=== PATIENT | male | born 1930 | race Caucasian/White ===

== ENCOUNTER → 2017-04-25 | Outpatient (CLI) | payer MEDICARE ==
[~2017-04-25] MED LIST: ATRV10T PO; DIGO125T91 PO; METF-380 PO; RMP5C PO; WARF7.5T49 PO
--- NOTE | 2017-04-25 16:46 | Diagnostic Imaging Report ---
PROCEDURE: CT cervical spine without contrast. TECHNIQUE: Multiple contiguous axial images were obtained through the cervical spine without the use of intravenous contrast. Sagittal and coronal reformations were then performed. INDICATION: Neck pain. COMPARISON: CT cervical spine without contrast 04/30/2016. FINDINGS: Minimal anterolisthesis of C3 on C4. Alignment is otherwise unremarkable. Vertebral body heights are maintained. No acute fractures. Biapical scarring. Moderate arterial calcifications including the carotid bifurcations. The visualized paravertebral soft tissues are otherwise unremarkable. C2-C3: No substantial spinal canal or right neural foraminal narrowing. Uncovertebral and facet arthropathy result in moderate left neural foraminal narrowing. C3-C4: Posterior disc osteophyte complex results in mild spinal canal narrowing. Uncovertebral and facet arthropathy result in moderate bilateral neural foraminal narrowing. C4-C5: Posterior disc osteophyte complex results in mild spinal canal and advanced right neural foraminal narrowing. There is moderate left neural foraminal narrowing. C5-C6: Posterior disc osteophyte complex results in at least moderate spinal canal narrowing on this noncontrast exam. There is advanced bilateral neural foraminal narrowing. C6-C7: No substantial spinal canal narrowing. Uncovertebral and facet arthropathy result in moderate bilateral neural foraminal narrowing. C7-T1: No substantial spinal canal or neural foraminal narrowing. IMPRESSION: 1. No acute CT findings in the cervical spine. 2. Spondylotic changes result in at least moderate spinal canal narrowing at C5-C6 on this noncontrast exam. Additional levels of at least mild spinal canal narrowing detailed above. This could be better evaluated with CT myelogram or MRI. 3. Diffuse moderate and advanced neural foraminal narrowing also detailed above. Dictated by: Dictated on workstation # [id number]
== END ==
LOC: RAD 14:42
PROVIDERS: ATTEND Specialist
DX: M48.02 Spinal stenosis, cervical region (principal); M47.812 Spondylosis without myelopathy or radiculopathy, cervical region
CPT/HCPCS: 72125

== ENCOUNTER 2018-09-12 08:49 | Observation (INO) | payer MEDICARE ==
[~2018-09-12] VITALS: Ht 177.8 cm; Wt 81.9 kg
[2018-09-12] MEDS ORDERED: NS IV 500 ML 500 ML IV ONE (09:03)
[2018-09-12 09:09] LABS: BASOPHILS % (AUTO) 0 % (0-10); EOSINOPHILS # (AUTO) 0.4 10^3/uL (0.0-0.3); EOSINOPHILS % (AUTO) 4 % (0-10); HEMATOCRIT 35 % (40-54); HEMOGLOBIN 11.5 G/DL (13.3-17.7); LYMPHOCYTES # (AUTO) 2.4 X 10^3 (1.0-4.0); LYMPHOCYTES % (AUTO) 26 % (12-44); MEAN CORPUSCULAR HEMOGLOBIN 28 PG (25-34); MEAN CORPUSCULAR HGB CONC 33 G/DL (32-36); MEAN CORPUSCULAR VOLUME 85 FL (80-99); MEAN PLATELET VOLUME 9.8 FL (7.4-10.4); MONOCYTES # (AUTO) 0.9 X 10^3 (0.0-1.0); MONOCYTES % (AUTO) 10 % (0-12); NEUTROPHILS # (AUTO) 5.5 X 10^3 (1.8-7.8); NEUTROPHILS % (AUTO) 60 % (42-75); PLATELET COUNT 320 10^3/uL (130-400); RED BLOOD COUNT 4.16 10^6/uL (4.35-5.85); RED CELL DISTRIBUTION WIDTH 16.6 % (10.0-14.5); WHITE BLOOD COUNT 9.2 10^3/uL (4.3-11.0)
[2018-09-12 09:14] VITALS: BP_SYST 120; BP_SYST 126; BP_SYST 83; BP_DIAS 51; BP_DIAS 67; BP_DIAS 72
[2018-09-12 09:23] LABS: ALANINE AMINOTRANSFERASE 20 U/L (0-55); ALKALINE PHOSPHATASE 44 U/L (40-136); BILIRUBIN,TOTAL 0.5 MG/DL (0.1-1.0); BUN/CREATININE RATIO 15; CALCIUM 9.3 MG/DL (8.5-10.1); CARBON DIOXIDE 23 MMOL/L (21-32); CHLORIDE 97 MMOL/L (98-107); CREATININE SERUM 0.92 MG/DL (0.60-1.30); GFR ESTIMATED > 60; GLUCOSE 152 MG/DL (70-105); POTASSIUM 4.4 MMOL/L (3.6-5.0); SODIUM 133 MMOL/L (135-145); TOTAL PROTEIN 7.1 GM/DL (6.4-8.2)
[2018-09-12 09:37] LABS: INR 2.3 (0.8-1.4); PROTHROMBIN TIME PATIENT 25.1 SEC (12.2-14.7)
--- NOTE | 2018-09-12 09:55 | ED General ---
General Chief Complaint: Dizziness/Syncope Stated Complaint: NECK PAIN,DIZZINESS Nursing Triage Note: ARRIVED VIA EMS FROM HOME ET PT STATES HE WOKE UP DIZZY. Nursing Sepsis Screen: No Definite Risk Source of Information: Patient Exam Limitations: No Limitations History of Present Illness Date Seen by Provider: Sep 12, 2018 Time Seen by Provider: 09:00 Initial Comments Here with report of feeling dizzy when he woke up for some mild headache and neck pain. Apparently fell but was assisted to the ground per EMS report. Patient is on warfarin. Initial vital signs in the field showed his blood pressure to be in the 50s systolic when he was lying down it was normal in the 110s to 120 systolic. Orthostatic vital sign shortly after arrival here show that he is positive orthostatically. Denies nausea or vomiting. Denies fever or chills. Denies chest pain or breathing problems. Was seen for a normal checkup with his primary care provider yesterday. Timing/Duration: 1-3 Hours Severity: Moderate Associated Systoms: No Chest Pain, No Cough, No Fever/Chills; Headaches; No Nausea/Vomiting, No Shortness of Air; Syncope (near syncope), Weakness Allergies and Home Medications Allergies Coded Allergies: Penicillins (Verified Allergy, Mild, hives, 11/26/11) Home Medications Warfarin Sodium 7.5 Mg Tablet, 7.5 MG PO DAILY, (Reported) at 1900 daily Patient Home Medication List Home Medication List Reviewed: Yes Review of Systems Review of Systems Constitutional: see HPI; No chills, No fever EENTM: no symptoms reported Respiratory: No cough, No short of breath Cardiovascular: No chest pain, No edema, No palpitations Gastrointestinal: No abdominal pain, No nausea, No vomiting Genitourinary: no symptoms reported Musculoskeletal: No back pain; neck pain Skin: no symptoms reported Psychiatric/Neurological: See HPI, Headache, Weakness Hematologic/Lymphatic: No Symptoms Reported All Other Systems Reviewed Negative Unless Noted: Yes Past Kfenpwm-Usqeip-Rdcstn Hx Past Med/Social Hx: Reviewed Nursing Past Med/Soc Hx Patient Social History Alcohol Use: Denies Use Recreational Drug Use: No Smoking Status: Former Smoker Recent Foreign Travel: No Contact w/Someone Who Travel: No Recent Infectious Disease Expo: No Immunizations Up To Date Date of Pneumonia Vaccine: Nov 22, 2010 Date of Influenza Vaccine: Sep 11, 2018 Past Medical History Surgeries: Yes Respiratory: No Cardiac: Yes (HEART STENTS) Neurological: No Kidney Stones Gastrointestinal: No Musculoskeletal: Yes Arthritis Endocrine: Yes Diabetes, 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 oz. 68.948423tm; BMI Method:Stated General Appearance: No Apparent Distress, WD/WN HEENT: PERRL/EOMI, Pharynx Normal Neck: Non Tender, Supple Respiratory: Lungs Clear, Normal Breath Sounds Cardiovascular: Regular Rate, Rhythm, No Murmur Gastrointestinal: Non Tender, Soft Back: Normal Inspection, No CVA Tenderness, No Vertebral Tenderness Extremity: Normal Range of Motion, Non Tender Neurologic/Psychiatric: Alert, Oriented x3 Skin: Normal Color, Warm/Dry Progress/Results/Core Measures Suspected Sepsis Recent Fever Within 48 Hours: No Infection Criteria Present: None New/Unexplained Altered Menta: No Sepsis Screen: No Definite Risk SIRS Temperature:96.9 Pulse: 91 Respiratory Rate: 16 Laboratory Tests 09/12/18 08:50: White Blood Count 9.2 Blood Pressure 83 /51 Mean: 62 Laboratory Tests 09/12/18 08:50: Creatinine 0.92, Platelet Count 320, Total Bilirubin 0.5 09/12/18 09:08: INR Comment 2.3H Results/Orders Lab Results Laboratory Tests Test 09/12/18 08:50 09/12/18 09:08 09/12/18 10:12 Range/Units White Blood Count 9.2 4.3-11.0 10^3/uL Red Blood Count 4.16 L 4.35-5.85 10^6/uL Hemoglobin 11.5 L 13.3-17.7 G/DL Hematocrit 35 L 40-54 % Mean Corpuscular Volume 85 80-99 FL Mean Corpuscular Hemoglobin 28 25-34 PG Mean Corpuscular Hemoglobin Concent 33 32-36 G/DL Red Cell Distribution Width 16.6 H 10.0-14.5 % Platelet Count 320 130-400 10^3/uL Mean Platelet Volume 9.8 7.4-10.4 FL Neutrophils (%) (Auto) 60 42-75 % Lymphocytes (%) (Auto) 26 12-44 % Monocytes (%) (Auto) 10 0-12 % Eosinophils (%) (Auto) 4 0-10 % Basophils (%) (Auto) 0 0-10 % Neutrophils # (Auto) 5.5 1.8-7.8 X 10^3 Lymphocytes # (Auto) 2.4 1.0-4.0 X 10^3 Monocytes # (Auto) 0.9 0.0-1.0 X 10^3 Eosinophils # (Auto) 0.4 H 0.0-0.3 10^3/uL Basophils # (Auto) 0.0 0.0-0.1 10^3/uL Sodium Level 133 L 135-145 MMOL/L Potassium Level 4.4 3.6-5.0 MMOL/L Chloride Level 97 L 98-107 MMOL/L Carbon Dioxide Level 23 21-32 MMOL/L Anion Gap 13 5-14 MMOL/L Blood Urea Nitrogen 14 7-18 MG/DL Creatinine 0.92 0.60-1.30 MG/DL Estimat Glomerular Filtration Rate > 60 BUN/Creatinine Ratio 15 Glucose Level 152 H 70-105 MG/DL Calcium Level 9.3 8.5-10.1 MG/DL Corrected Calcium 9.3 8.5-10.1 MG/DL Total Bilirubin 0.5 0.1-1.0 MG/DL Aspartate Amino Transf (AST/SGOT) 19 5-34 U/L Alanine Aminotransferase (ALT/SGPT) 20 0-55 U/L Alkaline Phosphatase 44 40-136 U/L Total Protein 7.1 6.4-8.2 GM/DL Albumin 4.0 3.2-4.5 GM/DL Prothrombin Time 25.1 H 12.2-14.7 SEC INR Comment 2.3 H 0.8-1.4 Activated Partial Thromboplast Time 26 24-35 SEC Urine Color YELLOW Urine Clarity CLEAR Urine pH 7 5-9 Urine Specific [place] 1.005 L 1.016-1.022 Urine Protein NEGATIVE NEGATIVE Urine Glucose (UA) NEGATIVE NEGATIVE Urine Ketones NEGATIVE NEGATIVE Urine Nitrite NEGATIVE NEGATIVE Urine Bilirubin NEGATIVE NEGATIVE Urine Urobilinogen NORMAL NORMAL MG/DL Urine Leukocyte Esterase NEGATIVE NEGATIVE Urine RBC (Auto) NEGATIVE NEGATIVE Urine RBC RARE /HPF Urine WBC RARE /HPF Urine Squamous Epithelial Cells RARE /HPF Urine Renal Epithelial Cells NONE /HPF Urine Crystals NONE /LPF Urine Bacteria NEGATIVE /HPF Urine Casts PRESENT /LPF Urine Hyaline Casts 2-5 H /LPF Urine Granular Casts RARE /LPF Urine Mucus NEGATIVE /LPF Urine Culture Indicated NO My Orders Orders - TRESA SAMPSON MD Ct Head/Cervical Spine Wo (09/12/18 09:03) Saline Lock/Iv-Start (09/12/18 09:03) Cbc With Automated Diff (09/12/18 09:03) Comprehensive Metabolic Panel (09/12/18 09:03) Protime With Inr (09/12/18:03) Partial Thromboplastin Time (09/12/18 09:03) Ua Culture If Indicated (09/12/18 09:03) Ns Iv 500 Ml (Sodium Chloride 0.9%) (09/12/18 09:03) Ekg Tracing (09/12/18 09:03) Monitor-Rhythm Ecg Trace Only (09/12/18 09:03) Medications Given in ED Current Medications Medications Dose Ordered Sig/Vielka Route Start Time Stop Time Status Last Admin Dose Admin Sodium Chloride 500 ml @ 0 mls/hr Q0M ONCE IV 09/12/18 09:03 09/12/18 09:05 DC 09/12/18 09:17 500 MLS/HR Vital Signs/I&O 09/12/18 09/12/18 09/12/18 08:49 09:14 10:45 Temp 96.9 Pulse 78 76 87 70 90 91 103 Resp 16 B/P (MAP) 117/70 (86) 126/72 (90) 120/67 (84) 125/70 (88) 83/51 (62) 97/56 (70) 76/55 (62) Pulse Ox 95 O2 Delivery Room Air Capillary Refill : Less Than 3 Seconds Blood Pressure Mean: 62 Progress Note : Progress Note Seen and evaluated. IV by EMS. Labs, EKG, CT head and neck and UA ordered. Monitor patient. 1150: Normal saline 500 mL bolus has been instilled. Recheck orthostatic vital signs and patient is still markedly positive with systolic blood pressure in the 70s when standing. No other significant or acute findings. I did discuss the case with Dr. Perez and she accepts patient for admission, observation status. We will continue IV fluids. Patient is on oral glycemia medicines as well as blood pressure medicines. We will hold that for now. The is going home to get his medication bottles to help with dosing. Patient has doctor in [place] that he wants to transfer to [place]. He is considering Dr. David Aguilera. Admit, observation status. Patient and family agree with plan. ECG Initial ECG Impression Date: Sep 12, 2018 Initial ECG Impression Time: 09:39 Initial ECG Rate: 74 Initial ECG Rhythm: Normal Sinus Comment Sinus rhythm with normal axis. No evidence of ST elevation [place]. Similar to previous of 04/30/16. Interpreted by me. Diagnostic Imaging Diagonstic Imaging: CT Plain Films/CT/US/NM/MRI: c-spine, head Comments VIA [facility], [facility]. [place], [place] NAME: AMANDA SOTELO [facility] REC#: [id number] PT STATUS: REG ER : 1930 PHYSICIAN: TRESA SAMPSON MD ADMIT DATE: 09/12/18/ER Draft Date of Exam:09/12/18 CT HEAD/CERVICAL SPINE WO PROCEDURE: CT head and CT cervical spine without contrast. TECHNIQUE: Multiple contiguous axial images were obtained through the brain and cervical spine without the use of intravenous contrast. Sagittal and coronal reformations through the cervical spine were then performed. INDICATION: Fall and neck pain. Comparison is made with prior CT from 04/30/2016. CT head: The ventricles and sulci are appropriate for the patient's age. Moderate periventricular hypodensity is noted consistent with senescent change. No sulcal effacement is seen. There is no midline shift. No acute intra-axial or extra-axial hemorrhage is detected. The cisterns are patent. The visualized paranasal sinuses are clear. IMPRESSION: Senescent changes. No acute intracranial process is detected. CT cervical spine: Correlation is made with CT cervical spine from 04/25/2017. Curvature of the cervical spine is normal. Minimal retrolisthesis C5 on C6 is seen. There is multilevel degenerative disc disease with disc space narrowing and marginal spurring, greatest at C4-5, C5-6 and C6-7 levels. No fractures are identified. The prevertebral tissues are within normal limits. The odontoid is intact. IMPRESSION: Cervical spondylosis. No acute bony abnormality is detected. Dictated on workstation # [id number] Dict: 09/12/1851 Trans: 09/12/1857 [facility], [facility]–1983 [id number] Interpreted by: RUTHIE SANDRA MD Electronically signed by: Departure Communication (Admissions) Time/Spoke to Admitting Phy: 10:53 Impression Primary Impression: Orthostatic hypotension Disposition: ADMITTED INPATIENT Condition: Stable Admissions Decision to Admit Reason: Admit from ER (General) Decision to Admit/Date: Sep 12, 2018 Time/Decision to Admit Time: 10:53 Departure-Patient Inst. Referrals: CHELSEA QUINTANILLA MD (PCP/Family) Primary Care Physician TRESA SAMPSON MD Sep 12, 2018 09:55
--- NOTE | 2018-09-12 09:58 | Diagnostic Imaging Report ---
PROCEDURE: CT head and CT cervical spine without contrast. TECHNIQUE: Multiple contiguous axial images were obtained through the brain and cervical spine without the use of intravenous contrast. Sagittal and coronal reformations through the cervical spine were then performed. INDICATION: Fall and neck pain. Comparison is made with prior CT from 04/30/2016. CT head: The ventricles and sulci are appropriate for the patient's age. Moderate periventricular hypodensity is noted consistent with senescent change. No sulcal effacement is seen. There is no midline shift. No acute intra-axial or extra-axial hemorrhage is detected. The cisterns are patent. The visualized paranasal sinuses are clear. IMPRESSION: Senescent changes. No acute intracranial process is detected. CT cervical spine: Correlation is made with CT cervical spine from 04/25/2017. Curvature of the cervical spine is normal. Minimal retrolisthesis C5 on C6 is seen. There is multilevel degenerative disc disease with disc space narrowing and marginal spurring, greatest at C4-5, C5-6 and C6-7 levels. No fractures are identified. The prevertebral tissues are within normal limits. The odontoid is intact. IMPRESSION: Cervical spondylosis. No acute bony abnormality is detected. Dictated by: Dictated on workstation # [id number]
[2018-09-12 10:22] LABS: BILIRUBIN,URINE NEGATIVE (NEGATIVE); CLARITY,URINE CLEAR; COLOR,URINE YELLOW; GLUCOSE, URINE (UA) NEGATIVE (NEGATIVE); KETONES,URINE NEGATIVE (NEGATIVE); LEUKOCYTE ESTERASE ,URINE NEGATIVE (NEGATIVE); NITRITE,URINE NEGATIVE (NEGATIVE); PH,URINE 7 (5-9); PROTEIN,URINE NEGATIVE (NEGATIVE); UROBILINOGEN,URINE NORMAL (NORMAL)
[2018-09-12 10:43] LABS: BACTERIA,URINE NEGATIVE /HPF; GRANULAR CASTS,URINE RARE /LPF; RBC,URINE RARE /HPF; SQUAMOUS EPITHELIAL CELL,UR RARE /HPF; WBC,URINE RARE /HPF
[2018-09-12 10:45] VITALS: BP_SYST 125; BP_SYST 76; BP_SYST 97; BP_DIAS 55; BP_DIAS 56; BP_DIAS 70
[2018-09-12 11:45] VITALS: BP 128/64
[2018-09-12] MEDS ORDERED: CATHETER FLUSH 10 ML SYR IV PRN (12:15)
[2018-09-12] MEDS: NS IV 1000 ML 1,000 ML IV SCH ×2 (12:17→21:09)
[2018-09-12] MEDS ORDERED: MAGN400T50 PO (13:16)
[2018-09-12] MEDS ORDERED: METF-399 PO (13:16)
[2018-09-12] MEDS ORDERED: WARF6TAB49 PO (13:16)
[2018-09-12] MEDS ORDERED: CARV3.122 PO (13:16)
[2018-09-12] MEDS ORDERED: FURO20TA4 PO (13:16)
[2018-09-12] MEDS ORDERED: POTA-51 PO (13:16)
[2018-09-12] MEDS ORDERED: GLIM1TAB PO (13:16)
[2018-09-12] MEDS ORDERED: ONDANSETRON 4 MG/2 ML (SDV) Z0FRAN IV PRN (14:00)
[2018-09-12] MEDS ORDERED: MILK OF MAGNESIA 400 MG/5 ML 30 ML UDC PO PRN (14:00)
[2018-09-12] MEDS ORDERED: ACETAMINOPHEN 500 MG TAB (TYLENOL) PO PRN (14:00)
[2018-09-12] MEDS ORDERED: ANTACID SUSP 30 ML UDC (MYLANTA) PO PRN (14:00)
[2018-09-12] MEDS ORDERED: MELATONIN 3 MG TABLET PO PRN (14:00)
[2018-09-12] MEDS ORDERED: ACETAMINOPHEN 325 MG TABLET PO PRN (14:30)
--- NOTE | 2018-09-12 15:22 | History & Physical-Hospitalist ---
History of Present Illness HPI/Chief Complaint Pt is an 88yoCM with a PMH of CAD, HTN, and NIDDMII who presented to the ER due to syncope. He states that he was sitting in a chair in his kitchen and was going to stand up to go to the bathroom and then woke up on the floor. His states that did not get up and just passed out from the chair. He was only out for a few seconds. EMS was called and on arrival found him to be very hypotensive ( SBP of 54) but when he was sat up his BP improved. He was brought to the ER and was still veryorthostatic and unable to stand without feeling light headed. He had taken his medications this morning (lasix and multiple antihypertensives). He has a history of syncope but has not had any issues since he was diagnosed with DM and started treatment. Source: patient Exam Limitations: no limitations Date Seen 09/12/18 Time Seen by a Provider: 14:56 Attending Physician Neftaly Perez MD PCP Hola Dunlap MD Referring Physician Date of Admission Sep 12, 2018 at 11:26 am Home Medications & Allergies Home Medications Reviewed patient Home Medication Reconciliation performed by pharmacy medication reconciliations quality assurance/r&d lab technician and/or nursing. Patients Allergies have been reviewed. Allergies Allergies Coded Allergies Penicillins (Verified Allergy, Mild, hives, 11/26/11) Past Busjsvc-Luwbru-Xwsibo Hx Past Med/Social Hx: Reviewed Nursing Past Med/Soc Hx Patient Social History Marrital Status: Employed/Student: retired Alcohol Use: Denies Use Recreational Drug Use: No Smoking Status: Former Smoker Physical Abuse Screen: No Sexual Abuse: No Recent Foreign Travel: No Contact w/other who traveled: No Recent Hopitalizations: No Recent Infectious Disease Expo: No Immunizations Up To Date Pediatric: Yes Date of Pneumonia Vaccine: Nov 22, 2010 Date of Influenza Vaccine: Sep 11, 2018 Past Medical History Cardiac: Coronary Artery Disease, Hypertension Genitourinary: Kidney Stones Musculoskeletal: Arthritis Endocrine: Diabetes, Non-Insulin dep HEENT: Cataract Hearing Impairment: Hard of Hearing What Type of Treatment Did You: Radiation History of Blood Disorders: No Family History Reviewed Nursing Family Hx No Pertinent Family Hx Review of Systems Constitutional: No chills, No fever EENTM: No blurred vision, No double vision, No nose congestion, No throat pain Respiratory: No cough, No dyspnea on exertion, No short of breath Cardiovascular: No chest pain, No palpitations; syncope Gastrointestinal: No abdominal pain, No constipation, No diarrhea, No nausea, No vomiting Genitourinary: No dysuria, No frequency Musculoskeletal: No joint pain, No muscle pain Skin: No lesions, No rash Psychiatric/Neurological: Denies Headache, Denies Numbness, Denies Tingling Physical Exam Physical Exam Vital Signs Vital Signs - First Documented 09/12/18 08:49 Temp 96.9 Pulse 78 Resp 16 B/P (MAP) 117/70 (86) Pulse Ox 95 O2 Delivery Room Air Capillary Refill : Less Than 3 Seconds Height, Weight, BMI Height: 5'10.00" Weight: 180lbs. 8.0oz. 81.033561wi; 21.6 BMI Method:Stated General Appearance: No Apparent Distress, WD/WN HEENT: PERRL/EOMI, Moist Mucous Membranes Neck: Non Tender, Supple Respiratory: Lungs Clear, No Respiratory Distress Cardiovascular: Regular Rate, Rhythm, No Murmur Gastrointestinal: Normal Bowel Sounds, Non Tender, Soft Extremity: Normal Capillary Refill, No Calf Tenderness Neurologic/Psychiatric: Alert, Oriented x3, Normal Mood/Affect Skin: Normal Color, Warm/Dry Results Results/Procedures Labs Laboratory Tests 09/12/18 08:50 Patient resulted labs reviewed. Imaging: Reviewed Imaging Report Assessment/Plan Admission Diagnosis Syncope Admission Status: Observation Diagnosis/Problems Diagnosis/Problems (1) Syncope Assessment & Plan: Likely due to orthostasis Will monitor on telemetry Echo ordered Qualifiers: Syncope type: unspecified Qualified Codes: R55 - Syncope and collapse (2) Orthostatic hypotension Status: Acute Assessment & Plan: Continue IVF Fall risk (3) CAD (coronary artery disease) Status: Chronic Assessment & Plan: history of stent placed at outside hospital Continue abx Qualifiers: Coronary Disease-Associated Artery/Lesion type: [place] artery [place] vs. transplanted heart: [place] heart Associated angina: without angina Qualified Codes: I25.10 - Atherosclerotic heart disease of [place] coronary artery without angina pectoris (4) HTN (hypertension) Assessment & Plan: Hold home antihypertensives Qualifiers: Hypertension type: essential hypertension Qualified Codes: I10 - Essential (primary) hypertension (5) Non-insulin dependent type 2 diabetes mellitus Assessment & Plan: Hold metformin Continue SSI Clinical Quality Measures DVT/VTE Risk/Contraindication: Risk Factor Score Per Nursin RFS Level Per Nursing on Admit: 2=Moderate NEFTALY PEREZ MD Sep 12, 2018 3:22 pm
[2018-09-12 16:12] VITALS: BP 129/70
[2018-09-12] MEDS: inSUlin ASPART (NovoLOG) 1 UNIT/0.01 ML (CHARGE PER UNIT) SC SCH ×2 (16:52→19:50)
[2018-09-12] MEDS ORDERED: warFARin 7.5 MG (COUMADIN) TAB PO SCH (18:00)
[2018-09-12 19:30] VITALS: BP 149/70
[2018-09-13] VITALS: BP 155/74
[2018-09-13 04:27] LABS: BASOPHILS # (AUTO) 0.1 10^3/uL (0.0-0.1); BASOPHILS % (AUTO) 1 % (0-10); EOSINOPHILS # (AUTO) 0.4 10^3/uL (0.0-0.3); EOSINOPHILS % (AUTO) 4 % (0-10); HEMATOCRIT 34 % (40-54); HEMOGLOBIN 11.1 G/DL (13.3-17.7); LYMPHOCYTES # (AUTO) 2.9 X 10^3 (1.0-4.0); LYMPHOCYTES % (AUTO) 35 % (12-44); MEAN CORPUSCULAR HEMOGLOBIN 27 PG (25-34); MEAN CORPUSCULAR HGB CONC 33 G/DL (32-36); MEAN CORPUSCULAR VOLUME 84 FL (80-99); MEAN PLATELET VOLUME 9.6 FL (7.4-10.4); MONOCYTES # (AUTO) 0.9 X 10^3 (0.0-1.0); MONOCYTES % (AUTO) 11 % (0-12); NEUTROPHILS # (AUTO) 4.1 X 10^3 (1.8-7.8); NEUTROPHILS % (AUTO) 49 % (42-75); PLATELET COUNT 268 10^3/uL (130-400); RED BLOOD COUNT 4.08 10^6/uL (4.35-5.85); RED CELL DISTRIBUTION WIDTH 16.3 % (10.0-14.5); WHITE BLOOD COUNT 8.3 10^3/uL (4.3-11.0)
[2018-09-13 04:54] LABS: ALANINE AMINOTRANSFERASE 18 U/L (0-55); ALBUMIN 3.8 GM/DL (3.2-4.5); ALKALINE PHOSPHATASE 46 U/L (40-136); BILIRUBIN,TOTAL 0.5 MG/DL (0.1-1.0); BUN/CREATININE RATIO 20; CALCIUM 8.7 MG/DL (8.5-10.1); CARBON DIOXIDE 23 MMOL/L (21-32); CHLORIDE 100 MMOL/L (98-107); GFR ESTIMATED > 60; GLUCOSE 134 MG/DL (70-105); POTASSIUM 3.7 MMOL/L (3.6-5.0); SODIUM 134 MMOL/L (135-145); TOTAL PROTEIN 6.7 GM/DL (6.4-8.2)
[2018-09-13 05:02] LABS: INR 2.7 (0.8-1.4); PROTHROMBIN TIME PATIENT 28.8 SEC (12.2-14.7)
[2018-09-13] MEDS: NS IV 1000 ML 1,000 ML IV SCH (05:31)
[2018-09-13] MEDS: inSUlin ASPART (NovoLOG) 1 UNIT/0.01 ML (CHARGE PER UNIT) SC SCH ×2 (05:49→10:04)
[2018-09-13 06:00] VITALS: BP 153/89
[2018-09-13 07:28] VITALS: BP 170/78
[2018-09-13 09:55] VITALS: BP_SYST 125; BP_SYST 132; BP_SYST 150; BP_DIAS 68; BP_DIAS 69; BP_DIAS 84
--- NOTE | 2018-09-13 10:27 | Physical Therapy Evaluation ---
PT Evaluation-General Medical Diagnosis Admission Date Sep 12, 2018 at 11:26 Medical Diagnosis: Orthostatic Hypotension Onset Date: Sep 12, 2018 Therapy Diagnosis Therapy Diagnosis: Debility / General Weakness Height/Weight Height (Feet): 5 Height (Inches): 10.00 Weight (Pounds): 180 Weight (Ounces): 8.0 Precautions Precautions/Isolations: Fall Prevention, Standard Precautions Weight Bear Status Right Lower Extremity: Right Weight Bearing/Tolerated Left Lower Extremity: Left Weight Bearing/Tolerated Referral Reason for Referral: Evaluation/Treatment Medical History Additional Medical History Orthostatic hypotension, Syncope, CAD, HTN, Type 2 DM Current History Patient admitted to hospital for orthostatic hypotension. Reviewed History: Yes Social History Home: Single Level Current Living Status: Spouse Entry Into Home: Stairs With Railing PT Steps Into Home: 4 PT Steps Inside Home: 0 Prior/Core FIM Prior Level of Function Functional [place] Measure 0=Not Assessed/NA 4=Minimal Assistance 1=Total Assistance 5=Supervision or Setup 2=Maximal Assistance 6=Modified [place] 3=Moderate Assistance 7=Complete IndependenceIRFPAI Quality Coding Scale 6 Independent with activity with or without an assistive device 5 Patient requires set up or clean up by helper. Patient completes activity by themselves 4 Supervision or touching assist (CGA). [place] provide cues , steadying assist 3 The helper provides less than half the effort to complete the activity 2 The helper provides more than half the effort to complete the activity 1 Dependent. The helper does all the effort to complete an activity 7 Patient refused to complete or attempt activity 9 The patient did not perform the activity before the current illness or injury 88 Not attempted due to Medical conditions or safety concerns Bed Mobility: 6 Transfers (B,C,W/C) (FIM): 6 Gait: 6 Stairs: 6 Prior Equipment Used: single point cane PT Evaluation-Current Subjective Pt awake in bed visiting with when PT arrived. Pt agreed to PT evaluation. Pain Numeric Pain Scale: 0-No Pain Location: No Pain Reported Objective Patient Orientation: Normal For Age Problem Solving: Fair Attachments: IV ROM/Strength ROM Upper Extremities WNL ROM Lower Extremities WNL Strength Upper Extremities WNL Strength Lower Extremities WNL Integumentary/Posture Bowel Incontinence: No Bladder Incontinence: No Neuromuscular (Tone, Coordination, Reflexes) NT Sensory Vision: Wears Glasses Hearing: Functional Sensation Right Upper Extremit: Intact Sensation Left Upper Extremity: Intact Sensation Right Lower Extremit: Intact Sensation Left Lower Extremity: Intact Transfers Functional [place] Measure 0=Not Assessed/NA 4=Minimal Assistance 1=Total Assistance 5=Supervision or Setup 2=Maximal Assistance 6=Modified [place] 3=Moderate Assistance 7=Complete [place] Transfers (B, C, W/C) (FIM): 7 Scootin Rollin Supine to/from Sit: 7 Sit to/from Stand: 7 Gait Mode of Locomotion: Walk Anticipated Mode of Locomotion: Walk Gait (FIM): 7 Distance (FIM): 3=150 ft Distance: 150' Gait Level of Assist: 7 Gait Persons Needed: 1 Gait Assistive Device: None Comments/Gait Description Patient ambulated with a flexed posture without any AD. Per patient report, he will utilize a cane at home. Balance Sitting Static: Normal Sitting Dynamic: Normal Standing Static: Good Standing Dynamic: Good Assessment/Needs Patient was MOD I in bed mobility and transfers. Pt was able to ambulate without AD and did not show any signs of fatigue or orthostatic hypotension. Patient is being DC today(09/13/18) Rehab Potential: Good PT Plan Problem List Problem List: Activity Tolerance, Functional Strength, Balance, Gait Treatment/Plan Treatment Plan: Discontinue PT Treatment Plan: Bed Mobility, Education, Functional Activity Giacomo, Functional Strength, Gait, Safety, Therapeutic Exercise, Transfers Treatment Duration: Sep 13, 2018 Frequency: 1 time per week Estimated Hrs Per Day: .25 hour per day Patient and/or Family Agrees t: Yes Time/GCodes Time In: 1009 Time Out: 1018 Total Billed Treatment Time: 9 Total Billed Treatment 1 Visit EVLowC - 9' G Codes Necessary: Yes PT/OT Therapy GCodes Therapy Functional Limitation: Physical Therapy Test(s)/Tool used to determine: Level of Assistance Scale Functional Limitation-Current Charge Code: MOBCUR Modifier: CH Functional Limitation-Goal Charge Code: MOBGOAL Modifier: CH Functional Limitation-D/C Charge Codes: MOBDC Modifier: CH JAZLYN KENNY PT Sep 13, 2018 10:27
[2018-09-13 12:20] VITALS: BP 125/68
[2018-09-13] MEDS ORDERED: warFARin 3 MG (COUMADIN) TAB PO SCH (18:00)
--- NOTE | 2018-09-17 15:29 | Physician Query-Final Dx ---
Final Diagnosis Give Final Diagnosis Please give Final Diagnosis ELVIRA HARPER Sep 17, 2018 15:29
== END 2018-09-13 10:56 | disposition home or self-care (01) ==
LOC: EDUNIT# 08:49 → ER 08:50 → 4TH 11:26 → UNDOADMOB 11:26 → 4TH 11:45 → UNDODISOB 09-13 12:00
PROVIDERS: ADMIT Family Medicine; ATTEND Family Medicine
DX: I95.1 Orthostatic hypotension (principal); I25.10 Atherosclerotic heart disease of native coronary artery without angina pectoris; I10 Essential (primary) hypertension; E11.9 Type 2 diabetes mellitus without complications; Z79.84 Long term (current) use of oral hypoglycemic drugs; Z95.5 Presence of coronary angioplasty implant and graft; Z79.01 Long term (current) use of anticoagulants
CPT/HCPCS: 36415; 70450; 72125; 80053; 81000; 82962; 85025; 85610; 85730; 93005; 93041; 93306

== ENCOUNTER 2018-10-12 08:43 | Emergency (ER) | payer MEDICARE ==
[~2018-10-12] VITALS: Ht 177.8 cm; Wt 68.0 kg
[~2018-10-12 08:43] MED LIST changes: +CARV3.122 PO; +FURO20TA4 PO; +GLIM1TAB PO; +MAGN400T50 PO; +METF-399 PO; +POTA-51 PO; +WARF6TAB49 PO
--- OUTSIDE RECORDS SUMMARY | 2018-10-12 08:48 | XMS REPORT | Continuity of Care Document ---
Author Author [facility] Organization [facility] Address Unknown Phone Unavailable Allergies Active Description Code Type Severity Reaction Onset Reported/Identified Relationship to Patient Clinical Status Yes Penicillins [id number] Drug Allergy Mild hives 11/26/2011 Medications There is no data. Problems Date Dx Coded Attending Type Code Diagnosis Diagnosed By 04/30/2016 CRISTAL DIAZ MD Ot I95.9 HYPOTENSION, UNSPECIFIED 04/30/2016 CRISTAL DIAZ MD Ot S40.021A CONTUSION OF RIGHT UPPER ARM, INITIAL EN 04/30/2016 CRISTAL DIAZ MD Ot S40.022A CONTUSION OF LEFT UPPER ARM, INITIAL ENC 04/30/2016 CRISTAL DIAZ MD Ot S50.311A ABRASION OF RIGHT ELBOW, INITIAL ENCOUNT 04/30/2016 CRISTAL DIAZ MD Ot S80.212A ABRASION, LEFT KNEE, INITIAL ENCOUNTER 04/30/2016 CRISTAL DIAZ MD Ot W01.0XXA FALL SAME LEV FROM SLIP/TRIP W/O STRIKE 04/30/2016 CRISTAL DIAZ MD Ot Y92.[address] [facility] (PRIVATE 04/30/2016 CRISTAL DIAZ MD Ot Y99.8 OTHER EXTERNAL CAUSE STATUS 05/02/2016 CRISTAL DIAZ MD Ot I95.9 HYPOTENSION, UNSPECIFIED 05/02/2016 CRISTAL DIAZ MD Ot S40.021A CONTUSION OF RIGHT UPPER ARM, INITIAL EN 05/02/2016 CRISTAL DIAZ MD Ot S40.022A CONTUSION OF LEFT UPPER ARM, INITIAL ENC 05/02/2016 CRISTAL DIAZ MD Ot S50.311A ABRASION OF RIGHT ELBOW, INITIAL ENCOUNT 05/02/2016 CRISTAL DIAZ MD Ot S80.212A ABRASION, LEFT KNEE, INITIAL ENCOUNTER 05/02/2016 CRISTAL DIAZ MD Ot W01.0XXA FALL SAME LEV FROM SLIP/TRIP W/O STRIKE 05/02/2016 JOE SUÁREZ, CRISTAL Marie Ot Y92.[address] [facility] (PRIVATE 05/02/2016 CRISTAL DIAZ MD Ot Y99.8 OTHER EXTERNAL CAUSE STATUS 05/05/2016 JOE SUÁREZ, CRISTAL Marie Ot I95.9 HYPOTENSION, UNSPECIFIED 05/05/2016 JOE SUÁREZ, CRISTAL Marie Ot S40.021A CONTUSION OF RIGHT UPPER ARM, INITIAL EN 05/05/2016 JOE SUÁREZ, CRISTAL Marie Ot S40.022A CONTUSION OF LEFT UPPER ARM, INITIAL ENC 05/05/2016 JOE SUÁREZ, CRISTAL Marie Ot S50.311A ABRASION OF RIGHT ELBOW, INITIAL ENCOUNT 05/05/2016 CRISTAL DIAZ MD Ot S80.212A ABRASION, LEFT KNEE, INITIAL ENCOUNTER 05/05/2016 JOE SUÁREZ, CRISTAL Marie Ot W01.0XXA FALL SAME LEV FROM SLIP/TRIP W/O STRIKE 05/05/2016 CRISTAL DIAZ MD Ot Y92.[address] IN [facility] NON-[facility] (PRIVATE 05/05/2016 JOE SUÁREZ, CRISTAL Marie Ot Y99.8 OTHER EXTERNAL CAUSE STATUS 05/16/2017 DWIGHT SUÁREZ, CHELSEA Marie Ot 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 W/O MYELOPATHY OR RADICULOPA 05/16/2017 DWIGHT SUÁREZ, CHELSEA S Ot M48.02 SPINAL STENOSIS, CERVICAL REGION 05/28/2017 DWIGHT SUÁREZ, CHELSEA Marie Ot 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 W/O MYELOPATHY OR RADICULOPA 05/28/2017 DWIGHT SUÁREZ, CHELSEA Marie Ot M48.02 SPINAL STENOSIS, CERVICAL REGION 09/13/2018 NEFTALY VILLALOBOS MD Ot E11.9 TYPE 2 DIABETES MELLITUS WITHOUT COMPLIC 09/13/2018 NEFTALY VILLALOBOS MD Ot I10 ESSENTIAL (PRIMARY) HYPERTENSION 09/13/2018 NEFTALY VILLALOBOS MD Ot I25.10 ATHSCL HEART DISEASE OF [place] CORONARY 09/13/2018 NEFTALY VILLALOBOS MD Ot I95.1 ORTHOSTATIC HYPOTENSION 09/13/2018 NEFTALY VILLALOBOS MD Ot 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 Results Test Result Range Complete blood count (CBC) with automated white blood cell (WBC) differential - 09/12/18 08:50 Blood leukocytes automated count (number/volume) 9.2 10*3/uL 4.3-11.0 Blood erythrocytes automated count (number/volume) 4.16 10*6/uL 4.35-5.85 Venous blood hemoglobin measurement (mass/volume) 11.5 g/dL 13.3-17.7 Blood hematocrit (volume fraction) 35 % 40-54 Automated erythrocyte mean corpuscular volume 85 [foz_us] 80-99 Automated erythrocyte mean corpuscular hemoglobin (mass per erythrocyte) 28 pg 25-34 Automated erythrocyte mean corpuscular hemoglobin concentration measurement ( mass/volume) 33 g/dL 32-36 Automated erythrocyte distribution width ratio 16.6 % 10.0-14.5 Automated blood platelet count (count/volume) 320 10*3/uL 130-400 Automated blood platelet mean volume measurement 9.8 [foz_us] 7.4-10.4 Automated blood neutrophils/100 leukocytes 60 % 42-75 Automated blood lymphocytes/100 leukocytes 26 % 12-44 Blood monocytes/100 leukocytes 10 % 0-12 Automated blood eosinophils/100 leukocytes 4 % 0-10 Automated blood basophils/100 leukocytes 0 % 0-10 Blood neutrophils automated count (number/volume) 5.5 10*3 1.8-7.8 Blood lymphocytes automated count (number/volume) 2.4 10*3 1.0-4.0 Blood monocytes automated count (number/volume) 0.9 10*3 0.0-1.0 Automated eosinophil count 0.4 10*3/uL 0.0-0.3 Automated blood basophil count (count/volume) 0.0 10*3/uL 0.0-0.1 Comprehensive metabolic panel - 09/12/18 08:50 Serum or plasma sodium measurement (moles/volume) 133 mmol/L 135-145 Serum or plasma potassium measurement (moles/volume) 4.4 mmol/L 3.6-5.0 Serum or plasma chloride measurement (moles/volume) 97 mmol/L 98-107 Carbon dioxide 23 mmol/L 21-32 Serum or plasma anion gap determination (moles/volume) 13 mmol/L 5-14 Serum or plasma urea nitrogen measurement (mass/volume) 14 mg/dL 7-18 Serum or plasma creatinine measurement (mass/volume) 0.92 mg/dL 0.60-1.30 Serum or plasma urea nitrogen/creatinine mass ratio 15 NRG Serum or plasma creatinine measurement with calculation of estimated glomerular filtration rate > NRG Serum or plasma glucose measurement (mass/volume) 152 mg/dL 70-105 Serum or plasma calcium measurement (mass/volume) 9.3 mg/dL 8.5-10.1 Serum or plasma total bilirubin measurement (mass/volume) 0.5 mg/dL 0.1-1.0 Serum or plasma alkaline phosphatase measurement (enzymatic activity/volume) 44 U/L 40-136 Serum or plasma aspartate aminotransferase measurement (enzymatic activity/ volume) 19 U/L 5-34 Serum or plasma alanine aminotransferase measurement (enzymatic activity/volume ) 20 U/L 0-55 Serum or plasma protein measurement (mass/volume) 7.1 g/dL 6.4-8.2 Serum or plasma albumin measurement (mass/volume) 4.0 g/dL 3.2-4.5 CALCIUM CORRECTED 9.3 mg/dL 8.5-10.1 PT panel in platelet poor plasma by coagulation assay - 09/12/18 09:08 Prothrombin time (PT) in platelet poor plasma by coagulation assay 25.1 s 12.2-14.7 INR in platelet poor plasma or blood by coagulation assay 2.3 0.8-1.4 Activated partial thromboplastin time (aPTT) in platelet poor plasma bycoagulation assay - 09/12/18 09:08 Activated partial thromboplastin time (aPTT) in platelet poor plasma bycoagulation assay 26 s 24-35 Capillary blood glucose measurement by glucometer (mass/volume) - 09/12/18 16: 09 Capillary blood glucose measurement by glucometer (mass/volume) 238 mg/dL 70-110 Capillary blood glucose measurement by glucometer (mass/volume) - 09/12/18 19: 40 Capillary blood glucose measurement by glucometer (mass/volume) 214 mg/dL 70-110 Complete blood count (CBC) with automated white blood cell (WBC) differential - 09/13/18 04:20 Blood leukocytes automated count (number/volume) 8.3 10*3/uL 4.3-11.0 Blood erythrocytes automated count (number/volume) 4.08 10*6/uL 4.35-5.85 Venous blood hemoglobin measurement (mass/volume) 11.1 g/dL 13.3-17.7 Blood hematocrit (volume fraction) 34 % 40-54 Automated erythrocyte mean corpuscular volume 84 [foz_us] 80-99 Automated erythrocyte mean corpuscular hemoglobin (mass per erythrocyte) 27 pg 25-34 Automated erythrocyte mean corpuscular hemoglobin concentration measurement ( mass/volume) 33 g/dL 32-36 Automated erythrocyte distribution width ratio 16.3 % 10.0-14.5 Automated blood platelet count (count/volume) 268 10*3/uL 130-400 Automated blood platelet mean volume measurement 9.6 [foz_us] 7.4-10.4 Automated blood neutrophils/100 leukocytes 49 % 42-75 Automated blood lymphocytes/100 leukocytes 35 % 12-44 Blood monocytes/100 leukocytes 11 % 0-12 Automated blood eosinophils/100 leukocytes 4 % 0-10 Automated blood basophils/100 leukocytes 1 % 0-10 Blood neutrophils automated count (number/volume) 4.1 10*3 1.8-7.8 Blood lymphocytes automated count (number/volume) 2.9 10*3 1.0-4.0 Blood monocytes automated count (number/volume) 0.9 10*3 0.0-1.0 Automated eosinophil count 0.4 10*3/uL 0.0-0.3 Automated blood basophil count (count/volume) 0.1 10*3/uL 0.0-0.1 Comprehensive metabolic panel - 09/13/18 04:20 Serum or plasma sodium measurement (moles/volume) 134 mmol/L 135-145 Serum or plasma potassium measurement (moles/volume) 3.7 mmol/L 3.6-5.0 Serum or plasma chloride measurement (moles/volume) 100 mmol/L 98-107 Carbon dioxide 23 mmol/L 21-32 Serum or plasma anion gap determination (moles/volume) 11 mmol/L 5-14 Serum or plasma urea nitrogen measurement (mass/volume) 14 mg/dL 7-18 Serum or plasma creatinine measurement (mass/volume) 0.70 mg/dL 0.60-1.30 Serum or plasma urea nitrogen/creatinine mass ratio 20 NRG Serum or plasma creatinine measurement with calculation of estimated glomerular filtration rate > NRG Serum or plasma glucose measurement (mass/volume) 134 mg/dL 70-105 Serum or plasma calcium measurement (mass/volume) 8.7 mg/dL 8.5-10.1 Serum or plasma total bilirubin measurement (mass/volume) 0.5 mg/dL 0.1-1.0 Serum or plasma alkaline phosphatase measurement (enzymatic activity/volume) 46 U/L 40-136 Serum or plasma aspartate aminotransferase measurement (enzymatic activity/ volume) 17 U/L 5-34 Serum or plasma alanine aminotransferase measurement (enzymatic activity/volume ) 18 U/L 0-55 Serum or plasma protein measurement (mass/volume) 6.7 g/dL 6.4-8.2 Serum or plasma albumin measurement (mass/volume) 3.8 g/dL 3.2-4.5 CALCIUM CORRECTED 8.9 mg/dL 8.5-10.1 PT panel in platelet poor plasma by coagulation assay - 09/13/18 04:20 Prothrombin time (PT) in platelet poor plasma by coagulation assay 28.8 s 12.2-14.7 INR in platelet poor plasma or blood by coagulation assay 2.7 0.8-1.4 Capillary blood glucose measurement by glucometer (mass/volume) - 09/13/18 09: 39 Capillary blood glucose measurement by glucometer (mass/volume) 203 mg/dL 70-110 Encounters ACCT No. Visit Date/Time Discharge Status Pt. Type Provider Facility Loc./Unit Complaint [id number] 09/12/2018 11:26:00 09/13/2018 12:00:00 DIS Outpatient GRISELDA SUÁREZ, NEFTALY Andersen [facility] 4TH ORTHOSTATIC HYPOTENSION [id number] 04/25/2017 14:42:00 04/25/2017 23:59:59 CLS Outpatient CHELSEA QUINTANILLA MD [facility] RAD CERVICAL STENOSIS M48.02 [id number] 04/30/2016 07:59:00 04/30/2016 10:55:00 DIS Emergency CRISTAL DIAZ MD [facility] ER [id number] 07/13/2013 10:49:00 07/13/2013 13:52:00 DIS Emergency
--- NOTE | 2018-10-12 09:13 | ED General ---
General Chief Complaint: Chest Wall/Rib Pain Stated Complaint: FALL, R BACK PAIN Nursing Triage Note: pt fell yesterday at home. Pt complains of rib pain (rt side/rt lower back pain). Pt stated that he did not hit his head and hit rib on floor. Pt complains of pain when breathing. Nursing Sepsis Screen: No Definite Risk Source of Information: Patient Exam Limitations: No Limitations History of Present Illness Date Seen by Provider: Oct 12, 2018 Time Seen by Provider: 09:09 Initial Comments The patient is an 88-year-old white male previously known to me. 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 He fell and has had increasing right-sided chest pain since that time. His states that she believed he fell over a table. He was not knocked out and reports there was no blow to the head. He takes warfarin and a baby aspirin. He reports that last night in bed was difficult. He was unable to lie on his right side because of the pain. He is not particularly short of breath. Timing/Duration: 1-2 Days Associated Systoms: Denies Symptoms, Chest Pain Allergies and Home Medications Allergies Coded Allergies: Penicillins (Verified Allergy, Mild, hives, 10/12/18) Home Medications Carvedilol 3.125 Mg Tablet, 3.125 MG PO BID, (Reported) Magnesium Oxide 400 Mg Tablet, 400 MG PO 1500, (Reported) Metformin HCl 1,000 Mg Tablet, 1,000 MG PO BID, (Reported) Warfarin Sodium 7.5 Mg Tablet, 7.5 MG PO SuTuThSa, (Reported) Warfarin Sodium 6 Mg Tablet, 6 MG PO MoWeFr, (Reported) Patient Home Medication List Home Medication List Reviewed: Yes Review of Systems Review of Systems Constitutional: see HPI EENTM: no symptoms reported Respiratory: see HPI Cardiovascular: palpitations Gastrointestinal: no symptoms reported Musculoskeletal: no symptoms reported Psychiatric/Neurological: No Symptoms Reported Hematologic/Lymphatic: No Symptoms Reported Immunological/Allergic: no symptoms reported Past Ktgytqp-Wkkewz-Uplwqv Hx Patient Social History Alcohol Use: Denies Use Recreational Drug Use: No Smoking Status: Never a Smoker Recent Foreign Travel: No Contact w/Someone Who Travel: No Recent Infectious Disease Expo: No Recent Hopitalizations: No Physical Abuse: No Sexual Abuse: No Mistreated: No Fear: No Immunizations Up To Date Tetanus Booster (TDap): Unknown PED Vaccines UTD: Yes Date of Pneumonia Vaccine: Nov 22, 2010 Date of Influenza Vaccine: Sep 11, 2018 Past Medical History Surgeries: Yes Appendectomy Respiratory: No Cardiac: Yes (HEART STENTS) Coronary Artery Disease, Hypertension Neurological: No Genitourinary: Yes Kidney Stones Gastrointestinal: No Musculoskeletal: Yes Arthritis Endocrine: Yes Diabetes, Non-Insulin dep Cataract Hearing Impairment: Hard of Hearing 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 8.0oz. 68.806060st; 21.6 BMI Method:Stated General Appearance: Mild Distress Eyes: Bilateral Eye Normal Inspection HEENT: Normal ENT Inspection Neck: Normal Inspection Respiratory: Other (some splinting to deep respiration) Cardiovascular: Irregularly Irregular Back: Normal Inspection, No CVA Tenderness Extremity: Normal Capillary Refill, Normal Inspection, Normal Range of Motion, Non Tender, No Calf Tenderness, No Pedal Edema Neurologic/Psychiatric: Alert, Oriented x3, No Motor/Sensory Deficits, Normal Mood/Affect Skin: Normal Color, Warm/Dry Lymphatic: No Adenopathy Progress/Results/Core Measures Suspected Sepsis Recent Fever Within 48 Hours: No Infection Criteria Present: None New/Unexplained Altered Menta: No Sepsis Screen: No Definite Risk SIRS Temperature:97.3 Pulse: 80 Respiratory Rate: 26 Laboratory Tests 10/12/18 09:39: White Blood Count 7.6 Blood Pressure 144 /80 Mean: 101 Laboratory Tests 10/12/18 09:39: Creatinine 0.82, Platelet Count 279, Total Bilirubin 0.6 Results/Orders Lab Results Laboratory Tests Test 10/12/18 09:39 Range/Units White Blood Count 7.6 4.3-11.0 10^3/uL Red Blood Count 4.11 L 4.35-5.85 10^6/uL Hemoglobin 11.4 L 13.3-17.7 G/DL Hematocrit 35 L 40-54 % Mean Corpuscular Volume 84 80-99 FL Mean Corpuscular Hemoglobin 28 25-34 PG Mean Corpuscular Hemoglobin Concent 33 32-36 G/DL Red Cell Distribution Width 16.8 H 10.0-14.5 % Platelet Count 279 130-400 10^3/uL Mean Platelet Volume 9.5 7.4-10.4 FL Neutrophils (%) (Auto) 56 42-75 % Lymphocytes (%) (Auto) 28 12-44 % Monocytes (%) (Auto) 11 0-12 % Eosinophils (%) (Auto) 5 0-10 % Basophils (%) (Auto) 0 0-10 % Neutrophils # (Auto) 4.3 1.8-7.8 X 10^3 Lymphocytes # (Auto) 2.1 1.0-4.0 X 10^3 Monocytes # (Auto) 0.9 0.0-1.0 X 10^3 Eosinophils # (Auto) 0.3 0.0-0.3 10^3/uL Basophils # (Auto) 0.0 0.0-0.1 10^3/uL Sodium Level 133 L 135-145 MMOL/L Potassium Level 4.3 3.6-5.0 MMOL/L Chloride Level 98 98-107 MMOL/L Carbon Dioxide Level 24 21-32 MMOL/L Anion Gap 11 5-14 MMOL/L Blood Urea Nitrogen 14 7-18 MG/DL Creatinine 0.82 0.60-1.30 MG/DL Estimat Glomerular Filtration Rate > 60 BUN/Creatinine Ratio 17 Glucose Level 150 H 70-105 MG/DL Calcium Level 9.4 8.5-10.1 MG/DL Corrected Calcium 9.2 8.5-10.1 MG/DL Total Bilirubin 0.6 0.1-1.0 MG/DL Aspartate Amino Transf (AST/SGOT) 17 5-34 U/L Alanine Aminotransferase (ALT/SGPT) 16 0-55 U/L Alkaline Phosphatase 52 40-136 U/L Total Protein 7.4 6.4-8.2 GM/DL Albumin 4.3 3.2-4.5 GM/DL My Orders Orders - MARY LOU CALERO MD Ct Chest Wo (10/12/18 09:16) Cbc With Automated Diff (10/12/18 09:16) Comprehensive Metabolic Panel (10/12/18 09:16) Vital Signs/I&O 10/12/18 08:51 Temp 97.3 Pulse 80 Resp 26 B/P (MAP) 144/80 (101) Pulse Ox 94 O2 Delivery Room Air Capillary Refill : Less Than 3 Seconds Blood Pressure Mean: 101 Departure Communication (Admissions) CT scan showed nondisplaced fractures of the ninth and 10th ribs posteriorly on the right. This is precisely the area in which he is most tender. There is no evidence of ecchymosis at this point Impression Primary Impression: fracture right ninth and 10th ribs Disposition: HOME, SELF-CARE Condition: Stable/Unchanged Departure-Patient Inst. Decision time for Depature: 10:20 Referrals: CHELSEA QUINTANILLA MD (PCP/Family) Primary Care Physician Patient Instructions: Rib Fracture (DC) Add. Discharge Instructions: All discharge instructions reviewed with patient and/or family. Voiced understanding. Expect this to take several weeks for knitting of the rib fractures. You may use heat in the area if this improved your comfort. Tylenol or ibuprofen may be used for pain relief. MARY LOU CALERO MD Oct 12, 2018 09:13
[2018-10-12 09:50] LABS: BASOPHILS % (AUTO) 0 % (0-10); EOSINOPHILS # (AUTO) 0.3 10^3/uL (0.0-0.3); EOSINOPHILS % (AUTO) 5 % (0-10); HEMATOCRIT 35 % (40-54); HEMOGLOBIN 11.4 G/DL (13.3-17.7); LYMPHOCYTES # (AUTO) 2.1 X 10^3 (1.0-4.0); LYMPHOCYTES % (AUTO) 28 % (12-44); MEAN CORPUSCULAR HEMOGLOBIN 28 PG (25-34); MEAN CORPUSCULAR HGB CONC 33 G/DL (32-36); MEAN CORPUSCULAR VOLUME 84 FL (80-99); MEAN PLATELET VOLUME 9.5 FL (7.4-10.4); MONOCYTES # (AUTO) 0.9 X 10^3 (0.0-1.0); MONOCYTES % (AUTO) 11 % (0-12); NEUTROPHILS # (AUTO) 4.3 X 10^3 (1.8-7.8); NEUTROPHILS % (AUTO) 56 % (42-75); PLATELET COUNT 279 10^3/uL (130-400); RED BLOOD COUNT 4.11 10^6/uL (4.35-5.85); RED CELL DISTRIBUTION WIDTH 16.8 % (10.0-14.5); WHITE BLOOD COUNT 7.6 10^3/uL (4.3-11.0)
--- NOTE | 2018-10-12 09:57 | Diagnostic Imaging Report ---
PROCEDURE: CT chest without contrast. TECHNIQUE: Multiple contiguous axial images were obtained through the chest without the use of intravenous contrast. INDICATION: Fall yesterday, pain with breathing and right posterior lower rib pain. COMPARISON: Chest x-ray from 04/30/2016. FINDINGS: The heart is normal in size. There is no pericardial effusion. There is coronary and aortic atherosclerosis. The mediastinal lymph nodes do not appear enlarged by CT size criteria. There is no axillary lymphadenopathy. There is dependent atelectasis, particularly in the right lung. Mild emphysematous changes are seen in the lungs. There is right greater than left apical scarring. There are left hilar calcified lymph nodes. No masses are seen. There is a calcified granuloma in the left lower lobe. There is no pleural effusion or pneumothorax. No central endobronchial lesions are seen. There are mildly displaced fractures of the right 9th and 10th ribs. These are posterior and lateral in location. The entirety of the lower ribs is not excluded. Imaged portions of the upper abdomen demonstrate no acute abnormality. There is a 2 cm left renal cyst. IMPRESSION: 1. Mildly displaced fractures of the posterolateral right 9th and 10th ribs. 2. No pneumothorax or pleural effusion seen. 3. Apical predominant mild emphysematous changes. Dictated by: Dictated on workstation # [id number]
[2018-10-12 10:09] LABS: ALANINE AMINOTRANSFERASE 16 U/L (0-55); ALBUMIN 4.3 GM/DL (3.2-4.5); ALKALINE PHOSPHATASE 52 U/L (40-136); BILIRUBIN,TOTAL 0.6 MG/DL (0.1-1.0); BUN/CREATININE RATIO 17; CALCIUM 9.4 MG/DL (8.5-10.1); CARBON DIOXIDE 24 MMOL/L (21-32); CHLORIDE 98 MMOL/L (98-107); CREATININE SERUM 0.82 MG/DL (0.60-1.30); GFR ESTIMATED > 60; GLUCOSE 150 MG/DL (70-105); POTASSIUM 4.3 MMOL/L (3.6-5.0); SODIUM 133 MMOL/L (135-145); TOTAL PROTEIN 7.4 GM/DL (6.4-8.2)
[2018-10-12 10:37] VITALS: BP 144/80
[2018-10-17] MEDS ORDERED: ACET325T49 PO (08:18)
== END 2018-10-12 10:37 | disposition home or self-care (01) ==
LOC: ER 08:43 → EDUNIT# 08:43 → ER 08:44
DX: S22.41XA Multiple fractures of ribs, right side, initial encounter for closed fracture (principal); I25.10 Atherosclerotic heart disease of native coronary artery without angina pectoris; I10 Essential (primary) hypertension; E11.9 Type 2 diabetes mellitus without complications; Z85.21 Personal history of malignant neoplasm of larynx; Z92.21 Personal history of antineoplastic chemotherapy; Z87.442 Personal history of urinary calculi; Z95.5 Presence of coronary angioplasty implant and graft; Z88.0 Allergy status to penicillin; Z79.84 Long term (current) use of oral hypoglycemic drugs; Z79.01 Long term (current) use of anticoagulants; Z79.82 Long term (current) use of aspirin; Z90.49 Acquired absence of other specified parts of digestive tract; W01.190A Fall on same level from slipping, tripping and stumbling with subsequent striking against furniture, initial encounter; Y92.009 Unspecified place in unspecified non-institutional (private) residence as the place of occurrence of the external cause
CPT/HCPCS: 36415; 71250; 80053; 85025; 99283

== ENCOUNTER 2018-10-14 07:56 | Inpatient (IN) | payer MEDICARE ==
[~2018-10-14] VITALS: Ht 177.8 cm; Wt 70.3 kg
--- OUTSIDE RECORDS SUMMARY | 2018-10-14 08:00 | XMS REPORT | Continuity of Care Document ---
Author Author [facility] Organization [facility] Address Unknown Phone Unavailable Allergies Active Description Code Type Severity Reaction Onset Reported/Identified Relationship to Patient Clinical Status Yes Penicillins [id number] Drug Allergy Mild hives 11/26/2011 Medications There [...] DIAZ MD Ot Y92.[address] [facility]IVATE 04/30/2016 CRISTAL DIAZ MD Ot [...] CRISTAL Marie Ot Y92.[address] IN [facility] (PRIVATE 05/02/2016 CRISTAL DIAZ MD Ot Y99.8 OTHER EXTERNAL CAUSE STATUS 05/05/2016 JOE SUÁREZ, CRISTAL Marie Ot I95.9 HYPOTENSION, UNSPECIFIED 05/05/2016 JOE SUÁREZ, CRISTAL Marie Ot S40.021A CONTUSION OF RIGHT UPPER ARM, INITIAL EN 05/05/2016 JOE SUÁREZ, CRISTAL Marie Ot S40.022A CONTUSION OF LEFT UPPER ARM, INITIAL ENC 05/05/2016 JOE SUÁREZ, CRISTAL Marie Ot S50.311A ABRASION OF RIGHT ELBOW, INITIAL ENCOUNT 05/05/2016 CRISTAL DIZA MD Ot S80.212A ABRASION, LEFT KNEE, INITIAL ENCOUNTER 05/05/2016 JOE SUÁREZ, CRISTAL Marie Ot W01.0XXA FALL SAME LEV FROM SLIP/TRIP W/O STRIKE 05/05/2016 CRISTAL DIAZ MD Ot Y92.[address] IN [facility] NON-INSTITUT (PRIVATE 05/05/2016 JOE SUÁREZ, CRISTAL Marie [...] MD Ot I25.10 ATHSCL HEART DISEASE OF [place] CORONARY 09/13/2018 NFETALY VILLALOBOS MD Ot I95.1 ORTHOSTATIC HYPOTENSION 09/13/2018 NEFTALY VILLALOBOS MD Ot Z79.01 [employer] (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 ANTICOAGULANT 09/13/2018 NEFTALY VILLALOBOS MD, Ot Z79.84 ASSISTED (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 ORAL HYPOGLYC 09/13/2018 NEFTALY [...] measurement by glucometer (mass/volume) 203 mg/dL 70-110 Complete blood count (CBC) with automated white blood cell (WBC) differential - 10/12/18 09:39 Blood leukocytes automated count (number/volume) 7.6 10*3/uL 4.3-11.0 Blood erythrocytes automated count (number/volume) 4.11 10*6/uL 4.35-5.85 Venous blood hemoglobin measurement (mass/volume) 11.4 g/dL 13.3-17.7 Blood hematocrit (volume fraction) 35 % 40-54 Automated erythrocyte mean corpuscular volume 84 [foz_us] 80-99 Automated erythrocyte mean corpuscular hemoglobin (mass per erythrocyte) 28 pg 25-34 Automated erythrocyte mean corpuscular hemoglobin concentration measurement ( mass/volume) 33 g/dL 32-36 Automated erythrocyte distribution width ratio 16.8 % 10.0-14.5 Automated blood platelet count (count/volume) 279 10*3/uL 130-400 Automated blood platelet mean volume measurement 9.5 [foz_us] 7.4-10.4 Automated blood neutrophils/100 leukocytes 56 % 42-75 Automated blood lymphocytes/100 leukocytes 28 % 12-44 Blood monocytes/100 leukocytes 11 % 0-12 Automated blood eosinophils/100 leukocytes 5 % 0-10 Automated blood basophils/100 leukocytes 0 % 0-10 Blood neutrophils automated count (number/volume) 4.3 10*3 1.8-7.8 Blood lymphocytes automated count (number/volume) 2.1 10*3 1.0-4.0 Blood monocytes automated count (number/volume) 0.9 10*3 0.0-1.0 Automated eosinophil count 0.3 10*3/uL 0.0-0.3 Automated blood basophil count (count/volume) 0.0 10*3/uL 0.0-0.1 Comprehensive metabolic panel - 10/12/18 09:39 Serum or plasma sodium measurement (moles/volume) 133 mmol/L 135-145 Serum or plasma potassium measurement (moles/volume) 4.3 mmol/L 3.6-5.0 Serum or plasma chloride measurement (moles/volume) 98 mmol/L 98-107 Carbon dioxide 24 mmol/L 21-32 Serum or plasma anion gap determination (moles/volume) 11 mmol/L 5-14 Serum or plasma urea nitrogen measurement (mass/volume) 14 mg/dL 7-18 Serum or plasma creatinine measurement (mass/volume) 0.82 mg/dL 0.60-1.30 Serum or plasma urea nitrogen/creatinine mass ratio 17 NRG Serum or plasma creatinine measurement with calculation of estimated glomerular filtration rate > NRG Serum or plasma glucose measurement (mass/volume) 150 mg/dL 70-105 Serum or plasma calcium measurement (mass/volume) 9.4 mg/dL 8.5-10.1 Serum or plasma total bilirubin measurement (mass/volume) 0.6 mg/dL 0.1-1.0 Serum or plasma alkaline phosphatase measurement (enzymatic activity/volume) 52 U/L 40-136 Serum or plasma aspartate aminotransferase measurement (enzymatic activity/ volume) 17 U/L 5-34 Serum or plasma alanine aminotransferase measurement (enzymatic activity/volume ) 16 U/L 0-55 Serum or plasma protein measurement (mass/volume) 7.4 g/dL 6.4-8.2 Serum or plasma albumin measurement (mass/volume) 4.3 g/dL 3.2-4.5 CALCIUM CORRECTED 9.2 mg/dL 8.5-10.1 Encounters ACCT No. Visit Date/Time Discharge Status Pt. Type Provider Facility Loc./Unit Complaint [id number] 09/12/2018 11:26:00 09/13/2018 12:00:00 DIS Outpatient GRISELDA SUÁREZ, NEFTALY Andersen [facility] 4TH ORTHOSTATIC HYPOTENSION [id number] 04/25/2017 14:42:00 04/25/2017 23:59:59 CLS Outpatient DWIGHT SUÁREZ, CHELSEA Marie [facility] RAD CERVICAL STENOSIS M48.02 [id number] 04/30/2016 07:59:00 04/30/2016 10:55:00 DIS Emergency JOE SUÁREZ, CRISTAL Marie [facility] ER [id number] 07/13/2013 10:49:00 07/13/2013 13:52:00 DIS Emergency [id number] 10/12/2018 09:51:00 Document Registration
--- NOTE | 2018-10-14 09:08 | Diagnostic Imaging Report ---
CLINICAL INDICATION: Patient with complaints of right sided rib pain. Patient was diagnosed with two fractured ribs after fall a few days ago in the emergency room. Patient has been unable to stand due to the pain. EXAMINATION: Chest x-ray PA and lateral views. COMPARISONS: Chest x-ray dated 04/30/2016. CT scan of the chest without contrast dated 10/12/2018. FINDINGS: Lungs/pleura: There is mild left lung base atelectasis. Otherwise, lungs are clear. There is stable bilateral apical pleural-parenchymal thickening/scarring. There is no pneumothorax. There is no pleural effusion. Mediastinum: Unremarkable. Pulmonary vasculature: Unremarkable. Heart: Unremarkable. Bones/extrathoracic soft tissue: The known fractures involving the posterior lateral aspect of the right 9th and 10th ribs are not well visualized on this exam and better seen on the comparison CT scan. IMPRESSION: 1: There is development of mild left lung base atelectasis. There is no pneumothorax and the remainder of the lungs are clear. 2: The known right 9th and 10th rib fractures are not well visualized on this exam and better seen on the comparison CT scan. Dictated by: Dictated on workstation # [id number]
[2018-10-14 10:41] LABS: BASOPHILS % (AUTO) 0 % (0-10); EOSINOPHILS % (AUTO) 0 % (0-10); HEMATOCRIT 35 % (40-54); HEMOGLOBIN 11.6 G/DL (13.3-17.7); LYMPHOCYTES # (AUTO) 2.4 X 10^3 (1.0-4.0); LYMPHOCYTES % (AUTO) 24 % (12-44); MEAN CORPUSCULAR HEMOGLOBIN 28 PG (25-34); MEAN CORPUSCULAR HGB CONC 34 G/DL (32-36); MEAN CORPUSCULAR VOLUME 83 FL (80-99); MEAN PLATELET VOLUME 9.1 FL (7.4-10.4); MONOCYTES # (AUTO) 1.4 X 10^3 (0.0-1.0); MONOCYTES % (AUTO) 14 % (0-12); NEUTROPHILS # (AUTO) 6.3 X 10^3 (1.8-7.8); NEUTROPHILS % (AUTO) 62 % (42-75); PLATELET COUNT 268 10^3/uL (130-400); RED BLOOD COUNT 4.16 10^6/uL (4.35-5.85); RED CELL DISTRIBUTION WIDTH 16.5 % (10.0-14.5); WHITE BLOOD COUNT 10.2 10^3/uL (4.3-11.0)
[2018-10-14 10:53] LABS: INR 3.5 (0.8-1.4); PROTHROMBIN TIME PATIENT 35.1 SEC (12.2-14.7)
[2018-10-14 10:57] LABS: BILIRUBIN,URINE NEGATIVE (NEGATIVE); CLARITY,URINE CLEAR; COLOR,URINE YELLOW; GLUCOSE, URINE (UA) NEGATIVE (NEGATIVE); KETONES,URINE NEGATIVE (NEGATIVE); LEUKOCYTE ESTERASE ,URINE NEGATIVE (NEGATIVE); NITRITE,URINE NEGATIVE (NEGATIVE); PH,URINE 6 (5-9); PROTEIN,URINE 1+ (NEGATIVE); UROBILINOGEN,URINE NORMAL (NORMAL)
[2018-10-14 11:00] LABS: ALANINE AMINOTRANSFERASE 15 U/L (0-55); ALBUMIN 4.1 GM/DL (3.2-4.5); ALKALINE PHOSPHATASE 51 U/L (40-136); BILIRUBIN,TOTAL 1.2 MG/DL (0.1-1.0); BUN/CREATININE RATIO 20; CALCIUM 9.3 MG/DL (8.5-10.1); CARBON DIOXIDE 27 MMOL/L (21-32); CHLORIDE 92 MMOL/L (98-107); CREATININE SERUM 0.81 MG/DL (0.60-1.30); GFR ESTIMATED > 60; GLUCOSE 180 MG/DL (70-105); MAGNESIUM 1.4 MG/DL (1.8-2.4); POTASSIUM 4.1 MMOL/L (3.6-5.0); SODIUM 130 MMOL/L (135-145); TOTAL PROTEIN 7.2 GM/DL (6.4-8.2)
[2018-10-14 11:10] LABS: BACTERIA,URINE NEGATIVE /HPF
--- NOTE | 2018-10-14 11:27 | Diagnostic Imaging Report ---
INDICATION: Left knee pain. TECHNIQUE: AP, oblique, and lateral views of the left knee were obtained. 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 There is chondrocalcinosis. There is no acute fracture. There are vascular calcifications noted. IMPRESSION: Prominent degenerative changes of the left knee with chondrocalcinosis. No acute fracture or acute bony abnormality. Underlying vascular calcifications. Dictated by: Dictated on workstation # [id number]
--- NOTE | 2018-10-14 11:30 | Diagnostic Imaging Report ---
INDICATION: Fall with pelvic pain. TECHNIQUE: An AP pelvis and AP and oblique views of both hips were obtained. FINDINGS: No fracture or acute bony abnormality is seen. There is moderate degenerative change of both hips with joint space narrowing and osteophyte formation. There are vascular calcifications noted. IMPRESSION: Moderate degenerative changes of both hips. No fracture or acute bony abnormality. Dictated by: Dictated on workstation # [id number]
--- NOTE | 2018-10-14 13:29 | Diagnostic Imaging Report ---
PROCEDURE: CT head and CT cervical spine without contrast. TECHNIQUE: Multiple contiguous axial images were obtained through the brain and cervical spine without the use of intravenous contrast. Sagittal and coronal reformations through the cervical spine were then performed. INDICATION: History of recent fall including rib fractures a few days ago. CORRELATION STUDY: 09/12/2018. FINDINGS: CT HEAD: Generalized atrophic changes are again demonstrated with prominence of the ventricles and sulci. There are again seen scattered areas of decreased attenuation which are nonspecific and favor likely changes of small vessel ischemic disease. Definitive evidence for edema is not suggested. No midline shift or mass effect. No intracranial hemorrhage. There is the presence of mild intracranial vascular calcification. No hyperdense MCA sign. CT CERVICAL SPINE: There is slight straightening of the normal cervical lordosis. The alignment appears to be overall relatively anatomic. The vertebral body heights appear maintained and unchanged. There is rather pronounced multilevel cervical spondylosis. Rather significant disc space narrowing along with endplate spurring and osteophyte formation is present. This does result in osseous encroachment on the foramina and spinal canal at multiple levels, essentially all levels of the cervical spine. Asymmetric areas of hypertrophic facet arthropathy are noted. The posterior elements demonstrate normal alignment. The odontoid is intact. Prominent pannus and degenerative changes surrounding the odontoid are noted with slight narrowing at the cervicocranial junction. There is the presence of mild calcification at the carotid bifurcation. The lung apices appear unremarkable. IMPRESSION: CT HEAD: 1. Negative for acute traumatic intracranial abnormality. 2. Generalized atrophic changes with likely changes of small vessel ischemic disease. CT CERVICAL SPINE: 1. Negative for acute fracture or traumatic subluxation. 2. Rather pronounced multilevel cervical spondylosis. Dictated by: Dictated on workstation # [id number]
--- NOTE | 2018-10-14 13:40 | ED General ---
General Chief Complaint: Chest Wall/Rib Pain Stated Complaint: RIB PAIN Nursing Triage Note: pt brought in by ems with complaint of right sided rib pain. pt states he was seen in er a few days ago and diagnosed with two fractured ribs after a fall. states he has been unable to stand due to the pain. states he was not sent home with any pain medicine or told what to take for pain. Nursing Sepsis Screen: No Definite Risk Source of Information: Patient, Family, Old Records Exam Limitations: No Limitations History of Present Illness Date Seen by Provider: Oct 14, 2018 Time Seen by Provider: 08:20 Initial Comments This 88-year-old gentleman is brought to the emergency room via EMS with complaints of chest pain secondary to rib fractures from a fall a couple of days ago. He was seen in this ER October 12 after he struck his right chest on a table corner when he fell. He denies any head injury. Additionally patient describes progressive weakness with progressive difficulty walking. Patient was also heard to have an irregular heartbeat on exam. Patient is anticoagulated on warfarin. Patient states his difficulty walking and is because of those pain with ambulation due to the rib fractures and generalized weakness of the legs. Allergies and Home Medications Allergies Coded Allergies: Penicillins (Verified Allergy, Mild, hives, 10/12/18) Home Medications Carvedilol 3.125 Mg Tablet, 3.125 MG PO BID, (Reported) Magnesium Oxide 400 Mg Tablet, 400 MG PO 1500, (Reported) Metformin HCl 1,000 Mg Tablet, 1,000 MG PO BID, (Reported) Warfarin Sodium 7.5 Mg Tablet, 7.5 MG PO SuTuThSa, (Reported) Warfarin Sodium 6 Mg Tablet, 6 MG PO MoWeFr, (Reported) Patient Home Medication List Home Medication List Reviewed: Yes Review of Systems Review of Systems Constitutional: see HPI EENTM: no symptoms reported Respiratory: see HPI Cardiovascular: no symptoms reported Gastrointestinal: no symptoms reported Genitourinary: no symptoms reported Musculoskeletal: see HPI Skin: no symptoms reported Psychiatric/Neurological: See HPI Hematologic/Lymphatic: No Symptoms Reported Immunological/Allergic: no symptoms reported Past Ehoqzyu-Xcoexv-Taaden Hx Past Med/Social Hx: Reviewed and Corrections made Patient Social History Alcohol Use: Denies Use Recreational Drug Use: No Smoking Status: Former Smoker Recent Foreign Travel: No Contact w/Someone Who Travel: No Recent Infectious Disease Expo: No Recent Hopitalizations: No Immunizations Up To Date Tetanus Booster (TDap): Unknown PED Vaccines UTD: Yes Date of Pneumonia Vaccine: Nov 22, 2010 Date of Influenza Vaccine: Sep 11, 2018 Past Medical History Surgeries: Yes Appendectomy, Coronary Stent Respiratory: No Cardiac: Yes (HEART STENTS) Coronary Artery Disease, Hypertension Neurological: No Genitourinary: Yes Kidney Stones Gastrointestinal: No Musculoskeletal: Yes Arthritis Endocrine: Yes Diabetes, Non-Insulin dep Cataract Hearing Impairment: Hard of Hearing 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 8.0oz. 70.228743si; 21.6 BMI Method:Stated General Appearance: No Apparent Distress, WD/WN HEENT: PERRL/EOMI, Normal ENT Inspection, Pharynx Normal Neck: Normal Inspection, Non Tender Respiratory: Lungs Clear, Normal Breath Sounds, No Accessory Muscle Use, No Respiratory Distress Cardiovascular: No Edema, No Murmur, Irregularly Irregular Gastrointestinal: Normal Bowel Sounds, Non Tender, Soft Extremity: Normal Inspection, No Pedal Edema, Other (Tenderness to palpation over the left hip) Neurologic/Psychiatric: Alert, Oriented x3, Normal Mood/Affect, marketing services vice president II-XII Norm as Tested, Other (Patient is alert but cognition seems dulled. He has generalized weakness but moves all extremities equally) Skin: Normal Color, Warm/Dry Progress/Results/Core Measures Suspected Sepsis Recent Fever Within 48 Hours: No Infection Criteria Present: None New/Unexplained Altered Menta: No Sepsis Screen: No Definite Risk SIRS Temperature:98.0 Pulse: 82 Respiratory Rate: 20 Laboratory Tests 10/14/18 10:33: White Blood Count 10.2 Blood Pressure 148 /81 Mean: 103 Laboratory Tests 10/14/18 10:33: Creatinine 0.81, INR Comment 3.5H, Platelet Count 268, Total Bilirubin 1.2H Results/Orders Lab Results Laboratory Tests Test 10/14/18 10:25 10/14/18 10:33 Range/Units Urine Color YELLOW Urine Clarity CLEAR Urine pH 6 5-9 Urine Specific [place] 1.015 L 1.016-1.022 Urine Protein 1+ H NEGATIVE Urine Glucose (UA) NEGATIVE NEGATIVE Urine Ketones NEGATIVE NEGATIVE Urine Nitrite NEGATIVE NEGATIVE Urine Bilirubin NEGATIVE NEGATIVE Urine Urobilinogen NORMAL NORMAL MG/DL Urine Leukocyte Esterase NEGATIVE NEGATIVE Urine RBC (Auto) 1+ H NEGATIVE Urine RBC 2-5 H /HPF Urine WBC NONE /HPF Urine Squamous Epithelial Cells NONE /HPF Urine Crystals NONE /LPF Urine Bacteria NEGATIVE /HPF Urine Casts NONE /LPF Urine Mucus NEGATIVE /LPF Urine Culture Indicated NO White Blood Count 10.2 4.3-11.0 10^3/uL Red Blood Count 4.16 L 4.35-5.85 10^6/uL Hemoglobin 11.6 L 13.3-17.7 G/DL Hematocrit 35 L 40-54 % Mean Corpuscular Volume 83 80-99 FL Mean Corpuscular Hemoglobin 28 25-34 PG Mean Corpuscular Hemoglobin Concent 34 32-36 G/DL Red Cell Distribution Width 16.5 H 10.0-14.5 % Platelet Count 268 130-400 10^3/uL Mean Platelet Volume 9.1 7.4-10.4 FL Neutrophils (%) (Auto) 62 42-75 % Lymphocytes (%) (Auto) 24 12-44 % Monocytes (%) (Auto) 14 H 0-12 % Eosinophils (%) (Auto) 0 0-10 % Basophils (%) (Auto) 0 0-10 % Neutrophils # (Auto) 6.3 1.8-7.8 X 10^3 Lymphocytes # (Auto) 2.4 1.0-4.0 X 10^3 Monocytes # (Auto) 1.4 H 0.0-1.0 X 10^3 Eosinophils # (Auto) 0.0 0.0-0.3 10^3/uL Basophils # (Auto) 0.0 0.0-0.1 10^3/uL Prothrombin Time 35.1 H 12.2-14.7 SEC INR Comment 3.5 H 0.8-1.4 Activated Partial Thromboplast Time 50 H 24-35 SEC Sodium Level 130 L 135-145 MMOL/L Potassium Level 4.1 3.6-5.0 MMOL/L Chloride Level 92 L 98-107 MMOL/L Carbon Dioxide Level 27 21-32 MMOL/L Anion Gap 11 5-14 MMOL/L Blood Urea Nitrogen 16 7-18 MG/DL Creatinine 0.81 0.60-1.30 MG/DL Estimat Glomerular Filtration Rate > 60 BUN/Creatinine Ratio 20 Glucose Level 180 H 70-105 MG/DL Calcium Level 9.3 8.5-10.1 MG/DL Corrected Calcium 9.2 8.5-10.1 MG/DL Magnesium Level 1.4 L 1.8-2.4 MG/DL Total Bilirubin 1.2 H 0.1-1.0 MG/DL Aspartate Amino Transf (AST/SGOT) 14 5-34 U/L Alanine Aminotransferase (ALT/SGPT) 15 0-55 U/L Alkaline Phosphatase 51 40-136 U/L Troponin I < 0.30 <0.30 NG/ML Total Protein 7.2 6.4-8.2 GM/DL Albumin 4.1 3.2-4.5 GM/DL My Orders Orders - ROBERT ROSEN MD Chest Pa/Lat (2 View) (10/14/18 08:20) Cbc With Automated Diff (10/14/18 10:29) Comprehensive Metabolic Panel (10/14/18 10:29) Magnesium (10/14/18 10:29) Protime With Inr (10/14/18 10:29) Partial Thromboplastin Time (10/14/18 10:29) Troponin I (10/14/18 10:29) Ua Culture If Indicated (10/14/18 10:29) Saline Lock/Iv-Start (10/14/18 10:29) Ekg Tracing (10/14/18 10:29) Monitor-Rhythm Ecg Trace Only (10/14/18 10:29) Knee, Left, 3 Views (10/14/18 10:29) Pelvis/Michael Hips 5> Views (10/14/18 10:29) Ct Head/Cervical Spine Wo (10/14/18 11:37) Vital Signs/I&O 10/14/18 10/14/18 10/14/18 10/14/18 07:57 15:20 16:00 16:30 Temp 98.0 98.0 Pulse 82 88 81 Resp 20 20 16 B/P (MAP) 148/81 (103) 123/84 (97) 156/84 (108) Pulse Ox 97 97 97 O2 Delivery Room Air Room Air Room Air Room Air Capillary Refill : Less Than 3 Seconds Blood Pressure Mean: 103 Progress Note : Progress Note Workup was pursued because of patient's multiple complaints and multiple falls recently. He was found to have some electrolyte abnormalities. He was also found to have an elevated INR. Because of the supratherapeutic INR and recent fall, CT of his head was also felt appropriate as he complained of weakness in the legs. No acute findings were found on CT scan. I discussed admission versus dismissal to home with patient and his . I had some significant concerns about his safety at home. They agreed. Case was discussed with Dr. Flores who agreed with admission. Dr. 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 X-rays revealed no additional injuries. 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 Diagnostic Imaging Diagonstic Imaging: CT Plain Films/CT/US/NM/MRI: c-spine, head Comments CT head and C-spine viewed by me and report reviewed. See report below: NAME: AMANDA SOTELO MED REC#: [id number] PT STATUS: REG ER : 1930 PHYSICIAN: ROBERT ROSEN MD ADMIT DATE: 10/14/18/ER Draft Date of Exam:10/14/18 CT HEAD/CERVICAL SPINE WO PROCEDURE: CT head and CT cervical spine without contrast. TECHNIQUE: Multiple contiguous axial images were obtained through the brain and cervical spine without the use of intravenous contrast. Sagittal and coronal reformations through the cervical spine were then performed. INDICATION: History of recent fall including rib fractures a few days ago. CORRELATION STUDY: 09/12/2018. FINDINGS: CT HEAD: Generalized atrophic changes are again demonstrated with prominence of the ventricles and sulci. There are again seen scattered areas of decreased attenuation which are nonspecific and favor likely changes of small vessel ischemic disease. Definitive evidence for edema is not suggested. No midline shift or mass effect. No intracranial hemorrhage. There is the presence of mild intracranial vascular calcification. No hyperdense MCA sign. CT CERVICAL SPINE: There is slight straightening of the normal cervical lordosis. The alignment appears to be overall relatively anatomic. The vertebral body heights appear maintained and unchanged. There is rather pronounced multilevel cervical spondylosis. Rather significant disc space narrowing along with endplate spurring and osteophyte formation is present. This does result in osseous encroachment on the foramina and spinal canal at multiple levels, essentially all levels of the cervical spine. Asymmetric areas of hypertrophic facet arthropathy are noted. The posterior elements demonstrate normal alignment. The odontoid is intact. Prominent pannus and degenerative changes surrounding the odontoid are noted with slight narrowing at the cervicocranial junction. There is the presence of mild calcification at the carotid bifurcation. The lung apices appear unremarkable. IMPRESSION: CT HEAD: 1. Negative for acute traumatic intracranial abnormality. 2. Generalized atrophic changes with likely changes of small vessel ischemic disease. CT CERVICAL SPINE: 1. Negative for acute fracture or traumatic subluxation. 2. Rather pronounced multilevel cervical spondylosis. Dictated on workstation # [id number] Dict: 10/14/18 1317 Trans: 10/14/18 1329 [id number] Interpreted by: AMERICO METCALF DO Diagonstic Imaging: Xray Plain Films/CT/US/NM/MRI: knee Comments Left knee x-ray viewed by me and report reviewed. See report below: NAME: AMANDA SOTELO MED REC#: [id number] PT STATUS: REG ER : 1930 PHYSICIAN: ROBERT ROSEN MD ADMIT DATE: 10/14/18/ER Signed Date of Exam: 10/14/18 KNEE, LEFT, 3 VIEWS INDICATION: Left knee pain. TECHNIQUE: AP, oblique, and lateral views of the left knee were obtained. 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 There is chondrocalcinosis. There is no acute fracture. There are vascular calcifications noted. IMPRESSION: Prominent degenerative changes of the left knee with chondrocalcinosis. No acute fracture or acute bony abnormality. Underlying vascular calcifications. Dictated by: Dictated on workstation # [id number] Dict: 10/14/18 1119 Trans: 10/14/18 1233 Interpreted by: DAVION CALI MD Electronically signed by: DAVION CALI MD 10/14/18 1233 Diagonstic Imaging: Xray Plain Films/CT/US/NM/MRI: chest Comments Chest x-ray viewed by me and report reviewed. See report below: NAME: AMANDA SOTELO [facility] REC#: [id number] PT STATUS: ADM IN : 1930 PHYSICIAN: ROBERT ROSEN MD ADMIT DATE: 10/14/18 Signed Date of Exam: 10/14/18 CHEST PA/LAT (2 VIEW) CLINICAL INDICATION: Patient with complaints of right sided rib pain. Patient was diagnosed with two fractured ribs after fall a few days ago in the emergency room. Patient has been unable to stand due to the pain. EXAMINATION: Chest x-ray PA and lateral views. COMPARISONS: Chest x-ray dated 04/30/2016. CT scan of the chest without contrast dated 10/12/2018. FINDINGS: Lungs/pleura: There is mild left lung base atelectasis. Otherwise, lungs are clear. There is stable bilateral apical pleural-parenchymal thickening/scarring. There is no pneumothorax. There is no pleural effusion. Mediastinum: Unremarkable. Pulmonary vasculature: Unremarkable. Heart: Unremarkable. Bones/extrathoracic soft tissue: The known fractures involving the posterior lateral aspect of the right 9th and 10th ribs are not well visualized on this exam and better seen on the comparison CT scan. IMPRESSION: 1: There is development of mild left lung base atelectasis. There is no pneumothorax and the remainder of the lungs are clear. 2: The known right 9th and 10th rib fractures are not well visualized on this exam and better seen on the comparison CT scan. Dictated by: Dictated on workstation # [id number] Dict: 10/14/18 0858 Trans: 10/14/181720 Interpreted by: ELLA BAIN MD Electronically signed by: ELLA BAIN MD 10/14/18 172 Diagonstic Imaging: Xray Plain Films/CT/US/NM/MRI: pelvis, hip Comments X-ray of the pelvis and hips viewed by me and report reviewed. See report below : NAME: AMANDA SOTELO [facility] REC#: [id number] PT STATUS: REG ER : 1930 PHYSICIAN: ROBERT ROSEN MD ADMIT DATE: 10/14/18/ER Signed Date of Exam: 10/14/18 PELVIS/MICHAEL HIPS 5> VIEWS INDICATION: Fall with pelvic pain. TECHNIQUE: An AP pelvis and AP and oblique views of both hips were obtained. FINDINGS: No fracture or acute bony abnormality is seen. There is moderate degenerative change of both hips with joint space narrowing and osteophyte formation. There are vascular calcifications noted. IMPRESSION: Moderate degenerative changes of both hips. No fracture or acute bony abnormality. Dictated by: Dictated on workstation # [id number] Dict: 10/14/18 1126 Trans: 10/14/18 1233 Interpreted by: DAVION CALI MD Electronically signed by: DAVION CALI MD 10/14/18 1233 Departure Communication (Admissions) Time/Spoke to Admitting Phy: 14:19 Dr. David Flores Time/Spoke to Consulting Phy: 14:15 Dr. Stinson Impression Primary Impression: Hyponatremia Additional Impressions: Hypomagnesemia Wandering pacemaker Generalized weakness Supratherapeutic INR Rib fractures Qualified Codes: S22.41XD - Multiple fractures of ribs, right side, subsequent encounter for fracture with routine healing Disposition: ADMITTED INPATIENT Condition: Stable Admissions Decision to Admit Reason: Admit from ER (General) Decision to Admit/Date: Oct 14, 2018 Time/Decision to Admit Time: 14:10 Departure-Patient Inst. Referrals: DAVID FLORES MD (PCP/Family) Primary Care Physician ROBERT ROSEN MD Oct 14, 2018 13:39
--- OUTSIDE RECORDS SUMMARY | 2018-10-14 15:05 | XMS REPORT | Continuity of Care Document ---
Author Author [facility] Organization [facility] Address Unknown Phone Unavailable Allergies Active Description Code Type Severity Reaction Onset Reported/Identified Relationship to Patient Clinical Status Yes Penicillins [id number] Drug Allergy Mild hives 11/26/2011 Medications There [...] DIAZ MD Ot Y92.[address] [facility] 04/30/2016 CRISTAL DIAZ [...] CRISTAL Marie Ot Y92.[address] IN [facility] (PRIVATE 05/02/2016 CRISTAL DIAZ MD Ot [...] MD Ot I25.10 ATHSCL HEART DISEASE OF [place] CORONARY 09/13/2018 NEFTALY VILLALOBOS MD Ot I95.1 ORTHOSTATIC HYPOTENSION 09/13/2018 NEFTALY VILLALOBOS MD Ot Z79.01 FIRST AID TRAINER (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 ANTICOAGULANT 09/13/2018 NEFTALY VILLALOBOS MD, Ot Z79.84 FIRST AID TRAINER (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 ORAL HYPOGLYC 09/13/2018 NEFTALY [...] g/dL 3.2-4.5 CALCIUM CORRECTED 9.2 mg/dL 8.5-10.1 Complete urinalysis with reflex to culture - 10/14/18 10:25 Urine color determination YELLOW NRG Urine clarity determination CLEAR NRG Urine pH measurement by test strip 6 5-9 Specific gravity of urine by test strip 1.015 1.016- 1.022 Urine protein assay by test strip, semi-quantitative 1+ NEGATIVE Urine glucose detection by automated test strip NEGATIVE NEGATIVE Erythrocytes detection in urine sediment by light microscopy 1+ NEGATIVE Urine ketones detection by automated test strip NEGATIVE NEGATIVE Urine nitrite detection by test strip NEGATIVE NEGATIVE Urine total bilirubin detection by test strip NEGATIVE NEGATIVE Urine urobilinogen measurement by automated test strip (mass/volume) NORMAL NORMAL Urine leukocyte esterase detection by dipstick NEGATIVE NEGATIVE Automated urine sediment erythrocyte count by microscopy (number/high power field) [HPF] NRG Automated urine sediment leukocyte count by microscopy (number/high power field ) NONE NRG Bacteria detection in urine sediment by light microscopy NEGATIVE NRG Squamous epithelial cells detection in urine sediment by light microscopy NONE NRG Crystals detection in urine sediment by light microscopy NONE NRG Casts detection in urine sediment by light microscopy NONE NRG Mucus detection in urine sediment by light microscopy NEGATIVE NRG Complete urinalysis with reflex to culture NO NRG Comprehensive metabolic panel - 10/14/18 10:33 Serum or plasma sodium measurement (moles/volume) 130 mmol/L 135-145 Serum or plasma potassium measurement (moles/volume) 4.1 mmol/L 3.6-5.0 Serum or plasma chloride measurement (moles/volume) 92 mmol/L 98-107 Carbon dioxide 27 mmol/L 21-32 Serum or plasma anion gap determination (moles/volume) 11 mmol/L 5-14 Serum or plasma urea nitrogen measurement (mass/volume) 16 mg/dL 7-18 Serum or plasma creatinine measurement (mass/volume) 0.81 mg/dL 0.60-1.30 Serum or plasma urea nitrogen/creatinine mass ratio 20 NRG Serum or plasma creatinine measurement with calculation of estimated glomerular filtration rate > NRG Serum or plasma glucose measurement (mass/volume) 180 mg/dL 70-105 Serum or plasma calcium measurement (mass/volume) 9.3 mg/dL 8.5-10.1 Serum or plasma total bilirubin measurement (mass/volume) 1.2 mg/dL 0.1-1.0 Serum or plasma alkaline phosphatase measurement (enzymatic activity/volume) 51 U/L 40-136 Serum or plasma aspartate aminotransferase measurement (enzymatic activity/ volume) 14 U/L 5-34 Serum or plasma alanine aminotransferase measurement (enzymatic activity/volume ) 15 U/L 0-55 Serum or plasma protein measurement (mass/volume) 7.2 g/dL 6.4-8.2 Serum or plasma albumin measurement (mass/volume) 4.1 g/dL 3.2-4.5 CALCIUM CORRECTED 9.2 mg/dL 8.5-10.1 Magnesium - 10/14/18 10:33 Magnesium 1.4 mg/dL 1.8-2.4 Serum or plasma troponin i.cardiac measurement (mass/volume) - 10/14/18 10:33 Serum or plasma troponin i.cardiac measurement (mass/volume) < ng/ mL <0.30 Encounters ACCT No. Visit Date/Time Discharge Status Pt. Type Provider Facility Loc./Unit Complaint [id number] 09/12/2018 11:26:00 09/13/2018 12:00:00 DIS Outpatient GRISELDA SUÁREZ, NEFTALY Andersen [facility] 4TH ORTHOSTATIC HYPOTENSION [id number] 04/25/2017 14:42:00 04/25/2017 23:59:59 CLS Outpatient CHELSEA QUINTANILLA MD [facility] RAD CERVICAL STENOSIS M48.02 [id number] 04/30/2016 07:59:00 04/30/2016 10:55:00 DIS Emergency CRISTAL DIAZ MD [facility] ER [id number] 07/13/2013 10:49:00 07/13/2013 13:52:00 DIS Emergency [id number] 10/14/2018 11:10:00 Document Registration [id number] 10/12/2018 09:51:00 Document Registration
[2018-10-14 16:00] VITALS: BP 156/84
--- NOTE | 2018-10-14 16:28 | Consultation-Cardiology ---
HPI-Cardiology Cardiology Consultation: Date of Consultation 10/14/18 Time Seen by a Provider: 15:45 Date of Admission 10-14-18 Attending Physician David Aguilera MD Admitting Physician David Aguilera MD Consulting Physician Orlando Stinson MD HPI: Chief Complaint: PAF Sinus node dysfunction Mr. Antonio is an 88 year old male who resides at home with his spouse. His primary optical fabricator is Dr. Luevano at [facility]. He has been admitted to [facility] from the ED d/t gen weakness and right rib/arm pain following fall at home on 10-12-18. His spouse states he had gotten up during the night of the 10-12-18 to use the bathroom she states she believed he passed out; he states he lost his footing. Nevertheless he fell and suffered right rib fractures. He was evaluated in the ED and discharged home. He reports the discomfort was becoming progressively worse and he came in to the ED. The discomfort is right lateral, rib area. He denies any CP, palpitations, dyspnea, n/v/d, fever or chills. 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 Review of Systems-Cardiology Review of Systems Constitutional: No chills, No fever; malaise Eyes: No vision change Ears/Nose/Throat: No epistaxis, No recent hearing loss, No ulcerations Respiratory: As described under HPI Gastrointestinal: No constipation, No diarrhea, No nausea, No vomiting Genitourinary: No dysuria, No hematuria; incontinence Musculoskeletal: As describe under HPI Skin: No rash, No ulcerations Psychiatric/Neurological: weakness, syncope (h/o); No seizure Hematologic: No bleeding abnormalities ZVF-Yyamat-Zjcxhs Hx Patient Social History Alcohol Use: Denies Use Recreational Drug Use: No Smoking Status: Former Smoker Recent Foreign Travel: No Recent Infectious Disease Expo: No Hospitalization with Isolation: Denies Immunizations Up To Date Tetanus Booster (TDap): Unknown Date of Pneumonia Vaccine: Nov 22, 2010 Date of Influenza Vaccine: Sep 11, 2018 Past Medical History PMH As described under Assessment. Allergies and Home Medications Allergies Coded Allergies: Penicillins (Verified Allergy, Mild, hives, 10/12/18) Home Medications Carvedilol 3.125 Mg Tablet, 3.125 MG PO BID, (Reported) Magnesium Oxide 400 Mg Tablet, 400 MG PO 1500, (Reported) Metformin HCl 1,000 Mg Tablet, 1,000 MG PO BID, (Reported) Warfarin Sodium 7.5 Mg Tablet, 7.5 MG PO SuTuThSa, (Reported) Warfarin Sodium 6 Mg Tablet, 6 MG PO MoWeFr, (Reported) Patient Home Medication List Home Medication List Reviewed: Yes Physical Exam-Cardiology Physical Exam Vital Signs/I&O 10/14/18 10/14/18 10/15/18 10/15/18 20:00 20:00 00:17 01:00 Temp 97.3 98.0 Pulse 97 97 95 Resp 18 18 B/P (MAP) 143/66 (91) 156/77 (103) Pulse Ox 97 96 O2 Delivery Room Air Room Air Room Air 10/15/18 04:23 Temp 97.6 Pulse 89 Resp 18 B/P (MAP) 149/74 (99) Pulse Ox 97 O2 Delivery Room Air 10/15/18 00:00 Intake Total 670 ml Output Total 275 ml Balance 395 ml Capillary Refill : Less Than 3 Seconds Constitutional: AAO x 3, other (frail) HEENT: hard of hearing, oral hygience is good Neck: No carotid bruit; carotid pulses are 2 + bilaterally Respiratory: No accessory muscle use, No respiratory distress; chest expansion is symmetric, chest is bilaterally symmetric, lungs clear to auscultation, other (diminished RLL with poor inspiratory effort) Cardiovascular: irregularly irregular; No JVD; S1 and S2, systolic murmur Gastrointestinal: No tender; soft, audible bowel sounds, other (thin) Rectal: deferred Extremities: no lower extremity edema bilateral Neurologic/Psychiatric: grossly intact Skin: No rash, No ulcerations Data Review Labs Laboratory Tests 10/14/18 10:25: Urine Color YELLOW, Urine Clarity CLEAR, Urine pH 6, Urine Specific [place] 1.015L, Urine Protein 1+H, Urine Glucose (UA) NEGATIVE, Urine Ketones NEGATIVE, Urine Nitrite NEGATIVE, Urine Bilirubin NEGATIVE, Urine Urobilinogen NORMAL, Urine Leukocyte Esterase NEGATIVE, Urine RBC (Auto) 1+H, Urine RBC 2-5H, Urine WBC NONE, Urine Squamous Epithelial Cells NONE, Urine Crystals NONE, Urine Bacteria NEGATIVE, Urine Casts NONE, Urine Mucus NEGATIVE, Urine Culture Indicated NO 10/14/18 10:33: White Blood Count 10.2, Red Blood Count 4.16L, Hemoglobin 11.6L, Hematocrit 35L , Mean Corpuscular Volume 83, Mean Corpuscular Hemoglobin 28, Mean Corpuscular Hemoglobin Concent 34, Red Cell Distribution Width 16.5H, Platelet Count 268, Mean Platelet Volume 9.1, Neutrophils (%) (Auto) 62, Lymphocytes (%) (Auto) 24, Monocytes (%) (Auto) 14H, Eosinophils (%) (Auto) 0, Basophils (%) (Auto) 0, Neutrophils # (Auto) 6.3, Lymphocytes # (Auto) 2.4, Monocytes # (Auto) 1.4H, Eosinophils # (Auto) 0.0, Basophils # (Auto) 0.0, Prothrombin Time 35.1H, INR Comment 3.5H, Activated Partial Thromboplast Time 50H, Sodium Level 130L, Potassium Level 4.1, Chloride Level 92L, Carbon Dioxide Level 27, Anion Gap 11, Blood Urea Nitrogen 16, Creatinine 0.81, Estimat Glomerular Filtration Rate > 60 , BUN/Creatinine Ratio 20, Glucose Level 180H, Calcium Level 9.3, Corrected Calcium 9.2, Magnesium Level 1.4L, Total Bilirubin 1.2H, Aspartate Amino Transf (AST/SGOT) 14, Alanine Aminotransferase (ALT/SGPT) 15, Alkaline Phosphatase 51, Troponin I < 0.30, Total Protein 7.2, Albumin 4.1 10/15/18 05:40: White Blood Count 10.5, Red Blood Count 4.00L, Hemoglobin 11.1L, Hematocrit 33L , Mean Corpuscular Volume 83, Mean Corpuscular Hemoglobin 28, Mean Corpuscular Hemoglobin Concent 33, Red Cell Distribution Width 16.2H, Platelet Count 252, Mean Platelet Volume 9.8, Neutrophils (%) (Auto) 73, Lymphocytes (%) (Auto) 13, Monocytes (%) (Auto) 14H, Eosinophils (%) (Auto) 0, Basophils (%) (Auto) 0, Neutrophils # (Auto) 7.7, Lymphocytes # (Auto) 1.4, Monocytes # (Auto) 1.4H, Eosinophils # (Auto) 0.0, Basophils # (Auto) 0.0, Prothrombin Time 41.1H, INR Comment 4.2H, Sodium Level 128L, Potassium Level 4.0, Chloride Level 95L, Carbon Dioxide Level 22, Anion Gap 11, Blood Urea Nitrogen 13, Creatinine 0.71, Estimat Glomerular Filtration Rate > 60, BUN/Creatinine Ratio 18, Glucose Level 204H, Calcium Level 8.9, Magnesium Level 1.5L, Thyroid Stimulating Hormone (TSH ) 1.68 Radiology NAME: AMANDA ANTONIO [facility] REC#: [id number] PT STATUS: REG ER : 1930 PHYSICIAN: ROBERT ROSEN MD ADMIT DATE: 10/14/18/ER Draft Date of Exam:10/14/18 CHEST PA/LAT (2 VIEW) CLINICAL INDICATION: Patient with complaints of right sided rib pain. Patient was diagnosed with two fractured ribs after fall a few days ago in the emergency room. Patient has been unable to stand due to the pain. EXAMINATION: Chest x-ray PA and lateral views. COMPARISONS: Chest x-ray dated 04/30/2016. CT scan of the chest without contrast dated 10/12/2018. FINDINGS: Lungs/pleura: There is mild left lung base atelectasis. Otherwise, lungs are clear. There is stable bilateral apical pleural-parenchymal thickening/scarring. There is no pneumothorax. There is no pleural effusion. Mediastinum: Unremarkable. Pulmonary vasculature: Unremarkable. Heart: Unremarkable. Bones/extrathoracic soft tissue: The known fractures involving the posterior lateral aspect of the right 9th and 10th ribs are not well visualized on this exam and better seen on the comparison CT scan. IMPRESSION: 1: There is development of mild left lung base atelectasis. There is no pneumothorax and the remainder of the lungs are clear. 2: The known right 9th and 10th rib fractures are not well visualized on this exam and better seen on the comparison CT scan. Dictated on workstation # [id number] Dict: 10/14/18 0858 Trans: 10/14/18 0908 [facility] [id number] Interpreted by: ELLA BAIN MD Electronically signed by: ECG Impression ECG Comment Sinus node dysfunction A/P-Cardiology Assessment/Admission Diagnosis H/O PAF Warfarin for stroke prophylaxis - supra therapeutic INR H/O coronary stent in the past by Dr. Luevano - details unknown H/O orthostatic hypotension H/O syncopal episode on 09-12-18 - determined to be d/t postural hypotension H/O recent fall at home on 12-8-18 resulting in right rib fx H/O laryngeal cancer for which he received radiation/chemo tx GERD Echocardiogram of 09-12-[address] Kaufman showed - concentric LVH; grade 2 diastolic dysfunction; RA and LA dilated; Mild MR; Mild AoV stenosis; Mod TR; PASP 55-60 mmHg Electrolyte abnormalities Elevated Bili level of undetermined etiology Discussion and Recomendations We will request records from his primary optical fabricator Dr. Luevano at [facility] in [place], [place] H/O PAF - continue warfarin to keep INR therapeutic - currently supra therapeutic - hold warfarin Continue current medication regimen Tele Monitor lab Replace electrolytes Advise PT Further recs will be based on his hospital course We would like to thank medical services for this consults DANIA NUNEZ Oct 14, 2018 16:28
[2018-10-14] MEDS ORDERED: CATHETER FLUSH 10 ML SYR IV PRN (16:30)
[2018-10-14] MEDS: MAGNESIUM 1 GM/D5W 100 ML IVPB IV SCH ×2 (16:54→17:55)
[2018-10-14] MEDS: NS W/KCL 20 MEQ/L 1,000 ML IV SCH (16:55)
[2018-10-14 20:00] VITALS: BP 143/66
--- NOTE | 2018-10-14 20:39 | History & Physical ---
History of Present Illness History of Present Illness Reason for visit/HPI 8-year-old male admitted for worsening weakness and decreased full rate. Patient reports he is just clumsy but does note a little bit of weakness; generalized and not involving one limb over the other. He was last hospitalized in early September for what was determined to be orthostatic hypotension. Of note patient is on warfarin for atrial fibrillation. Has INR was 3.5. No signs of bleeding at this time. Mental status is at baseline. No known or suspected seizures. Patient did have a serious fall on 10/12/18 in which he sustained right side rib fractures. He returned to ER as the pain in his ribs has continued. Of note patient's sodium is low at 130 as well as magnesium was low. Review of his labs over the last month his Na has trended down. Cardiology was consulted for further evaluation and recommendations. Date of Admission Oct 14, 2018 at 14:38 Date Seen by a Provider: Oct 14, 2018 Time Seen by a Provider: 20:05 I consulted on this patient on 10/14/18 20:34 Attending Physician David Flores MD Admitting Physician David Flores MD Consult Cardiology Allergies and Home Medications Allergies Coded Allergies: Penicillins (Verified Allergy, Mild, hives, 10/12/18) Home Medications Atorvastatin Calcium 10 Mg Tablet, 10 MG PO HS, (Reported) Carvedilol 3.125 Mg Tablet, 3.125 MG PO BID, (Reported) Magnesium Oxide 400 Mg Tablet, 400 MG PO 1500, (Reported) Metformin HCl 1,000 Mg Tablet, 1,000 MG PO BID, (Reported) Warfarin Sodium 7.5 Mg Tablet, 7.5 MG PO SuTuThSa, (Reported) Warfarin Sodium 6 Mg Tablet, 6 MG PO MoWeFr, (Reported) Patient Home Medication List Home Medication List Reviewed: Yes Past Kszgttz-Ffbfbr-Muaits Hx Patient Social History Alcohol Use: Denies Use Recreational Drug Use: No Smoking Status: Former Smoker Physical Abuse Screen: No Sexual Abuse: No Recent Foreign Travel: No Contact w/other who traveled: No Recent Hopitalizations: No Recent Infectious Disease Expo: No Immunizations Up To Date Tetanus Booster (TDap): Unknown Pediatric: Yes Date of Pneumonia Vaccine: Nov 22, 2010 Date of Influenza Vaccine: Sep 11, 2018 Surgeries Yes Appendectomy, Coronary Stent Respiratory No Cardiovascular Yes (HEART STENTS) Coronary Artery Disease, Hypertension Neurological No Genitourinary Yes Kidney Stones Gastrointestinal No Musculoskeletal Yes Arthritis Endocrine History of Endocrine Disorders: Yes Endocrine Disorders: Diabetes, Non-Insulin dep HEENT HEENT Disorders: Cataract Hearing Impairment: Hard of Hearing Cancer Yes (LARYNX W/RADIATION YR AGO) Did You Recieve Any Treatments: Yes Type of Treatment: Radiation Psychosocial History of Psychiatric Problem: No Integumentary History of Skin or Integumenta: No Blood Transfusions History of Blood Disorders: No Family Medical History Significant Family History: No Pertinent Family Hx Review of Systems Review of Systems General: No Chills, No Night Sweats HEENT: No Head Aches, No Visual Changes Pulmonary: No Dyspnea, No Cough Cardiovascular: Chest Pain (right side ribs) Gastrointestinal: No: Nausea, Vomiting, Abdominal Pain Genitourinary: No Dysuria Musculoskeletal: No: neck pain, shoulder pain Neurological: Weakness; No: Confusion Physical Exam Vital Signs Vital Signs - First Documented 10/14/18 07:57 Temp 98.0 Pulse 82 Resp 20 B/P (MAP) 148/81 (103) Pulse Ox 97 O2 Delivery Room Air Capillary Refill : Less Than 3 Seconds Height, Weight, BMI Height: 5'10.00" Weight: 155lbs. 0.0oz. 70.478619ih; 22.2 BMI Method:Stated General Appearance: WD/WN, Mild Distress HEENT: PERRL/EOMI Neck: Full Range of Motion, Non Tender, Supple Respiratory: Chest Non Tender, Lungs Clear, Normal Breath Sounds, No Accessory Muscle Use, No Respiratory Distress Cardiovascular: Irregularly Irregular Gastrointestinal: Non Tender, Soft Rectal: Deferred Back: Normal Inspection, No CVA Tenderness Neurologic/Psychiatric: Alert, Oriented x3, Normal Mood/Affect Skin: Normal Color, Warm/Dry Assessment/Plan Assessment/Plan Admission Dx weakness hyponatremia hypomagnesemia supratherapeutic INR Admission Status: Inpatient Order (span 2 midnights) Reason for Inpatient Admission: Patient has had increasing frequency in his falls and with the noted electrolyte abnormalities along with his weakness and supratherapeutic INR it was deemed necessary to intervene with admission and work on improving his weakness, monitor for any signs of bleeding, mental status changes and correct his electrolyte derangement. Assessment and Plan 88 yo M R53.1 weakness E87.1 hyponatremia- NS- recheck in AM E83.42 hypomagnesemia- replacing IV, rechecking R79.1 Supratherapeutic INR- rechecking INR in AM, holding warfarin I95.1 orthostatic hypotension- standing precautions I25.10 Chronic diastolic heart failure- continue current regimen S22.41XD- Rib fractures- continue taking deep breaths, pain control. Dispo: admitted for above reason- goal to improve his electrolyte derangements , improve his weakness and gait to prevent falls. DVT ppx- on warfarin, monitor INR. Problems: (1) Generalized weakness (2) Rib fractures Qualifiers: Qualified Codes: S22.41XD - Multiple fractures of ribs, right side, subsequent encounter for fracture with routine healing (3) Supratherapeutic INR (4) Hypomagnesemia (5) Hyponatremia (6) HTN (hypertension) (7) Non-insulin dependent type 2 diabetes mellitus Assessment & Plan: holding metformin SSI Clinical Quality Measures DVT/VTE Risk/Contraindication: Risk Factor Score Per Nursin RFS Level Per Nursing on Admit: 2=Moderate DAVID FLORES MD Oct 14, 2018 20:39
--- NOTE | 2018-10-14 20:49 | Consultation-Cardiology ---
HPI-Cardiology Cardiology Consultation: Date of Consultation 10/14/18 Time Seen by a Provider: 20:40 Date of Admission Attending Physician David Aguilera MD Admitting Physician David Aguilera MD Consulting Physician CHEMO PIMENTEL MD, MA, FACP, FACC, FSCAI, CCDS HPI: Chief Complaint: Reason for consultation: Sinus node dysfunction Mr. Antonio is an 88 year old male who resides at home with his spouse. His primary form coverer is Dr. Luevano at [facility]. He has been admitted to [facility] from the ED d/t gen weakness and right rib/arm pain following fall at home on 10-12-18. His spouse states he had gotten up during the night of the 10-12-18 to use the bathroom she states she believed he passed out; he states he lost his footing. Nevertheless he fell and suffered right rib fractures. He was evaluated in the ED and discharged home. He reports the discomfort was becoming progressively worse and he came in to the ED. The discomfort is right lateral, rib area. He denies any CP, palpitations, dyspnea, n/v/d, fever or chills. 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 Review of Systems-Cardiology Review of Systems Constitutional: No chills, No fever; malaise Eyes: No vision change Ears/Nose/Throat: No epistaxis, No recent hearing loss, No ulcerations Respiratory: As described under HPI Gastrointestinal: No constipation, No diarrhea, No nausea, No vomiting Genitourinary: No dysuria, No hematuria; incontinence Musculoskeletal: As describe under HPI Skin: No rash, No ulcerations Psychiatric/Neurological: weakness, syncope (h/o); No seizure Hematologic: No bleeding abnormalities ZBQ-Ligypa-Tyhgxh Hx Patient Social History Alcohol Use: Denies Use Recreational Drug Use: No Smoking Status: Former Smoker Recent Foreign Travel: No Recent Infectious Disease Expo: No Hospitalization with Isolation: Denies Physical Abuse Screen: No Sexual Abuse: No Immunizations Up To Date Tetanus Booster (TDap): Unknown Date of Pneumonia Vaccine: Nov 22, 2010 Date of Influenza Vaccine: Sep 11, 2018 Past Medical History PMH As described under Assessment. Family Medical History Family Medical History: Does not report fam h/o early CAD or SCD Allergies and Home Medications Allergies Coded Allergies: Penicillins (Verified Allergy, Mild, hives, 10/12/18) Home Medications Carvedilol 3.125 Mg Tablet, 3.125 MG PO BID, (Reported) Magnesium Oxide 400 Mg Tablet, 400 MG PO 1500, (Reported) Metformin HCl 1,000 Mg Tablet, 1,000 MG PO BID, (Reported) Warfarin Sodium 7.5 Mg Tablet, 7.5 MG PO SuTuThSa, (Reported) Warfarin Sodium 6 Mg Tablet, 6 MG PO MoWeFr, (Reported) Patient Home Medication List Home Medication List Reviewed: Yes Physical Exam-Cardiology Physical Exam Vital Signs/I&O 10/14/18 10/14/18 10/14/18 10/14/18 15:20 16:00 16:30 20:00 Temp 98.0 97.3 Pulse 88 81 97 Resp 20 16 18 B/P (MAP) 123/84 (97) 156/84 (108) 143/66 (91) Pulse Ox 97 97 97 O2 Delivery Room Air Room Air Room Air Room Air Capillary Refill : Less Than 3 Seconds Constitutional: AAO x 3, other (frail) HEENT: hard of hearing, oral hygience is good Neck: No carotid bruit; carotid pulses are 2 + bilaterally Respiratory: No accessory muscle use, No respiratory distress; chest expansion is symmetric, chest is bilaterally symmetric, lungs clear to auscultation, other (diminished RLL with poor inspiratory effort) Cardiovascular: irregularly irregular; No JVD; S1 and S2, systolic murmur Gastrointestinal: No tender; soft, audible bowel sounds, other (thin) Rectal: deferred Extremities: no lower extremity edema bilateral Neurologic/Psychiatric: grossly intact Skin: No rash, No ulcerations Data Review Labs Laboratory Tests 10/14/18 10:25: Urine Color YELLOW, Urine Clarity CLEAR, Urine pH 6, Urine Specific [place] 1.015L, Urine Protein 1+H, Urine Glucose (UA) NEGATIVE, Urine Ketones NEGATIVE, Urine Nitrite NEGATIVE, Urine Bilirubin NEGATIVE, Urine Urobilinogen NORMAL, Urine Leukocyte Esterase NEGATIVE, Urine RBC (Auto) 1+H, Urine RBC 2-5H, Urine WBC NONE, Urine Squamous Epithelial Cells NONE, Urine Crystals NONE, Urine Bacteria NEGATIVE, Urine Casts NONE, Urine Mucus NEGATIVE, Urine Culture Indicated NO 10/14/18 10:33: White Blood Count 10.2, Red Blood Count 4.16L, Hemoglobin 11.6L, Hematocrit 35L , Mean Corpuscular Volume 83, Mean Corpuscular Hemoglobin 28, Mean Corpuscular Hemoglobin Concent 34, Red Cell Distribution Width 16.5H, Platelet Count 268, Mean Platelet Volume 9.1, Neutrophils (%) (Auto) 62, Lymphocytes (%) (Auto) 24, Monocytes (%) (Auto) 14H, Eosinophils (%) (Auto) 0, Basophils (%) (Auto) 0, Neutrophils # (Auto) 6.3, Lymphocytes # (Auto) 2.4, Monocytes # (Auto) 1.4H, Eosinophils # (Auto) 0.0, Basophils # (Auto) 0.0, Prothrombin Time 35.1H, INR Comment 3.5H, Activated Partial Thromboplast Time 50H, Sodium Level 130L, Potassium Level 4.1, Chloride Level 92L, Carbon Dioxide Level 27, Anion Gap 11, Blood Urea Nitrogen 16, Creatinine 0.81, Estimat Glomerular Filtration Rate > 60 , BUN/Creatinine Ratio 20, Glucose Level 180H, Calcium Level 9.3, Corrected Calcium 9.2, Magnesium Level 1.4L, Total Bilirubin 1.2H, Aspartate Amino Transf (AST/SGOT) 14, Alanine Aminotransferase (ALT/SGPT) 15, Alkaline Phosphatase 51, Troponin I < 0.30, Total Protein 7.2, Albumin 4.1 A/P-Cardiology Assessment/Admission Diagnosis H/O PAF Warfarin for stroke prophylaxis - supra therapeutic INR H/O coronary stent in the past by Dr. Luevano - details unknown H/O orthostatic hypotension H/O syncopal episode on 09-12-18 - determined to be d/t postural hypotension H/O recent fall at home on 10-12-18 resulting in right rib fx H/O laryngeal cancer for which he received radiation/chemo tx GERD Echocardiogram of 09-12-[address] Kaufman showed - concentric LVH; grade 2 diastolic dysfunction; RA and LA dilated; Mild MR; Mild AoV stenosis; Mod TR; PASP 55-60 mmHg Electrolyte abnormalities Elevated Bili level of undetermined etiology Discussion and Recomendations We will request records from his primary form coverer Dr. Luevano at [facility] in [place], [place] H/O PAF - continue warfarin to keep INR therapeutic - currently supra therapeutic - hold warfarin Continue current medication regimen Tele Monitor lab Replace electrolytes Advise PT Further recs will be based on his hospital course We would like to thank medical services for this consults Clinical Quality Measures DVT/VTE Risk/Contraindication: Risk Factor Score Per Nursin RFS Level Per Nursing on Admit: 2=Moderate CHEMO PIMENTEL MD FACP FAC CCDS Oct 14, 2018 20:49
[2018-10-15] VITALS (7 sets, daily range): BP systolic 136–157; BP diastolic 67–80
[2018-10-15] MEDS: NS W/KCL 20 MEQ/L 1,000 ML IV SCH (04:57)
[2018-10-15 06:14] LABS: BASOPHILS % (AUTO) 0 % (0-10); EOSINOPHILS % (AUTO) 0 % (0-10); HEMATOCRIT 33 % (40-54); HEMOGLOBIN 11.1 G/DL (13.3-17.7); LYMPHOCYTES # (AUTO) 1.4 X 10^3 (1.0-4.0); LYMPHOCYTES % (AUTO) 13 % (12-44); MEAN CORPUSCULAR HEMOGLOBIN 28 PG (25-34); MEAN CORPUSCULAR HGB CONC 33 G/DL (32-36); MEAN CORPUSCULAR VOLUME 83 FL (80-99); MEAN PLATELET VOLUME 9.8 FL (7.4-10.4); MONOCYTES # (AUTO) 1.4 X 10^3 (0.0-1.0); MONOCYTES % (AUTO) 14 % (0-12); NEUTROPHILS # (AUTO) 7.7 X 10^3 (1.8-7.8); NEUTROPHILS % (AUTO) 73 % (42-75); PLATELET COUNT 252 10^3/uL (130-400); RED CELL DISTRIBUTION WIDTH 16.2 % (10.0-14.5); WHITE BLOOD COUNT 10.5 10^3/uL (4.3-11.0)
[2018-10-15 06:22] LABS: INR 4.2 (0.8-1.4); PROTHROMBIN TIME PATIENT 41.1 SEC (12.2-14.7)
[2018-10-15 06:32] LABS: BUN/CREATININE RATIO 18; CALCIUM 8.9 MG/DL (8.5-10.1); CARBON DIOXIDE 22 MMOL/L (21-32); CHLORIDE 95 MMOL/L (98-107); CREATININE SERUM 0.71 MG/DL (0.60-1.30); GFR ESTIMATED > 60; GLUCOSE 204 MG/DL (70-105); MAGNESIUM 1.5 MG/DL (1.8-2.4); SODIUM 128 MMOL/L (135-145)
--- NOTE | 2018-10-15 08:20 | Progress Note (SOAP) ---
Subjective Subjective Date Seen by Provider: Oct 15, 2018 Time Seen by Provider: 08:23 present this AM. Shane reports he is doing alright. He denies any new issues. Wants to home when he is ready. Willing to try and participate with PT. Sodium down to 128 this AM from 130- Magnesium is also still low at 1.5. The magnesium is in D5 so this is not helping patient's sodium level and his blood sugar is up as well. Will need to do hypertonic 3% saline. INR also increased at 4.2- Patient's labs are worse than at admission- decision to admit and work up further was the correct decision. Review of Systems General: No Chills, No Night Sweats HEENT: No Head Aches, No Visual Changes Pulmonary: No Dyspnea, No Cough Cardiovascular: Chest Pain (right side ribs) Gastrointestinal: No: Nausea, Vomiting, Abdominal Pain Genitourinary: No Dysuria Musculoskeletal: No: neck pain, shoulder pain Neurological: Weakness; No: Confusion Objective Exam Vital Signs Vital Signs - First Documented 10/14/18 07:57 Temp 98.0 Pulse 82 Resp 20 B/P (MAP) 148/81 (103) Pulse Ox 97 O2 Delivery Room Air Capillary Refill : Less Than 3 SecondsLess Than 3 Seconds General Appearance: WD/WN, Mild Distress HEENT: PERRL/EOMI Neck: Full Range of Motion, Non Tender, Supple Respiratory: Chest Non Tender, Lungs Clear, Normal Breath Sounds, No Accessory Muscle Use, No Respiratory Distress Cardiovascular: Irregularly Irregular Gastrointestinal: Non Tender, Soft Rectal: Deferred Back: Normal Inspection, No CVA Tenderness Extremity: Normal Inspection, No Pedal Edema, Other (Tenderness to palpation over the left hip) Neurologic/Psychiatric: Alert, Oriented x3, Normal Mood/Affect Skin: Normal Color, Warm/Dry Results Lab Laboratory Tests 10/14/18 10:25: Urine Color YELLOW, Urine Clarity CLEAR, Urine pH 6, Urine Specific [place] 1.015L, Urine Protein 1+H, Urine Glucose (UA) NEGATIVE, Urine Ketones NEGATIVE, Urine Nitrite NEGATIVE, Urine Bilirubin NEGATIVE, Urine Urobilinogen NORMAL, Urine Leukocyte Esterase NEGATIVE, Urine RBC (Auto) 1+H, Urine RBC 2-5H, Urine WBC NONE, Urine Squamous Epithelial Cells NONE, Urine Crystals NONE, Urine Bacteria NEGATIVE, Urine Casts NONE, Urine Mucus NEGATIVE, Urine Culture Indicated NO 10/14/18 10:33: White Blood Count 10.2, Red Blood Count 4.16L, Hemoglobin 11.6L, Hematocrit 35L , Mean Corpuscular Volume 83, Mean Corpuscular Hemoglobin 28, Mean Corpuscular Hemoglobin Concent 34, Red Cell Distribution Width 16.5H, Platelet Count 268, Mean Platelet Volume 9.1, Neutrophils (%) (Auto) 62, Lymphocytes (%) (Auto) 24, Monocytes (%) (Auto) 14H, Eosinophils (%) (Auto) 0, Basophils (%) (Auto) 0, Neutrophils # (Auto) 6.3, Lymphocytes # (Auto) 2.4, Monocytes # (Auto) 1.4H, Eosinophils # (Auto) 0.0, Basophils # (Auto) 0.0, Prothrombin Time 35.1H, INR Comment 3.5H, Activated Partial Thromboplast Time 50H, Sodium Level 130L, Potassium Level 4.1, Chloride Level 92L, Carbon Dioxide Level 27, Anion Gap 11, Blood Urea Nitrogen 16, Creatinine 0.81, Estimat Glomerular Filtration Rate > 60 , BUN/Creatinine Ratio 20, Glucose Level 180H, Calcium Level 9.3, Corrected Calcium 9.2, Magnesium Level 1.4L, Total Bilirubin 1.2H, Aspartate Amino Transf (AST/SGOT) 14, Alanine Aminotransferase (ALT/SGPT) 15, Alkaline Phosphatase 51, Troponin I < 0.30, Total Protein 7.2, Albumin 4.1 10/15/18 05:40: White Blood Count 10.5, Red Blood Count 4.00L, Hemoglobin 11.1L, Hematocrit 33L , Mean Corpuscular Volume 83, Mean Corpuscular Hemoglobin 28, Mean Corpuscular Hemoglobin Concent 33, Red Cell Distribution Width 16.2H, Platelet Count 252, Mean Platelet Volume 9.8, Neutrophils (%) (Auto) 73, Lymphocytes (%) (Auto) 13, Monocytes (%) (Auto) 14H, Eosinophils (%) (Auto) 0, Basophils (%) (Auto) 0, Neutrophils # (Auto) 7.7, Lymphocytes # (Auto) 1.4, Monocytes # (Auto) 1.4H, Eosinophils # (Auto) 0.0, Basophils # (Auto) 0.0, Prothrombin Time 41.1H, INR Comment 4.2H, Sodium Level 128L, Potassium Level 4.0, Chloride Level 95L, Carbon Dioxide Level 22, Anion Gap 11, Blood Urea Nitrogen 13, Creatinine 0.71, Estimat Glomerular Filtration Rate > 60, BUN/Creatinine Ratio 18, Glucose Level 204H, Calcium Level 8.9, Magnesium Level 1.5L, Thyroid Stimulating Hormone (TSH ) 1.68 Assessment/Plan Assessment/Plan Admission Dx weakness hyponatremia hypomagnesemia supratherapeutic INR Assessment and Plan 88 yo M R53.1 weakness- PT eval for strength and gait training. replacing electrolytes E87.1 hyponatremia- stopping NS- worsened by D5 in magnesium- E83.42 hypomagnesemia- replacing IV, rechecking R79.1 Supratherapeutic INR- rechecking INR in AM, holding warfarin I95.1 orthostatic hypotension- standing precautions I25.10 Chronic diastolic heart failure- continue current regimen S22.41XD- Rib fractures- continue taking deep breaths, pain control. Dispo: admitted for above reason- goal to improve his electrolyte derangements , improve his weakness and gait to prevent falls. 10/15/18 IV and PO magnesium today- 3% saline IV 30cc/hr rechecking at 1800hr. DVT ppx- on warfarin, monitor INR. Problems: (1) Generalized weakness (2) Rib fractures Qualifiers: Qualified Codes: S22.41XD - Multiple fractures of ribs, right side, subsequent encounter for fracture with routine healing (3) Supratherapeutic INR (4) Hypomagnesemia (5) Hyponatremia (6) HTN (hypertension) (7) Non-insulin dependent type 2 diabetes mellitus Assessment & Plan: holding metformin SSI Admission Dx weakness hyponatremia hypomagnesemia supratherapeutic INR Clinical Quality Measures Admission Status Admission Dx weakness hyponatremia hypomagnesemia supratherapeutic INR DVT/VTE Risk/Contraindication: Risk Factor Score Per Nursin RFS Level Per Nursing on Admit: 2=Moderate GHISLAINE FLORES MD Oct 15, 2018 08:20
[2018-10-15] MEDS ORDERED: ATOR10TA66 PO (08:28)
--- NOTE | 2018-10-15 10:20 | Progress Note-Cardiology ---
Cardiology SOAP Progress Note Subjective: More alert today. Denies any c/o CP, palpitations or dyspnea. Reports right rib pain better today. Objective: I&O/Vital Signs 10/15/18 10/15/18 10/15/18 10/15/18 04:23 07:00 08:00 08:00 Temp 97.6 98.2 Pulse 89 103 102 Resp 18 16 B/P (MAP) 149/74 (99) 148/74 (98) Pulse Ox 97 97 O2 Delivery Room Air Room Air Room Air 10/15/18 00:00 Intake Total 670 ml Output Total 275 ml Balance 395 ml Weight (Pounds): 155 Weight (Ounces): 0.0 Weight (Calculated Kilograms): 70.273364 Constitutional: AAO x 3, other (frail) Respiratory: No accessory muscle use, No respiratory distress; chest expansion is symmetric, chest is bilaterally symmetric, lungs clear to auscultation, other (diminished RLL with poor inspiratory effort) Cardiovascular: irregularly irregular; No JVD; S1 and S2, systolic murmur Gastrointestional: No tender; soft, audible bowel sounds, other (thin) Extremities: no lower extremity edema bilateral Neurologic/Psychiatric: grossly intact Skin: No rash, No ulcerations Results/Procedures: Labs Laboratory Tests 10/15/18 05:40: White Blood Count 10.5, Red Blood Count 4.00L, Hemoglobin 11.1L, Hematocrit 33L , Mean Corpuscular Volume 83, Mean Corpuscular Hemoglobin 28, Mean Corpuscular Hemoglobin Concent 33, Red Cell Distribution Width 16.2H, Platelet Count 252, Mean Platelet Volume 9.8, Neutrophils (%) (Auto) 73, Lymphocytes (%) (Auto) 13, Monocytes (%) (Auto) 14H, Eosinophils (%) (Auto) 0, Basophils (%) (Auto) 0, Neutrophils # (Auto) 7.7, Lymphocytes # (Auto) 1.4, Monocytes # (Auto) 1.4H, Eosinophils # (Auto) 0.0, Basophils # (Auto) 0.0, Prothrombin Time 41.1H, INR Comment 4.2H, Sodium Level 128L, Potassium Level 4.0, Chloride Level 95L, Carbon Dioxide Level 22, Anion Gap 11, Blood Urea Nitrogen 13, Creatinine 0.71, Estimat Glomerular Filtration Rate > 60, BUN/Creatinine Ratio 18, Glucose Level 204H, Calcium Level 8.9, Magnesium Level 1.5L, Thyroid Stimulating Hormone (TSH ) 1.68 10/15/18 11:02: Glucometer 293H Procedures NAME: MICHEL MILLARD [facility] REC#: [id number] PT STATUS: ADM IN : 04/28/1957 PHYSICIAN: BERNARD TONG DO ADMIT DATE: 10/09/18 Draft Date of Exam:10/15/18 CHEST 1 VIEW, AP/PA ONLY INDICATION: Pneumonia, heart failure, respiratory failure. TECHNIQUE: Single view chest 3:11 AM. CORRELATION STUDY: 10/14/2018 FINDINGS: Right IJ central line stable. Cardiac enlargement unchanged. Vasculature appears stable. Continued infiltrates with effusion at the right lung base. Left lung stable. IMPRESSION: 1. Continued combination of effusion along with consolidation at the right lung base. Dictated on workstation # [id number] Dict: 10/15/18 0709 Trans: 10/15/18 0847 [id number] Interpreted by: AMERICO METCALF DO Electronically signed by: A/P: Assessment: Sinus node dysfunction and h/o PAF Warfarin for stroke prophylaxis - supra therapeutic INR Hyponatremia, etiology undetermined: Dr Ele Aguilera managing H/O coronary stent in the past by Dr. Luevano - details unknown H/O orthostatic hypotension for which he reports he had undergone w/u and this is being followed by Dr. 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 Luevano at [facility] in [place], [place] H/O PAF - continue warfarin to keep INR therapeutic - currently supra therapeutic - hold warfarin Continue current medication regimen Continue tele Monitor lab closely Replace electrolytes Hyponatremia - receiving 3% NS per medical services Advise PT Physician Assessment Physician Assessment Feels a little stronger today Denies cp or palp or syncope or shortness of breath Lungs: good bilat air entry, diminished at the bases Cor: irreg Ext: no c/c/e A&R * As documented in our note above that I updated (italics) * Hold warfarin until INR therapeutic * I spoke with him and answered CV-related questions DANIA NUNEZ TIMBER MANAGEMENT ASSISTANT Oct 15, 2018 10:20 CHEMO [facility]IMENTEL [facility] Oct 15, 2018 13:10
[2018-10-15] MEDS: SODIUM CHLORIDE 3% 500 ML IV SCH (10:47)
[2018-10-15] MEDS: MAGNESIUM 1 GM/100 ML IVPB 100 ML IV SCH (10:48)
[2018-10-15] MEDS: MAGNESIUM OXIDE (MAG-OX)400 MG TAB PO SCH ×2 (10:49→18:11)
--- NOTE | 2018-10-15 11:24 | Physical Therapy Evaluation ---
PT Evaluation-General Medical Diagnosis Admission Date Oct 14, 2018 at 14:38 Medical Diagnosis: hyponatremia Onset Date: Oct 12, 2018 Therapy Diagnosis Therapy Diagnosis: generalized weakness/debility Height/Weight Height (Feet): 5 Height (Inches): 10.00 Weight (Pounds): 155 Weight (Ounces): 0.0 Precautions Precautions/Isolations: Fall Prevention, Standard Precautions, Pressure Ulcer Weight Bear Status Right Lower Extremity: Right Weight Bearing/Tolerated Left Lower Extremity: Left Weight Bearing/Tolerated Referral Physician: Willy Reason for Referral: Evaluation/Treatment Medical History Pertinent Medical History: CAD, DM, HTN Current History Fall 10/12/18/EMS 10/14/18 secondary to uncontrolled right rib pain Reviewed History: Yes Social History Home: Single Level Current Living Status: Spouse Entry Into Home: Stairs With Railing PT Steps Into Home: 2 Prior/Core FIM Prior Level of Function Therapy Code Descriptions/Definitions Functional [place] Measure: 0=Not Assessed/NA 4=Minimal Assistance 1=Total Assistance 5=Supervision or Setup 2=Maximal Assistance 6=Modified [place] 3=Moderate Assistance 7=Complete [place] Therapy Quality Codes: 6 Independent with activity with or without an assistive device 5 Patient requires set up or clean up by helper. Patient completes activity by themselves 4 Supervision or touching assist (CGA). [place] provide cues , steadying assist 3 The helper provides less than half the effort to complete the activity 2 The helper provides more than half the effort to complete the activity 1 Dependent. The helper does all the effort to complete an activity 7 Patient refused to complete or attempt activity 9 The patient did not perform the activity before the current illness or injury 88 Not attempted due to Medical conditions or safety concerns Functional Abilities and Goals: Independent: Patient completed the activities by him/herself, with or without an assistive device, with no assistance from a helper. Needed Some Help: Patient needed partial assistance from another person to complete activities. Dependent: A helper completed the activities for the patient. Unknown: Not Applicable: Bed Mobility: 6 Transfers (B,C,W/C) (FIM): 6 Gait: 6 Indoor Mobility (Ambulation): Independent Stairs: Independent Prior Devices Use: Walker Prior Device Use: FWW PT Evaluation-Current Subjective Patient agrees to PT. Pain Numeric Pain Scale: 5-Moderate Pain Location: Right Location Body Site: Side Pain Description: Acute, Sharp Comment: with meds issued Objective Patient Orientation: Confused Problem Solving: Poor Attachments: IV ROM/Strength ROM Lower Extremities bilateral LE WFL Strength Lower Extremities 3-/5 grossly bilaterally Integumentary/Posture Integumentary refer to nursing notes Bladder Incontinence: Yes Posture trunk flexed posture Neuromuscular (Tone, Coordination, Reflexes) diminished coordination Sensory Vision: Functional Hearing: Impaired Sensation Right Lower Extremit: Impaired Sensation Left Lower Extremity: Impaired Transfers Therapy Code Descriptions/Definitions Functional [place] Measure: 0=Not Assessed/NA 4=Minimal Assistance 1=Total Assistance 5=Supervision or Setup 2=Maximal Assistance 6=Modified [place] 3=Moderate Assistance 7=Complete [place] Transfers (B, C, W/C) (FIM): 2 Scootin Rollin Supine to/from Sit: 2 Sit to/from Stand: 2 Gait Mode of Locomotion: Walk Anticipated Mode of Locomotion: Walk Gait (FIM): 1 Distance (FIM): 1=up to 49 ft Distance: 5' Gait Level of Assist: 2 Gait Persons Needed: 1 Comments/Gait Description Patient unable to utilize FWW due to weakness and confusion. Balance Sitting Static: Normal Sitting Dynamic: Normal Standing Static: Poor Standing Dynamic: Poor Assessment/Needs 88 y.o. male, will benefit from skilled PT to address functional strength and mobility to improve current LOF. Patient is currently confused and demonstrates weakness bilateral LE and is unaware of safety concerns. Patient is up in recliner with needs met. 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 PT Retirement Goals Time Frame: Oct 26, 2018 Transfers (B,C,W/C) (FIM): 6 Gait (FIM): 6 Gait distance (FIM): 3=150 ft Distance: 150' Gait Level of Assist: 6 Gait Assistive Device: FWW PT Plan Problem List Problem List: Activity Tolerance, Functional Strength, Safety, Balance, Gait, Transfer, Bed Mobility Treatment/Plan Treatment Plan: Continue Plan of Care Treatment Plan: Bed Mobility, Education, Functional Activity Giacomo, Functional Strength, Gait, Safety, Therapeutic Exercise, Transfers Treatment Duration: Oct 26, 2018 Frequency: 6 times per week Estimated Hrs Per Day: .25 hour per day Patient and/or Family Agrees t: Yes Time/GCodes Time In: 1010 Time Out: 1030 Total Billed Treatment Time: 20 Total Billed Treatment 1 visit EVModC 20 min G Codes Necessary: No JAZLYN KENNY PT Oct 15, 2018 11:24
[2018-10-15] MEDS: inSUlin ASPART (NovoLOG) 1 UNIT/0.01 ML (CHARGE PER UNIT) SC SCH ×3 (11:58→20:44)
[2018-10-15 20:20] LABS: BUN/CREATININE RATIO 23; CALCIUM 8.7 MG/DL (8.5-10.1); CARBON DIOXIDE 21 MMOL/L (21-32); CHLORIDE 98 MMOL/L (98-107); CREATININE SERUM 0.77 MG/DL (0.60-1.30); GFR ESTIMATED > 60; GLUCOSE 248 MG/DL (70-105); POTASSIUM 4.1 MMOL/L (3.6-5.0); SODIUM 128 MMOL/L (135-145)
[2018-10-15] MEDS: ATORVASTATIN 10 MG (LIPITOR) TABLET PO SCH (20:44)
[2018-10-16] MEDS: HYDROcodone/APAP 5 MG/325 MG (LORTAB) TAB PO PRN ×3 (00:26→21:44)
[2018-10-16] MEDS: SODIUM CHLORIDE 3% 500 ML IV SCH ×2 (02:17→17:23)
[2018-10-16 04:19] VITALS: BP 142/91
[2018-10-16 05:14] LABS: INR 2.6 (0.8-1.4); PROTHROMBIN TIME PATIENT 27.9 SEC (12.2-14.7)
[2018-10-16 05:22] LABS: BUN/CREATININE RATIO 26; CALCIUM 8.5 MG/DL (8.5-10.1); CARBON DIOXIDE 20 MMOL/L (21-32); CHLORIDE 101 MMOL/L (98-107); CREATININE SERUM 0.66 MG/DL (0.60-1.30); GFR ESTIMATED > 60; GLUCOSE 151 MG/DL (70-105); MAGNESIUM 1.7 MG/DL (1.8-2.4); SODIUM 131 MMOL/L (135-145)
[2018-10-16] MEDS: inSUlin ASPART (NovoLOG) 1 UNIT/0.01 ML (CHARGE PER UNIT) SC SCH ×4 (05:31→21:44)
[2018-10-16 08:00] VITALS: BP 146/74
[2018-10-16] MEDS: MAGNESIUM OXIDE (MAG-OX)400 MG TAB PO SCH ×2 (08:00→17:19)
[2018-10-16] MEDS: MAGNESIUM 1 GM/100 ML IVPB 100 ML IV SCH (09:51)
--- NOTE | 2018-10-16 11:07 | Physical Therapy Daily Note ---
PT Daily Note-Current Subjective present and states she is concerned that her will be discharged today and they cant manage at home. Pt. very resistant to moving about. States he is so fearful of the pain in his ribs on right. Pt. declined attempts at moving several times initially then with encouragement from his and this MEDICAL LAB SPECIALIST he did slowly get up to EOB sitting but c/o dizziness and some vision issues at 1st. This cleared and pt. got up in recliner at bedside Pain Numeric Pain Scale: 7 Location: Right Location Body Site: Chest (ribs) Pain Description: Sharp Mental Status Patient Orientation: Normal For Age Attachments: IV Transfers Therapy Code Descriptions/Definitions Functional [place] Measure: 0=Not Assessed/NA 4=Minimal Assistance 1=Total Assistance 5=Supervision or Setup 2=Maximal Assistance 6=Modified [place] 3=Moderate Assistance 7=Complete [place] Therapy Quality Codes: 6 Independent with activity with or without an assistive device 5 Patient requires set up or clean up by helper. Patient completes activity by themselves 4 Supervision or touching assist (CGA). [place] provide cues , steadying assist 3 The helper provides less than half the effort to complete the activity 2 The helper provides more than half the effort to complete the activity 1 Dependent. The helper does all the effort to complete an activity 7 Patient refused to complete or attempt activity 9 The patient did not perform the activity before the current illness or injury 88 Not attempted due to Medical conditions or safety concerns Transfers (B, C, W/C) (FIM): 2 Scootin Rollin Supine to/from Sit: 2 Sit to/from Stand: 4 (bed level raised) Bed to/from Chair: 4 (very slow moving ) Weight Bearing Right Lower Extremity: Right Weight Bearing/Tolerated Left Lower Extremity: Left Weight Bearing/Tolerated Gait Training Gait Assistive Device: FWW difficulty weighty shifting to take steps to chair Exercises Seated Therapy Exercises: Ankle pumps, Long arc quads, Hip abd/add Seated Reps: 8 Assessment Current Status: Fair Progress pain limits movement, Pt.might be good ARU candidate, was indep prior to this admit. very concerned that she may not be able to handle him PT Fpc Goals Forensic Dna Analyst Goals PT Fpc Goals Time Frame: Oct 26, 2018 Transfers (B,C,W/C) (FIM): 6 Gait (FIM): 6 Gait distance (FIM): 3=150 ft Distance: 150' Gait Level of Assist: 6 Gait Assistive Device: FWW PT Plan Treatment/Plan Treatment Plan: Continue Plan of Care Treatment Plan: Bed Mobility, Education, Functional Activity Giacomo, Functional Strength, Gait, Safety, Therapeutic Exercise, Transfers Treatment Duration: Oct 26, 2018 Frequency: 6 times per week Estimated Hrs Per Day: .25 hour per day Patient and/or Family Agrees t: Yes Safety Risks/Education Patient Education: Transfer Techniques, Correct Positioning, Disease Process, Safety Issues Teaching Recipient: Patient, Family Teaching Methods: Demonstration, Discussion Response to Teaching: Verbalize Understanding, Return Demonstration, Reinforcement Needed Time/GCodes Time In: 1015 Time Out: 1050 Total Billed Treatment Time: 35 Total Billed Treatment 1,FA35m G Codes Necessary: EHLIO Galindo MEDICAL LAB SPECIALIST Oct 16, 2018 11:07
[2018-10-16 12:00] VITALS: BP 140/72
--- NOTE | 2018-10-16 12:48 | Progress Note (SOAP) ---
Subjective Subjective Date Seen by Provider: Oct 16, 2018 Time Seen by Provider: 12:43 Shane reports doing a little better. Sitting up in the chair eating lunch. No overnight events. agrees with him going to a SNU. Labs are improving. Review of Systems General: No Chills, No Night Sweats HEENT: No Head Aches, No Visual Changes Pulmonary: No Dyspnea, No Cough Cardiovascular: Chest Pain (right side ribs) Gastrointestinal: No: Nausea, Vomiting, Abdominal Pain Genitourinary: No Dysuria Musculoskeletal: No: neck pain, shoulder pain Neurological: Weakness; No: Confusion Objective Exam Vital Signs Vital Signs Date Time Temp Pulse Resp B/P (MAP) Pulse Ox O2 Delivery O2 Flow Rate FiO2 10/16/18 08:00 98.5 94 16 146/74 (98) 94 Room Air 10/16/18 07:00 88 10/16/18 04:19 97.4 81 16 142/91 (108) 94 Room Air 10/16/18 01:00 100 10/15/18 23:43 98.8 102 16 157/72 (100) 94 Room Air 10/15/18 20:32 100.4 90 14 143/67 (92) 94 Room Air 10/15/18 20:00 Room Air 10/15/18 19:00 93 10/15/18 17:10 99.5 10/15/18 16:31 108 16 155/80 (105) 97 Room Air 10/15/18 13:00 100 I & O 10/16/18 07:00 Intake Total 2010 ml Output Total 825 ml Balance 1185 ml General Appearance: No Apparent Distress, WD/WN HEENT: PERRL/EOMI Neck: Full Range of Motion, Non Tender, Supple Respiratory: Chest Non Tender, Lungs Clear, Normal Breath Sounds, No Accessory Muscle Use, No Respiratory Distress Cardiovascular: Other (irregular.) Gastrointestinal: Non Tender, Soft Rectal: Deferred Back: Normal Inspection, No CVA Tenderness Extremity: Normal Inspection, No Pedal Edema, Other (Tenderness to palpation over the left hip) Neurologic/Psychiatric: Alert, Oriented x3, Normal Mood/Affect Skin: Normal Color, Warm/Dry Results Lab Laboratory Tests 10/15/18 18:17: Glucometer 343H 10/15/18 20:00: Sodium Level 128L, Potassium Level 4.1, Chloride Level 98, Carbon Dioxide Level 21, Anion Gap 9, Blood Urea Nitrogen 18, Creatinine 0.77, Estimat Glomerular Filtration Rate > 60, BUN/Creatinine Ratio 23, Glucose Level 248H, Calcium Level 8.7 10/15/18 20:31: Glucometer 208H 10/16/18 04:20: Sodium Level 131L, Potassium Level 4.0, Chloride Level 101, Carbon Dioxide Level 20L, Anion Gap 10, Blood Urea Nitrogen 17, Creatinine 0.66, Estimat Glomerular Filtration Rate > 60, BUN/Creatinine Ratio 26, Glucose Level 151H, Calcium Level 8.5, Prothrombin Time 27.9H, INR Comment 2.6H, Magnesium Level 1.7L 10/16/18 05:18: Glucometer 179H 10/16/18 11:10: Glucometer 336H Assessment/Plan Assessment/Plan Admission Dx weakness hyponatremia hypomagnesemia supratherapeutic INR Assessment and Plan 88 yo M R53.1 weakness- PT eval for strength and gait training. replacing electrolytes E87.1 hyponatremia- replacing with 3% saline E83.42 hypomagnesemia- replacing IV, rechecking R79.1 Supratherapeutic INR- rechecking INR in AM, restart warfarin I95.1 orthostatic hypotension- standing precautions I25.10 Chronic diastolic heart failure- continue current regimen S22.41XD- Rib fractures- continue taking deep breaths, pain control. Dispo: admitted for above reasons- goal to improve his electrolyte derangements, improve his weakness and gait to prevent falls. 10/16/18- will recheck his Na at 1600 and again in AM - lytes are improving- expect them to be near normal in AM and discharge to SNU at [facility] or another facility. His mentation/dementia is going to be the limiting factor in his return home. Will see how he does with SNU may transition to penitentiary care/ assisted living. DVT ppx- on warfarin, monitor INR. Problems: (1) Generalized weakness (2) Rib fractures Qualifiers: Qualified Codes: S22.41XD - Multiple fractures of ribs, right side, subsequent encounter for fracture with routine healing (3) Supratherapeutic INR (4) Hypomagnesemia (5) Hyponatremia (6) HTN (hypertension) (7) Non-insulin dependent type 2 diabetes mellitus Assessment & Plan: holding metformin SSI Admission Dx weakness hyponatremia hypomagnesemia supratherapeutic INR Clinical Quality Measures Admission Status Admission Dx weakness hyponatremia hypomagnesemia supratherapeutic INR DVT/VTE Risk/Contraindication: Risk Factor Score Per Nursin RFS Level Per Nursing on Admit: 2=Moderate GHISLAINE FLORES MD Oct 16, 2018 12:48
[2018-10-16] MEDS ORDERED: NON-FORMULARY MEDICATION 1 EA EA (Warfarin Sodium 6 MG) PO SCH (13:00)
--- NOTE | 2018-10-16 13:36 | Progress Note-Cardiology ---
Cardiology SOAP Progress Note Subjective: Persists with gen malaise No cp or palp or hetal syncope Objective: I&O/Vital Signs 10/16/18 10/16/18 10/16/18 04:19 07:00 08:00 Temp 97.4 98.5 Pulse 81 88 94 Resp 16 16 B/P (MAP) 142/91 (108) 146/74 (98) Pulse Ox 94 94 O2 Delivery Room Air Room Air 10/16/18 00:00 Intake Total 1310 ml Output Total 675 ml Balance 635 ml Weight (Pounds): 155 Weight (Ounces): 0.0 Weight (Calculated Kilograms): 70.060445 Constitutional: AAO x 3, other (frail) Respiratory: No accessory muscle use, No respiratory distress; chest expansion is symmetric, chest is bilaterally symmetric, lungs clear to auscultation, other (diminished RLL with poor inspiratory effort) Cardiovascular: irregularly irregular; No JVD; S1 and S2, systolic murmur Gastrointestional: No tender; soft, audible bowel sounds, other (thin) Extremities: no lower extremity edema bilateral Neurologic/Psychiatric: grossly intact Skin: No rash, No ulcerations Results/Procedures: Labs Laboratory Tests 10/15/18 18:17: Glucometer 343H 10/15/18 20:00: Sodium Level 128L, Potassium Level 4.1, Chloride Level 98, Carbon Dioxide Level 21, Anion Gap 9, Blood Urea Nitrogen 18, Creatinine 0.77, Estimat Glomerular Filtration Rate > 60, BUN/Creatinine Ratio 23, Glucose Level 248H, Calcium Level 8.7 10/15/18 20:31: Glucometer 208H 10/16/18 04:20: Sodium Level 131L, Potassium Level 4.0, Chloride Level 101, Carbon Dioxide Level 20L, Anion Gap 10, Blood Urea Nitrogen 17, Creatinine 0.66, Estimat Glomerular Filtration Rate > 60, BUN/Creatinine Ratio 26, Glucose Level 151H, Calcium Level 8.5, Prothrombin Time 27.9H, INR Comment 2.6H, Magnesium Level 1.7L 10/16/18 05:18: Glucometer 179H 10/16/18 11:10: Glucometer 336H Laboratory Tests 10/15/18 05:40 10/15/18 20:00 10/16/18 04:20 A/P: Assessment: Sinus node dysfunction and h/o PAF Warfarin for stroke prophylaxis - INR had bee supra therapeutic; in therapeutic range on 10/16/18 Hyponatremia, etiology undetermined: Dr Ele Aguilera managing H/O coronary stent in the past by Dr. Luevano - details unknown H/O orthostatic hypotension for which he reports he had undergone w/u and this is being followed by Dr. 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 Kaufman showed - concentric LVH; grade 2 diastolic dysfunction; RA and LA dilated; Mild MR; Mild AoV stenosis; Mod TR; PASP 55-60 mmHg Elevated Bili level of undetermined etiology Plan: INR therapeutic today. Resume warfarin in a lower dose Continue to monitor labs Med Svce managing hyponatremia I spoke with his and answered CV-related questions CHEMO PIMENTEL MD FACP FAC CCDS Oct 16, 2018 13:36
[2018-10-16 16:43] LABS: BUN/CREATININE RATIO 26; CALCIUM 8.6 MG/DL (8.5-10.1); CARBON DIOXIDE 24 MMOL/L (21-32); CHLORIDE 100 MMOL/L (98-107); CREATININE SERUM 0.73 MG/DL (0.60-1.30); GFR ESTIMATED > 60; GLUCOSE 222 MG/DL (70-105); POTASSIUM 4.3 MMOL/L (3.6-5.0); SODIUM 131 MMOL/L (135-145)
[2018-10-16 17:00] VITALS: BP 124/75
[2018-10-16] MEDS ORDERED: warFARin 5 MG (COUMADIN) TAB PO SCH (18:00)
[2018-10-16] MEDS ORDERED: warFARin 3 MG (COUMADIN) TAB PO SCH (18:00)
[2018-10-16 20:00] VITALS: BP 162/72
[2018-10-16] MEDS: ATORVASTATIN 10 MG (LIPITOR) TABLET PO SCH (21:43)
[2018-10-17] VITALS: BP 149/84
[2018-10-17 04:00] VITALS: BP 137/80
[2018-10-17 05:03] LABS: INR 2.2 (0.8-1.4); PROTHROMBIN TIME PATIENT 24.8 SEC (12.2-14.7)
[2018-10-17 05:14] LABS: BUN/CREATININE RATIO 27; CALCIUM 9.2 MG/DL (8.5-10.1); CARBON DIOXIDE 20 MMOL/L (21-32); CHLORIDE 100 MMOL/L (98-107); CREATININE SERUM 0.74 MG/DL (0.60-1.30); GFR ESTIMATED > 60; GLUCOSE 152 MG/DL (70-105); SODIUM 132 MMOL/L (135-145)
--- NOTE | 2018-10-17 08:15 | Discharge Inst-Skilled Nursing ---
Discharge Inst-Skilled NF Patient Instructions Patient Problems: physical debility dementia broken ribs (right side) diabetes hyponatremia hypomagnesemia Patient Instructions: participate with PT/OT/SP Consult/Follow Up/Orders Follow Up Appt.: follow up in 1 week at [facility] follow up in 1-[address] Stinson Skilled NF Admit to: [facility] [place] [facility] ([facility]) I certify that SNF services are required to be given on an inpatient basis because of the above named patient's need for assisted care on a continuing basis for the conditions(s) for which he/she was receiving inpatient hospital services prior to his/her transfer to the SNF. [facility] Facility Order: Nursing Services, Manager User Interface-Evaluate & Treat, Physical Therapy-Evaluate & Treat, Speech Language-Evaluate & Treat Discharge Diet: Regular Diet Daily Activity as Tolerated: Yes New & Resume Previous Orders New & Resume Previous Orders Admit to [facility] for SNF participate with PT/OT/ST recheck PT/INR 10/19/18, then check PT/INR weekly thereafter BMP to be drawn 10/19/18 David Flores Oct 17, 2018 08:09 DAVID FLORES MD Oct 17, 2018 08:14
[2018-10-17] MEDS ORDERED: ACET325T49 PO (08:18)
[2018-10-17] MEDS: MAGNESIUM OXIDE (MAG-OX)400 MG TAB PO SCH (08:19)
[2018-10-17] MEDS: inSUlin ASPART (NovoLOG) 1 UNIT/0.01 ML (CHARGE PER UNIT) SC SCH (08:19)
--- NOTE | 2018-10-17 08:19 | Discharge Summary ---
Diagnosis/Chief Complaint Date of Admission Oct 14, 2018 at 14:38 Date of Discharge Reason Hospital Visit 88-year-old male admitted for worsening weakness and increased fall rate. Patient reports he is just clumsy but does note a little bit of weakness; generalized and not involving one limb over the other. He was last hospitalized in early September for what was determined to be orthostatic hypotension. Of note patient is on warfarin for atrial fibrillation. Has INR was 3.5. No signs of bleeding at this time. Mental status is at baseline. No known or suspected seizures. Patient did have a serious fall on 10/12/18 in which he sustained right side rib fractures. He returned to ER as the pain in his ribs has continued. Of note patient's sodium is low at 130 as well as magnesium was low. Review of his labs over the last month his Na has trended down. Cardiology was consulted for further evaluation and recommendations. Discharge Summary Hospital Course Labs Laboratory Tests 10/14/18 10:25: Urine Specific Sperry 1.015L, Urine Protein 1+H, Urine RBC (Auto) 1+H, Urine RBC 2-5H 10/14/18 10:33: Red Blood Count 4.16L, Hemoglobin 11.6L, Hematocrit 35L, Red Cell Distribution Width 16.5H, Monocytes (%) (Auto) 14H, Monocytes # (Auto) 1.4H, Prothrombin Time 35.1H, INR Comment 3.5H, Activated Partial Thromboplast Time 50H, Sodium Level 130L, Chloride Level 92L, Glucose Level 180H, Magnesium Level 1.4L, Total Bilirubin 1.2H 10/15/18 05:40: Red Blood Count 4.00L, Hemoglobin 11.1L, Hematocrit 33L, Red Cell Distribution Width 16.2H, Monocytes (%) (Auto) 14H, Monocytes # (Auto) 1.4H, Prothrombin Time 41.1H, INR Comment 4.2H, Sodium Level 128L, Chloride Level 95L, Glucose Level 204H, Magnesium Level 1.5L 10/15/18 11:02: Glucometer 293H 10/15/18 18:17: Glucometer 343H 10/15/18 20:00: Sodium Level 128L, Glucose Level 248H 10/15/18 20:31: Glucometer 208H 10/16/18 04:20: Sodium Level 131L, Glucose Level 151H, Prothrombin Time 27.9H, INR Comment 2.6H , Carbon Dioxide Level 20L, Magnesium Level 1.7L 10/16/18 05:18: Glucometer 179H 10/16/18 11:10: Glucometer 336H 10/16/18 16:10: Sodium Level 131L, Blood Urea Nitrogen 19H, Glucose Level 222H 10/16/18 16:33: Glucometer 237H 10/16/18 21:17: Glucometer 188H 10/17/18 04:37: Prothrombin Time 24.8H, INR Comment 2.2H, Sodium Level 132L, Carbon Dioxide Level 20L, Blood Urea Nitrogen 20H, Glucose Level 152H 10/17/18 06:36: Glucometer 191H Procedures None. Discharge Physical Examination Allergies: Coded Allergies: Penicillins (Verified Allergy, Mild, hives, 10/12/18) Vitals & I&Os Vital Signs Date Time Temp Pulse Resp B/P (MAP) Pulse Ox O2 Delivery O2 Flow Rate FiO2 10/17/18 04:00 97.0 98 16 137/80 (99) 97 Room Air Discharge Home Medications Reviewed and agree with Discharge Medication list on patient's Discharge Instruction sheet Instructions to Patient/Family Please see electronic discharge instructions given to patient. Clinical Quality Measures DVT/VTE Risk/Contraindication: Risk Factor Score Per Nursin RFS Level Per Nursing on Admit: 2=Moderate GHISLAINE FLORES MD Oct 17, 2018 08:19
[2018-10-17 08:43] VITALS: BP 147/93
[2018-10-17 11:00] VITALS: BP 147/93
[2018-10-17] MEDS ORDERED: warFARin 7.5 MG (COUMADIN) TAB PO SCH (18:00)
== END 2018-10-17 11:00 | DRG 641 ==
LOC: EDUNIT# 07:56 → ER 07:57 → 4TH 14:38 → UNDODISIN 10-15 13:45
PROVIDERS: ADMIT Family Medicine; ATTEND Family Medicine
DX: E87.1 Hypo-osmolality and hyponatremia (principal); E83.42 Hypomagnesemia; R53.1 Weakness; R79.1 Abnormal coagulation profile; S22.41XD Multiple fractures of ribs, right side, subsequent encounter for fracture with routine healing; I11.0 Hypertensive heart disease with heart failure; I50.32 Chronic diastolic (congestive) heart failure; R17 Unspecified jaundice; I95.1 Orthostatic hypotension; I25.10 Atherosclerotic heart disease of native coronary artery without angina pectoris; E11.9 Type 2 diabetes mellitus without complications; I49.8 Other specified cardiac arrhythmias; I48.0 Paroxysmal atrial fibrillation; K21.9 Gastro-esophageal reflux disease without esophagitis; I08.3 Combined rheumatic disorders of mitral, aortic and tricuspid valves; M19.91 Primary osteoarthritis, unspecified site; W01.190D Fall on same level from slipping, tripping and stumbling with subsequent striking against furniture, subsequent encounter; Z95.5 Presence of coronary angioplasty implant and graft; Z87.891 Personal history of nicotine dependence; Z79.01 Long term (current) use of anticoagulants; Z85.21 Personal history of malignant neoplasm of larynx; Z92.3 Personal history of irradiation; Z79.84 Long term (current) use of oral hypoglycemic drugs
CPT/HCPCS: 36415; 70450; 71046; 72125; 73523; 73562; 80048; 80053; 81000; 82962; 83036; 83735; 84443; 84484; 85025; 85610; 85730; 93005; 93041

== ENCOUNTER 2019-03-24 10:40 | Observation (INO) | payer MEDICARE ==
[2019-03-24] VITALS (8 sets, daily range): BP systolic 130–156; BP diastolic 70–96
[~2019-03-24] VITALS: Ht 177.8 cm; Wt 70.6 kg
[~2019-03-24 10:40] MED LIST changes: +ACET325T49 PO; +ATOR10TA66 PO
--- NOTE | 2019-03-24 10:53 | ED General ---
General Source of Information: EMS Exam Limitations: No Limitations History of Present Illness Date Seen by Provider: March 24, 2019 Time Seen by Provider: 10:49 Initial Comments To ER per EMS from [place] with reports of a nearly syncopal event. EMS reports that upon arrival they noted him to be leaning forward, agonal breathing and with a low pulse estimated to be in the 40s. Blood sugar was checked and found to be in the 200 range. He was attached to manager monitoring and initial EKG showed a rate of about 60. He is a very poor historian and due to some confusion cannot contribute to history of present illness other than answering "yeah" or "I don't know". arrives and states that she was checking out of [place], he was sitting on the bench waiting for her and had been fine up until this point, at about 10:30 he suddenly leaned to the side in a crowd of people surrounding him. Timing/Duration: 1-2 Days Severity: Moderate Allergies and Home Medications Allergies Coded Allergies: Penicillins (Verified Allergy, Mild, hives, 10/12/18) Home Medications Acetaminophen 325 Mg Tablet, 325 MG PO Q8H PRN for PAIN-MILD TO MODERATE Prescribed by: GHISLAINE FLORES on 10/17/18 0818 Atorvastatin Calcium 10 Mg Tablet, 10 MG PO HS, (Reported) Carvedilol 3.125 Mg Tablet, 3.125 MG PO BID, (Reported) Metformin HCl 1,000 Mg Tablet, 1,000 MG PO BID, (Reported) Patient Home Medication List Home Medication List Reviewed: Yes Review of Systems Review of Systems Constitutional: see HPI, other (difficult to obtain due to his confusion) Cardiovascular: syncope (near syncope) Past Konixcf-Rjfwyk-Dsxlft Hx Patient Social History Recent Hopitalizations: No Immunizations Up To Date Tetanus Booster (TDap): Unknown PED Vaccines UTD: Yes Date of Pneumonia Vaccine: Nov 22, 2010 Date of Influenza Vaccine: Sep 11, 2018 Past Medical History Surgeries: Yes Appendectomy, Coronary Stent Respiratory: No Cardiac: Yes (HEART STENTS) Coronary Artery Disease, Hypertension Neurological: No Genitourinary: Yes Kidney Stones Gastrointestinal: No Musculoskeletal: Yes Arthritis Endocrine: Yes Diabetes, Non-Insulin dep Cataract Hearing Impairment: Hard of Hearing 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 0.0oz. 70.961184sf; 22.2 BMI Method:Stated General Appearance: No Apparent Distress, WD/WN Eyes: Bilateral Eye Normal Inspection, Bilateral Eye PERRL, Bilateral Eye EOMI HEENT: PERRL/EOMI, Normal ENT Inspection Neck: Full Range of Motion, Normal Inspection Respiratory: Lungs Clear, Normal Breath Sounds, No Accessory Muscle Use, No Respiratory Distress Cardiovascular: Regular Rate, Rhythm, Normal Peripheral Pulses, Other (EKG is sinus rhythm at 60 with no ectopy and no ST segment changes. Normal intervals.) Gastrointestinal: Normal Bowel Sounds, Non Tender, Soft Extremity: Normal Capillary Refill, Normal Inspection Neurologic/Psychiatric: Alert, Oriented x3, Other (states he doesn't know where he is at, the month or the year.) Skin: Normal Color, Warm/Dry Comments His speech is clear but he has some trouble identifying objects and makes nonsensical words when asked what these objects are. Focused Exam Lactate Level 03/24/19 10:52: Lactic Acid Level 4.07*H Lactic Acid Level Laboratory Tests Test 03/24/19 10:52 Lactic Acid Level 4.07 MMOL/L (0.50-2.00) *H Progress/Results/Core Measures Suspected Sepsis SIRS Temperature: Pulse: Respiratory Rate: Laboratory Tests 03/24/19 10:45: White Blood Count 8.5 Blood Pressure / Mean: 03/24/19 10:52: Lactic Acid Level 4.07*H Laboratory Tests 03/24/19 10:45: Creatinine 1.03, INR Comment 1.2, Platelet Count 304, Total Bilirubin 0.6 Results/Orders Lab Results Laboratory Tests Test 03/24/19 10:45 03/24/19 10:52 03/24/19 10:59 Range/Units White Blood Count 8.5 4.3-11.0 10^3/uL Red Blood Count 3.84 L 4.35-5.85 10^6/uL Hemoglobin 10.5 L 13.3-17.7 G/DL Hematocrit 33 L 40-54 % Mean Corpuscular Volume 85 80-99 FL Mean Corpuscular Hemoglobin 27 25-34 PG Mean Corpuscular Hemoglobin Concent 32 32-36 G/DL Red Cell Distribution Width 15.0 H 10.0-14.5 % Platelet Count 304 130-400 10^3/uL Mean Platelet Volume 9.2 7.4-10.4 FL Neutrophils (%) (Auto) 54 42-75 % Lymphocytes (%) (Auto) 33 12-44 % Monocytes (%) (Auto) 9 0-12 % Eosinophils (%) (Auto) 4 0-10 % Basophils (%) (Auto) 1 0-10 % Neutrophils # (Auto) 4.6 1.8-7.8 X 10^3 Lymphocytes # (Auto) 2.8 1.0-4.0 X 10^3 Monocytes # (Auto) 0.8 0.0-1.0 X 10^3 Eosinophils # (Auto) 0.3 0.0-0.3 10^3/uL Basophils # (Auto) 0.1 0.0-0.1 10^3/uL Prothrombin Time 15.6 H 12.2-14.7 SEC INR Comment 1.2 0.8-1.4 Activated Partial Thromboplast Time 28 24-35 SEC Sodium Level 132 L 135-145 MMOL/L Potassium Level 4.6 3.6-5.0 MMOL/L Chloride Level 99 98-107 MMOL/L Carbon Dioxide Level 19 L 21-32 MMOL/L Anion Gap 14 5-14 MMOL/L Blood Urea Nitrogen 16 7-18 MG/DL Creatinine 1.03 0.60-1.30 MG/DL Estimat Glomerular Filtration Rate > 60 BUN/Creatinine Ratio 16 Glucose Level 181 H 70-105 MG/DL Calcium Level 8.9 8.5-10.1 MG/DL Corrected Calcium 8.9 8.5-10.1 MG/DL Magnesium Level 1.8 1.8-2.4 MG/DL Total Bilirubin 0.6 0.1-1.0 MG/DL Aspartate Amino Transf (AST/SGOT) 13 5-34 U/L Alanine Aminotransferase (ALT/SGPT) 13 0-55 U/L Alkaline Phosphatase 41 40-136 U/L Myoglobin 88.8 10.0-92.0 NG/ML Troponin I < 0.028 <0.028 NG/ML B-Type Natriuretic Peptide 122.4 H <100.0 PG/ML Total Protein 6.8 6.4-8.2 GM/DL Albumin 4.0 3.2-4.5 GM/DL Lipase 22 8-78 U/L Lactic Acid Level 4.07 *H 0.50-2.00 MMOL/L Urine Color YELLOW Urine Clarity CLEAR Urine pH 8 5-9 Urine Specific Valentine 1.010 L 1.016-1.022 Urine Protein NEGATIVE NEGATIVE Urine Glucose (UA) NEGATIVE NEGATIVE Urine Ketones NEGATIVE NEGATIVE Urine Nitrite NEGATIVE NEGATIVE Urine Bilirubin NEGATIVE NEGATIVE Urine Urobilinogen NORMAL NORMAL MG/DL Urine Leukocyte Esterase NEGATIVE NEGATIVE Urine RBC (Auto) 1+ H NEGATIVE Urine RBC NONE /HPF Urine WBC NONE /HPF Urine Squamous Epithelial Cells NONE /HPF Urine Crystals NONE /LPF Urine Bacteria NEGATIVE /HPF Urine Casts NONE /LPF Urine Mucus NEGATIVE /LPF Urine Culture Indicated NO My Orders Orders - SUDHIR MINOR APRN Cbc With Automated Diff (03/24/19 10:47) Magnesium (03/24/19 10:47) Chest 1 View, Ap/Pa Only (03/24/19 10:47) Cardiac Profile 1 (03/24/19 10:47) Comprehensive Metabolic Panel (03/24/19 10:47) Myoglobin Serum (03/24/19 10:47) Protime With Inr (03/24/19 10:47) Partial Thromboplastin Time (03/24/19 10:47) O2 (03/24/19 10:47) Monitor-Rhythm Ecg Trace Only (03/24/19 10:47) Lipid Panel (03/25/19 06:00) Ed Iv/Invasive Line Start (03/24/19 10:47) Lipase (03/24/19 10:47) BNP (03/24/19 10:47) Aspirin Chewable Tablet (Baby Aspirin Ch (03/24/19 11:00) Ua Culture If Indicated (03/24/19 10:48) Blood Culture (03/24/19 10:48) Lactic Acid Analyzer (03/24/19 10:48) Ct Head Wo (03/24/19 10:55) Ct Angio Head/Neck (03/24/19 11:35) Iohexol Injection (Omnipaque 350 Mg/Ml 1 (03/24/19 11:45) Received Contrast (Hold Metformin- Contr (03/24/19 11:45) Ns (Ivpb) (Sodium Chloride 0.9%) (03/24/19 11:45) Pérez Cath (03/24/19 11:46) Medications Given in ED Current Medications Medications Dose Ordered Sig/Vielka Route Start Time Stop Time Status Last Admin Dose Admin Aspirin 324 mg ONCE ONCE PO 03/24/19 11:00 03/24/19 11:01 DC 03/24/19 11:08 324 MG Vital Signs/I&O 03/24/19 10:43 Temp 95.6 Pulse 78 Resp 16 B/P (MAP) 118/61 (80) Pulse Ox 96 Capillary Refill : Diagnostic Imaging Diagonstic Imaging: CT Comments NAME: DEEPAK,AMANDA L MED REC#: [id number] PT STATUS: REG ER : 1930 PHYSICIAN: SUDHIR MINOR APRN ADMIT DATE: 03/24/19/ER Draft Date of Exam:03/24/19 CT HEAD WO PROCEDURE: CT head without contrast. TECHNIQUE: Multiple contiguous axial images were obtained through the brain without the use of intravenous contrast. Auto Exposure Controls were utilized during the CT exam to meet ALARA standards for radiation dose reduction. INDICATION: Dizziness. COMPARISON: Head CT from 10/14/2018. FINDINGS: The ventricles and sulci are prominent, consistent with the patient's age. Moderate periventricular hypodensity is noted, consistent with senescent change. No sulcal effacement or midline shift is seen. No acute intra-axial or extra-axial hemorrhage is detected. The cisterns are patent. The visualized paranasal sinuses are clear. IMPRESSION: Senescent changes. No acute intracranial process is detected. Dictated on workstation # [id number] Dict: 03/24/19 1131 Trans: 03/24/19 1137 [id number] Interpreted by: RUTHIE SANDRA MD Electronically signed by: NAME: DEEPAKAMANDA MCDONALD MED REC#: [id number] PT STATUS: REG ER : 1930 PHYSICIAN: SUDHIR MINOR APRN ADMIT DATE: 03/24/19/ER Draft Date of Exam:03/24/19 CT ANGIO HEAD/NECK PROCEDURE: CT angiography of the head and CT angiography of the neck with and without contrast. TECHNIQUE: Contiguous noncontrast images were obtained from the skull base through the vertex. After intravenous contrast administration, helical CT angiography of the neck was performed. Source data was reformatted into multiple MIP projections. Delayed post contrast acquisition was also obtained. Auto Exposure Controls were utilized during the CT exam to meet ALARA standards for radiation dose reduction. INDICATION: Syncope. FINDINGS: There is a three-vessel branching pattern to the aortic arch. There is some calcified plaque in both common carotid arteries. Calcified plaque at the carotid bifurcations is also noted bilaterally. Significant calcified plaque in the carotid siphons is seen bilaterally. Intracranially the middle cerebral arteries are well opacified. No filling defect or thromboembolism is seen. Bilateral anterior cerebral arteries are patent. Posterior cerebral arteries are widely patent. The basilar is unremarkable. Right vertebral artery is very small distally. 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 The distal right vertebral artery demonstrates trickle of flow which could be from retrograde contrast. IMPRESSION: 1. CT angiogram of the head and neck shows no evidence of thromboembolism within the anterior, middle or posterior cerebral arteries. There is some generalized carotid plaque present. No definite aneurysm or intracranial stenosis is seen. 2. 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 There is a tiny amount of flow in the distal right vertebral artery. Left vertebral artery, basilar and posterior cerebrals are widely patent. Dictated on workstation # [id number] Dict: 03/24/19 1233 Trans: 03/24/19 1243 [facility] [id number] Interpreted by: RUTHIE SANDRA MD Electronically signed by: Departure Communication (Admissions) Time/Spoke to Admitting Phy: 13:[address] Flores, we will admit, observation, scheduled for MRI. 1054- states that while at [facility] he was acting normal and then suddenly bent forward. She states that he would typically know where he is at, the month and the day as well as the year, he doesn't know any of those things currently. 1300-I spoke with Dr. Bee, stroke neurologist at the [facility]. She does not recommend any endovascular intervention, does not recommend TPA since he is on Eliquis. If he is not already on a baby aspirin she would add that. He recommends that he can stay here for further workup of stroke including MRI. Impression Primary Impression: Confusion Additional Impression: TIA vs stroke Disposition: ADMITTED INPATIENT Condition: Stable Admissions Decision to Admit Reason: Admit from ER (General) Decision to Admit/Date: March 24, 2019 Time/Decision to Admit Time: 12:59 Departure-Patient Inst. Referrals: GHISLAINE FLORES MD (PCP/Family) Primary Care Physician NIH Stroke Scale NIH Stroke Scale NIH : Select: Initial Level of Consciousness: 0=Alert Level of Consciousness-Questio: 2=Answer neither question LOC Commands: 1=Performs one task Gaze: 0=Normal Visual Espinosa: 0=No visual loss Facial Movement (Facial Paresi: 0=Normal symmetrical mnt Motor Function-Arms Right: 0=No drift Motor Function-Arms Left: 0=No drift Motor Function-Legs Right: 0=No drift Motor Function-Legs Left: 0=No drift Limb Ataxia: 0=Absent Sensory: 0=Normal:no loss Best Language: 1=Mild to moderat aphasia Dysarthria: 0=Normal Extinction & Inattention: 0=No abnormality NIH Stroke Scale Score: 4 SUDHIR MINOR APRN March 24, 2019 10:53
[2019-03-24] MEDS ORDERED: ASPIRIN 81 MG CHEW (CHILDREN'S ASA) PO ONE (11:00)
[2019-03-24 11:02] LABS: BASOPHILS # (AUTO) 0.1 10^3/uL (0.0-0.1); BASOPHILS % (AUTO) 1 % (0-10); EOSINOPHILS # (AUTO) 0.3 10^3/uL (0.0-0.3); EOSINOPHILS % (AUTO) 4 % (0-10); HEMATOCRIT 33 % (40-54); HEMOGLOBIN 10.5 G/DL (13.3-17.7); LYMPHOCYTES # (AUTO) 2.8 X 10^3 (1.0-4.0); LYMPHOCYTES % (AUTO) 33 % (12-44); MEAN CORPUSCULAR HEMOGLOBIN 27 PG (25-34); MEAN CORPUSCULAR HGB CONC 32 G/DL (32-36); MEAN CORPUSCULAR VOLUME 85 FL (80-99); MEAN PLATELET VOLUME 9.2 FL (7.4-10.4); MONOCYTES # (AUTO) 0.8 X 10^3 (0.0-1.0); MONOCYTES % (AUTO) 9 % (0-12); NEUTROPHILS # (AUTO) 4.6 X 10^3 (1.8-7.8); NEUTROPHILS % (AUTO) 54 % (42-75); PLATELET COUNT 304 10^3/uL (130-400); WHITE BLOOD COUNT 8.5 10^3/uL (4.3-11.0)
[2019-03-24 11:15] LABS: BILIRUBIN,URINE NEGATIVE (NEGATIVE); CLARITY,URINE CLEAR; COLOR,URINE YELLOW; GLUCOSE, URINE (UA) NEGATIVE (NEGATIVE); KETONES,URINE NEGATIVE (NEGATIVE); LEUKOCYTE ESTERASE ,URINE NEGATIVE (NEGATIVE); NITRITE,URINE NEGATIVE (NEGATIVE); PH,URINE 8 (5-9); PROTEIN,URINE NEGATIVE (NEGATIVE); UROBILINOGEN,URINE NORMAL (NORMAL)
[2019-03-24 11:15] LABS: ALANINE AMINOTRANSFERASE 13 U/L (0-55); ALKALINE PHOSPHATASE 41 U/L (40-136); BILIRUBIN,TOTAL 0.6 MG/DL (0.1-1.0); BUN/CREATININE RATIO 16; CALCIUM 8.9 MG/DL (8.5-10.1); CARBON DIOXIDE 19 MMOL/L (21-32); CHLORIDE 99 MMOL/L (98-107); CREATININE SERUM 1.03 MG/DL (0.60-1.30); GFR ESTIMATED > 60; GLUCOSE 181 MG/DL (70-105); INR 1.2 (0.8-1.4); LIPASE 22 U/L (8-78); MAGNESIUM 1.8 MG/DL (1.8-2.4); POTASSIUM 4.6 MMOL/L (3.6-5.0); PROTHROMBIN TIME PATIENT 15.6 SEC (12.2-14.7); SODIUM 132 MMOL/L (135-145); TOTAL PROTEIN 6.8 GM/DL (6.4-8.2)
[2019-03-24 11:30] LABS: BACTERIA,URINE NEGATIVE /HPF
--- NOTE | 2019-03-24 11:37 | Diagnostic Imaging Report ---
PROCEDURE: CT head without contrast. TECHNIQUE: Multiple contiguous axial images were obtained through the brain without the use of intravenous contrast. Auto Exposure Controls were utilized during the CT exam to meet ALARA standards for radiation dose reduction. INDICATION: Dizziness. COMPARISON: Head CT from 10/14/2018. FINDINGS: The ventricles and sulci are prominent, consistent with the patient's age. Moderate periventricular hypodensity is noted, consistent with senescent change. No sulcal effacement or midline shift is seen. No acute intra-axial or extra-axial hemorrhage is detected. The cisterns are patent. The visualized paranasal sinuses are clear. IMPRESSION: Senescent changes. No acute intracranial process is detected. Dictated by: Dictated on workstation # [id number]
--- NOTE | 2019-03-24 11:42 | Diagnostic Imaging Report ---
INDICATION: Dizziness, syncope. TECHNIQUE: A single view chest was performed at 11:15 AM. CORRELATION STUDY: 10/14/2018. FINDINGS: Overlying monitor leads and a defibrillator pad are present obscuring detail. The heart size is borderline enlarged. The vasculature is overall stable. There is a prominent appearance about the central pulmonary arteries which can be reflective of underlying pulmonary arterial hypertension. Slight asymmetrically elevated left diaphragm. The lung dominguez appear relatively clear. Mild biapical pleural thickening appears stable. IMPRESSION: Generally stable chest demonstrating no acute abnormality. Slight left lung volume loss at the base. Dictated by: Dictated on workstation # [id number]
[2019-03-24] MEDS ORDERED: IOHEXOL 350 MG/ML 100 ML (OMNIPAQUE 350) VIAL IV ONE (11:45)
[2019-03-24] MEDS ORDERED: NS 250 ML (IVPB) BAG IV ONE (11:45)
[2019-03-24] MEDS ORDERED: HOLD METFORMIN - RECEIVED CONTRAST 20 ML VIAL IV SCH (11:45)
--- OUTSIDE RECORDS SUMMARY | 2019-03-24 12:29 | XMS REPORT | Continuity of Care Document ---
Author Organization Unknown Address Unknown Allergies Active Description Code Type Severity Reaction Onset Reported/Identified Relationship to Patient Clinical Status Yes Penicillins [id number] Drug Allergy Mild hives 10/12/2018 Medications There is no data. Problems Date [...] Ot Y92.[address] IN [facility] NON-[facility] (PRIVATE 04/30/2016 CRISTAL DIAZ MD Ot [...] CRISTAL Marie Ot Y92.[address] IN [facility] NON[facility] (PRIVATE 05/02/2016 JOE SUÁREZ, CRISTAL Marie Ot Y99.8 OTHER EXTERNAL CAUSE STATUS 05/05/2016 [...] SAME LEV FROM SLIP/TRIP W/O STRIKE 05/05/2016 JOE SUÁREZ, CRISTAL Marie Ot Y92.[address] IN [facility] NON[facility] (PRIVATE 05/05/2016 JOE SUÁREZ, CRISTAL Marie Ot Y99.8 OTHER EXTERNAL CAUSE STATUS 05/16/2017 DWIGHT SUÁREZ, CHELSEA Marie Ot 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 W/O MYELOPATHY OR RADICULOPA 05/16/2017 DWIGHT SUÁREZ, CHELSEA Marie Ot M48.02 SPINAL STENOSIS, CERVICAL REGION 05/28/2017 DWIGHT SUÁREZ, CHELSEA Marie Ot 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 W/O MYELOPATHY OR RADICULOPA 05/28/2017 DWIGHT SUÁREZ, CHELSEA Marie Ot M48.02 SPINAL STENOSIS, CERVICAL REGION 09/13/2018 NEFTALY VILLALOBOS MD Ot E11.9 TYPE 2 DIABETES MELLITUS WITHOUT COMPLIC 09/13/2018 NEFTALY VILLALOBOS MD Ot I10 ESSENTIAL (PRIMARY) HYPERTENSION 09/13/2018 NEFTALY VILLALOBOS MD Ot I25.10 ATHSCL HEART DISEASE OF [place] CORONARY 09/13/2018 NEFTALY VILLALOBOS MD Ot I95.1 ORTHOSTATIC HYPOTENSION 09/13/2018 NEFTALY VILLALOBOS MD Ot Z79.01 CUSTODIAL (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 ANTICOAGULANT 09/13/2018 NEFTALY VILLALOBOS MD, Ot Z79.84 CUSTODIAL (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 ORAL HYPOGLYC 09/13/2018 NEFTALY VILLALOBOS MD Ot Z95.5 PRESENCE OF CORONARY ANGIOPLASTY IMPLANT 10/12/2018 MARY LOU CALERO MD, Ot E11.9 TYPE 2 DIABETES MELLITUS WITHOUT COMPLIC 10/12/2018 MARY LOU CALERO MD, Ot I10 ESSENTIAL (PRIMARY) HYPERTENSION 10/12/2018 MARY LOU CALERO MD, Ot I25.10 ATHSCL HEART DISEASE OF [place] CORONARY 10/12/2018 MARY LOU CALERO MD Ot R07.81 PLEURODYNIA 10/12/2018 MARY LOU CALERO MD, Ot S22.41XA MULTIPLE FRACTURES OF RIBS, RIGHT SIDE, 10/12/2018 MARY LOU CALERO MD, Ot W01.190A FALL SAME LEV FROM SLIP/TRIP W STRIKE AG 10/12/2018 MARY LOU CALERO MD, Ot Y92.[address] [facility] [address] NON-[facility] (PRIVATE 10/12/2018 MARY LOU CALERO MD, Ot Z79.01 CUSTODIAL (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 ANTICOAGULANT 10/12/2018 MARY LOU CALERO MD, Ot Z79.82 CUSTODIAL (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 ASPIRIN 10/12/2018 MARY LOU CALERO MD, Ot Z79.84 FURNITURE CRATER (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 ORAL HYPOGLYC 10/12/2018 MARY LOU CALERO MD, Ot Z85.21 PERSONAL HISTORY OF MALIGNANT NEOPLASM O 10/12/2018 MARY LOU CALERO MD, Ot Z87.442 PERSONAL HISTORY OF URINARY CALCULI 10/12/2018 MARY LOU CALERO MD, Ot Z88.0 ALLERGY STATUS TO PENICILLIN 10/12/2018 MARY LOU CALERO MD, Ot Z90.49 ACQUIRED ABSENCE OF OTHER SPECIFIED PART 10/12/2018 MARY LOU CALERO MD, Ot Z92.21 PERSONAL HISTORY OF ANTINEOPLASTIC CHEMO 10/12/2018 MARY LOU CALERO MD, Ot Z95.5 PRESENCE OF CORONARY ANGIOPLASTY IMPLANT 10/15/2018 GHISLAINE FLORES MD, Ot E11.9 TYPE 2 DIABETES MELLITUS WITHOUT COMPLIC 10/15/2018 GHISLAINE FLORES MD Ot E83.42 HYPOMAGNESEMIA 10/15/2018 GHISLAINE FLORES MD Ot E87.1 HYPO-OSMOLALITY AND HYPONATREMIA 10/15/2018 GHISLAINE FLORES MD Ot I08.3 COMB 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MITRAL, AORTIC 10/15/2018 GHISLAINE FLROES MD, Ot I11.0 HYPERTENSIVE HEART DISEASE WITH HEART FA 10/15/2018 GHISLAINE FLORES MD, Ot I25.10 ATHSCL HEART DISEASE OF [place] CORONARY 10/15/2018 GHISLAINE FLORES MD, Ot I48.0 PAROXYSMAL ATRIAL FIBRILLATION 10/15/2018 GHISLAINE FLORES MD, Ot I49.8 OTHER SPECIFIED CARDIAC ARRHYTHMIAS 10/15/2018 GHISLAINE FLORES MD, Ot I50.32 CHRONIC DIASTOLIC (CONGESTIVE) HEART CHAI 10/15/2018 GHISLAINE FLORES MD, Ot I95.1 ORTHOSTATIC HYPOTENSION 10/15/2018 GHISLAINE FLORES MD, Ot K21.9 GASTRO-ESOPHAGEAL REFLUX DISEASE WITHOUT 10/15/2018 GHISLAINE FLORES MD, Ot M19.91 PRIMARY OSTEOARTHRITIS, UNSPECIFIED SITE 10/15/2018 GHISLAINE FLORES MD, Ot R17 UNSPECIFIED JAUNDICE 10/15/2018 GHISLAINE FLORES MD, Ot R53.1 WEAKNESS 10/15/2018 GHISLAINE FLORES MD, Ot R79.1 ABNORMAL COAGULATION PROFILE 10/15/2018 GHISLAINE FLORES MD, Ot S22.41XD MULTIPLE FX OF RIBS, RIGHT SIDE, SUBS FO 10/15/2018 GHISLAINE FLORES MD, Ot W01.190D FALL SAME LEV FROM SLIP/TRIP W STRIKE AG 10/15/2018 GHISLAINE FLORES MD, Ot Z79.01 CUSTODIAL (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 ANTICOAGULANT 10/15/2018 GHISLAINE FLORES MD, Ot Z79.84 CUSTODIAL (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 ORAL HYPOGLYC 10/15/2018 GHISLAINE FLORES MD, Ot Z85.21 PERSONAL HISTORY OF MALIGNANT NEOPLASM O 10/15/2018 GHISLAINE FLORES MD, Ot Z87.891 PERSONAL HISTORY OF NICOTINE DEPENDENCE 10/15/2018 GHISLAINE FLORES MD, Ot Z92.3 PERSONAL HISTORY OF IRRADIATION 10/15/2018 GHISLAINE FLORES MD, Ot Z95.5 PRESENCE OF CORONARY ANGIOPLASTY IMPLANT 10/16/2018 MARY LOU CALERO MD Ot E11.9 TYPE 2 DIABETES MELLITUS WITHOUT COMPLIC 10/16/2018 MARY LOU CALERO MD Ot I10 ESSENTIAL (PRIMARY) HYPERTENSION 10/16/2018 MARY LOU CALERO MD Ot I25.10 ATHSCL HEART DISEASE OF [place] CORONARY 10/16/2018 MARY LOU CALERO MD Ot R07.81 PLEURODYNIA 10/16/2018 MARY LOU CALERO MD Ot S22.41XA MULTIPLE FRACTURES OF RIBS, RIGHT SIDE, 10/16/2018 MARY LOU CALERO MD Ot W01.190A FALL SAME LEV FROM SLIP/TRIP W STRIKE AG 10/16/2018 MARY LOU CALERO MD Ot Y92.[address] [facility] [address] IN [facility] NON[facility] (PRIVATE 10/16/2018 MARY LOU CALERO MD, Ot Z79.01 FURNITURE CRATER (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 ANTICOAGULANT 10/16/2018 MARY LOU CALERO MD, Ot Z79.82 FURNITURE CRATER (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 ASPIRIN 10/16/2018 MARY LOU CALERO MD, Ot Z79.84 FURNITURE CRATER (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 ORAL HYPOGLYC 10/16/2018 MARY LOU CALERO MD, Ot Z85.21 PERSONAL HISTORY OF MALIGNANT NEOPLASM O 10/16/2018 MARY LOU CALERO MD, Ot Z87.442 PERSONAL HISTORY OF URINARY CALCULI 10/16/2018 MARY LOU CALERO MD, Ot Z88.0 ALLERGY STATUS TO PENICILLIN 10/16/2018 MARY LOU CALERO MD, Ot Z90.49 ACQUIRED ABSENCE OF OTHER SPECIFIED PART 10/16/2018 MARY LOU CALERO MD, Ot Z92.21 PERSONAL HISTORY OF ANTINEOPLASTIC CHEMO 10/16/2018 MARY LOU CALERO MD Ot Z95.5 PRESENCE OF CORONARY ANGIOPLASTY IMPLANT 10/17/2018 GHISLAINE FLORES MD Ot E11.9 TYPE 2 DIABETES MELLITUS WITHOUT COMPLIC 10/17/2018 GHISLAINE FLORES MD, Ot E83.42 HYPOMAGNESEMIA 10/17/2018 GHISLAINE FLORES MD, Ot E87.1 HYPO-OSMOLALITY AND HYPONATREMIA 10/17/2018 GHISLAINE FLORES MD, Ot I08.3 COMB 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[place], AORTIC 10/17/2018 GHISLAINE FLORES MD, Ot I11.0 HYPERTENSIVE HEART DISEASE WITH HEART FA 10/17/2018 GHISLAINE FLORES MD, Ot I25.10 ATHSCL HEART DISEASE OF [place] CORONARY 10/17/2018 GHISLAINE FLORES MD, Ot I48.0 PAROXYSMAL ATRIAL FIBRILLATION 10/17/2018 GHISLAINE FLORES MD, Ot I49.8 OTHER SPECIFIED CARDIAC ARRHYTHMIAS 10/17/2018 GHISLAINE FLORES MD, Ot I50.32 CHRONIC DIASTOLIC (CONGESTIVE) HEART CHAI 10/17/2018 GHISLAINE FLORES MD, Ot I95.1 ORTHOSTATIC HYPOTENSION 10/17/2018 GHISLAINE FLORES MD, Ot K21.9 GASTRO-ESOPHAGEAL REFLUX DISEASE WITHOUT 10/17/2018 GHISLAINE FLORES MD, Ot M19.91 PRIMARY OSTEOARTHRITIS, UNSPECIFIED SITE 10/17/2018 GHISLAINE FLORES MD, Ot R17 UNSPECIFIED JAUNDICE 10/17/2018 GHISLAINE FLORES MD, Ot R53.1 WEAKNESS 10/17/2018 GHISLAINE FLORES MD, Ot R79.1 ABNORMAL COAGULATION PROFILE 10/17/2018 GHISLAINE FLORES MD, Ot S22.41XD MULTIPLE FX OF RIBS, RIGHT SIDE, SUBS FO 10/17/2018 GHISLAINE FLORES MD, Ot W01.190D FALL SAME LEV FROM SLIP/TRIP W STRIKE AG 10/17/2018 GHISLAINE FLORES MD, Ot Z79.01 FURNITURE CRATER (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 ANTICOAGULANT 10/17/2018 GHISLAINE FLORES MD, Ot Z79.84 FURNITURE CRATER (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 ORAL HYPOGLYC 10/17/2018 GHISLAINE FLORES MD, Ot Z85.21 PERSONAL HISTORY OF MALIGNANT NEOPLASM O 10/17/2018 GHISLAINE FLORES MD, Ot Z87.891 PERSONAL HISTORY OF NICOTINE DEPENDENCE 10/17/2018 GHISLAINE FLORES MD, Ot Z92.3 PERSONAL HISTORY OF IRRADIATION 10/17/2018 GHISLAINE FLORES MD, Ot Z95.5 PRESENCE OF CORONARY ANGIOPLASTY IMPLANT 10/17/2018 GHISLAINE FLORES MD, Ot E11.9 TYPE 2 DIABETES MELLITUS WITHOUT COMPLIC 10/17/2018 GHISLAINE FLORES MD, Ot E83.42 HYPOMAGNESEMIA 10/17/2018 GHISLAINE FLORES MD, Ot E87.1 HYPO-OSMOLALITY AND HYPONATREMIA 10/17/2018 GHISLAINE FLORES MD, Ot I08.3 COMB 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[place], AORTIC 10/17/2018 GHISLAINE FLORES MD, Ot I11.0 HYPERTENSIVE HEART DISEASE WITH HEART FA 10/17/2018 GHISLAINE FLORES MD, Ot I25.10 ATHSCL HEART DISEASE OF [place] CORONARY 10/17/2018 GHISLAINE FLORES MD, Ot I48.0 PAROXYSMAL ATRIAL FIBRILLATION 10/17/2018 GHISLAINE FLORES MD, Ot I49.8 OTHER SPECIFIED CARDIAC ARRHYTHMIAS 10/17/2018 GHISLAINE LFORES MD, Ot I50.32 CHRONIC DIASTOLIC (CONGESTIVE) HEART CHAI 10/17/2018 GHISLAINE FLORES MD, Ot I95.1 ORTHOSTATIC HYPOTENSION 10/17/2018 GHISLAINE FLORES MD, Ot K21.9 GASTRO-ESOPHAGEAL REFLUX DISEASE WITHOUT 10/17/2018 GHISLAINE FLORES MD, Ot M19.91 PRIMARY OSTEOARTHRITIS, UNSPECIFIED SITE 10/17/2018 GHISLAINE FLORES MD, Ot R17 UNSPECIFIED JAUNDICE 10/17/2018 GHISLAINE FLORES MD, Ot R53.1 WEAKNESS 10/17/2018 GHISLAINE FLORES MD, Ot R79.1 ABNORMAL COAGULATION PROFILE 10/17/2018 GHISLAINE FLORES MD, Ot S22.41XD MULTIPLE FX OF RIBS, RIGHT SIDE, SUBS FO 10/17/2018 GHISLAINE FLORES MD, Ot W01.190D FALL SAME LEV FROM SLIP/TRIP W STRIKE AG 10/17/2018 GHISLAINE FLORES MD, Ot Z79.01 CUSTODIAL (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 ANTICOAGULANT 10/17/2018 GHISLAINE FLORES MD, Ot Z79.84 CUSTODIAL (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 ORAL HYPOGLYC 10/17/2018 GHISLAINE FLORES MD, Ot Z85.21 PERSONAL HISTORY OF MALIGNANT NEOPLASM O 10/17/2018 GHISLAINE FLORES MD, Ot Z87.891 PERSONAL HISTORY OF NICOTINE DEPENDENCE 10/17/2018 GHISLAINE FLORES MD, Ot Z92.3 PERSONAL HISTORY OF IRRADIATION 10/17/2018 GHISLAINE FLORES MD, Ot Z95.5 PRESENCE OF CORONARY ANGIOPLASTY IMPLANT 12/09/2018 DANIA NUNEZ Ot I48.0 PAROXYSMAL ATRIAL FIBRILLATION 12/09/2018 DANIA NUNEZ Ot I48.0 PAROXYSMAL ATRIAL FIBRILLATION Procedures There is no data. Results Test [...] Automated erythrocyte mean corpuscular hemoglobin concentration measurement (mass/volume) 33 g/dL 32-36 Automated erythrocyte distribution width ratio 16.6 % 10.0- 14.5 Automated blood platelet count (count/volume) 320 10*3/uL [...] Blood monocytes automated count (number/volume) 0.9 10*3 0.0- 1.0 Automated eosinophil count 0.4 10*3/uL 0.0-0.3 Automated [...] Serum or plasma aspartate aminotransferase measurement (enzymatic activity/volume) 19 U/L 5-34 Serum or plasma alanine aminotransferase measurement (enzymatic activity/volume) 20 U/L 0-55 Serum or plasma protein [...] glucose measurement by glucometer (mass/volume) - 09/12/18 16:09 Capillary blood glucose measurement by glucometer (mass/volume) 238 mg/dL 70-110 Capillary blood glucose measurement by glucometer (mass/volume) - 09/12/18 19:40 Capillary blood glucose measurement by glucometer (mass/volume) [...] Automated erythrocyte mean corpuscular hemoglobin concentration measurement (mass/volume) 33 g/dL 32-36 Automated erythrocyte distribution width ratio 16.3 % 10.0- 14.5 Automated blood platelet count (count/volume) 268 10*3/uL [...] Blood monocytes automated count (number/volume) 0.9 10*3 0.0- 1.0 Automated eosinophil count 0.4 10*3/uL 0.0-0.3 Automated [...] Serum or plasma aspartate aminotransferase measurement (enzymatic activity/volume) 17 U/L 5-34 Serum or plasma alanine aminotransferase measurement (enzymatic activity/volume) 18 U/L 0-55 Serum or plasma protein [...] glucose measurement by glucometer (mass/volume) - 09/13/18 09:39 Capillary blood glucose measurement by glucometer (mass/volume) [...] Automated erythrocyte mean corpuscular hemoglobin concentration measurement (mass/volume) 33 g/dL 32-36 Automated erythrocyte distribution width ratio 16.8 % 10.0- 14.5 Automated blood platelet count (count/volume) 279 10*3/uL [...] Blood monocytes automated count (number/volume) 0.9 10*3 0.0- 1.0 Automated eosinophil count 0.3 10*3/uL 0.0-0.3 Automated [...] Serum or plasma aspartate aminotransferase measurement (enzymatic activity/volume) 17 U/L 5-34 Serum or plasma alanine aminotransferase measurement (enzymatic activity/volume) 16 U/L 0-55 Serum or plasma protein measurement (mass/volume) 7.4 g/dL 6.4-8.2 Serum or plasma albumin measurement (mass/volume) 4.3 g/dL 3.2-4.5 CALCIUM CORRECTED 9.2 mg/dL 8.5-10.1 Complete urinalysis with reflex to culture - 10/14/18 10:25 Urine color determination YELLOW NRG Urine clarity determination CLEAR NRG Urine pH measurement by test strip 6 5-9 Specific gravity of urine by test strip 1.015 1.016-1.022 Urine protein assay by test strip, semi-quantitative [...] sediment leukocyte count by microscopy (number/high power field) NONE NRG Bacteria detection in urine sediment [...] Serum or plasma aspartate aminotransferase measurement (enzymatic activity/volume) 14 U/L 5-34 Serum or plasma alanine aminotransferase measurement (enzymatic activity/volume) 15 U/L 0-55 Serum or plasma protein measurement (mass/volume) 7.2 g/dL 6.4-8.2 Serum or plasma albumin measurement (mass/volume) 4.1 g/dL 3.2-4.5 CALCIUM CORRECTED 9.2 mg/dL 8.5-10.1 Magnesium - 10/14/18 10:33 Magnesium 1.4 mg/dL 1.8-2.4 Serum or plasma troponin i.cardiac measurement (mass/volume) - 10/14/18 10:33 Serum or plasma troponin i.cardiac measurement (mass/volume) < ng/mL <0.30 Complete blood count (CBC) with automated white blood cell (WBC) differential - 10/15/18 05:40 Blood leukocytes automated count (number/volume) 10.5 10*3/uL 4.3-11.0 Blood erythrocytes automated count (number/volume) 4.00 10*6/uL 4.35-5.85 Venous blood hemoglobin measurement (mass/volume) 11.1 g/dL 13.3-17.7 Blood hematocrit (volume fraction) 33 % 40-54 Automated erythrocyte mean corpuscular volume 83 [foz_us] 80-99 Automated erythrocyte mean corpuscular hemoglobin (mass per erythrocyte) 28 pg 25-34 Automated erythrocyte mean corpuscular hemoglobin concentration measurement (mass/volume) 33 g/dL 32-36 Automated erythrocyte distribution width ratio 16.2 % 10.0- 14.5 Automated blood platelet count (count/volume) 252 10*3/uL 130-400 Automated blood platelet mean volume measurement 9.8 [foz_us] 7.4-10.4 Automated blood neutrophils/100 leukocytes 73 % 42-75 Automated blood lymphocytes/100 leukocytes 13 % 12-44 Blood monocytes/100 leukocytes 14 % 0-12 Automated blood eosinophils/100 leukocytes 0 % 0-10 Automated blood basophils/100 leukocytes 0 % 0-10 Blood neutrophils automated count (number/volume) 7.7 10*3 1.8-7.8 Blood lymphocytes automated count (number/volume) 1.4 10*3 1.0-4.0 Blood monocytes automated count (number/volume) 1.4 10*3 0.0- 1.0 Automated eosinophil count 0.0 10*3/uL 0.0-0.3 Automated blood basophil count (count/volume) 0.0 10*3/uL 0.0-0.1 PT panel in platelet poor plasma by coagulation assay - 10/15/18 05:40 Prothrombin time (PT) in platelet poor plasma by coagulation assay 41.1 s 12.2-14.7 INR in platelet poor plasma or blood by coagulation assay 4.2 0.8-1.4 Whole blood basic metabolic panel - 10/15/18 05:40 Serum or plasma sodium measurement (moles/volume) 128 mmol/L 135-145 Serum or plasma potassium measurement (moles/volume) 4.0 mmol/L 3.6-5.0 Serum or plasma chloride measurement (moles/volume) 95 mmol/L 98-107 Carbon dioxide 22 mmol/L 21-32 Serum or plasma anion gap determination (moles/volume) 11 mmol/L 5-14 Serum or plasma urea nitrogen measurement (mass/volume) 13 mg/dL 7-18 Serum or plasma creatinine measurement (mass/volume) 0.71 mg/dL 0.60-1.30 Serum or plasma urea nitrogen/creatinine mass ratio 18 NRG Serum or plasma creatinine measurement with calculation of estimated glomerular filtration rate > NRG Serum or plasma glucose measurement (mass/volume) 204 mg/dL 70-105 Serum or plasma calcium measurement (mass/volume) 8.9 mg/dL 8.5-10.1 Magnesium - 10/15/18 05:40 Magnesium 1.5 mg/dL 1.8-2.4 THYROID STIMULATING HORMONE - 10/15/18 05:40 THYROID STIMULATING HORMONE 1.68 u[iU]/mL 0.35-4.94 Capillary blood glucose measurement by glucometer (mass/volume) - 10/15/18 11:02 Capillary blood glucose measurement by glucometer (mass/volume) 293 mg/dL 70-110 Capillary blood glucose measurement by glucometer (mass/volume) - 10/15/18 18:17 Capillary blood glucose measurement by glucometer (mass/volume) 343 mg/dL 70-110 Whole blood basic metabolic panel - 10/15/18 20:00 Serum or plasma sodium measurement (moles/volume) 128 mmol/L 135-145 Serum or plasma potassium measurement (moles/volume) 4.1 mmol/L 3.6-5.0 Serum or plasma chloride measurement (moles/volume) 98 mmol/L 98-107 Carbon dioxide 21 mmol/L 21-32 Serum or plasma anion gap determination (moles/volume) 9 mmol/L 5-14 Serum or plasma urea nitrogen measurement (mass/volume) 18 mg/dL 7-18 Serum or plasma creatinine measurement (mass/volume) 0.77 mg/dL 0.60-1.30 Serum or plasma urea nitrogen/creatinine mass ratio 23 NRG Serum or plasma creatinine measurement with calculation of estimated glomerular filtration rate > NRG Serum or plasma glucose measurement (mass/volume) 248 mg/dL 70-105 Serum or plasma calcium measurement (mass/volume) 8.7 mg/dL 8.5-10.1 Capillary blood glucose measurement by glucometer (mass/volume) - 10/15/18 20:31 Capillary blood glucose measurement by glucometer (mass/volume) 208 mg/dL 70-110 PT panel in platelet poor plasma by coagulation assay - 10/16/18 04:20 Prothrombin time (PT) in platelet poor plasma by coagulation assay 27.9 s 12.2-14.7 INR in platelet poor plasma or blood by coagulation assay 2.6 0.8-1.4 Whole blood basic metabolic panel - 10/16/18 04:20 Serum or plasma sodium measurement (moles/volume) 131 mmol/L 135-145 Serum or plasma potassium measurement (moles/volume) 4.0 mmol/L 3.6-5.0 Serum or plasma chloride measurement (moles/volume) 101 mmol/L 98-107 Carbon dioxide 20 mmol/L 21-32 Serum or plasma anion gap determination (moles/volume) 10 mmol/L 5-14 Serum or plasma urea nitrogen measurement (mass/volume) 17 mg/dL 7-18 Serum or plasma creatinine measurement (mass/volume) 0.66 mg/dL 0.60-1.30 Serum or plasma urea nitrogen/creatinine mass ratio 26 NRG Serum or plasma creatinine measurement with calculation of estimated glomerular filtration rate > NRG Serum or plasma glucose measurement (mass/volume) 151 mg/dL 70-105 Serum or plasma calcium measurement (mass/volume) 8.5 mg/dL 8.5-10.1 Magnesium - 10/16/18 04:20 Magnesium 1.7 mg/dL 1.8-2.4 Capillary blood glucose measurement by glucometer (mass/volume) - 10/16/18 05:18 Capillary blood glucose measurement by glucometer (mass/volume) 179 mg/dL 70-110 Capillary blood glucose measurement by glucometer (mass/volume) - 10/16/18 11:10 Capillary blood glucose measurement by glucometer (mass/volume) 336 mg/dL 70-110 Whole blood basic metabolic panel - 10/16/18 16:10 Serum or plasma sodium measurement (moles/volume) 131 mmol/L 135-145 Serum or plasma potassium measurement (moles/volume) 4.3 mmol/L 3.6-5.0 Serum or plasma chloride measurement (moles/volume) 100 mmol/L 98-107 Carbon dioxide 24 mmol/L -32 Serum or plasma anion gap determination (moles/volume) 7 mmol/L 5-14 Serum or plasma urea nitrogen measurement (mass/volume) 19 mg/dL 7-18 Serum or plasma creatinine measurement (mass/volume) 0.73 mg/dL 0.60-1.30 Serum or plasma urea nitrogen/creatinine mass ratio 26 NRG Serum or plasma creatinine measurement with calculation of estimated glomerular filtration rate > NRG Serum or plasma glucose measurement (mass/volume) 222 mg/dL 70-105 Serum or plasma calcium measurement (mass/volume) 8.6 mg/dL 8.5-10.1 Capillary blood glucose measurement by glucometer (mass/volume) - 10/16/18 16:33 Capillary blood glucose measurement by glucometer (mass/volume) 237 mg/dL 70-110 Capillary blood glucose measurement by glucometer (mass/volume) - 10/16/18 21:17 Capillary blood glucose measurement by glucometer (mass/volume) 188 mg/dL 70-110 PT panel in platelet poor plasma by coagulation assay - 10/17/18 04:37 Prothrombin time (PT) in platelet poor plasma by coagulation assay 24.8 s 12.2-14.7 INR in platelet poor plasma or blood by coagulation assay 2.2 0.8-1.4 Whole blood basic metabolic panel - 10/17/18 04:37 Serum or plasma sodium measurement (moles/volume) 132 mmol/L 135-145 Serum or plasma potassium measurement (moles/volume) 4.0 mmol/L 3.6-5.0 Serum or plasma chloride measurement (moles/volume) 100 mmol/L 98-107 Carbon dioxide 20 mmol/L 32 Serum or plasma anion gap determination (moles/volume) 12 mmol/L 5-14 Serum or plasma urea nitrogen measurement (mass/volume) 20 mg/dL 7-18 Serum or plasma creatinine measurement (mass/volume) 0.74 mg/dL 0.60-1.30 Serum or plasma urea nitrogen/creatinine mass ratio 27 NRG Serum or plasma creatinine measurement with calculation of estimated glomerular filtration rate > NRG Serum or plasma glucose measurement (mass/volume) 152 mg/dL 70-105 Serum or plasma calcium measurement (mass/volume) 9.2 mg/dL 8.5-10.1 Magnesium - 10/17/18 04:37 Magnesium 2.0 mg/dL 1.8-2.4 Hemoglobin A1c - 10/17/18 04:37 Blood hemoglobin A1C measurement (mass/volume) 6.9 % 4.0-5.6 MEAN BLOOD GLUCOSE 151 % <=126 Capillary blood glucose measurement by glucometer (mass/volume) - 10/17/18 06:36 Capillary blood glucose measurement by glucometer (mass/volume) 191 mg/dL 70-110 Encounters ACCT No. Visit Date/Time Discharge Status Pt. Type Provider Facility Loc./Unit Complaint [id number] 12/04/2018 12:05:00 12/04/2018 23:59:59 CLS Preadmit DANIA NUNEZ [facility] RAD CAD, PAF, SYNCOPE, CHRONIC ANTICOAGULATION [id number] 11/15/2018 08:00:00 11/15/2018 23:59:59 CLS Preadmit LOREN SUÁREZ FACC, CHEMO FACP CCDS [facility] CARD CAD,PAF,WARFARIN INDUCED COAGULOPATHY [id number] 10/14/2018 14:38:00 10/17/2018 11:00:00 DIS Inpatient SANDRA SUÁREZ, GHISLAINE Marlow [facility] 4TH HYPONATREMIA HYPOMAGNESEMIA WEAKNESS [id number] 10/12/2018 08:44:00 10/12/2018 10:37:00 DIS Emergency MARY LOU CALERO MD [facility] ER FALL, R BACK PAIN [id number] 09/12/2018 11:26:00 09/13/2018 12:00:00 DIS Inpatient GRISELDA SUÁREZ, NEFTALY Andersen [facility] 4TH ORTHOSTATIC HYPOTENSION [id number] 04/25/2017 14:42:00 04/25/2017 23:59:59 CLS Outpatient DWIGHT SUÁREZ, CHELSEA Marie [facility] RAD CERVICAL STENOSIS M48.02 [id number] 04/30/2016 07:59:00 04/30/2016 10:55:00 DIS Emergency JOE SUÁREZ, CRISTAL Marie [facility] ER [id number] 07/13/2013 10:49:00 07/13/2013 13:52:00 DIS Emergency
--- NOTE | 2019-03-24 12:43 | Diagnostic Imaging Report ---
PROCEDURE: CT angiography of the head and CT angiography of the neck with and without contrast. TECHNIQUE: Contiguous noncontrast images were obtained from the skull base through the vertex. After intravenous contrast administration, helical CT angiography of the neck was performed. Source data was reformatted into multiple MIP projections. Delayed post contrast acquisition was also obtained. Auto Exposure Controls were utilized during the CT exam to meet ALARA standards for radiation dose reduction. INDICATION: Syncope. FINDINGS: There is a three-vessel branching pattern to the aortic arch. There is some calcified plaque in both common carotid arteries. Calcified plaque at the carotid bifurcations is also noted bilaterally. Significant calcified plaque in the carotid siphons is seen bilaterally. Intracranially the middle cerebral arteries are well opacified. No filling defect or thromboembolism is seen. Bilateral anterior cerebral arteries are patent. Posterior cerebral arteries are widely patent. The basilar is unremarkable. Right vertebral artery is very small distally. 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 The distal right vertebral artery demonstrates trickle of flow which could be from retrograde contrast. IMPRESSION: 1. CT angiogram of the head and neck shows no evidence of thromboembolism within the anterior, middle or posterior cerebral arteries. There is some generalized carotid plaque present. No definite aneurysm or intracranial stenosis is seen. 2. 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 There is a tiny amount of flow in the distal right vertebral artery. Left vertebral artery, basilar and posterior cerebrals are widely patent. Dictated by: Dictated on workstation # [id number]
--- OUTSIDE RECORDS SUMMARY | 2019-03-24 13:40 | XMS REPORT | Continuity of Care Document ---
Author Organization Unknown Address Unknown Allergies Active Description Code Type Severity Reaction Onset Reported/Identified Relationship to Patient Clinical Status Yes Penicillins [id number] Drug Allergy Mild hives 10/12/2018 Medications There [...] MD Ot I25.10 ATHSCL HEART DISEASE OF [place] CORONARY 09/13/2018 NEFTALY VILLALOBOS MD Ot I95.1 ORTHOSTATIC HYPOTENSION 09/13/2018 NEFTALY VILLALOBOS MD Ot Z79.01 SKILLED NURSING (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 ANTICOAGULANT 09/13/2018 NEFTALY VILLALOBOS MD, Ot Z79.84 SKILLED NURSING (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 ORAL HYPOGLYC 09/13/2018 NEFTALY VILLALOBOS MD Ot Z95.5 PRESENCE OF CORONARY ANGIOPLASTY IMPLANT 10/12/2018 MARY LOU CALERO MD, Ot E11.9 TYPE 2 DIABETES MELLITUS WITHOUT COMPLIC 10/12/2018 MARY LOU CALERO MD, Ot I10 ESSENTIAL (PRIMARY) HYPERTENSION 10/12/2018 MARY LOU CALERO MD, Ot I25.10 ATHSCL HEART DISEASE OF [place] CORONARY 10/12/2018 MARY LOU CALERO MD Ot R07.81 PLEURODYNIA 10/12/2018 MARY LOU CALERO MD, Ot S22.41XA MULTIPLE FRACTURES OF RIBS, RIGHT SIDE, 10/12/2018 MARY LOU CALERO MD, Ot W01.190A FALL SAME LEV FROM SLIP/TRIP W STRIKE AG 10/12/2018 MARY L[facility] CALERO [facility], [facility] Y92.[address] [facility] NON-INSTITUT (PRIVATE 10/12/2018 MARY LOU CALERO MD, Ot Z79.01 SKILLED NURSING (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 ANTICOAGULANT 10/12/2018 MARY LOU CALERO MD, Ot Z79.82 SKILLED NURSING (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 ASPIRIN 10/12/2018 MARY LOU CALERO MD, Ot Z79.84 [place] [place] OFFICIAL (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 ORAL HYPOGLYC 10/12/2018 MARY [...] 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[place], AORTIC 10/15/2018 GHISLAINE FLORES MD, Ot I11.0 HYPERTENSIVE HEART DISEASE WITH HEART FA 10/15/2018 GHISLAINE FLORES MD, Ot I25.10 ATHSCL HEART DISEASE OF [place] CORONARY 10/15/2018 GHISLAINE FLORES MD, Ot I48.0 [...] AG 10/15/2018 GHISLAINE FLORES MD, Ot Z79.01 SKILLED NURSING (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 ANTICOAGULANT 10/15/2018 GHISLAINE FLORES MD, Ot Z79.84 SKILLED NURSING (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 ORAL HYPOGLYC 10/15/2018 GHISLAINE [...] MD Ot I25.10 ATHSCL HEART DISEASE OF [place] CORONARY 10/16/2018 MARY LOU CALERO MD Ot R07.81 PLEURODYNIA 10/16/2018 MARY LOU CALERO MD Ot S22.41XA MULTIPLE FRACTURES OF RIBS, RIGHT SIDE, 10/16/2018 MARY LOU CALERO MD Ot W01.190A FALL SAME LEV FROM SLIP/TRIP W STRIKE AG 10/16/2018 MARY LOU CALERO MD Ot Y92.[address] [facility] [address] IN [facility] NON-INSTITUT (PRIVATE 10/16/2018 MARY LOU CALERO MD, Ot Z79.01 [place] [place] OFFICIAL (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 ANTICOAGULANT 10/16/2018 MARY LOU CALERO MD, Ot Z79.82 [employer] OFFICIAL (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 ASPIRIN 10/16/2018 MARY LOU CALERO MD, Ot Z79.84 [employer] [place] OFFICIAL (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 ORAL HYPOGLYC 10/16/2018 MARY [...] MD, Ot I25.10 ATHSCL HEART DISEASE OF [place] CORONARY 10/17/2018 GHISLAINE FLORES MD, Ot I48.0 [...] AG 10/17/2018 GHISLAINE FLORES MD, Ot Z79.01 [employer] [place] OFFICIAL (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 ANTICOAGULANT 10/17/2018 GHISLAINE FLORES MD, Ot Z79.84 [employer] OFFICIAL (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 ORAL HYPOGLYC 10/17/2018 GHISLAINE [...] MD, Ot I25.10 ATHSCL HEART DISEASE OF [place] CORONARY 10/17/2018 GHISLAINE FLORES MD, Ot I48.0 PAROXYSMAL ATRIAL FIBRILLATION 10/17/2018 GHISLAINE FLORES MD, Ot I49.8 OTHER SPECIFIED CARDIAC ARRHYTHMIAS 10/17/2018 GHISLANIE FLORES MD, Ot I50.32 CHRONIC DIASTOLIC (CONGESTIVE) [...] AG 10/17/2018 GHISLAINE FLORES MD, Ot Z79.01 SKILLED NURSING (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 ANTICOAGULANT 10/17/2018 GHISLAINE FLORES MD, Ot Z79.84 SKILLED NURSING (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 ORAL HYPOGLYC 10/17/2018 GHISLAINE [...] Status Pt. Type Provider Facility Loc./Unit Complaint [id number] 12/04/2018 12:05:00 12/04/2018 23:59:59 CLS Preadmit DANIA NUNEZ [facility] RAD CAD, PAF, SYNCOPE, CHRONIC ANTICOAGULATION [id number] 11/15/2018 08:00:00 11/15/2018 23:59:59 CLS Preadmit LOREN SUÁREZ FACC, CHEMO MARRP CCDS [facility] CARD CAD,PAF,WARFARIN INDUCED COAGULOPATHY [id number] 10/14/2018 14:38:00 10/17/2018 11:00:00 DIS Inpatient SANDRA SUÁREZ, GHISLAINE Marlow [facility] 4TH HYPONATREMIA HYPOMAGNESEMIA WEAKNESS [id number] 10/12/2018 08:44:00 10/12/2018 10:37:00 DIS Emergency MARY LOU CALERO MD [facility] ER FALL, R BACK PAIN [id number] 09/12/2018 11:26:00 09/13/2018 12:00:00 DIS Inpatient GRISELDA SUÁREZ, NEFTALY Andersen [facility] 4TH ORTHOSTATIC HYPOTENSION [id number] 04/25/2017 14:42:00 04/25/2017 23:59:59 CLS Outpatient CHELSEA QUINTANILLA MD [facility] RAD CERVICAL STENOSIS M48.02 [id number] 04/30/2016 07:59:00 04/30/2016 10:55:00 DIS Emergency CRISTAL DIAZ MD [facility] ER [id number] 07/13/2013 10:49:00 07/13/2013 13:52:00 DIS Emergency [id number] 03/24/2019 10:41:00 ACT Emergency SUDHIR MINOR APRN [facility] ER
[2019-03-24] MEDS ORDERED: CATHETER FLUSH 10 ML SYR IV PRN (14:30)
[2019-03-24] MEDS ORDERED: APIX2.5T PO (14:46)
--- NOTE | 2019-03-24 14:51 | NUR ---
WENT OVER THE EXT MED HX WITH THE PATIENTS , SHE WAS VERIFYING HOW HE TAKES THEM BUT WHEN WE GOT TO THE LIPITOR SHE STATES HE IS STILL TAKING IT. I EXPLAINED IT HAD NOT BEEN FILLED SINCE OCTOBER FOR A 30 DAY SUPPLY, AT THAT TIME SHE SAID SHE COULD NOT VERIFY HIS LIST WITH ME UNTIL SHE WENT HOME TO GET HIS PILL BOTTLES, SHE IS TOO STRESSED TO THINK CLEARLY. I WILL PASS INFO ON TO NURSE TO DOUBLE CHECK BOTTLES WHEN SHE BRINGS THEM IN LATER TONIGHT.
[2019-03-24] MEDS: LACTATED RINGERS 1,000 ML IV SCH ×2 (15:35→23:07)
--- NOTE | 2019-03-24 15:48 | Consultation-Cardiology ---
HPI-Cardiology Cardiology Consultation: Date of Consultation 03/24/19 Time Seen by a Provider: 15:40 Date of Admission 03-24-19 Attending Physician Guicho Gutierrez DO Admitting Physician Guicho Gutierrez DO Consulting Physician Orlando Stinson MD HPI: Chief Complaint: Syncope Mr. Antonio is an 88 year old male admitted to ICU 2 from the ED. His spouse is at the bedside. He reports they were at [employer] when he became dizzy and then passed out. Spouse reports she was checking out. He was sitting on the bench at [employer] when he slumped over. He denies being out for any length of time. He denies any c/o CP, palpitations or dyspnea. He denies any n/v/d. He denies any fever or chills. His spouse reports he has episodes of dizziness at home, which have decreased in frequency. His spouse reports when he has them she will help him to lie down and they usually resolve after a few minutes. He denies any LE swelling. He denies any dysuria. He states he has been compliant with Eliquis. Review of Systems-Cardiology Review of Systems Constitutional: No chills, No fever, No malaise Eyes: No vision change Ears/Nose/Throat: No epistaxis, No recent hearing loss Respiratory: As described under HPI Cardiovascular: As described under HPI Gastrointestinal: No constipation, No diarrhea, No nausea, No vomiting Genitourinary: No dysuria, No hematuria Musculoskeletal: no symptoms reported Skin: No rash, No ulcerations Psychiatric/Neurological: syncope; No seizure, No focal weakness Hematologic: No bleeding abnormalities OLQ-Ifdxpo-Vmfqtt Hx Patient Social History Alcohol Use: Denies Use Recreational Drug Use: No Smoking Status: Former Smoker Type Used: Cigarettes 2nd Hand Smoke Exposure: Yes Recent Foreign Travel: No Recent Infectious Disease Expo: No Hospitalization with Isolation: Denies Immunizations Up To Date Tetanus Booster (TDap): Unknown Date of Pneumonia Vaccine: Nov 22, 2010 Date of Influenza Vaccine: Sep 11, 2018 Past Medical History PMH As described under Assessment. Family Medical History Family Medical History: Does not report fam h/o early CAD or SCD Allergies and Home Medications Allergies Coded Allergies: Penicillins (Verified Allergy, Mild, hives, 10/12/18) Home Medications Apixaban 2.5 Mg Tablet, 2.5 MG PO BID, (Reported) Atorvastatin Calcium 10 Mg Tablet, 10 MG PO HS, (Reported) LAST FILLED #30 11-02-18 Carvedilol 3.125 Mg Tablet, 3.125 MG PO BID, (Reported) Metformin HCl 1,000 Mg Tablet, 1,000 MG PO BID, (Reported) Patient Home Medication List Home Medication List Reviewed: Yes Physical Exam-Cardiology Physical Exam Vital Signs/I&O 03/24/19 03/25/19 03/25/19 03/25/19 21:00 00:00 00:00 01:00 Temp 97.4 Pulse 71 Resp 18 B/P (MAP) 152/76 (101) O2 Delivery Room Air Room Air Room Air 03/25/19 03/25/19 03/25/19 03/25/19 01:00 04:00 04:00 07:00 Temp 98.2 Pulse 63 84 O2 Delivery Room Air 03/25/19 08:00 O2 Delivery Room Air 03/25/19 00:00 Intake Total 50 ml Output Total 2450 ml Balance -2400 ml Capillary Refill : Less Than 3 Seconds Constitutional: AAO x 3, well-developed, well-nourished HEENT: PERRL, hearing is well preserved, oral hygience is good; No ulceration Neck: No carotid bruit; carotid pulses are 2 + bilaterally Respiratory: No accessory muscle use, No respiratory distress; chest expansion is symmetric, chest is bilaterally symmetric, lungs clear to auscultation Cardiovascular: regular rate-rhythm; No JVD; S1 and S2, systolic murmur Gastrointestinal: No tender; soft, round, audible bowel sounds Rectal: deferred Extremities: no lower extremity edema bilateral Neurologic/Psychiatric: grossly intact, power is 5/5 both on sides Skin: No rash, No ulcerations Data Review Labs Laboratory Tests 03/24/19 10:45: White Blood Count 8.5, Red Blood Count 3.84L, Hemoglobin 10.5L, Hematocrit 33L, Mean Corpuscular Volume 85, Mean Corpuscular Hemoglobin 27, Mean Corpuscular Hemoglobin Concent 32, Red Cell Distribution Width 15.0H, Platelet Count 304, Mean Platelet Volume 9.2, Neutrophils (%) (Auto) 54, Lymphocytes (%) (Auto) 33, Monocytes (%) (Auto) 9, Eosinophils (%) (Auto) 4, Basophils (%) (Auto) 1, Neutrophils # (Auto) 4.6, Lymphocytes # (Auto) 2.8, Monocytes # (Auto) 0.8, Eosinophils # (Auto) 0.3, Basophils # (Auto) 0.1, Prothrombin Time 15.6H, INR Comment 1.2, Activated Partial Thromboplast Time 28, Sodium Level 132L, Potassium Level 4.6, Chloride Level 99, Carbon Dioxide Level 19L, Anion Gap 14, Blood Urea Nitrogen 16, Creatinine 1.03, Estimat Glomerular Filtration Rate > 60, BUN/Creatinine Ratio 16, Glucose Level 181H, Calcium Level 8.9, Corrected Calcium 8.9, Magnesium Level 1.8, Total Bilirubin 0.6, Aspartate Amino Transf (AST/SGOT) 13, Alanine Aminotransferase (ALT/SGPT) 13, Alkaline Phosphatase 41, Myoglobin 88.8, Troponin I < 0.028, B-Type Natriuretic Peptide 122.4H, Total Protein 6.8, Albumin 4.0, Lipase 22 03/24/19 10:52: Lactic Acid Level 4.07*H 03/24/19 10:59: Urine Color YELLOW, Urine Clarity CLEAR, Urine pH 8, Urine Specific [place] 1.010L, Urine Protein NEGATIVE, Urine Glucose (UA) NEGATIVE, Urine Ketones NEGATIVE, Urine Nitrite NEGATIVE, Urine Bilirubin NEGATIVE, Urine Urobilinogen NORMAL, Urine Leukocyte Esterase NEGATIVE, Urine RBC (Auto) 1+H, Urine RBC NONE, Urine WBC NONE, Urine Squamous Epithelial Cells NONE, Urine Crystals NONE, Urine Bacteria NEGATIVE, Urine Casts NONE, Urine Mucus NEGATIVE, Urine Culture Indicated NO 03/24/19 14:05: Lactic Acid Level 2.14*H 03/24/19 15:58: Glucometer 199H 03/24/19 20:40: Glucometer 215H 03/25/19 03:00: White Blood Count 10.2, Red Blood Count 3.98L, Hemoglobin 10.9L, Hematocrit 33L, Mean Corpuscular Volume 82, Mean Corpuscular Hemoglobin 27, Mean Corpuscular Hemoglobin Concent 33, Red Cell Distribution Width 15.3H, Platelet Count 283, Mean Platelet Volume 9.5, Neutrophils (%) (Auto) 60, Lymphocytes (%) (Auto) 26, Monocytes (%) (Auto) 11, Eosinophils (%) (Auto) 3, Basophils (%) (Auto) 0, Neutrophils # (Auto) 6.1, Lymphocytes # (Auto) 2.7, Monocytes # (Auto) 1.1H, Eosinophils # (Auto) 0.4H, Basophils # (Auto) 0.0, Sodium Level 136, Potassium Level 3.8, Chloride Level 101, Carbon Dioxide Level 22, Anion Gap 13, Blood Urea Nitrogen 11, Creatinine 0.71, Estimat Glomerular Filtration Rate > 60, BUN/Creatinine Ratio 15, Glucose Level 95, Calcium Level 9.1, Triglycerides Level 55, Cholesterol Level 108, LDL Cholesterol Direct 67, VLDL Cholesterol 11, HDL Cholesterol 32L Radiology NAME: AMANDA ANTONIO [facility] REC#: [id number] PT STATUS: REG ER : 1930 PHYSICIAN: SUDHIR MINOR APRN ADMIT DATE: 03/24/19/ER Draft Date of Exam:03/24/19 CT ANGIO HEAD/NECK PROCEDURE: CT angiography of the head and CT angiography of the neck with and without contrast. TECHNIQUE: Contiguous noncontrast images were obtained from the skull base through the vertex. After intravenous contrast administration, helical CT angiography of the neck was performed. Source data was reformatted into multiple MIP projections. Delayed post contrast acquisition was also obtained. Auto Exposure Controls were utilized during the CT exam to meet ALARA standards for radiation dose reduction. INDICATION: Syncope. FINDINGS: There is a three-vessel branching pattern to the aortic arch. There is some calcified plaque in both common carotid arteries. Calcified plaque at the carotid bifurcations is also noted bilaterally. Significant calcified plaque in the carotid siphons is seen bilaterally. Intracranially the middle cerebral arteries are well opacified. No filling defect or thromboembolism is seen. Bilateral anterior cerebral arteries are patent. Posterior cerebral arteries are widely patent. The basilar is unremarkable. Right vertebral artery is very small distally. 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 The distal right vertebral artery demonstrates trickle of flow which could be from retrograde contrast. IMPRESSION: 1. CT angiogram of the head and neck shows no evidence of thromboembolism within the anterior, middle or posterior cerebral arteries. There is some generalized carotid plaque present. No definite aneurysm or intracranial stenosis is seen. 2. 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 There is a tiny amount of flow in the distal right vertebral artery. Left vertebral artery, basilar and posterior cerebrals are widely patent. Dictated on workstation # [id number] Dict: 03/24/19 1233 Trans: 03/24/19 1243 LORI [id number] Interpreted by: RUTHIE SANDRA MD Electronically signed by: NAME: AMANDA ANTONIO [facility] REC#: [id number] PT STATUS: REG ER : 1930 PHYSICIAN: SUDHIR MINOR SECURITY GUARD ADMIT DATE: 03/24/19/ER Draft Date of Exam:03/24/19 CT HEAD WO PROCEDURE: CT head without contrast. TECHNIQUE: Multiple contiguous axial images were obtained through the brain without the use of intravenous contrast. Auto Exposure Controls were utilized during the CT exam to meet ALARA standards for radiation dose reduction. INDICATION: Dizziness. COMPARISON: Head CT from 10/14/2018. FINDINGS: The ventricles and sulci are prominent, consistent with the patient's age. Moderate periventricular hypodensity is noted, consistent with senescent change. No sulcal effacement or midline shift is seen. No acute intra-axial or extra-axial hemorrhage is detected. The cisterns are patent. The visualized paranasal sinuses are clear. IMPRESSION: Senescent changes. No acute intracranial process is detected. Dictated on workstation # [id number] Dict: 03/24/19 1131 Trans: 03/24/19 1137 [id number] Interpreted by: RUTHIE SANDRA MD Electronically signed by: ECG Impression ECG Initial ECG Rhythm: Normal Sinus A/P-Cardiology Assessment/Admission Diagnosis Syncopal episode of undetermined etiology Sinus node dysfunction and h/o PAF MPI of June [address] Luevano showed no evidence of ischemia - has refused further coronary work up in the past Mild bilat carotid arterial dz per u/s of Nov 2018 H/O coronary stent placed on 01-01-[address] Mantilla at [facility] - location of stent unknown H/O orthostatic hypotension for which he reports he had undergone w/u in the past H/O syncopal episode on 09-12-18 - determined to be d/t postural hypotension H/O fall at home on 10-12-18 resulting in right rib fx H/O laryngeal cancer for which he received radiation/chemo tx GERD Echocardiogram of 09-12-[address] Kaufman showed - concentric LVH; grade 2 diastolic dysfunction; RA and LA dilated; Mild MR; Mild AoV stenosis; Mod TR; PASP 55-60 mmHg Chronic leg swelling, likely related to venous insuff Discussion and Recomendations Syncopal episode of undetermined etiology H/O sinus node dysfunction with PAF Advise continuation of OAC with Eliquis for stroke prophylaxis if OK with Dr. Gutierrez Monitor on tele Orthostatic v/s Monitor lab Further recs will be based on hospital course We would like to thank medical services for this consult Clinical Quality Measures DVT/VTE Risk/Contraindication: Risk Factor Score Per Nursin RFS Level Per Nursing on Admit: 2=Moderate DANIA NUNEZ March 24, 2019 15:48
[2019-03-24] MEDS: inSUlin ASPART (NovoLOG) 1 UNIT/0.01 ML (CHARGE PER UNIT) SC SCH ×2 (17:39→21:20)
--- NOTE | 2019-03-24 19:15 | Consultation-Cardiology ---
HPI-Cardiology Cardiology Consultation: Date of Consultation 03/24/19 Time Seen by a Provider: 18:40 Date of Admission Attending Physician Guicho Gutierrez DO Admitting Physician Guicho Gutierrez DO Consulting Physician CHEMO PIMENTEL MD, MA, FACP, FACC, FSCAI, CCDS HPI: Chief Complaint: CC: Syncope HPI Mr. Antonio is an 88 year old male admitted to ICU 2 from the ED. His spouse is at the bedside. He reports they were at [place] when he became dizzy and then passed out. Spouse reports she was checking out. He was sitting on the bench at [place] when he slumped over. He denies being out for any length of time. He denies any c/o CP, palpitations or dyspnea. He denies any n/v/d. He denies any fever or chills. His spouse reports he has episodes of dizziness at home, which have decreased in frequency. His spouse reports when he has them she will help him to lie down and they usually resolve after a few minutes. He denies any LE swelling. He denies any dysuria. He states he has been compliant with Eliquis. Review of Systems-Cardiology Review of Systems Constitutional: No chills, No fever, No malaise Eyes: No vision change Ears/Nose/Throat: No epistaxis, No recent hearing loss Respiratory: As described under HPI Cardiovascular: As described under HPI Gastrointestinal: No constipation, No diarrhea, No nausea, No vomiting Genitourinary: No dysuria, No hematuria Musculoskeletal: no symptoms reported Skin: No rash, No ulcerations Psychiatric/Neurological: syncope; No seizure, No focal weakness Hematologic: No bleeding abnormalities RME-Yjyaxn-Ooouyq Hx Patient Social History Alcohol Use: Denies Use Recreational Drug Use: No Smoking Status: Former Smoker Type Used: Cigarettes 2nd Hand Smoke Exposure: Yes Recent Foreign Travel: No Recent Infectious Disease Expo: No Hospitalization with Isolation: Denies Immunizations Up To Date Tetanus Booster (TDap): Unknown Date of Pneumonia Vaccine: Nov 22, 2010 Date of Influenza Vaccine: Sep 11, 2018 Past Medical History PMH As described under Assessment. Family Medical History Family Medical History: Does not report fam h/o early CAD or SCD Allergies and Home Medications Allergies Coded Allergies: Penicillins (Verified Allergy, Mild, hives, 10/12/18) Home Medications Apixaban 2.5 Mg Tablet, 2.5 MG PO BID, (Reported) Atorvastatin Calcium 10 Mg Tablet, 10 MG PO HS, (Reported) LAST FILLED #30 11-02-18 Carvedilol 3.125 Mg Tablet, 3.125 MG PO BID, (Reported) Metformin HCl 1,000 Mg Tablet, 1,000 MG PO BID, (Reported) Patient Home Medication List Home Medication List Reviewed: Yes Physical Exam-Cardiology Physical Exam Vital Signs/I&O 03/24/19 03/24/19 03/24/19 03/24/19 10:43 14:25 14:30 14:45 Temp 95.6 98.0 Pulse 78 67 63 61 Resp 16 15 28 11 B/P (MAP) 118/61 (80) 124/77 (93) 141/76 (97) 142/73 (96) Pulse Ox 96 97 100 97 O2 Delivery Room Air Room Air 03/24/19 03/24/19 03/24/19 03/24/19 15:00 15:15 15:27 15:30 Pulse 73 61 77 Resp 21 24 32 B/P (MAP) 154/96 (115) 151/72 (98) 130/74 (92) Pulse Ox 93 94 97 O2 Delivery Room Air Room Air Room Air Room Air 03/24/19 03/24/19 03/24/19 15:45 16:00 16:00 Pulse 71 62 Resp 26 51 B/P (MAP) 138/71 (93) 156/87 (110) Pulse Ox 100 100 O2 Delivery Room Air Room Air Room Air Capillary Refill : Less Than 3 Seconds Constitutional: AAO x 3, well-developed, well-nourished HEENT: PERRL, hearing is well preserved, oral hygience is good; No ulceration Neck: No carotid bruit; carotid pulses are 2 + bilaterally Respiratory: No accessory muscle use, No respiratory distress; chest expansion is symmetric, chest is bilaterally symmetric, lungs clear to auscultation Cardiovascular: regular rate-rhythm; No JVD; S1 and S2, systolic murmur Gastrointestinal: No tender; soft, round, audible bowel sounds Rectal: deferred Extremities: no lower extremity edema bilateral Neurologic/Psychiatric: grossly intact, power is 5/5 both on sides Skin: No rash, No ulcerations Data Review Labs Laboratory Tests 03/24/19 10:45: White Blood Count 8.5, Red Blood Count 3.84L, Hemoglobin 10.5L, Hematocrit 33L, Mean Corpuscular Volume 85, Mean Corpuscular Hemoglobin 27, Mean Corpuscular Hemoglobin Concent 32, Red Cell Distribution Width 15.0H, Platelet Count 304, Mean Platelet Volume 9.2, Neutrophils (%) (Auto) 54, Lymphocytes (%) (Auto) 33, Monocytes (%) (Auto) 9, Eosinophils (%) (Auto) 4, Basophils (%) (Auto) 1, Neutrophils # (Auto) 4.6, Lymphocytes # (Auto) 2.8, Monocytes # (Auto) 0.8, Eosinophils # (Auto) 0.3, Basophils # (Auto) 0.1, Prothrombin Time 15.6H, INR Comment 1.2, Activated Partial Thromboplast Time 28, Sodium Level 132L, Potassium Level 4.6, Chloride Level 99, Carbon Dioxide Level 19L, Anion Gap 14, Blood Urea Nitrogen 16, Creatinine 1.03, Estimat Glomerular Filtration Rate > 60, BUN/Creatinine Ratio 16, Glucose Level 181H, Calcium Level 8.9, Corrected Calcium 8.9, Magnesium Level 1.8, Total Bilirubin 0.6, Aspartate Amino Transf (AST/SGOT) 13, Alanine Aminotransferase (ALT/SGPT) 13, Alkaline Phosphatase 41, Myoglobin 88.8, Troponin I < 0.028, B-Type Natriuretic Peptide 122.4H, Total Protein 6.8, Albumin 4.0, Lipase 22 03/24/19 10:52: Lactic Acid Level 4.07*H 03/24/19 10:59: Urine Color YELLOW, Urine Clarity CLEAR, Urine pH 8, Urine Specific [place] 1.010L, Urine Protein NEGATIVE, Urine Glucose (UA) NEGATIVE, Urine Ketones NEG ATIVE, Urine Nitrite NEGATIVE, Urine Bilirubin NEGATIVE, Urine Urobilinogen NORMAL, Urine Leukocyte Esterase NEGATIVE, Urine RBC (Auto) 1+H, Urine RBC NONE, Urine WBC NONE, Urine Squamous Epithelial Cells NONE, Urine Crystals NONE, Urine Bacteria NEGATIVE, Urine Casts NONE, Urine Mucus NEGATIVE, Urine Culture Indicated NO 03/24/19 14:05: Lactic Acid Level 2.14*H 03/24/19 15:58: Glucometer 199H A/P-Cardiology Assessment/Admission Diagnosis Syncopal episode of undetermined etiology Sinus node dysfunction and h/o PAF MPI of June [address] Luevano showed no evidence of ischemia - has refused further coronary work up in the past Mild bilat carotid arterial dz per u/s of Nov 2018 H/O coronary stent placed on 01-01-[address] Mantilla at [facility] - location of st ent unknown H/O orthostatic hypotension for which he reports he had undergone w/u in the past H/O syncopal episode on 09-12-18 - determined to be d/t postural hypotension H/O fall at home on 10-12-18 resulting in right rib fx H/O laryngeal cancer for which he received radiation/chemo tx GERD Echocardiogram of 09-12-[address] Kaufman showed - concentric LVH; grade 2 diastolic dysfunction; RA and LA dilated; Mild MR; Mild AoV stenosis; Mod TR; PASP 55-60 mmHg Chronic leg swelling, likely related to venous insuff Discussion and Recomendations Advise continuation of OAC with Eliquis for stroke prophylaxis if OK with Dr. Gutierrez Monitor on tele Orthostatic v/s If no cause for syncope found, then consider ILR Monitor lab Further recs will be based on hospital course I discussed above issues with him and his and answered questions We would like to thank medical services for this consult Clinical Quality Measures DVT/VTE Risk/Contraindication: Risk Factor Score Per Nursin RFS Level Per Nursing on Admit: 2=Moderate CHEMO PIMENTEL MD FACP FACC CCDS March 24, 2019 19:15
[2019-03-24] MEDS ORDERED: NON-FORMULARY MEDICATION 1 EA EA (Carvedilol 3.125 MG) PO SCH (21:00)
[2019-03-24] MEDS: ATORVASTATIN 10 MG (LIPITOR) TABLET PO SCH (21:17)
[2019-03-24] MEDS: APIXABAN 2.5 MG (ELIQUIS) TABLET PO SCH (21:17)
[2019-03-24] MEDS: CARVEDILOL 3.125 MG (COREG) TABLET PO SCH (21:17)
[2019-03-25 01:00] VITALS: BP 152/76
[2019-03-25 03:33] LABS: BASOPHILS % (AUTO) 0 % (0-10); EOSINOPHILS # (AUTO) 0.4 10^3/uL (0.0-0.3); EOSINOPHILS % (AUTO) 3 % (0-10); HEMATOCRIT 33 % (40-54); HEMOGLOBIN 10.9 G/DL (13.3-17.7); LYMPHOCYTES # (AUTO) 2.7 X 10^3 (1.0-4.0); LYMPHOCYTES % (AUTO) 26 % (12-44); MEAN CORPUSCULAR HEMOGLOBIN 27 PG (25-34); MEAN CORPUSCULAR HGB CONC 33 G/DL (32-36); MEAN CORPUSCULAR VOLUME 82 FL (80-99); MEAN PLATELET VOLUME 9.5 FL (7.4-10.4); MONOCYTES # (AUTO) 1.1 X 10^3 (0.0-1.0); MONOCYTES % (AUTO) 11 % (0-12); NEUTROPHILS # (AUTO) 6.1 X 10^3 (1.8-7.8); NEUTROPHILS % (AUTO) 60 % (42-75); PLATELET COUNT 283 10^3/uL (130-400); RED CELL DISTRIBUTION WIDTH 15.3 % (10.0-14.5); WHITE BLOOD COUNT 10.2 10^3/uL (4.3-11.0)
[2019-03-25 03:53] LABS: BUN/CREATININE RATIO 15; CALCIUM 9.1 MG/DL (8.5-10.1); CARBON DIOXIDE 22 MMOL/L (21-32); CHLORIDE 101 MMOL/L (98-107); CHOLESTEROL 108 MG/DL (< 200); CREATININE SERUM 0.71 MG/DL (0.60-1.30); GFR ESTIMATED > 60; GLUCOSE 95 MG/DL (70-105); HDL CHOLESTEROL 32 MG/DL (40-60); POTASSIUM 3.8 MMOL/L (3.6-5.0); SODIUM 136 MMOL/L (135-145); TRIGLYCERIDES 55 MG/DL (<150); VLDL CHOLESTEROL 11 MG/DL (5-40)
[2019-03-25] MEDS: inSUlin ASPART (NovoLOG) 1 UNIT/0.01 ML (CHARGE PER UNIT) SC SCH ×4 (06:48→20:53)
[2019-03-25] MEDS: LACTATED RINGERS 1,000 ML IV SCH ×3 (06:49→22:36)
--- NOTE | 2019-03-25 07:46 | History & Physicial ---
History of Present Illness History of Present Illness Reason for visit/HPI Patient at [facility] with . was checking out. Patient sitting on bench and had a syncope episode. Ration spoke straight at that time in the 40s. EMS call and patient sent to the emergency room. CT and she'll of head shows right vertebral artery occluded. Patient confused. Patient admitted to ICU. Patient has a history of A. fib and coronary artery disease. Patient diabetic. Patient allergic to penicillin.. Previous surgery appendectomy and left knee. Family history brother diabetic denies asthma TB heart disease lung disease cancer in the family. Patient admitted to ICU area Patient this morning not confused and carries on a conversation and has a sense of human Date of Admission March 24, 2019 at 13:36 Time Seen by a Provider: 07:41 I consulted on this patient on 03/25/19 07:41 Attending Physician Guicho Anne DO Admitting Physician Guicho Anne DO Consult Allergies and Home Medications Allergies Coded Allergies: Penicillins (Verified Allergy, Mild, hives, 10/12/18) Home Medications Apixaban 2.5 Mg Tablet, 2.5 MG PO BID, (Reported) Atorvastatin Calcium 10 Mg Tablet, 10 MG PO HS, (Reported) LAST FILLED #30 11-02-18 Carvedilol 3.125 Mg Tablet, 3.125 MG PO BID, (Reported) Metformin HCl 1,000 Mg Tablet, 1,000 MG PO BID, (Reported) Patient Home Medication List Home Medication List Reviewed: Yes Past Qpldbqw-Npagsn-Vvdbxp Hx Patient Social History Marrital Status: Employed/Student: retired Alcohol Use: Denies Use Recreational Drug Use: No Smoking Status: Former Smoker Type Used: Cigarettes 2nd Hand Smoke Exposure: Yes Recent Foreign Travel: No Contact w/other who traveled: No Recent Hopitalizations: No Recent Infectious Disease Expo: No Immunizations Up To Date Tetanus Booster (TDap): Unknown Pediatric: Yes Date of Pneumonia Vaccine: Nov 22, 2010 Date of Influenza Vaccine: Sep 11, 2018 Seasonal Allergies Seasonal Allergies: No Surgeries Yes Appendectomy, Coronary Stent Respiratory No Cardiovascular Yes (HEART STENTS) Coronary Artery Disease, Hypertension Neurological No Genitourinary No Kidney Stones Gastrointestinal No Musculoskeletal Yes Arthritis Endocrine History of Endocrine Disorders: Yes Endocrine Disorders: Diabetes, Non-Insulin dep HEENT HEENT Disorders: Cataract Hearing Impairment: Hard of Hearing Cancer Yes (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 fib) Gastrointestinal: no symptoms reported Genitourinary: no symptoms reported Physical Exam Vital Signs Vital Signs - First Documented 03/24/19 03/24/19 10:43 14:30 Temp 95.6 Pulse 78 Resp 16 B/P (MAP) 118/61 (80) Pulse Ox 96 O2 Delivery Room Air Capillary Refill : Less Than 3 Seconds Height, Weight, BMI Height: 5'10.00" Weight: 165lbs. 2.0oz. 74.060908zr; 22.2 BMI Method:Stated General Appearance: No Apparent Distress, Thin Eyes: Bilateral Eye Normal Inspection HEENT: Normal ENT Inspection Neck: Normal Inspection Respiratory: No Accessory Muscle Use, No Respiratory Distress, Decreased Breath Sounds Cardiovascular: Regular Rate, Rhythm, No Murmur Gastrointestinal: Non Tender, Soft Assessment/Plan Assessment and Plan Syncope. Sinusitis normal dysfunction. Right vertebral artery occluded. Coronary artery disease. A. fib. Confusion Admission Diagnosis Admission Status: Inpatient Order (span 2 midnights) Reason for Inpatient Admission: Syncope. A. fib history. Confusion. Right vertebral artery occluded Clinical Quality Measures DVT/VTE Risk/Contraindication: Risk Factor Score Per Nursin RFS Level Per Nursing on Admit: 2=Moderate GUICHO ANNE DO March 25, 2019 07:46
[2019-03-25 08:00] VITALS: BP 141/68
[2019-03-25] MEDS: ASPIRIN 81 MG CHEW (CHILDREN'S ASA) PO SCH (08:29)
[2019-03-25] MEDS: APIXABAN 2.5 MG (ELIQUIS) TABLET PO SCH ×2 (08:29→20:03)
[2019-03-25] MEDS: CARVEDILOL 3.125 MG (COREG) TABLET PO SCH ×2 (08:29→20:03)
--- NOTE | 2019-03-25 08:59 | Progress Note-Cardiology ---
Cardiology SOAP Progress Note Subjective: In bed. States he has a "happy heart" this morning. No c/o dizziness, CP, dyspnea, syncope or near syncope. Objective: I&O/Vital Signs 03/25/19 03/25/19 03/25/19 03/25/19 04:00 04:00 07:00 08:00 Temp 98.2 Pulse 84 O2 Delivery Room Air Room Air 03/25/19 03/25/19 03/25/19 08:00 09:00 11:31 Temp 97.6 97.6 Pulse 61 58 Resp 16 18 B/P (MAP) 141/68 (92) 152/70 (97) Pulse Ox 96 96 O2 Delivery Room Air Room Air Room Air 03/25/19 00:00 Intake Total 50 ml Output Total 2450 ml Balance -2400 ml Weight (Pounds): 165 Weight (Ounces): 2.0 Weight (Calculated Kilograms): 74.153861 Constitutional: AAO x 3, well-developed, well-nourished Respiratory: No accessory muscle use, No respiratory distress; chest expansion is symmetric, chest is bilaterally symmetric, lungs clear to auscultation Cardiovascular: regular rate-rhythm; No JVD; S1 and S2, systolic murmur Gastrointestional: No tender; soft, round, audible bowel sounds Genital/Rectal: other (urinary catheter in to DD; clear, yellow urine) Extremities: no lower extremity edema bilateral Neurologic/Psychiatric: grossly intact, power is 5/5 both on sides Skin: No rash, No ulcerations Results/Procedures: Labs Laboratory Tests 03/24/19 14:05: Lactic Acid Level 2.14*H 03/24/19 15:58: Glucometer 199H 03/24/19 20:40: Glucometer 215H 03/25/19 03:00: White Blood Count 10.2, Red Blood Count 3.98L, Hemoglobin 10.9L, Hematocrit 33L, Mean Corpuscular Volume 82, Mean Corpuscular Hemoglobin 27, Mean Corpuscular Hemoglobin Concent 33, Red Cell Distribution Width 15.3H, Platelet Count 283, Mean Platelet Volume 9.5, Neutrophils (%) (Auto) 60, Lymphocytes (%) (Auto) 26, Monocytes (%) (Auto) 11, Eosinophils (%) (Auto) 3, Basophils (%) (Auto) 0, Neutrophils # (Auto) 6.1, Lymphocytes # (Auto) 2.7, Monocytes # (Auto) 1.1H, Eosinophils # (Auto) 0.4H, Basophils # (Auto) 0.0, Sodium Level 136, Potassium Level 3.8, Chloride Level 101, Carbon Dioxide Level 22, Anion Gap 13, Blood Urea Nitrogen 11, Creatinine 0.71, Estimat Glomerular Filtration Rate > 60, BUN/Creatinine Ratio 15, Glucose Level 95, Calcium Level 9.1, Triglycerides Level 55, Cholesterol Level 108, LDL Cholesterol Direct 67, VLDL Cholesterol 11, HDL Cholesterol 32L 03/25/19 11:29: Glucometer 191H A/P: Assessment: Syncopal episode of undetermined etiology S/p ILR ([employer] Reveal LINQ) implantation on 03/25/19 Sinus node dysfunction and h/o PAF MPI of June [address] Luevano showed no evidence of ischemia - has refused further coronary work up in the past Mild bilat carotid arterial dz per u/s of Nov 2018 H/O coronary stent placed on 01-01-[address] 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 Kaufman showed - concentric LVH; grade 2 diastolic dysfunction; RA and LA dilated; Mild MR; Mild AoV stenosis; Mod TR; PASP 55-60 mmHg Chronic leg swelling, likely related to venous insuff Plan: Advise continuation of OAC with Eliquis for stroke prophylaxis if OK with Dr. Gutierrez Monitor on tele Orthostatic v/s If no cause for syncope found, then consider ILR - no arrhythmia seen thus far Monitor lab Physician Assessment Physician Assessment No cp or palp or shortness of breath or recurrence of syncope Lungs: clear Cor: reg Ext: no c/c/e A&R * As documented in our note above that I updated (italics) and as noted below * We proceeded with ILR implantation after obtaining an informed consent * Outpt f/u is advised * We have advised avoidance of driving, operating machinery, climbing ladders, etc until further recs DANIA NUNEZ RAISIN WASHER March 25, 2019 08:59 CHEMO PIMENTEL MD FACP FACC CCDS March 25, 2019 13:04
--- NOTE | 2019-03-25 09:13 | ST Dysphagia Evaluation ---
Speech Evaluation-General Medical Diagnosis Syncope Onset Date: March 24, 2019 Therapy Diagnosis Therapy Diagnosis: Oropharyngeal Precautions Precautions: Aspiration Precautions/Isolations: Fall Prevention, Standard Precautions Medical History Pertinent Medical History: CAD, DM, HTN Reviewed History: Yes Social History Current Living Status: Spouse Speech PLF/Current-Dysphagia Prior Level of Function Patient lives at home with his . He was independent for his daily needs prior to this episode. Subjective The patient was alert and cooperative with the Bedside Dysphagia Evaluation. Cognitive Status The patient was oriented to all concepts at the time of evaluation. Oral Motor Skills Denture Type: Full- Upper & Lower Patient was NPO pending the Bedside Dysphagia Evaluation. Oral Expression Ability: No Impairment Voice Voice Phonatory-Based Quality: Normal Voice Pitch: Normal Voice Loudness: Normal Face Facial Symmetry: Symmetrical Oral-Facial Assessment Oral-Facial Dentition: Normal Labial Seal Description: Normal Smile: Normal Puff Cheeks: Normal Lingual Protrusion: Normal Lingual ROM: Normal Lingual Strength: Normal Pharynx Velopharyngeal Move.: Normal Volitional Dry Swallow: Yes Voluntary Cough: Yes Dysphagia Evaluation Consistencies Presented: Regular, Thin Liquid, Mechanical Soft, Pureed Oral phase within normal functional limits. Pharyngeal phase within normal functional limits. Funct. Velo/Pharyngeal Symptom: Clears Throat Dietary Recommendations: Regular Liquid Recommendations: Thin Swallowing Precautions: Alternate Liquids/Solids, Decreased Bolus 1/2 Tsp, Liquids from Cup, Small Bites and Sips, Sitting Upright 90 Degrees, Sitting 90 Degrees 30 Post Intake Dysphagia Evaluation Summary The patient was admitted to the ICU following a syncope episode at [facility]. The patient was referred for a swallow evaluation to insure patient was on the least restrictive diet level and to assess the swallow function. The Bedside Dysphagia Evaluation was completed with thin, puree, mechanical soft and regular consistencies presented. The patient demonstrated normal function at the oral and pharyngeal phases with all consistencies presented. He was placed on a regular diet consistency with thin liquids. This information was given to his nurse. Barriers to Learning Patient has multiple diagnosis. Speech-Plan Patient/Family Goals Patient/Family Goals: The patient plans on returning home with his upon hospital discharge. Treatment Plan Speech Therapy Treatment Plan: Discontinue ST The patient will be on a regular consistency diet level with thin liquids. Treatment Duration: March 24, 2019 Frequency: 1 time per week Estimated Hrs Per Day: .25 hour per day Rehab Potential: Good Barriers to Learning: The patient has multiple diagnosis. Pt/Family Agrees to Plan: Yes Safety Risks/Education Teaching Recipient: Patient, Significant Other Teaching Methods: Discussion Response to Teaching: Verbalize Understanding Education Topics Provided: Safety of oral intake. Time Speech Therapy Time In: 14:45 Speech Therapy Time Out: 15:00 Total Billed Time: 15 Billed Treatment Time 1[address] ST March 25, 2019 09:13
[2019-03-25 11:31] VITALS: BP 152/70
[2019-03-25] MEDS ORDERED: LIDOCAINE 1% INJ 20 ML 20 ML VIAL ONE (12:22)
--- NOTE | 2019-03-25 12:46 | Cardiac Procedure Note-CS/ASA ---
Pre-Procedure Note Pre-Op Procedure Note H&P Reviewed The H&P was reviewed, patient examined and no changes noted. Date H&P Reviewed: March 25, 2019 Time H&P Reviewed: 12:46 Conscious Sedation Pre-Proced Time 12:46 ASA Score 3 For ASA 3 and 4: Consider anesthesia and medical clearance. Also, for patients with a history of failed moderate sedation consider anesthesia. Airway Lungs Heart ASA score ASA 1: a normal healthy patient ASA 2: a patient with a mild systemic disease (mid diabetes, controlled hypertension, obesity ASA 3: a patient with a severe systemic disease that limits activity (angina, COPD, prior Myocardial infarction) ASA 4: a patient with an incapacitating disease that is a constant threat to life (CHF, renal failure) ASA 5: a moribund patient not expected to survive 24 hrs. (ruptured aneurysm) ASA 6: a declared brain- patient whose organs are being harvested. For emergent operations, add the letter E after the classification Mallampati Classification Grade 2 Sedation Plan Analgesia, Amnesia, Plan communicated to team members, Discussed options with patient/fam, Discussed risks with patient/fam The patient is an appropriate candidate to undergo the planned procedure, sedation, and anesthesia. The patient immediately re-assessed prior to indication. CHEMO PIMENTEL MD FACP FAC CCDS March 25, 2019 12:46
[2019-03-25] MEDS ORDERED: LIDOCAINE 1% INJ 20 ML 20 ML VIAL INJ ONE (13:30)
--- NOTE | 2019-03-25 15:11 | OPERATIVE REPORT ---
DATE OF SERVICE: PREOPERATIVE DIAGNOSIS: Syncope. POSTOPERATIVE DIAGNOSIS: Syncope. PROCEDURE PERFORMED: Implantable loop recorder implantation. PROCEDURE IN DETAIL: The patient is an 88-year-old gentleman who has had syncope for which, no reason has been found. Implantable loop recorder implantation was carried out to evaluate for any arrhythmia leading to syncope. Informed consent was obtained. The left prepectoral area was prepared and draped in the usual sterile fashion. Lidocaine 1% was used for local anesthesia. The tools provided with the implantable loop recorder were used to make a subcutaneous pocket just anterior to left fourth intercostal space into which, the device was placed and the edges closed with Dermabond and Steri-Strips. The device is [employer] Reveal LINQ serial #[id number]. He tolerated the procedure well. Job ID: [id number] DocumentID: [id number] Dictated Date: 03/25/2019 12:58:45 Wet Process Operator Date: 03/25/2019 15:11:44 Dictated By: CHEMO PIMENTEL MD, MA, FACP, FACC,
[2019-03-25 15:57] VITALS: BP 162/86
[2019-03-25 19:32] VITALS: BP 166/78
[2019-03-25] MEDS: ATORVASTATIN 10 MG (LIPITOR) TABLET PO SCH (20:03)
[2019-03-26] VITALS: BP 105/63
[2019-03-26 03:30] VITALS: BP 159/83
[2019-03-26 03:32] LABS: BASOPHILS % (AUTO) 0 % (0-10); EOSINOPHILS # (AUTO) 0.4 10^3/uL (0.0-0.3); EOSINOPHILS % (AUTO) 3 % (0-10); HEMATOCRIT 35 % (40-54); HEMOGLOBIN 11.8 G/DL (13.3-17.7); LYMPHOCYTES # (AUTO) 2.1 X 10^3 (1.0-4.0); LYMPHOCYTES % (AUTO) 18 % (12-44); MEAN CORPUSCULAR HEMOGLOBIN 28 PG (25-34); MEAN CORPUSCULAR HGB CONC 34 G/DL (32-36); MEAN CORPUSCULAR VOLUME 82 FL (80-99); MEAN PLATELET VOLUME 9.7 FL (7.4-10.4); MONOCYTES # (AUTO) 1.1 X 10^3 (0.0-1.0); MONOCYTES % (AUTO) 10 % (0-12); NEUTROPHILS % (AUTO) 69 % (42-75); PLATELET COUNT 270 10^3/uL (130-400); RED CELL DISTRIBUTION WIDTH 15.5 % (10.0-14.5); WHITE BLOOD COUNT 11.6 10^3/uL (4.3-11.0)
[2019-03-26 03:53] LABS: ALANINE AMINOTRANSFERASE 13 U/L (0-55); ALBUMIN 4.1 GM/DL (3.2-4.5); ALKALINE PHOSPHATASE 48 U/L (40-136); BILIRUBIN,TOTAL 0.6 MG/DL (0.1-1.0); BUN/CREATININE RATIO 11; CALCIUM 9.4 MG/DL (8.5-10.1); CARBON DIOXIDE 23 MMOL/L (21-32); CHLORIDE 99 MMOL/L (98-107); CREATININE SERUM 0.72 MG/DL (0.60-1.30); GFR ESTIMATED > 60; GLUCOSE 103 MG/DL (70-105); POTASSIUM 3.9 MMOL/L (3.6-5.0); SODIUM 136 MMOL/L (135-145); TOTAL PROTEIN 7.4 GM/DL (6.4-8.2)
[2019-03-26 04:22] LABS: MAGNESIUM 1.4 MG/DL (1.8-2.4); PHOSPHORUS 3.6 MG/DL (2.3-4.7)
[2019-03-26] MEDS: inSUlin ASPART (NovoLOG) 1 UNIT/0.01 ML (CHARGE PER UNIT) SC SCH ×2 (04:33→11:47)
[2019-03-26] MEDS: MAGNESIUM 1 GM/100 ML IVPB 100 ML IV SCH ×5 (05:47→12:06)
[2019-03-26] MEDS ORDERED: KCL 20 MEQ TAB (K-DUR) PO SCH (06:00)
[2019-03-26] MEDS ORDERED: MAGNESIUM 1 GM/100 ML IVPB 100 ML IV SCH (06:00)
[2019-03-26] MEDS ORDERED: POTASSIUM CL 10MEQ/50ML IVPB 50 ML IV SCH (06:00)
[2019-03-26] MEDS: LACTATED RINGERS 1,000 ML IV SCH (06:33)
--- NOTE | 2019-03-26 07:32 | Progress Note (SOAP) ---
Subjective Time Seen by a Provider: 07:29 Subjective/Events-last exam Patient feeling good this morning. Magnesium 1.4 and being replaced. Patient had an implantable loop recorder put in yesterday for. Patient voices no complaints. Patient in sinus rhythm now Focused Exam Lactate Level 03/24/19 10:52: Lactic Acid Level 4.07*H 03/24/19 14:05: Lactic Acid Level 2.14*H Objective Exam Vital Signs Date Time Temp Pulse Resp B/P (MAP) Pulse Ox O2 Delivery O2 Flow Rate FiO2 03/26/19 03:30 97.8 61 10 159/83 (108) 97 Room Air 03/26/19 03:20 97 Room Air 03/26/19 01:00 66 03/26/19 00:00 97.6 61 16 105/63 (77) 95 Room Air 03/25/19 23:20 98 Room Air 03/25/19 20:05 93 Room Air 03/25/19 19:32 97.8 75 16 166/78 (107) 93 Room Air 03/25/19 19:20 97 Room Air 03/25/19 19:00 80 03/25/19 16:00 Room Air 03/25/19 15:57 98.2 65 18 162/86 (111) 97 Room Air 03/25/19 13:00 75 03/25/19 12:00 Room Air 03/25/19 11:31 97.6 58 18 152/70 (97) 96 Room Air 03/25/19 09:00 Room Air 03/25/19 08:00 97.6 61 16 141/68 (92) 96 Room Air 03/25/19 08:00 Room Air I & O 03/26/19 07:00 Intake Total 2910 ml Output Total 4350 ml Balance -1440 ml Capillary Refill : Less Than 3 Seconds General Appearance: No Apparent Distress, Thin HEENT: Normal ENT Inspection Neck: Full Range of Motion, Normal Inspection Respiratory: Lungs Clear, No Accessory Muscle Use, No Respiratory Distress Cardiovascular: Regular Rate, Rhythm, No Murmur Gastrointestinal: non tender, soft Extremity: Other (Can move all extremities) Neurologic/Psychiatric: Alert Results Lab Laboratory Tests 03/26/19 03:00 Laboratory Tests 03/25/19 11:29: Glucometer 191H 03/25/19 15:54: Glucometer 238H 03/25/19 20:47: Glucometer 315H 03/26/19 03:00: White Blood Count 11.6H, Red Blood Count 4.27L, Hemoglobin 11.8L, Hematocrit 35L , Mean Corpuscular Volume 82, Mean Corpuscular Hemoglobin 28, Mean Corpuscular Hemoglobin Concent 34, Red Cell Distribution Width 15.5H, Platelet Count 270, M jodie Platelet Volume 9.7, Neutrophils (%) (Auto) 69, Lymphocytes (%) (Auto) 18, Monocytes (%) (Auto) 10, Eosinophils (%) (Auto) 3, Basophils (%) (Auto) 0, Neutrophils # (Auto) 8.0H, Lymphocytes # (Auto) 2.1, Monocytes # (Auto) 1.1H, Eosinophils # (Auto) 0.4H, Basophils # (Auto) 0.0, Sodium Level 136, Potassium Level 3.9, Chloride Level 99, Carbon Dioxide Level 23, Anion Gap 14, Blood Urea Nitrogen 8, Creatinine 0.72, Estimat Glomerular Filtration Rate > 60, BUN/Creatinine Ratio 11, Glucose Level 103, Calcium Level 9.4, Corrected Calcium 9.3, Phosphorus Level 3.6, Magnesium Level 1.4L, Total Bilirubin 0.6, Aspartate Amino Transf (AST/SGOT) 15, Alanine Aminotransferase (ALT/SGPT) 13, Alkaline Phosphatase 48, Total Protein 7.4, Albumin 4.1 Microbiology 03/24/19 Blood Culture - Preliminary, Resulted No growth Assessment/Plan Assessment/Plan Assess & Plan/Chief Complaint Syncope. CAD. Diabetes. Loop recorder implantable put in yesterday. Hypomagnesemia. History of atrial fibrillation. Patient feeling good and doing good Clinical Quality Measures Admission Status Admission Dx Syncope. Sinusitis normal dysfunction. Right vertebral artery occluded. Coronary artery disease. A. fib. Confusion DVT/VTE Risk/Contraindication: Risk Factor Score Per Nursin RFS Level Per Nursing on Admit: 2=Moderate JOSSE ANNE DO March 26, 2019 07:32
[2019-03-26] MEDS: ASPIRIN 81 MG CHEW (CHILDREN'S ASA) PO SCH (08:40)
[2019-03-26] MEDS: CARVEDILOL 3.125 MG (COREG) TABLET PO SCH (08:40)
[2019-03-26] MEDS: APIXABAN 2.5 MG (ELIQUIS) TABLET PO SCH (08:40)
--- NOTE | 2019-03-26 09:48 | Progress Note-Cardiology ---
Cardiology SOAP Progress Note Subjective: No cp or palp or shortness of breath at rest or discomfort at site of ILR implantation No syncope since admission Chronic, gen weakness Objective: I&O/Vital Signs 03/25/19 03/26/19 03/26/19 03/26/19 23:20 00:00 01:00 03:20 Temp 97.6 Pulse 61 66 Resp 16 B/P (MAP) 105/63 (77) Pulse Ox 98 95 97 O2 Delivery Room Air Room Air Room Air 03/26/19 03/26/19 03/26/19 03:30 07:00 08:00 Temp 97.8 Pulse 61 75 Resp 10 B/P (MAP) 159/83 (108) Pulse Ox 97 97 O2 Delivery Room Air Room Air 03/26/19 00:00 Intake Total 1660 ml Output Total 2200 ml Balance -540 ml Weight (Pounds): 155 Weight (Ounces): 9.0 Weight (Calculated Kilograms): 70.941969 Constitutional: AAO x 3, well-developed, well-nourished Respiratory: No accessory muscle use, No respiratory distress; chest expansion is symmetric, chest is bilaterally symmetric, lungs clear to auscultation Cardiovascular: regular rate-rhythm; No JVD; S1 and S2, systolic murmur Gastrointestional: No tender; soft, round, audible bowel sounds Genital/Rectal: other (urinary catheter in to DD; clear, yellow urine) Extremities: no lower extremity edema bilateral Neurologic/Psychiatric: grossly intact, power is 5/5 both on sides Skin: No rash, No ulcerations Results/Procedures: Labs Laboratory Tests 03/25/19 11:29: Glucometer 191H 03/25/19 15:54: Glucometer 238H 03/25/19 20:47: Glucometer 315H 03/26/19 03:00: White Blood Count 11.6H, Red Blood Count 4.27L, Hemoglobin 11.8L, Hematocrit 35L , Mean Corpuscular Volume 82, Mean Corpuscular Hemoglobin 28, Mean Corpuscular Hemoglobin Concent 34, Red Cell Distribution Width 15.5H, Platelet Count 270, Mean Platelet Volume 9.7, Neutrophils (%) (Auto) 69, Lymphocytes (%) (Auto) 18, Monocytes (%) (Auto) 10, Eosinophils (%) (Auto) 3, Basophils (%) (Auto) 0, Neutrophils # (Auto) 8.0H, Lymphocytes # (Auto) 2.1, Monocytes # (Auto) 1.1H, Eosinophils # (Auto) 0.4H, Basophils # (Auto) 0.0, Sodium Level 136, Potassium Level 3.9, Chloride Level 99, Carbon Dioxide Level 23, Anion Gap 14, Blood Urea Nitrogen 8, Creatinine 0.72, Estimat Glomerular Filtration Rate > 60, BUN/Creatinine Ratio 11, Glucose Level 103, Calcium Level 9.4, Corrected Calcium 9.3, Phosphorus Level 3.6, Magnesium Level 1.4L, Total Bilirubin 0.6, Aspartate Amino Transf (AST/SGOT) 15, Alanine Aminotransferase (ALT/SGPT) 13, Alkaline Phosphatase 48, Total Protein 7.4, Albumin 4.1 Microbiology 03/24/19 Blood Culture - Preliminary, Resulted Probable Coag Negative Staph Laboratory Tests 03/24/19 10:45 03/25/19 03:00 03/26/19 03:00 A/P: Assessment: Syncopal episode of undetermined etiology on 03/24/19 S/p ILR ([employer] Reveal LINQ) implantation on 03/25/19 Sinus node dysfunction and h/o PAF MPI of June [address] Luevano showed no evidence of ischemia - has refused further coronary work up in the past Mild bilat carotid arterial dz per u/s of Nov 2018 H/O coronary stent placed on 01-01-[address] 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 Kaufman showed - concentric LVH; grade 2 diastolic dysfunction; RA and LA dilated; Mild MR; Mild AoV stenosis; Mod TR; PASP 55-60 mmHg Chronic leg swelling, likely related to venous insuff Plan: * Correct hypomagnesemia * Outpt f/u * Medical Svce following on lactic acidosis at presentation CHEMO PIMENTEL MD FACP [facility] CCDS March 26, 2019 09:48
[2019-03-26] MEDS ORDERED: CLINDAMYCIN 150 MG (CLEOCIN) CAP PO SCH (13:00)
[2019-03-26] MEDS ORDERED: ASPI-999 PO (13:25)
[2019-03-26] MEDS ORDERED: CLIN300C11 PO (13:25)
--- NOTE | 2019-03-26 13:28 | Discharge Inst-Simple/Standard ---
Discharge Inst-Standard Discharge Medications New, Converted or Re-Newed RX: Call to Patients Pharmacy Patient Instructions/Follow Up Plan of Care/Instructions/FU: to office in 1 week make appointment with people manager Activity as Tolerated: Yes Discharge Diet: Regular Diet JOSSE ANNE DO March 26, 2019 13:27
--- NOTE | 2019-03-27 08:13 | Clinic Account Progress/Dx ---
Clinic Account Progress/Dx DIAGNOSIS: Time Seen by Provider: 08:12 Syncope. Anemia. Coagulase negative staph. Occluded right vertebral artery. Dizziness. Sinus node dysfunction. Orthostatic hypotension history. A. fib history Confusion JOSSE ANNE DO March 27, 2019 08:13
== END 2019-03-26 13:55 | disposition home or self-care (01) ==
LOC: EDUNIT# 10:40 → ER 10:41 → ICU 13:36
PROVIDERS: ADMIT Family Medicine; ATTEND Family Medicine
DX: I49.5 Sick sinus syndrome (principal); I65.01 Occlusion and stenosis of right vertebral artery; R41.0 Disorientation, unspecified; E83.42 Hypomagnesemia; D64.9 Anemia, unspecified; M79.89 Other specified soft tissue disorders; I25.10 Atherosclerotic heart disease of native coronary artery without angina pectoris; I10 Essential (primary) hypertension; I08.3 Combined rheumatic disorders of mitral, aortic and tricuspid valves; E11.9 Type 2 diabetes mellitus without complications; K21.9 Gastro-esophageal reflux disease without esophagitis; R29.704 NIHSS score 4; B95.8 Unspecified staphylococcus as the cause of diseases classified elsewhere; Z85.21 Personal history of malignant neoplasm of larynx; Z87.891 Personal history of nicotine dependence; Z79.01 Long term (current) use of anticoagulants; Z79.84 Long term (current) use of oral hypoglycemic drugs; Z79.899 Other long term (current) drug therapy; Z92.3 Personal history of irradiation; Z95.5 Presence of coronary angioplasty implant and graft; Z95.818 Presence of other cardiac implants and grafts
CPT/HCPCS: 33285; 36415; 51702; 70450; 70496; 70498; 71045; 80048; 80053; 80061; 81000; 82962; 83036; 83605; 83690; 83735; 83874; 83880; 84100; 84484; 85025; 85610; 85730; 87040; 87077; 87186; 93005; 93041

== ENCOUNTER 2019-04-19 09:35 | Observation (INO) | payer MEDICARE ==
[~2019-04-19] VITALS: Ht 177.8 cm; Wt 67.4 kg
[~2019-04-19 09:35] MED LIST changes: +APIX2.5T PO; +ASPI-999 PO; +CLIN300C11 PO
--- OUTSIDE RECORDS SUMMARY | 2019-04-19 09:40 | XMS REPORT | Continuity of Care Document ---
Author Organization Unknown Address Unknown Allergies Active Description Code Type Severity Reaction Onset Reported/Identified Relationship to Patient Clinical Status Yes Penicillins [id number] Drug Allergy Mild hives 10/12/2018 Medications There [...] DIAZ MD Ot Y92.[address] IN [facility] NON-INSTITUT (PRIVATE 04/30/2016 CRISTAL DIAZ MD Ot [...] CRISTAL Marie Ot Y92.[address] IN [facility] NON-INSTITUT (PRIVATE 05/02/2016 JOE SUÁREZ, CRISTAL Marie [...] CRISTAL Marie Ot Y92.[address] IN [facility] NON-INSTITUT (PRIVATE 05/05/2016 JOE SUÁREZ, CRISTAL Marie [...] MD Ot I25.10 ATHSCL HEART DISEASE OF [place] CORONARY 09/13/2018 NEFTALY VILLALOBOS MD Ot I95.1 ORTHOSTATIC HYPOTENSION 09/13/2018 NEFTALY VILLALOBOS MD Ot Z79.01 SENIOR LIVING (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 ANTICOAGULANT 09/13/2018 NEFTALY VILLALOBOS MD, Ot Z79.84 [facility]EN[facility]IVING (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 ORAL HYPOGLYC 09/13/2018 NEFTALY VILLALOBOS MD Ot Z95.5 PRESENCE OF CORONARY ANGIOPLASTY IMPLANT 10/12/2018 MARY LOU CALERO MD, Ot E11.9 TYPE 2 DIABETES MELLITUS WITHOUT COMPLIC 10/12/2018 MARY LOU CALERO MD, Ot I10 ESSENTIAL (PRIMARY) HYPERTENSION 10/12/2018 MARY LOU CALERO MD, Ot I25.10 ATHSCL HEART DISEASE OF [place] CORONARY 10/12/2018 MARY LOU CALERO MD Ot R07.81 PLEURODYNIA 10/12/2018 MARY LOU CALERO MD, Ot S22.41XA MULTIPLE FRACTURES OF RIBS, RIGHT SIDE, 10/12/2018 MARY LOU CAELRO MD, Ot W01.190A FALL SAME LEV FROM SLIP/TRIP W STRIKE AG 10/12/2018 MARY LOU CALERO MD, Ot [facility]92.[address] [facility] (PRIVATE 10/12/2018 MARY LOU CALERO MD, Ot Z79.01 [facility]ENIOR [facility]IVING (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 ANTICOAGULANT 10/12/2018 MARY LOU CALERO MD, Ot 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 10/12/2018 MARY LOU CALERO MD, Ot Z79.84 SENIOR LIVING (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 ORAL HYPOGLYC 10/12/2018 MARY [...] MD, Ot I25.10 ATHSCL HEART DISEASE OF [place] CORONARY 10/15/2018 GHISLAINE FLORES MD, Ot I48.0 [...] AG 10/15/2018 GHISLAINE FLORES MD, Ot Z79.01 [facility]EN[facility] LIVING (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 ANTICOAGULANT 10/15/2018 GHISLAINE FLORES MD, Ot Z79.84 SENIOR LIVING (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 ORAL HYPOGLYC 10/15/2018 GHISLAINE [...] MD Ot I25.10 ATHSCL HEART DISEASE OF [place] CORONARY 10/16/2018 MARY LOU CALERO MD Ot R07.81 PLEURODYNIA 10/16/2018 MARY LOU CALERO MD Ot S22.41XA MULTIPLE FRACTURES OF RIBS, RIGHT SIDE, 10/16/2018 MARY LOU CALERO MD Ot W01.190A FALL SAME LEV FROM SLIP/TRIP W STRIKE AG 10/16/2018 MARY LOU CALERO MD Ot Y92.[address] [facility] PL[facility] IN [facility] NON-INSTIT[facility] (PRIVATE 10/16/2018 MARY LOU CALERO MD, Ot 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 10/16/2018 MARY LOU CALERO MD, Ot Z79.82 SENIOR LIVING (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 ASPIRIN 10/16/2018 MARY LOU CALERO MD, Ot 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 10/16/2018 MARY [...] MD, Ot I25.10 ATHSCL HEART DISEASE OF [place] CORONARY 10/17/2018 GHISLAINE FLORES MD, Ot I48.0 [...] AG 10/17/2018 GHISLAINE FLORES MD, Ot 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 10/17/2018 GHISLAINE FLORES MD, Ot 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5 PRESENCE OF CORONARY ANGIOPLASTY IMPLANT 12/09/2018 DANIA NUNEZ TRUCK WASHER Ot I48.0 PAROXYSMAL ATRIAL FIBRILLATION 12/09/2018 DANIA NUNEZ Ot I48.0 PAROXYSMAL ATRIAL FIBRILLATION 03/24/2019 DWIGHT SUÁREZ, CHELSEA Marie Ot 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 W/O MYELOPATHY OR RADICULOPA 03/24/2019 CHELSEA QUINTANILLA MD Ot M48.02 SPINAL STENOSIS, CERVICAL REGION 03/26/2019 JOSSE ANNE DO Ot B95.8 UNSP STAPHYLOCOCCUS THE CAUSE OF DISE 03/26/2019 JOSSE ANNE DO Ot D64.9 ANEMIA, UNSPECIFIED 03/26/2019 JOSSE ANNE DO Ot E11.9 TYPE 2 DIABETES MELLITUS WITHOUT COMPLIC 03/26/2019 JOSSE ANNE DO Ot E83.42 HYPOMAGNESEMIA 03/26/2019 [facility] DO, JOSSE Patino Ot I08.3 COMB 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MITRAL, AORTIC 03/26/2019 [facility], JOSSE Patino Ot I10 ESSENTIAL (PRIMARY) HYPERTENSION 03/26/2019 [facility], JOSSE Patino Ot I25.10 ATHSCL HEART DISEASE OF [place] CORONARY 03/26/2019 [facility], JOSSE Patino Ot I49.5 SICK SINUS SYNDROME 03/26/2019 [facility], JOSSE Patino Ot 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 03/26/2019 [facility] Patino Ot K21.9 GASTRO-ESOPHAGEAL REFLUX DISEASE WITHOUT 03/26/2019 [facility] DO, JOSSE Patino Ot M79.89 OTHER SPECIFIED SOFT TISSUE DISORDERS 03/26/2019 [facility], JOSSE Patino Ot R29.704 NIHSS SCORE 4 03/26/2019 [facility], JOSSE Patino Ot R41.0 DISORIENTATION, UNSPECIFIED 03/26/2019 [facility], JOSSE Patino Ot 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 03/26/2019 [facility], JOSSE Patino Ot 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 03/26/2019 [facility], JOSSE Patino Ot Z79.899 OTHER SENIOR LIVING (CURRENT) DRUG THERAPY 03/26/2019 [facility], JOSSE Patino Ot Z85.21 PERSONAL HISTORY OF MALIGNANT NEOPLASM O 03/26/2019 [facility], JOSSE Patino Ot Z87.891 PERSONAL HISTORY OF NICOTINE DEPENDENCE 03/26/2019 [facility], JOSSE Patino Ot Z92.3 PERSONAL HISTORY OF IRRADIATION 03/26/2019 [facility], JOSSE Patino Ot Z95.5 PRESENCE OF CORONARY ANGIOPLASTY IMPLANT 03/26/2019 [facility], JOSSE Patino Ot Z95.818 PRESENCE OF OTHER CARDIAC IMPLANTS AND G 04/09/2019 [facility] JOSSE Patino Ot B95.8 UNSP STAPHYLOCOCCUS THE CAUSE OF DISE 04/09/2019 [facility] JOSSE Patino Ot D64.9 ANEMIA, UNSPECIFIED 04/09/2019 [facility] JOSSE Patino Ot E11.9 TYPE 2 DIABETES MELLITUS WITHOUT COMPLIC 04/09/2019 [facility] JOSSE Patino Ot E83.42 HYPOMAGNESEMIA 04/09/2019 [facility], JOSSE Patino Ot I08.3 COMB 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MITRAL, AORTIC 04/09/2019 [facility], JOSSE Patino Ot I10 ESSENTIAL (PRIMARY) HYPERTENSION 04/09/2019 [facility], JOSSE Patino Ot I25.10 ATHSCL HEART DISEASE OF [place] CORONARY 04/09/2019 [facility], JOSSE Patino Ot I49.5 SICK SINUS SYNDROME 04/09/2019 [facility], JOSSE Patino Ot 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 04/09/2019 [facility], JOSSE Patino Ot K21.9 GASTRO-ESOPHAGEAL REFLUX DISEASE WITHOUT 04/09/2019 [facility] DO, JOSSE Patino Ot M79.89 OTHER SPECIFIED SOFT TISSUE DISORDERS 04/09/2019 [facility], JOSSE Patino Ot R29.704 NIHSS SCORE 4 04/09/2019 [facility], JOSSE Patino Ot R41.0 DISORIENTATION, UNSPECIFIED 04/09/2019 [facility], JOSSE Patino Ot 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 04/09/2019 [facility], JOSSE Patino Ot 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 04/09/2019 [facility], JOSSE Patino Ot Z79.899 OTHER ELECTRIC GOLF CART REPAIRER (CURRENT) DRUG THERAPY 04/09/2019 [facility], JOSSE Patino Ot Z85.21 PERSONAL HISTORY OF MALIGNANT NEOPLASM O 04/09/2019 [facility], JOSSE Patino Ot Z87.891 PERSONAL HISTORY OF NICOTINE DEPENDENCE 04/09/2019 [facility], JOSSE Patino Ot Z92.3 PERSONAL HISTORY OF IRRADIATION 04/09/2019 [facility], JOSSE Patino Ot Z95.5 PRESENCE OF CORONARY ANGIOPLASTY IMPLANT 04/09/2019 [facility], JOSSE Patino Ot Z95.818 PRESENCE OF OTHER CARDIAC IMPLANTS AND G 04/10/2019 [facility] JOSSE Patino Ot B95.8 UNSP STAPHYLOCOCCUS THE CAUSE OF DISE 04/10/2019 [facility], JOSSE Patino Ot D64.9 ANEMIA, UNSPECIFIED 04/10/2019 [facility] JOSSE Patino Ot E11.9 TYPE 2 DIABETES MELLITUS WITHOUT COMPLIC 04/10/2019 [facility], JOSSE Patino Ot E83.42 HYPOMAGNESEMIA 04/10/2019 [facility], JOSSE Patino Ot I08.3 COMB 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MITRAL, AORTIC 04/10/2019 [facility] JOS[facility] Patino Ot I10 ESSENTIAL (PRIMARY) HYPERTENSION 04/10/2019 [facility], JOSSE Patino Ot I25.10 ATHSCL HEART DISEASE OF [place] CORONARY 04/10/2019 [facility], JOSSE Patino Ot I49.5 SICK SINUS SYNDROME 04/10/2019 [facility] JOSSE Patino Ot 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 04/10/2019 [facility] DO, JOSSE Patino Ot K21.9 GASTRO-ESOPHAGEAL REFLUX DISEASE WITHOUT 04/10/2019 GE[facility]END[facility] DO, JOSSE Patino Ot M79.89 OTHER SPECIFIED SOFT TISSUE DISORDERS 04/10/2019 [facility], JOSSE Patino Ot R29.704 NIHSS SCORE 4 04/10/2019 [facility], JOSSE Patino Ot R41.0 DISORIENTATION, UNSPECIFIED 04/10/2019 [facility], JOSSE Patino Ot 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 04/10/2019 [facility], JOSSE Patino Ot Z79.84 SENIOR LIVING (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 ORAL HYPOGLYC 04/10/2019 [facility] JOSSE Patino Ot Z79.899 OTHER SENIOR LIVING (CURRENT) DRUG THERAPY 04/10/2019 [facility], JOSSE Patino Ot Z85.21 PERSONAL HISTORY OF MALIGNANT NEOPLASM O 04/10/2019 [facility], JOSSE Patino Ot Z87.891 PERSONAL HISTORY OF NICOTINE DEPENDENCE 04/10/2019 [facility], JOSSE Patino Ot Z92.3 PERSONAL HISTORY OF IRRADIATION 04/10/2019 [facility], JOSSE Patino Ot Z95.5 PRESENCE OF CORONARY ANGIOPLASTY IMPLANT 04/10/2019 [facility], JOSSE Patino Ot Z95.818 PRESENCE OF OTHER CARDIAC IMPLANTS AND G 2019 [facility], JOSSE Patino Ot B95.8 UNSP STAPHYLOCOCCUS THE CAUSE OF DISE 2019 [facility] JOSSE Patino Ot D64.9 ANEMIA, UNSPECIFIED 2019 [facility], JOSSE Patino Ot E11.9 TYPE 2 DIABETES MELLITUS WITHOUT COMPLIC 2019 [facility] DO, JOSSE Patino Ot E83.42 HYPOMAGNESEMIA 2019 [facility], JOSSE Patino Ot I08.3 COMB 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MITRAL, AORTIC 2019 [facility], JOSSE Patino Ot I10 ESSENTIAL (PRIMARY) HYPERTENSION 2019 [facility], JOSSE Patino Ot I25.10 ATHSCL HEART DISEASE OF [place] CORONARY 2019 [facility], JOSSE Patino Ot I49.5 SICK SINUS SYNDROME 2019 [facility], JOSSE Patino Ot 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 2019 [facility], JOSSE Patino Ot K21.9 GASTRO-ESOPHAGEAL REFLUX DISEASE WITHOUT 2019 [facility], JOSSE Sukumar Ot M79.89 OTHER SPECIFIED SOFT TISSUE DISORDERS 2019 [facility], JOSSE Patino Ot R29.704 NIHSS SCORE 4 2019 [facility], JOSSE Patino Ot R41.0 DISORIENTATION, UNSPECIFIED 2019 [facility], JOSSE Patino Ot Z79.01 SENIOR LIVING (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 ANTICOAGULANT 2019 [facility], JOSSE Patino Ot Z79.84 SENIOR LIVING (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 ORAL HYPOGLYC 2019 [facility], JOSSE Patino Ot Z79.899 OTHER ELECTRIC GOLF CART REPAIRER (CURRENT) DRUG THERAPY 2019 [facility], JOSSE Patino Ot Z85.21 PERSONAL HISTORY OF MALIGNANT NEOPLASM O 2019 [facility] Ot Z87.891 PERSONAL HISTORY OF NICOTINE DEPENDENCE 2019 [facility], JOSSE Patino Ot Z92.3 PERSONAL HISTORY OF IRRADIATION 2019 [facility], JOSSE Patino Ot Z95.5 PRESENCE OF CORONARY ANGIOPLASTY IMPLANT 2019 [facility], JOSSE Patino Ot Z95.818 PRESENCE OF OTHER CARDIAC IMPLANTS AND G 2019 DWIGHT SUÁREZ, CHELSEA S Ot 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 W/O MYELOPATHY OR RADICULOPA 2019 DWIGHT SUÁREZ, CHELSEA S Ot M48.02 SPINAL STENOSIS, CERVICAL REGION Procedures There is no data. Results Test [...] CALCIUM CORRECTED 9.2 mg/dL 8.5-10.1 Magnesium - 12/10/18 10:33 Magnesium 1.4 mg/dL 1.8-2.4 Serum or [...] 100 mmol/L 98-107 Carbon dioxide 20 mmol/L -32 Serum or plasma anion gap [...] measurement by glucometer (mass/volume) 191 mg/dL 70-110 Complete blood count (CBC) with automated white blood cell (WBC) differential - 03/24/19 10:45 Blood leukocytes automated count (number/volume) 8.5 10*3/uL 4.3-11.0 Blood erythrocytes automated count (number/volume) 3.84 10*6/uL 4.35-5.85 Venous blood hemoglobin measurement (mass/volume) 10.5 g/dL 13.3-17.7 Blood hematocrit (volume fraction) 33 % 40-54 Automated erythrocyte mean corpuscular volume 85 [foz_us] 80-99 Automated erythrocyte mean corpuscular hemoglobin (mass per erythrocyte) 27 pg 25-34 Automated erythrocyte mean corpuscular hemoglobin concentration measurement (mass/volume) 32 g/dL 32-36 Automated erythrocyte distribution width ratio 15.0 % 10.0- 14.5 Automated blood platelet count (count/volume) 304 10*3/uL 130-400 Automated blood platelet mean volume measurement 9.2 [foz_us] 7.4-10.4 Automated blood neutrophils/100 leukocytes 54 % 42-75 Automated blood lymphocytes/100 leukocytes 33 % 12-44 Blood monocytes/100 leukocytes 9 % 0-12 Automated blood eosinophils/100 leukocytes 4 % 0-10 Automated blood basophils/100 leukocytes 1 % 0-10 Blood neutrophils automated count (number/volume) 4.6 10*3 1.8-7.8 Blood lymphocytes automated count (number/volume) 2.8 10*3 1.0-4.0 Blood monocytes automated count (number/volume) 0.8 10*3 0.0- 1.0 Automated eosinophil count 0.3 10*3/uL 0.0-0.3 Automated blood basophil count (count/volume) 0.1 10*3/uL 0.0-0.1 Comprehensive metabolic panel - 03/24/19 10:45 Serum or plasma sodium measurement (moles/volume) 132 mmol/L 135-145 Serum or plasma potassium measurement (moles/volume) 4.6 mmol/L 3.6-5.0 Serum or plasma chloride measurement (moles/volume) 99 mmol/L 98-107 Carbon dioxide 19 mmol/L 21-32 Serum or plasma anion gap determination (moles/volume) 14 mmol/L 5-14 Serum or plasma urea nitrogen measurement (mass/volume) 16 mg/dL 7-18 Serum or plasma creatinine measurement (mass/volume) 1.03 mg/dL 0.60-1.30 Serum or plasma urea nitrogen/creatinine mass ratio 16 NRG Serum or plasma creatinine measurement with calculation of estimated glomerular filtration rate > NRG Serum or plasma glucose measurement (mass/volume) 181 mg/dL 70-105 Serum or plasma calcium measurement (mass/volume) 8.9 mg/dL 8.5-10.1 Serum or plasma total bilirubin measurement (mass/volume) 0.6 mg/dL 0.1-1.0 Serum or plasma alkaline phosphatase measurement (enzymatic activity/volume) 41 U/L 40-136 Serum or plasma aspartate aminotransferase measurement (enzymatic activity/volume) 13 U/L 5-34 Serum or plasma alanine aminotransferase measurement (enzymatic activity/volume) 13 U/L 0-55 Serum or plasma protein measurement (mass/volume) 6.8 g/dL 6.4-8.2 Serum or plasma albumin measurement (mass/volume) 4.0 g/dL 3.2-4.5 CALCIUM CORRECTED 8.9 mg/dL 8.5-10.1 Magnesium - 03/24/19 10:45 Magnesium 1.8 mg/dL 1.8-2.4 Serum or plasma troponin i.cardiac measurement (mass/volume) - 03/24/19 10:45 Serum or plasma troponin i.cardiac measurement (mass/volume) < ng/mL <0.028 PT panel in platelet poor plasma by coagulation assay - 03/24/19 10:45 Prothrombin time (PT) in platelet poor plasma by coagulation assay 15.6 s 12.2-14.7 INR in platelet poor plasma or blood by coagulation assay 1.2 0.8-1.4 Activated partial thromboplastin time (aPTT) in platelet poor plasma bycoagulation assay - 03/24/19 10:45 Activated partial thromboplastin time (aPTT) in platelet poor plasma bycoagulation assay 28 s 24-35 Myoglobin, serum - 03/24/19 10:45 Myoglobin, serum 88.8 ng/mL 10.0-92.0 Lipase - 03/24/19 10:45 Lipase 22 U/L 8-78 Serum or plasma lithium measurement (moles/volume) - 03/24/19 10:45 BNP level 122.4 pg/mL <100.0 Blood lactic acid measurement (moles/volume) - 03/24/19 10:52 Blood lactic acid measurement (moles/volume) 4.07 mmol/L 0.50- 2.00 Bacterial blood culture - 03/24/19 10:52 FREE TEXT EXTERNAL SUSCEPTIBILITY REPORTED [id number] NRG QUANTITY OF GROWTH Isolated NRG Bacterial blood culture [id number] NRG [facility] - 03/24/19 10:52 Oxacillin susceptibility test by minimum inhibitory concentration <= NRG Clindamycin susceptibility test by minimum inhibitory concentration > NRG Erythromycin susceptibility test by minimum inhibitory concentration <= NRG Vancomycin susceptibility test by minimum inhibitory concentration 1 NRG Levofloxacin susceptibility test by minimum inhibitory concentration <= NRG Rifampin susceptibility test by minimum inhibitory concentration <= NRG Cefazolin susceptibility test by minimum inhibitory concentration <= NRG Penicillin G susceptibility test by minimum inhibitory concentration 0.5 NRG Moxifloxacin susceptibility test by minimum inhibitory concentration S NRG Minocycline susc BALAJI <= NRG Bacterial blood culture - 03/24/19 10:57 FREE TEXT EXTERNAL REFER TO OTHER BLOOD CULTURE FOR SENS NRG QUANTITY OF GROWTH Isolated NRG Bacterial blood culture [id number] NRG Complete urinalysis with reflex to culture - 03/24/19 10:59 Urine color determination YELLOW NRG Urine clarity determination CLEAR NRG Urine pH measurement by test strip 8 5-9 Specific gravity of urine by test strip 1.010 1.016-1.022 Urine protein assay by test strip, semi-quantitative NEGATIVE NEGATIVE Urine glucose detection by automated test [...] erythrocyte count by microscopy (number/high power field) NONE NRG Automated urine sediment leukocyte count by [...] urinalysis with reflex to culture NO NRG Serum or plasma lactate measurement (moles/volume) - 03/24/19 14:05 Serum or plasma lactate measurement (moles/volume) 2.14 mmol/L 0.50-2.00 Capillary blood glucose measurement by glucometer (mass/volume) - 03/24/19 15:58 Capillary blood glucose measurement by glucometer (mass/volume) 199 mg/dL 70-110 Capillary blood glucose measurement by glucometer (mass/volume) - 03/24/19 20:40 Capillary blood glucose measurement by glucometer (mass/volume) 215 mg/dL 70-110 Complete blood count (CBC) with automated white blood cell (WBC) differential - 03/25/19 03:00 Blood leukocytes automated count (number/volume) 10.2 10*3/uL 4.3-11.0 Blood erythrocytes automated count (number/volume) 3.98 10*6/uL 4.35-5.85 Venous blood hemoglobin measurement (mass/volume) 10.9 g/dL 13.3-17.7 Blood hematocrit (volume fraction) 33 % 40-54 Automated erythrocyte mean corpuscular volume 82 [foz_us] 80-99 Automated erythrocyte mean corpuscular hemoglobin (mass per erythrocyte) 27 pg 25-34 Automated erythrocyte mean corpuscular hemoglobin concentration measurement (mass/volume) 33 g/dL 32-36 Automated erythrocyte distribution width ratio 15.3 % 10.0- 14.5 Automated blood platelet count (count/volume) 283 10*3/uL 130-400 Automated blood platelet mean volume measurement 9.5 [foz_us] 7.4-10.4 Automated blood neutrophils/100 leukocytes 60 % 42-75 Automated blood lymphocytes/100 leukocytes 26 % 12-44 Blood monocytes/100 leukocytes 11 % 0-12 Automated blood eosinophils/100 leukocytes 3 % 0-10 Automated blood basophils/100 leukocytes 0 % 0-10 Blood neutrophils automated count (number/volume) 6.1 10*3 1.8-7.8 Blood lymphocytes automated count (number/volume) 2.7 10*3 1.0-4.0 Blood monocytes automated count (number/volume) 1.1 10*3 0.0- 1.0 Automated eosinophil count 0.4 10*3/uL 0.0-0.3 Automated blood basophil count (count/volume) 0.0 10*3/uL 0.0-0.1 Whole blood basic metabolic panel - 03/25/19 03:00 Serum or plasma sodium measurement (moles/volume) 136 mmol/L 135-145 Serum or plasma potassium measurement (moles/volume) 3.8 mmol/L 3.6-5.0 Serum or plasma chloride measurement (moles/volume) 101 mmol/L 98-107 Carbon dioxide 22 mmol/L 21-32 Serum or plasma anion gap determination (moles/volume) 13 mmol/L 5-14 Serum or plasma urea nitrogen measurement (mass/volume) 11 mg/dL 7-18 Serum or plasma creatinine measurement (mass/volume) 0.71 mg/dL 0.60-1.30 Serum or plasma urea nitrogen/creatinine mass ratio 15 NRG Serum or plasma creatinine measurement with calculation of estimated glomerular filtration rate > NRG Serum or plasma glucose measurement (mass/volume) 95 mg/dL 70-105 Serum or plasma calcium measurement (mass/volume) 9.1 mg/dL 8.5-10.1 Lipid 1996 panel - 03/25/19 03:00 Serum or plasma triglyceride measurement (mass/volume) 55 mg/dL <150 Serum or plasma cholesterol measurement (mass/volume) 108 mg/dL < 200 Serum or plasma cholesterol in HDL measurement (mass/volume) 32 mg/dL 40-60 Cholesterol in LDL [mass/volume] in serum or plasma by direct assay 67 mg/dL 1-129 Serum or plasma cholesterol in VLDL measurement (mass/volume) 11 mg/dL 5-40 Hemoglobin A1c - 03/25/19 03:00 Blood hemoglobin A1C measurement (mass/volume) 8.5 % 4.0-5.6 MEAN BLOOD GLUCOSE 197 % <=126 Capillary blood glucose measurement by glucometer (mass/volume) - 03/25/19 11:29 Capillary blood glucose measurement by glucometer (mass/volume) 191 mg/dL 70-110 Capillary blood glucose measurement by glucometer (mass/volume) - 03/25/19 15:54 Capillary blood glucose measurement by glucometer (mass/volume) 238 mg/dL 70-110 Capillary blood glucose measurement by glucometer (mass/volume) - 03/25/19 20:47 Capillary blood glucose measurement by glucometer (mass/volume) 315 mg/dL 70-110 Complete blood count (CBC) with automated white blood cell (WBC) differential - 03/26/19 03:00 Blood leukocytes automated count (number/volume) 11.6 10*3/uL 4.3-11.0 Blood erythrocytes automated count (number/volume) 4.27 10*6/uL 4.35-5.85 Venous blood hemoglobin measurement (mass/volume) 11.8 g/dL 13.3-17.7 Blood hematocrit (volume fraction) 35 % 40-54 Automated erythrocyte mean corpuscular volume 82 [foz_us] 80-99 Automated erythrocyte mean corpuscular hemoglobin (mass per erythrocyte) 28 pg 25-34 Automated erythrocyte mean corpuscular hemoglobin concentration measurement (mass/volume) 34 g/dL 32-36 Automated erythrocyte distribution width ratio 15.5 % 10.0- 14.5 Automated blood platelet count (count/volume) 270 10*3/uL 130-400 Automated blood platelet mean volume measurement 9.7 [foz_us] 7.4-10.4 Automated blood neutrophils/100 leukocytes 69 % 42-75 Automated blood lymphocytes/100 leukocytes 18 % 12-44 Blood monocytes/100 leukocytes 10 % 0-12 Automated blood eosinophils/100 leukocytes 3 % 0-10 Automated blood basophils/100 leukocytes 0 % 0-10 Blood neutrophils automated count (number/volume) 8.0 10*3 1.8-7.8 Blood lymphocytes automated count (number/volume) 2.1 10*3 1.0-4.0 Blood monocytes automated count (number/volume) 1.1 10*3 0.0- 1.0 Automated eosinophil count 0.4 10*3/uL 0.0-0.3 Automated blood basophil count (count/volume) 0.0 10*3/uL 0.0-0.1 Comprehensive metabolic panel - 03/26/19 03:00 Serum or plasma sodium measurement (moles/volume) 136 mmol/L 135-145 Serum or plasma potassium measurement (moles/volume) 3.9 mmol/L 3.6-5.0 Serum or plasma chloride measurement (moles/volume) 99 mmol/L 98-107 Carbon dioxide 23 mmol/L 21-32 Serum or plasma anion gap determination (moles/volume) 14 mmol/L 5-14 Serum or plasma urea nitrogen measurement (mass/volume) 8 mg/dL 7-18 Serum or plasma creatinine measurement (mass/volume) 0.72 mg/dL 0.60-1.30 Serum or plasma urea nitrogen/creatinine mass ratio 11 NRG Serum or plasma creatinine measurement with calculation of estimated glomerular filtration rate > NRG Serum or plasma glucose measurement (mass/volume) 103 mg/dL 70-105 Serum or plasma calcium measurement (mass/volume) 9.4 mg/dL 8.5-10.1 Serum or plasma total bilirubin measurement (mass/volume) 0.6 mg/dL 0.1-1.0 Serum or plasma alkaline phosphatase measurement (enzymatic activity/volume) 48 U/L 40-136 Serum or plasma aspartate aminotransferase measurement (enzymatic activity/volume) 15 U/L 5-34 Serum or plasma alanine aminotransferase measurement (enzymatic activity/volume) 13 U/L 0-55 Serum or plasma protein measurement (mass/volume) 7.4 g/dL 6.4-8.2 Serum or plasma albumin measurement (mass/volume) 4.1 g/dL 3.2-4.5 CALCIUM CORRECTED 9.3 mg/dL 8.5-10.1 Serum or plasma phosphate measurement (mass/volume) - 03/26/19 03:00 Serum or plasma phosphate measurement (mass/volume) 3.6 mg/dL 2.3-4.7 Magnesium - 03/26/19 03:00 Magnesium 1.4 mg/dL 1.8-2.4 Capillary blood glucose measurement by glucometer (mass/volume) - 03/26/19 11:11 Capillary blood glucose measurement by glucometer (mass/volume) 322 mg/dL 70-110 Encounters ACCT No. Visit Date/Time Discharge Status Pt. 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 [id number] 12/04/2018 12:05:00 12/04/2018 23:59:59 CLS Preadmit DANIA NUNEZ [facility] RAD CAD, PAF, SYNCOPE, CHRONIC ANTICOAGULATION [id number] 11/15/2018 08:00:00 11/15/2018 23:59:59 CLS Preadmit LOREN SUÁREZ FACC, CHEMO MINER CCDS [facility] CARD CAD,PAF,WARFARIN INDUCED COAGULOPATHY [id number] 10/14/2018 14:38:00 10/17/2018 11:00:00 DIS Inpatient SANDRA SUÁREZ, GHISLAINE Marlow [facility] 4TH HYPONATREMIA HYPOMAGNESEMIA WEAKNESS [id number] 10/12/2018 08:44:00 10/12/2018 10:37:00 DIS Emergency GALILEA SUÁREZ, MARY LOU Canales [facility] ER FALL, R BACK PAIN [id number] 09/12/2018 11:26:00 09/13/2018 12:00:00 DIS Inpatient GRISELDA SUÁREZ, NEFTALY Andersen [facility] 4TH ORTHOSTATIC HYPOTENSION [id number] 04/25/2017 14:42:00 04/25/2017 23:59:59 CLS Outpatient CHELSEA QUINTANILLA MD [facility] RAD CERVICAL STENOSIS M48.02 [id number] 04/30/2016 07:59:00 04/30/2016 10:55:00 DIS Emergency CRISTAL DIAZ MD [facility] ER DIZZINESS [id number] 07/13/2013 10:49:00 07/13/2013 13:52:00 DIS Emergency
--- NOTE | 2019-04-19 10:03 | ED Syncope ---
General Chief Complaint: Dizziness/Syncope Stated Complaint: SYNCOPE Source of Information: Patient, EMS, Family, Assisted Records Exam Limitations: No Limitations History of Present Illness Date Seen by Provider: Apr 19, 2019 Time Seen by Provider: 09:58 Initial Comments This 89-year-old white male presents after syncopal episode that occurred at breakfast this morning the patient simply collapsed out of his breakfast chair falling to the floor. Fortunately sustained no significant injury. The patient denied lateralizing or localizing neurologic complaints. He denies associated headache, visual impairment, neck pain, paresthesia or weakness in the extremities. The patient denies associated chest pain or palpitations. He's had no preceding fever or shortness of breath. He denies lateralizing localizing neurologic complaints. Patient has had similar near syncopal episodes in the past. He is under the care of Dr. Stinson. He has had a stent in the past. Allergies and Home Medications Allergies Coded Allergies: Penicillins (Verified Allergy, Mild, hives, 10/12/18) Home Medications Apixaban 2.5 Mg Tablet, 2.5 MG PO BID, (Reported) Aspirin 81 Mg Tab.chew, 81 MG PO DAILY@0900 Prescribed by: JOSSE ANNE on 03/26/19 1325 Atorvastatin Calcium 10 Mg Tablet, 10 MG PO HS, (Reported) LAST FILLED #30 11-02-18 Carvedilol 3.125 Mg Tablet, 3.125 MG PO BID, (Reported) Clindamycin HCl 300 Mg Capsule, 300 MG PO TID Prescribed by: JOSSE ANNE on 03/26/19 1325 Metformin HCl 1,000 Mg Tablet, 1,000 MG PO BID, (Reported) Patient Home Medication List Home Medication List Reviewed: Yes Review of Systems Constitutional: No chills, No fever EENTM: No hearing loss, No eye pain Respiratory: No cough, No short of breath Cardiovascular: No chest pain, No palpitations; syncope Gastrointestinal: No abdominal pain, No diarrhea, No nausea, No vomiting Genitourinary: no symptoms reported; No decreased output Musculoskeletal: No back pain, No joint pain Skin: No change in color, No rash Psychiatric/Neurological: No Symptoms Reported Past Fpmmpjj-[id number]-Zlsteq Hx Past Med/Social Hx: Reviewed Nursing Past Med/Soc Hx Patient Social History Alcohol Use: Occasionally Uses Recreational Drug Use: No Smoking Status: Former Smoker Type Used: Cigarettes Former Smoker, Quit: Apr 23, 2001 2nd Hand Smoke Exposure: Yes Recent Foreign Travel: No Contact w/Someone Who Travel: No Recent Hopitalizations: No Physical Abuse: No Sexual Abuse: No Mistreated: No Fear: No Immunizations Up To Date Tetanus Booster (TDap): Unknown PED Vaccines UTD: Yes Date of Pneumonia Vaccine: Nov 22, 2010 Date of Influenza Vaccine: Sep 11, 2018 Seasonal Allergies Seasonal Allergies: No Past Medical History Surgeries: Yes Appendectomy, Coronary Stent Respiratory: No Cardiac: Yes (HEART STENTS) Coronary Artery Disease, Hypertension Neurological: No Genitourinary: No Kidney Stones Gastrointestinal: No Musculoskeletal: Yes Arthritis Endocrine: Yes Diabetes, Non-Insulin dep Cataract Hearing Impairment: Hard of Hearing 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 9.0oz. 70.930756hb; 22.2 BMI Method:Stated General Appearance: No Apparent Distress, WD/WN HEENT: Normal ENT Inspection Neck: Full Range of Motion, Normal Inspection, Non Tender Cardiovascular: Regular Rate, Rhythm, No Murmur Respiratory: Lungs Clear, Normal Breath Sounds, No Accessory Muscle Use, No Respiratory Distress Gastrointestinal: Normal Bowel Sounds, Non Tender, Soft Extremities: Normal Capillary Refill, Normal Inspection, Normal Range of Motion Neurologic/Psychiatric: Oriented x3, No Motor/Sensory Deficits, Normal Mood/Affect Cranial Nerves: Normal Hearing, Normal Speech Motor/Sensory: No Motor Deficit, No Sensory Deficit Progress/Results/Core Measures Results/Orders Lab Results Laboratory Tests Test 04/19/19 09:38 04/19/19 09:41 04/19/19 10:36 Range/Units White Blood Count 6.6 4.3-11.0 10^3/uL Red Blood Count 3.57 L 4.35-5.85 10^6/uL Hemoglobin 9.8 L 13.3-17.7 G/DL Hematocrit 31 L 40-54 % Mean Corpuscular Volume 85 80-99 FL Mean Corpuscular Hemoglobin 28 25-34 PG Mean Corpuscular Hemoglobin Concent 32 32-36 G/DL Red Cell Distribution Width 15.3 H 10.0-14.5 % Platelet Count 254 130-400 10^3/uL Mean Platelet Volume 10.0 7.4-10.4 FL Neutrophils (%) (Auto) 55 42-75 % Lymphocytes (%) (Auto) 27 12-44 % Monocytes (%) (Auto) 11 0-12 % Eosinophils (%) (Auto) 7 0-10 % Basophils (%) (Auto) 1 0-10 % Neutrophils # (Auto) 3.7 1.8-7.8 X 10^3 Lymphocytes # (Auto) 1.8 1.0-4.0 X 10^3 Monocytes # (Auto) 0.7 0.0-1.0 X 10^3 Eosinophils # (Auto) 0.4 H 0.0-0.3 10^3/uL Basophils # (Auto) 0.0 0.0-0.1 10^3/uL Prothrombin Time 16.9 H 12.2-14.7 SEC INR Comment 1.3 0.8-1.4 Sodium Level 130 L 135-145 MMOL/L Potassium Level 4.2 3.6-5.0 MMOL/L Chloride Level 98 98-107 MMOL/L Carbon Dioxide Level 22 21-32 MMOL/L Anion Gap 10 5-14 MMOL/L Blood Urea Nitrogen 12 7-18 MG/DL Creatinine 0.97 0.60-1.30 MG/DL Estimat Glomerular Filtration Rate > 60 BUN/Creatinine Ratio 12 Glucose Level 371 H 70-105 MG/DL Calcium Level 8.2 L 8.5-10.1 MG/DL Corrected Calcium 8.5 8.5-10.1 MG/DL Total Bilirubin 0.6 0.1-1.0 MG/DL Aspartate Amino Transf (AST/SGOT) 15 5-34 U/L Alanine Aminotransferase (ALT/SGPT) 15 0-55 U/L Alkaline Phosphatase 46 40-136 U/L Troponin I < 0.028 <0.028 NG/ML Total Protein 6.1 L 6.4-8.2 GM/DL Albumin 3.6 3.2-4.5 GM/DL Glucometer 376 H 70-110 MG/DL Urine Color YELLOW Urine Clarity CLEAR Urine pH 8 5-9 Urine Specific [place] 1.010 L 1.016-1.022 Urine Protein NEGATIVE NEGATIVE Urine Glucose (UA) 4+ H NEGATIVE Urine Ketones NEGATIVE NEGATIVE Urine Nitrite NEGATIVE NEGATIVE Urine Bilirubin NEGATIVE NEGATIVE Urine Urobilinogen NORMAL NORMAL MG/DL Urine Leukocyte Esterase NEGATIVE NEGATIVE Urine RBC (Auto) NEGATIVE NEGATIVE Urine RBC NONE /HPF Urine WBC NONE /HPF Urine Squamous Epithelial Cells RARE /HPF Urine Crystals NONE /LPF Urine Bacteria NEGATIVE /HPF Urine Casts NONE /LPF Urine Mucus NEGATIVE /LPF Urine Culture Indicated NO My Orders Orders - CRISTAL DIAZ MD Ct Head Wo (04/19/19 09:55) Ekg Tracing (04/19/19 09:55) Protime With Inr (04/19/19 09:55) Chest 1 View, Ap/Pa Only (04/19/19 09:55) Troponin I (04/19/19 09:55) Comprehensive Metabolic Panel (04/19/19 09:55) Ua Culture If Indicated (04/19/19 09:55) General/Regular (04/19/19 Lunch) Cbc With Automated Diff (04/19/19 11:23) Insulin (Regular) Human (Humulin R (Per (04/19/19 11:55) Vital Signs/I&O 04/19/19 09:43 Temp 97.7 Pulse 79 Resp 20 B/P (MAP) 120/60 (80) Pulse Ox 97 Progress Progress Note : Time: 11:33 Progress Note The patient's laboratory and radiographic evaluation demonstrated a normal sinus rhythm without any acute cranial injury, normal troponin, unremarkable chest x- ray, and no acute findings on CT of the head. Patient was observed for approximately 2 hours in the emergency department without further untoward effect. I placed a call to the patient's paper counter, Dr. Stinson, for his recommendations. Dr. Stinson recommended patient be brought in for observation and further evaluation. Alvaro was kind enough to admit the patient. Departure Communication (Admissions) Time/Spoke to Admitting Phy: 12:03 Dr. John Time/Spoke to Consulting Phy: 12:03 Dr. Stinson Impression Primary Impression: Syncope Qualified Codes: R55 - Syncope and collapse Disposition: ADMITTED INPATIENT Condition: Unchanged Admissions Decision to Admit Reason: Admit from ER (General) Decision to Admit/Date: Apr 19, 2019 Time/Decision to Admit Time: 12:04 Departure-Patient Inst. Referrals: JOSSE ANNE DO (PCP/Family) Primary Care Physician CRISTAL DIAZ MD Apr 19, 2019 10:03
[2019-04-19 10:15] LABS: INR 1.3 (0.8-1.4); PROTHROMBIN TIME PATIENT 16.9 SEC (12.2-14.7)
--- NOTE | 2019-04-19 10:24 | Diagnostic Imaging Report ---
PROCEDURE: CT head without contrast. TECHNIQUE: Multiple contiguous axial images were obtained through the brain without the use of intravenous contrast. Auto Exposure Controls were utilized during the CT exam to meet ALARA standards for radiation dose reduction. INDICATION: Near syncope The ventricles are normal in size, shape and position. There are age-related senescent changes present. There is no acute parenchymal hemorrhage, edema or mass. There is no extra-axial mass or hemorrhage. There is no acute bony abnormality. IMPRESSION: No acute abnormality is seen with no significant change from 07/13/2013. Dictated by: Dictated on workstation # [id number]
[2019-04-19 10:25] LABS: ALANINE AMINOTRANSFERASE 15 U/L (0-55); ALBUMIN 3.6 GM/DL (3.2-4.5); ALKALINE PHOSPHATASE 46 U/L (40-136); BILIRUBIN,TOTAL 0.6 MG/DL (0.1-1.0); BUN/CREATININE RATIO 12; CALCIUM 8.2 MG/DL (8.5-10.1); CARBON DIOXIDE 22 MMOL/L (21-32); CHLORIDE 98 MMOL/L (98-107); CREATININE SERUM 0.97 MG/DL (0.60-1.30); GFR ESTIMATED > 60; GLUCOSE 371 MG/DL (70-105); POTASSIUM 4.2 MMOL/L (3.6-5.0); SODIUM 130 MMOL/L (135-145); TOTAL PROTEIN 6.1 GM/DL (6.4-8.2)
--- NOTE | 2019-04-19 10:32 | Diagnostic Imaging Report ---
PATIENT HISTORY: Syncope. Productive cough for 2 weeks.. TECHNIQUE: Frontal view chest COMPARISON: 03/24/2019 FINDINGS: There is stable elevation of the left hemidiaphragm. No focal consolidation is seen. There is no pleural effusion or pneumothorax. The cardiac silhouette is stable in size. The stationary equipment mechanic device is noted. There are degenerative changes in the shoulders. IMPRESSION: No acute pulmonary abnormality seen. Dictated by: Dictated on workstation # [id number]
[2019-04-19 10:42] LABS: BILIRUBIN,URINE NEGATIVE (NEGATIVE); CLARITY,URINE CLEAR; COLOR,URINE YELLOW; GLUCOSE, URINE (UA) 4+ (NEGATIVE); KETONES,URINE NEGATIVE (NEGATIVE); LEUKOCYTE ESTERASE ,URINE NEGATIVE (NEGATIVE); NITRITE,URINE NEGATIVE (NEGATIVE); PH,URINE 8 (5-9); PROTEIN,URINE NEGATIVE (NEGATIVE); UROBILINOGEN,URINE NORMAL (NORMAL)
[2019-04-19 10:49] LABS: BACTERIA,URINE NEGATIVE /HPF; SQUAMOUS EPITHELIAL CELL,UR RARE /HPF
[2019-04-19 11:28] LABS: BASOPHILS % (AUTO) 1 % (0-10); EOSINOPHILS # (AUTO) 0.4 10^3/uL (0.0-0.3); EOSINOPHILS % (AUTO) 7 % (0-10); HEMATOCRIT 31 % (40-54); HEMOGLOBIN 9.8 G/DL (13.3-17.7); LYMPHOCYTES # (AUTO) 1.8 X 10^3 (1.0-4.0); LYMPHOCYTES % (AUTO) 27 % (12-44); MEAN CORPUSCULAR HEMOGLOBIN 28 PG (25-34); MEAN CORPUSCULAR HGB CONC 32 G/DL (32-36); MEAN CORPUSCULAR VOLUME 85 FL (80-99); MONOCYTES # (AUTO) 0.7 X 10^3 (0.0-1.0); MONOCYTES % (AUTO) 11 % (0-12); NEUTROPHILS # (AUTO) 3.7 X 10^3 (1.8-7.8); NEUTROPHILS % (AUTO) 55 % (42-75); PLATELET COUNT 254 10^3/uL (130-400); RED CELL DISTRIBUTION WIDTH 15.3 % (10.0-14.5); WHITE BLOOD COUNT 6.6 10^3/uL (4.3-11.0)
[2019-04-19] MEDS ORDERED: inSUlin (REGULAR) HUMAN 1 UNIT/0.01 ML (CHARGE PER UNIT) SC STA (11:55)
[2019-04-19 13:08] VITALS: BP 153/77
--- NOTE | 2019-04-19 14:28 | Consultation-Cardiology ---
HPI-Cardiology Cardiology Consultation: Date of Consultation 04/19/19 Time Seen by a Provider: 13:10 Date of Admission Attending Physician Elo John DO Admitting Physician Josse Anne DO Consulting Physician CHEMO PIMENTEL MD, MA, FACP, FACC, FSCAI, CCDS HPI: Chief Complaint: Reason for consultation: Syncope HPI: 89 yo man who had a syncopal episode this am. According to his , he was at the breakfast table, closed his eyes and started to slump over. She was able to help him land his head gently on the table. He was not responsive for about a minute or so. Then was responsive but minimally. Came around to his usual self in about 5 min. He has no recollection of this himself. He does not report cp or palp or shortness of breath. Has chronic gen malaise and weakness and tires easily Review of Systems-Cardiology Review of Systems Constitutional: As described under HPI Eyes: No vision change Ears/Nose/Throat: No ear discharge, No nasal drainage, No recent hearing loss Respiratory: As described under HPI Cardiovascular: As described under HPI Gastrointestinal: No constipation, No diarrhea, No nausea, No vomiting Genitourinary: No dysuria, No hematuria, No urine frequency changes Musculoskeletal: back pain (chronic) Skin: No rash, No ulcerations Psychiatric/Neurological: As described under HPI; No focal weakness Hematologic: No bleeding abnormalities YIT-Ybrokv-Svyrbr Hx Patient Social History Alcohol Use: Occasionally Uses Recreational Drug Use: No Smoking Status: Former Smoker Type Used: Cigarettes 2nd Hand Smoke Exposure: Yes Recent Foreign Travel: No Recent Infectious Disease Expo: No Immunizations Up To Date Tetanus Booster (TDap): Unknown Date of Pneumonia Vaccine: Nov 22, 2010 Date of Influenza Vaccine: Sep 11, 2018 Past Medical History PMH As described under Assessment. Family Medical History Family Medical History: Does not report fam h/o early CAD or SCD Allergies and Home Medications Allergies Coded Allergies: Penicillins (Verified Allergy, Mild, hives, 10/12/18) Home Medications Apixaban 2.5 Mg Tablet, 2.5 MG PO BID, (Reported) Aspirin 81 Mg Tab.chew, 81 MG PO DAILY@0900 Prescribed by: JOSSE ANNE on 03/26/19 1325 Atorvastatin Calcium 10 Mg Tablet, 10 MG PO HS, (Reported) LAST FILLED #30 11-02-18 Carvedilol 3.125 Mg Tablet, 3.125 MG PO BID, (Reported) Clindamycin HCl 300 Mg Capsule, 300 MG PO TID Prescribed by: JOSSE ANNE on 03/26/19 1325 Metformin HCl 1,000 Mg Tablet, 1,000 MG PO BID, (Reported) Patient Home Medication List Home Medication List Reviewed: Yes Physical Exam-Cardiology Physical Exam Vital Signs/I&O 04/19/19 04/19/19 04/19/19 04/19/19 09:43 12:56 13:08 13:11 Temp 97.7 97.0 Pulse 79 65 82 Resp 20 20 12 B/P (MAP) 120/60 (80) 131/89 (103) 153/77 (102) Pulse Ox 97 99 98 98 O2 Delivery Room Air Room Air 04/19/19 14:04 Pulse 71 Capillary Refill : Less Than 3 Seconds Constitutional: AAO x 3 (appears oriented, but is slow to respond and appears weak and tired), well-developed, other (thin-appearing) HEENT: PERRL, EOMI; No xanthelasmas are seen Neck: carotid pulses are 2 + bilaterally, with good upstrokes Respiratory: accessory muscle use, lungs clear to percussion, lungs clear to auscultation Cardiovascular: regular rate-rhythm, S1 and S2, systolic murmur (soft OLIVIA at card base) Gastrointestinal: No tender; soft; No guarding, No rebound; audible bowel sounds Extremities: No clubbing, No cyanosis, No significant edema Neurologic/Psychiatric: other (able to move all limbs equally, appears generally weak, but without focal weakness), grossly intact Skin: No rash on exposed areas, No ulcerations on exposed areas Data Review Labs Laboratory Tests 04/19/19 09:38: White Blood Count 6.6, Red Blood Count 3.57L, Hemoglobin 9.8L, Hematocrit 31L, Mean Corpuscular Volume 85, Mean Corpuscular Hemoglobin 28, Mean Corpuscular He moglobin Concent 32, Red Cell Distribution Width 15.3H, Platelet Count 254, Mean Platelet Volume 10.0, Neutrophils (%) (Auto) 55, Lymphocytes (%) (Auto) 27, Monocytes (%) (Auto) 11, Eosinophils (%) (Auto) 7, Basophils (%) (Auto) 1, Neutrophils # (Auto) 3.7, Lymphocytes # (Auto) 1.8, Monocytes # (Auto) 0.7, Eosinophils # (Auto) 0.4H, Basophils # (Auto) 0.0, Prothrombin Time 16.9H, INR Comment 1.3, Sodium Level 130L, Potassium Level 4.2, Chloride Level 98, Carbon Dioxide Level 22, Anion Gap 10, Blood Urea Nitrogen 12, Creatinine 0.97, Estimat Glomerular Filtration Rate > 60, BUN/Creatinine Ratio 12, Glucose Level 371H, Calcium Level 8.2L, Corrected Calcium 8.5, Total Bilirubin 0.6, Aspartate Amino Transf (AST/SGOT) 15, Alanine Aminotransferase (ALT/SGPT) 15, Alkaline Phosphatase 46, Troponin I < 0.028, Total Protein 6.1L, Albumin 3.6 04/19/19 09:41: Glucometer 376H 04/19/19 10:36: Urine Color YELLOW, Urine Clarity CLEAR, Urine pH 8, Urine Specific [place] 1.010L, Urine Protein NEGATIVE, Urine Glucose (UA) 4+H, Urine Ketones NEGATIVE, Urine Nitrite NEGATIVE, Urine Bilirubin NEGATIVE, Urine Urobilinogen NORMAL, Urine Leukocyte Esterase NEGATIVE, Urine RBC (Auto) NEGATIVE, Urine RBC NONE, Urine WBC NONE, Urine Squamous Epithelial Cells RARE, Urine Crystals NONE, Urine Bacteria NEGATIVE, Urine Casts NONE, Urine Mucus NEGATIVE, Urine Culture Indicated NO 04/19/19 13:07: Glucometer 353H Laboratory Tests 04/19/19 09:38 A/P-Cardiology Assessment/Admission Diagnosis Syncope on 04/19/19; previously on 03/24/19 S/p ILR ([employer] Reveal LINQ) implantation on 03/25/19 Sinus node dysfunction and h/o PAF H/O coronary stent placed on 01-01-[address] Mantilla at [facility] - location of stent unknown. MPI of June [address] Luevano showed no evidence of ischemia - has refused further coronary work up in the past Mild bilat carotid arterial dz per carotid u/s of Nov 2018 H/O orthostatic hypotension for which he reports he had undergone w/u in the past. H/O syncopal episode on 09-12-18 - determined to be d/t postural hypotension. 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 Kaufman showed - LVEF 55-65%, concentric LVH; grade 2 diastolic dysfunction; RA and LA dilated; Mild MR; Mild AoV stenosis; Mo d TR; PASP 55-60 mmHg Chronic leg swelling, likely related to venous insuff, currently stable Hyponatremia of undetermined etiology, managed by the Med S[facility] DM II, managed by the [facility] Discussion and Recomendations * Etiology of syncope remains unclear * Will obtain record of ILR during the episode * Keep on tele * iv NS * D/c beta-rhea * Monitor labs Clinical Quality Measures DVT/VTE Risk/Contraindication: Risk Factor Score Per Nursin RFS Level Per Nursing on Admit: 2=Moderate CHEMO PIMENTEL MD FACP FAC CCDS Apr 19, 2019 14:28
[2019-04-19] MEDS: NS IV 1000 ML 1,000 ML IV SCH (15:11)
[2019-04-19 15:45] VITALS: BP 164/75
[2019-04-19 19:43] VITALS: BP 156/83
[2019-04-19] MEDS: inSUlin ASPART (NovoLOG) 1 UNIT/0.01 ML (CHARGE PER UNIT) SC SCH (21:23)
[2019-04-20] VITALS (7 sets, daily range): BP systolic 132–169; BP diastolic 67–94
[2019-04-20] MEDS: NS IV 1000 ML 1,000 ML IV SCH ×4 (01:19→23:50)
[2019-04-20 03:41] LABS: BASOPHILS % (AUTO) 0 % (0-10); EOSINOPHILS # (AUTO) 0.4 10^3/uL (0.0-0.3); EOSINOPHILS % (AUTO) 3 % (0-10); HEMATOCRIT 32 % (40-54); HEMOGLOBIN 10.4 G/DL (13.3-17.7); LYMPHOCYTES # (AUTO) 2.9 X 10^3 (1.0-4.0); LYMPHOCYTES % (AUTO) 27 % (12-44); MEAN CORPUSCULAR HEMOGLOBIN 27 PG (25-34); MEAN CORPUSCULAR HGB CONC 33 G/DL (32-36); MEAN CORPUSCULAR VOLUME 84 FL (80-99); MEAN PLATELET VOLUME 9.6 FL (7.4-10.4); MONOCYTES % (AUTO) 9 % (0-12); NEUTROPHILS # (AUTO) 6.4 X 10^3 (1.8-7.8); NEUTROPHILS % (AUTO) 60 % (42-75); PLATELET COUNT 243 10^3/uL (130-400); RED CELL DISTRIBUTION WIDTH 15.9 % (10.0-14.5); WHITE BLOOD COUNT 10.7 10^3/uL (4.3-11.0)
[2019-04-20 04:10] LABS: ALANINE AMINOTRANSFERASE 16 U/L (0-55); ALBUMIN 3.7 GM/DL (3.2-4.5); ALKALINE PHOSPHATASE 48 U/L (40-136); BILIRUBIN,TOTAL 0.6 MG/DL (0.1-1.0); BUN/CREATININE RATIO 13; CALCIUM 8.6 MG/DL (8.5-10.1); CARBON DIOXIDE 21 MMOL/L (21-32); CHLORIDE 101 MMOL/L (98-107); CREATININE SERUM 0.76 MG/DL (0.60-1.30); GFR ESTIMATED > 60; GLUCOSE 161 MG/DL (70-105); POTASSIUM 3.8 MMOL/L (3.6-5.0); SODIUM 132 MMOL/L (135-145); TOTAL PROTEIN 6.6 GM/DL (6.4-8.2)
[2019-04-20] MEDS: inSUlin ASPART (NovoLOG) 1 UNIT/0.01 ML (CHARGE PER UNIT) SC SCH ×4 (04:39→21:06)
--- NOTE | 2019-04-20 12:17 | Progress Note-Cardiology ---
Cardiology SOAP Progress Note Subjective: No cp or palp or syncope or shortness of breath Gen malaise and weakness Objective: I&O/Vital Signs 04/20/19 04/20/19 04/20/19 04/20/19 01:00 01:00 04:00 04:42 Temp 98.2 97.8 Pulse 70 72 75 Resp 18 20 B/P (MAP) 168/77 (107) 157/76 (103) Pulse Ox 97 96 O2 Delivery Room Air Room Air Room Air 04/20/19 04/20/19 07:00 08:00 Temp 97.0 Pulse 82 83 Resp 20 B/P (MAP) 156/84 (108) Pulse Ox 97 O2 Delivery Room Air 04/20/19 00:00 Intake Total 450 ml Output Total 325 ml Balance 125 ml Weight (Pounds): 150 Weight (Ounces): 7.0 Weight (Calculated Kilograms): 68.469246 Constitutional: AAO x 3 (appears oriented, but is slow to respond and appears weak and tired), well-developed, other (thin-appearing) Respiratory: accessory muscle use, lungs clear to percussion, lungs clear to auscultation Cardiovascular: regular rate-rhythm, S1 and S2, systolic murmur (soft OLIVIA at card base) Gastrointestional: No tender; soft; No guarding, No rebound; audible bowel sounds Extremities: No clubbing, No cyanosis, No significant edema Neurologic/Psychiatric: other (able to move all limbs equally, appears generally weak, but without focal weakness), grossly intact Skin: No rash on exposed areas, No ulcerations on exposed areas Results/Procedures: Labs Laboratory Tests 04/19/19 13:07: Glucometer 353H 04/19/19 17:32: Glucometer 337H 04/19/19 18:01: Troponin I < 0.028 04/19/19 21:03: Glucometer 173H 04/20/19 00:00: Troponin I < 0.028 04/20/19 03:15: Troponin I < 0.028, White Blood Count 10.7, Red Blood Count 3.81L, Hemoglobin 10.4L, Hematocrit 32L, Mean Corpuscular Volume 84, Mean Corpuscular Hemoglobin 27, Mean Corpuscular Hemoglobin Concent 33, Red Cell Distribution Width 15.9H, Platelet Count 243, Mean Platelet Volume 9.6, Neutrophils (%) (Auto) 60, Lymphocytes (%) (Auto) 27, Monocytes (%) (Auto) 9, Eosinophils (%) (Auto) 3, Basophils (%) (Auto) 0, Neutrophils # (Auto) 6.4, Lymphocytes # (Auto) 2.9, Monocytes # (Auto) 1.0, Eosinophils # (Auto) 0.4H, Basophils # (Auto) 0.0, Sodium Level 132L, Potassium Level 3.8, Chloride Level 101, Carbon Dioxide Level 21, Anion Gap 10, Blood Urea Nitrogen 10, Creatinine 0.76, Estimat Glomerular Filtration Rate > 60, BUN/Creatinine Ratio 13, Glucose Level 161H, Calcium Level 8.6, Corrected Calcium 8.8, Total Bilirubin 0.6, Aspartate Amino Transf (AST/SGOT) 18, Alanine Aminotransferase (ALT/SGPT) 16, Alkaline Phosphatase 48, Total Protein 6.6, Albumin 3.7 04/20/19 11:46: Glucometer 310H Laboratory Tests 04/19/19 09:38 04/20/19 03:15 A/P: Assessment: Syncope, apparently noncardiac, etiology undetermined S/p ILR ([email or web address] Reveal LINQ) implantation on 03/25/19; no arrhythmia detected during episode of 04/19/19 Sinus node dysfunction and h/o PAF H/o Zeta 4 x 15 stent on 01-01-[address] Mantilla at [facility]. MPI of June [address] Luevano showed no evidence of ischemia - has refused further coronary work up in the past Mild bilat carotid arterial dz per carotid u/s of Nov 2018 H/O orthostatic hypotension for which he reports he had undergone w/u in the past. H/o syncopal episode on 09-12-18 - determined to be d/t postural hypotension. 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 Kaufman showed - LVEF 55-65%, concentric LVH; grade 2 diastolic dysfunction; RA and LA dilated; Mild MR; Mild AoV stenosis; Mod TR; PASP 55-60 mmHg Chronic leg swelling, likely related to venous insuff, currently stable Hyponatremia of undetermined etiology, managed by the Med Svce DM II, managed by the Med Svce Plan: * Etiology of syncope remains unclear. It does not appear to be arrhythmic (no arrhythmia recorded on ILR) * We recommend w/u for narcolepsy, sleep apnea, seizure disorder, metabolic abnormalities and other causes of syncope. This is to be with the Med Svce (Dr Jonh, Dr Gutierrez) * Hyponatremia has improved but not resolved. W/u is with the Med Svce. Continue iv NS for now * Beta-rhea has been d/c'd due to h/o postural hypotension * We recommend w/u for cor ischemia, given h/o CAD and cor stenting that was done nearly 15 years ago * Monitor labs * I had a long and detailed discussion with him and his and his family CHEMO PIMENTEL MD FACP FAC CCDS Apr 20, 2019 12:17
[2019-04-20] MEDS ORDERED: REGADENOSON 0.4 MG/5 ML SYR (LEXISCAN) IV ONE (12:45)
[2019-04-20] MEDS ORDERED: ASPIRIN 81 MG CHEW (CHILDREN'S ASA) PO NR (13:09)
--- NOTE | 2019-04-20 15:01 | History & Physical-Hospitalist ---
History of Present Illness HPI/Chief Complaint Chief complaint: Syncope History of present illness: This is an 89-year-old white male history of laryngeal cancer, orthostatic hypotension, CAD, REVEAL device and diabetes who presented to the ER with syncopal episode. He did not have any type of injury but he completely lost consciousness and fell to the floor. He does have a history of rib fractures from a prior fall. I review his medications and lab results and update the patient and his regarding the plan and awaiting cardiology consultation. Patient denies any pain he is willing to be up and around and walking around so we will restart his home medications and monitor patient closely. Source: patient, family, RN/MD, old records Exam Limitations: no limitations Date Seen 04/20/19 Time Seen by a Provider: 10:45 Attending Physician Elo Avery DO PCP Guicho Gutierrez DO Referring Physician Date of Admission Apr 19, 2019 at 11:53 Home Medications & Allergies Home Medications Reviewed patient Home Medication Reconciliation performed by pharmacy medication reconciliations electrical test technician and/or nursing. Patients Allergies have been reviewed. Allergies Allergies Coded Allergies Penicillins (Verified Allergy, Mild, hives, 10/12/18) Past Euttegc-Wgcgam-Xiwbdo Hx Past Med/Social Hx: Reviewed Nursing Past Med/Soc Hx, Reviewed and Corrections made Patient Social History Marrital Status: Employed/Student: retired ([employer] years in [employer]) Alcohol Use: Occasionally Uses Recreational Drug Use: No Smoking Status: Former Smoker Former Smoker, Quit: Apr 23, 2001 Type Used: Cigarettes 2nd Hand Smoke Exposure: Yes Recent Foreign Travel: No Contact w/other who traveled: No Recent Hopitalizations: No Recent Infectious Disease Expo: No Immunizations Up To Date Tetanus Booster (TDap): Unknown Pediatric: Yes Date of Pneumonia Vaccine: Nov 22, 2010 Date of Influenza Vaccine: Sep 11, 2018 Seasonal Allergies Seasonal Allergies: No Past Medical History Surgeries: Appendectomy, Coronary Stent Cardiac: Coronary Artery Disease, Hypertension Genitourinary: Kidney Stones Musculoskeletal: Arthritis Endocrine: Diabetes, Non-Insulin dep HEENT: Cataract Hearing Impairment: Hard of Hearing Did You Recieve Any Treatments: Yes What Type of Treatment Did You: Radiation History of Blood Disorders: No Family History No Pertinent Family Hx Review of Systems Constitutional: see HPI, dizziness EENTM: no symptoms reported Respiratory: no symptoms reported Cardiovascular: no symptoms reported Gastrointestinal: no symptoms reported Genitourinary: no symptoms reported Musculoskeletal: no symptoms reported Skin: no symptoms reported Psychiatric/Neurological: Weakness All Other Systems Reviewed Negative Unless Noted: Yes Physical Exam Physical Exam Vital Signs Vital Signs - First Documented 04/19/19 04/19/19 09:43 13:08 Temp 97.7 Pulse 79 Resp 20 B/P (MAP) 120/60 (80) Pulse Ox 97 O2 Delivery Room Air Capillary Refill : Less Than 3 Seconds Height, Weight, BMI Height: 5'10.00" Weight: 150lbs. 7.0oz. 68.969310yp; 20.9 BMI Method:Stated General Appearance: No Apparent Distress, Chronically ill, Thin Eyes: Right Eye Normal Inspection, Right Eye PERRL HEENT: PERRL/EOMI, Normal ENT Inspection, Pharynx Normal, Moist Mucous Membranes Neck: Full Range of Motion, Normal Inspection, Non Tender Respiratory: Chest Non Tender, Lungs Clear, Normal Breath Sounds, No Accessory Muscle Use, No Respiratory Distress Cardiovascular: Regular Rate, Rhythm, No Edema, No Gallop, No JVD, No Murmur, Normal Peripheral Pulses Gastrointestinal: Normal Bowel Sounds, No Organomegaly, No Pulsatile Mass, Non Tender, Soft Back: Normal Inspection, No CVA Tenderness, No Vertebral Tenderness Extremity: Normal Capillary Refill, Normal Inspection, Normal Range of Motion, Non Tender, No Calf Tenderness, No Pedal Edema Neurologic/Psychiatric: Alert, Oriented x3, No Motor/Sensory Deficits, Normal Mood/Affect Skin: Normal Color, Warm/Dry Lymphatic: No Adenopathy Results Results/Procedures Labs Laboratory Tests 04/19/19 09:38 04/20/19 03:15 Patient resulted labs reviewed. Assessment/Plan Admission Diagnosis Assessment: Syncope REVEAL device in place h/o PAF CAD s/p stent in place Carotid stenosis Orthostasis s/p laryngeal cancer GERD Chronic leg swelling Hyponatremia DM Plan: Monitor on Dede Stinson's help Admission Status: Observation Diagnosis/Problems Diagnosis/Problems (1) Syncope Status: Acute Qualifiers: Syncope type: unspecified Qualified Codes: R55 - Syncope and collapse (2) Non-insulin dependent type 2 diabetes mellitus Status: Chronic (3) HTN (hypertension) Status: Chronic Qualifiers: Hypertension type: essential hypertension Qualified Codes: I10 - Essential (primary) hypertension (4) CAD (coronary artery disease) Status: Chronic Qualifiers: Coronary Disease-Associated Artery/Lesion type: [place] artery [place] vs. transplanted heart: [place] heart Associated angina: without angina Qualified Codes: I25.10 - Atherosclerotic heart disease of [place] coronary artery without angina pectoris (5) Hypotension Status: Chronic Qualifiers: Hypotension type: orthostatic hypotension Qualified Codes: I95.1 - Orthostatic hypotension (6) Generalized weakness Status: Acute Clinical Quality Measures DVT/VTE Risk/Contraindication: Risk Factor Score Per Nursin RFS Level Per Nursing on Admit: 2=Moderate ELO AVERY DO Apr 20, 2019 15:01
[2019-04-20] MEDS: APIXABAN 2.5 MG (ELIQUIS) TABLET PO SCH (20:05)
[2019-04-20] MEDS: ATORVASTATIN 10 MG (LIPITOR) TABLET PO SCH (20:05)
[2019-04-21] VITALS (7 sets, daily range): BP systolic 135–182; BP diastolic 67–87
--- NOTE | 2019-04-21 00:40 | NUR ---
BP 182/72, HR 58 DR. PIMENTEL NOTIFIED, NEW ORDERS RECEIVED: NORVASC 5MG PO ONCE, MAY REPEAT IN 2 HOURS FOR SBP >180 WILL CONTINUE TO MONITOR.
[2019-04-21] MEDS ORDERED: amLODIPine 5 MG (NORVASC) TAB PO ONE (00:45)
[2019-04-21 04:17] LABS: BUN/CREATININE RATIO 12; CALCIUM 8.8 MG/DL (8.5-10.1); CARBON DIOXIDE 22 MMOL/L (21-32); CHLORIDE 99 MMOL/L (98-107); CHOLESTEROL 116 MG/DL (< 200); CREATININE SERUM 0.78 MG/DL (0.60-1.30); GFR ESTIMATED > 60; GLUCOSE 155 MG/DL (70-105); HDL CHOLESTEROL 40 MG/DL (40-60); MAGNESIUM 1.6 MG/DL (1.8-2.4); SODIUM 132 MMOL/L (135-145); TRIGLYCERIDES 45 MG/DL (<150); VLDL CHOLESTEROL 9 MG/DL (5-40)
[2019-04-21] MEDS: inSUlin ASPART (NovoLOG) 1 UNIT/0.01 ML (CHARGE PER UNIT) SC SCH ×4 (04:23→20:56)
[2019-04-21] MEDS: CATHETER FLUSH 10 ML SYR IV PRN ×2 (06:56→08:03)
--- NOTE | 2019-04-21 07:45 | Progress Note (SOAP) ---
Subjective Time Seen by a Provider: 07:44 Subjective/Events-last exam patient in [facility] this morning. Chart reviewed Objective Exam Vital Signs Date Time Temp Pulse Resp B/P (MAP) Pulse Ox O2 Delivery O2 Flow Rate FiO2 04/21/19 04:00 Room Air 04/21/19 03:34 96.2 65 18 175/85 (115) 96 Room Air 04/21/19 01:00 64 04/21/19 00:22 96.0 58 20 182/72 (108) 98 Room Air 04/21/19 00:00 Room Air 04/20/19 20:04 96.7 83 20 164/94 (117) 95 Room Air 04/20/19 20:00 Room Air 04/20/19 20:00 Room Air 04/20/19 19:00 90 04/20/19 18:19 98.0 82 20 169/88 (115) 98 Room Air 04/20/19 16:00 97.2 71 18 132/67 (88) 97 Room Air 04/20/19 15:32 Room Air 04/20/19 13:00 71 04/20/19 12:00 Room Air 04/20/19 12:00 97.2 71 18 132/67 (88) 97 Room Air 04/20/19 09:00 Room Air 04/20/19 08:00 97.0 83 20 156/84 (108) 97 Room Air 04/20/19 08:00 Room Air I & O 04/21/19 07:00 Intake Total 1850 ml Output Total 3625 ml Balance -1775 ml Capillary Refill : Less Than 3 Seconds General Appearance: No Apparent Distress, Thin Results Lab Laboratory Tests 04/20/19 11:46: Glucometer 310H 04/20/19 15:57: Glucometer 289H 04/20/19 21:02: Glucometer 227H 04/21/19 03:26: Sodium Level 132L, Potassium Level 4.0, Chloride Level 99, Carbon Dioxide Level 22, Anion Gap 11, Blood Urea Nitrogen 9, Creatinine 0.78, Estimat Glomerular Filtration Rate > 60, BUN/Creatinine Ratio 12, Glucose Level 155H, Calcium Level 8.8, Magnesium Level 1.6L, Triglycerides Level 45, Cholesterol Level 116, LDL Cholesterol Direct 66, VLDL Cholesterol 9, HDL Cholesterol 40, Thyroid Stimulating Hormone (TSH) 3.63 Assessment/Plan Assessment/Plan Assess & Plan/Chief Complaint syncope. Hypertension. Diabetes. CAD. History of hypertension. Weakness Clinical Quality Measures DVT/VTE Risk/Contraindication: Risk Factor Score Per Nursin RFS Level Per Nursing on Admit: 2=Moderate JOSSE ANNE DO Apr 21, 2019 07:45
[2019-04-21] MEDS ORDERED: REGADENOSON 0.4 MG/5 ML SYR (LEXISCAN) IV ONE (07:48)
--- NOTE | 2019-04-21 08:04 | Progress Note (SOAP) ---
Subjective Time Seen by a Provider: 08:01 Subjective/Events-last exam patient seen in radiology. Patient hungry. Patient voices no complaints. Patient having Lexiscan test Objective Exam Vital Signs Date Time Temp Pulse Resp B/P (MAP) Pulse Ox O2 Delivery O2 Flow Rate FiO2 04/21/19 07:58 75 16 155/87 (109) 98 Room Air 04/21/19 04:00 Room Air 04/21/19 03:34 96.2 65 18 175/85 (115) 96 Room Air 04/21/19 01:00 64 04/21/19 00:22 96.0 58 20 182/72 (108) 98 Room Air 04/21/19 00:00 Room Air 04/20/19 20:04 96.7 83 20 164/94 (117) 95 Room Air 04/20/19 20:00 Room Air 04/20/19 20:00 Room Air 04/20/19 19:00 90 04/20/19 18:19 98.0 82 20 169/88 (115) 98 Room Air 04/20/19 16:00 97.2 71 18 132/67 (88) 97 Room Air 04/20/19 15:32 Room Air 04/20/19 13:00 71 04/20/19 12:00 Room Air 04/20/19 12:00 97.2 71 18 132/67 (88) 97 Room Air 04/20/19 09:00 Room Air I & O 04/21/19 07:00 Intake Total 1850 ml Output Total 3625 ml Balance -1775 ml Capillary Refill : Less Than 3 Seconds General Appearance: WD/WN, Thin HEENT: Normal ENT Inspection Neck: Non Tender, Supple Respiratory: Lungs Clear, No Accessory Muscle Use, No Respiratory Distress Cardiovascular: Regular Rate, Rhythm, No Murmur Results Lab Laboratory Tests 04/21/19 03:26 Laboratory Tests 04/20/19 11:46: Glucometer 310H 04/20/19 15:57: Glucometer 289H 04/20/19 21:02: Glucometer 227H 04/21/19 03:26: Sodium Level 132L, Potassium Level 4.0, Chloride Level 99, Carbon Dioxide Level 22, Anion Gap 11, Blood Urea Nitrogen 9, Creatinine 0.78, Estimat Glomerular Filtration Rate > 60, BUN/Creatinine Ratio 12, Glucose Level 155H, Calcium Level 8.8, Magnesium Level 1.6L, Triglycerides Level 45, Cholesterol Level 116, LDL Cholesterol Direct 66, VLDL Cholesterol 9, HDL Cholesterol 40, Thyroid Stimulating Hormone (TSH) 3.63 Assessment/Plan Assessment/Plan Assess & Plan/Chief Complaint syncope. Hypertension. Diabetes. CAD. History of hypertension. Weakness. . 04/21/19. Syncope. Hypertension. diabetes. CAD Hypotension history Clinical Quality Measures DVT/VTE Risk/Contraindication: Risk Factor Score Per Nursin RFS Level Per Nursing on Admit: 2=Moderate JOSSE ANNE DO Apr 21, 2019 08:04
--- NOTE | 2019-04-21 08:53 | Progress Note-Cardiology ---
Cardiology SOAP Progress Note Subjective: No c/o CP, palpitations, syncope, near syncope or dyspnea. Objective: I&O/Vital Signs 04/21/19 04/21/19 04/21/19 04/21/19 07:00 07:58 09:00 09:00 Pulse 76 75 Resp 16 B/P (MAP) 155/87 (109) Pulse Ox 98 O2 Delivery Room Air Room Air Room Air 04/21/19 04/21/19 04/21/19 04/21/19 12:00 12:00 13:00 16:00 Temp 97.4 97.8 Pulse 78 115 75 Resp 23 22 B/P (MAP) 135/72 (93) 146/78 (100) Pulse Ox 97 97 O2 Delivery Room Air Room Air Room Air 04/21/19 16:00 O2 Delivery Room Air 04/21/19 00:00 Intake Total 1850 ml Output Total 1600 ml Balance 250 ml Weight (Pounds): 148 Weight (Ounces): 9.6 Weight (Calculated Kilograms): 67.449787 Constitutional: AAO x 3 (appears oriented, but is slow to respond and appears weak and tired), well-developed, other (thin-appearing) Respiratory: accessory muscle use, lungs clear to percussion, lungs clear to auscultation Cardiovascular: regular rate-rhythm, S1 and S2, systolic murmur (soft OLIVIA at card base) Gastrointestional: No tender; soft; No guarding, No rebound; audible bowel sounds Extremities: No clubbing, No cyanosis, No significant edema Neurologic/Psychiatric: other (able to move all limbs equally, appears ge nerally weak, but without focal weakness), grossly intact Skin: No rash on exposed areas, No ulcerations on exposed areas Results/Procedures: Labs Laboratory Tests 04/20/19 21:02: Glucometer 227H 04/21/19 03:26: Sodium Level 132L, Potassium Level 4.0, Chloride Level 99, Carbon Dioxide Level 22, Anion Gap 11, Blood Urea Nitrogen 9, Creatinine 0.78, Estimat Glomerular Filtration Rate > 60, BUN/Creatinine Ratio 12, Glucose Level 155H, Calcium Level 8.8, Magnesium Level 1.6L, Triglycerides Level 45, Cholesterol Level 116, LDL Cholesterol Direct 66, VLDL Cholesterol 9, HDL Cholesterol 40, Thyroid Stimulating Hormone (TSH) 3.63 04/21/19 11:47: Glucometer 396H 04/21/19 16:07: Glucometer 232H A/P: Assessment: Syncope, apparently noncardiac, etiology undetermined S/p ILR ([employer] Reveal LINQ) implantation on 03/25/19; no arrhythmia detected during episode of 04/19/19 Sinus node dysfunction and h/o PAF H/o Zeta 4 x 15 stent on 01-01-[address] Mantilla at [facility]. MPI 04/21/19 shows no evidence of infarction or ischemia Mild bilat carotid arterial dz per carotid u/s of Nov 2018 H/o orthostatic hypotension for which he reports he had undergone w/u in the past. H/o syncopal episode on 09-12-18 - determined to be d/t postural hypotension. 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 Kaufman showed - LVEF 55-65%, concentric LVH; grade 2 diastolic dysfunction; RA and LA dilated; Mild MR; Mild AoV stenosis; Mod TR; PASP 55-60 mmHg Chronic leg swelling, likely related to venous insuff, currently stable Hyponatremia of undetermined etiology, managed by the Med Svce DM II, managed by the Med Svce Plan: * Etiology of syncope remains unclear. It does not appear to be arrhythmic (no arrhythmia recorded on ILR) * We recommend w/u for narcolepsy, sleep apnea, seizure disorder, metabolic abnormalities and other causes of syncope. This is to be with the Med Svce (Dr John, Dr Gutierrez) * Hyponatremia has improved but not resolved. W/u is with the Med Svce. Continue iv NS for now * Beta-rhea has been d/c'd due to h/o postural hypotension * We recommend w/u for cor ischemia, given h/o CAD and cor stenting that was done nearly 15 years ago - MPI this a.m. - results pending * Monitor labs * We have had a long and detailed discussion with him and his and his family Physician Assessment Physician Assessment No cp or palp or syncope or shortness of breath Lungs: good bilat air entry Cor: reg Ext: no c/c/e A&R * As documented in our note above that I updated (italics) and as noted below * Continue current regimen * I explained the results of MPI and other card w/u to him * Ok to d/c from card standpoint DANIA NUNEZ SHEET IRONWORKER Apr 21, 2019 08:53 CHEMO PIMENTEL MD [facility] CCDS Apr 21, 2019 18:24
[2019-04-21] MEDS ORDERED: ASPIRIN 81 MG CHEW (CHILDREN'S ASA) PO SCH (09:00)
[2019-04-21] MEDS: ASPIRIN 81 MG CHEW (CHILDREN'S ASA) PO SCH (10:10)
[2019-04-21] MEDS: APIXABAN 2.5 MG (ELIQUIS) TABLET PO SCH ×2 (10:10→20:56)
--- NOTE | 2019-04-21 14:45 | NUR ---
CM/SS, initial interview with patient and spouse. Senior Instructor placed patient at [facility] 10/17/18, and he reportedly went home 11/07/18. He is alert today and cheerful. They plan for him to return home as before and indicate no needs at this time. Continue intermittent review for progress.
[2019-04-21] MEDS: NS IV 1000 ML 1,000 ML IV SCH (16:20)
--- NOTE | 2019-04-21 20:27 | STRESS TEST ---
DATE OF SERVICE: 04/21/2019 RESTING AND POST REGADENOSON TECHNETIUM-99M TETROFOSMIN SPECT CT IMAGING CLINICAL DIAGNOSES: Syncope, coronary artery disease. Baseline images were carried out after injection of 10.65 mCi technetium-99m Tetrofosmin. This was followed by 0.4 mg regadenoson and 32 mCi of technetium-99m Tetrofosmin for stress imaging. The electrocardiogram showed sinus rhythm. The electrocardiogram did not change significantly with regadenoson infusion. The patient tolerated the procedure well. Review of images at rest and following stress does not indicate any significant perfusion defects consistent with significant myocardial ischemia or infarction. Gated images showed normal global left ventricular systolic function and normal regional wall motion. Left ventricular ejection fraction is calculated to be 51%. Left ventricular end diastolic volume is 41 mL. TID is absent (1). CONCLUSIONS: 1. No evidence of any significant myocardial ischemia or infarction. 2. Normal regional wall motion. 3. Normal global left ventricular systolic function with a calculated ejection fraction of 51%. Job ID: [id number] DocumentID: [id number] Dictated Date: 04/21/2019 17:59:07 Dominatrix Date: 04/21/2019 20:26:48 Dictated By: CHEMO PIMENTEL MD, MA, FACP, FACC,
[2019-04-21] MEDS: ATORVASTATIN 10 MG (LIPITOR) TABLET PO SCH (20:56)
[2019-04-22] MEDS: NS IV 1000 ML 1,000 ML IV SCH (01:57)
[2019-04-22 03:40] VITALS: BP_SYST 169; BP_SYST 180; BP_DIAS 78; BP_DIAS 91
[2019-04-22] MEDS: inSUlin ASPART (NovoLOG) 1 UNIT/0.01 ML (CHARGE PER UNIT) SC SCH (05:43)
--- NOTE | 2019-04-22 07:33 | Progress Note (SOAP) ---
Subjective Time Seen by a Provider: 07:31 Subjective/Events-last exam Feeling good today. No chest pain. No palpitations. No syncope. No dyspnea. Patient hypertensive but did not receive his medicines this morning Objective Exam Vital Signs Date Time Temp Pulse Resp B/P (MAP) Pulse Ox O2 Delivery O2 Flow Rate FiO2 04/22/19 07:00 78 04/22/19 04:00 Room Air 04/22/19 03:40 96.9 70 18 169/78 (108) 97 Room Air 04/22/19 01:00 60 04/22/19 00:00 Room Air 04/21/19 23:35 97.0 74 18 168/84 (112) 99 Room Air 04/21/19 21:00 Room Air 04/21/19 20:00 97.9 86 22 146/67 (93) 95 Room Air 04/21/19 20:00 Room Air 04/21/19 19:00 76 04/21/19 16:00 Room Air 04/21/19 16:00 97.8 75 22 146/78 (100) 97 Room Air 04/21/19 13:00 115 04/21/19 12:00 97.4 78 23 135/72 (93) 97 Room Air 04/21/19 12:00 Room Air 04/21/19 09:00 Room Air 04/21/19 09:00 Room Air 04/21/19 07:58 75 16 155/87 (109) 98 Room Air I & O 04/22/19 07:00 Intake Total 3070 ml Output Total 1775 ml Balance 1295 ml Capillary Refill : Less Than 3 Seconds General Appearance: No Apparent Distress, Thin HEENT: Normal ENT Inspection Neck: Full Range of Motion, Normal Inspection Respiratory: Chest Non Tender, Lungs Clear, No Accessory Muscle Use, No Respiratory Distress Cardiovascular: Regular Rate, Rhythm, No Murmur Gastrointestinal: non tender, soft Results Lab Laboratory Tests 04/21/19 11:47: Glucometer 396H 04/21/19 16:07: Glucometer 232H 04/21/19 20:46: Glucometer 257H 04/22/19 05:42: Glucometer 187H Assessment/Plan Assessment/Plan Assess & Plan/Chief Complaint syncope. Hypertension. Diabetes. CAD. History of hypertension. Weakness. . 04/21/19. Syncope. Hypertension. diabetes. CAD Hypotension history. . Patient 04/22/19. Syncope. Hypertension. Diabetes. Coronary artery disease. Hypotension Clinical Quality Measures DVT/VTE Risk/Contraindication: Risk Factor Score Per Nursin RFS Level Per Nursing on Admit: 2=Moderate JOSSE ANNE DO Apr 22, 2019 07:33
--- NOTE | 2019-04-22 07:35 | Discharge Inst-Simple/Standard ---
Discharge Inst-Standard Patient Instructions/Follow Up Plan of Care/Instructions/FU: 2 office this Sunday at 10 a.m. Activity as Tolerated: Yes Discharge Diet: ADA Diet JOSSE ANNE DO Apr 22, 2019 07:35
[2019-04-22 07:41] VITALS: BP 165/70
[2019-04-22] MEDS: APIXABAN 2.5 MG (ELIQUIS) TABLET PO SCH (07:41)
[2019-04-22] MEDS: ASPIRIN 81 MG CHEW (CHILDREN'S ASA) PO SCH (07:41)
--- NOTE | 2019-04-23 07:35 | Clinic Account Progress/Dx ---
Clinic Account Progress/Dx DIAGNOSIS: Time Seen by Provider: 07:34 Syncope. Hypertension. Diabetes. Anemia. Hyponatremia. Hypomagnesemia. CAD. Proximal atrial fibrillation. Carotid stenosis history. Reveal implantation. History of orthostatic hypotension. Hyponatremia. History of laryngeal cancer JOSSE ANNE DO Apr 23, 2019 07:35
== END 2019-04-22 09:10 | disposition home or self-care (01) ==
LOC: EDUNIT# 09:35 → ER 09:36 → ICU 11:53 → UNDOADMOB 11:53
PROVIDERS: ADMIT Internal Medicine; ATTEND Internal Medicine
DX: R55 Syncope and collapse (principal); I25.10 Atherosclerotic heart disease of native coronary artery without angina pectoris; I10 Essential (primary) hypertension; I48.0 Paroxysmal atrial fibrillation; E11.9 Type 2 diabetes mellitus without complications; E87.1 Hypo-osmolality and hyponatremia; E83.42 Hypomagnesemia; I65.23 Occlusion and stenosis of bilateral carotid arteries; K21.9 Gastro-esophageal reflux disease without esophagitis; D64.9 Anemia, unspecified; M19.91 Primary osteoarthritis, unspecified site; R53.1 Weakness; Z85.21 Personal history of malignant neoplasm of larynx; Z79.82 Long term (current) use of aspirin; Z79.84 Long term (current) use of oral hypoglycemic drugs; Z79.899 Other long term (current) drug therapy; W07.XXXA Fall from chair, initial encounter; Y92.019 Unspecified place in single-family (private) house as the place of occurrence of the external cause; Z87.891 Personal history of nicotine dependence; Z95.5 Presence of coronary angioplasty implant and graft; Z92.3 Personal history of irradiation
CPT/HCPCS: 36415; 70450; 71045; 78452; 80048; 80053; 80061; 81000; 82962; 83735; 84443; 84484; 85025; 85610; 93005; 93017; 96372

== ENCOUNTER 2019-04-28 16:52 | Emergency (ER) | payer MEDICARE ==
[~2019-04-28] VITALS: Ht 177.8 cm; Wt 67.4 kg
[2019-04-28] MEDS ORDERED: NS IV 1000 ML 1,000 ML IV SCH (17:12)
[2019-04-28 17:17] LABS: BASOPHILS # (AUTO) 0.1 10^3/uL (0.0-0.1); BASOPHILS % (AUTO) 1 % (0-10); EOSINOPHILS # (AUTO) 0.9 10^3/uL (0.0-0.3); EOSINOPHILS % (AUTO) 10 % (0-10); HEMATOCRIT 34 % (40-54); HEMOGLOBIN 10.9 G/DL (13.3-17.7); LYMPHOCYTES # (AUTO) 3.1 X 10^3 (1.0-4.0); LYMPHOCYTES % (AUTO) 36 % (12-44); MEAN CORPUSCULAR HEMOGLOBIN 27 PG (25-34); MEAN CORPUSCULAR HGB CONC 32 G/DL (32-36); MEAN CORPUSCULAR VOLUME 85 FL (80-99); MEAN PLATELET VOLUME 9.2 FL (7.4-10.4); MONOCYTES # (AUTO) 0.7 X 10^3 (0.0-1.0); MONOCYTES % (AUTO) 8 % (0-12); NEUTROPHILS # (AUTO) 3.8 X 10^3 (1.8-7.8); NEUTROPHILS % (AUTO) 44 % (42-75); PLATELET COUNT 308 10^3/uL (130-400); RED CELL DISTRIBUTION WIDTH 15.5 % (10.0-14.5); WHITE BLOOD COUNT 8.5 10^3/uL (4.3-11.0)
[2019-04-28 17:36] LABS: BILIRUBIN,URINE NEGATIVE (NEGATIVE); CLARITY,URINE SLIGHTLY CLOUDY; COLOR,URINE YELLOW; GLUCOSE, URINE (UA) 2+ (NEGATIVE); KETONES,URINE NEGATIVE (NEGATIVE); LEUKOCYTE ESTERASE ,URINE NEGATIVE (NEGATIVE); NITRITE,URINE NEGATIVE (NEGATIVE); PH,URINE 7 (5-9); PROTEIN,URINE NEGATIVE (NEGATIVE); UROBILINOGEN,URINE NORMAL (NORMAL)
--- NOTE | 2019-04-28 17:38 | NUR ---
Per patient's patient was seen here and admitted one week ago for syncope episode. states at that time patient was taken off diabetic medications and has not been taking any medications at home for diabetes. Patient is alert to person and time but does not know where he is at today. Patient is unable to answer some questions appropriately and turns to for the answer but does follow commands well. Patient denies any pain today.
[2019-04-28 17:44] LABS: ALANINE AMINOTRANSFERASE 15 U/L (0-55); ALBUMIN 4.2 GM/DL (3.2-4.5); ALKALINE PHOSPHATASE 54 U/L (40-136); BILIRUBIN,TOTAL 0.3 MG/DL (0.1-1.0); BUN/CREATININE RATIO 16; CALCIUM 9.4 MG/DL (8.5-10.1); CARBON DIOXIDE 26 MMOL/L (21-32); CHLORIDE 96 MMOL/L (98-107); CREATININE SERUM 0.83 MG/DL (0.60-1.30); GFR ESTIMATED > 60; GLUCOSE 211 MG/DL (70-105); POTASSIUM 4.2 MMOL/L (3.6-5.0); SODIUM 131 MMOL/L (135-145); TOTAL PROTEIN 7.4 GM/DL (6.4-8.2)
--- NOTE | 2019-04-28 17:46 | ED General ---
General Chief Complaint: Glucose Problems Stated Complaint: HIGH BLOOD SUGAR Nursing Triage Note: PT STATES HIS BLOOD SUGAR WAS "VERY HIGH" THIS AM. PT STATES IT WAS 291. PT WAS RECENTLY IN THE HOSPITAL AND WAS NOT SENT HOME WITH ANY BLOOD SUGAR MEDICATION. PT DENIES N/V/D/FEVER. Nursing Sepsis Screen: No Definite Risk History of Present Illness Date Seen by Provider: Apr 28, 2019 Time Seen by Provider: 17:00 Initial Comments Patient is a in 89-year-old male, he was recently hospitalized here. [place] [facility] [place] recurrent vertigo and confusion. He is d iabetic but is no longer on metformin. His blood sugar at urgent care was 210. He was referred here for further evaluation. The patient and his deny any acute injuries. Timing/Duration: Getting Worse Associated Systoms: Denies Symptoms Allergies and Home Medications Allergies Coded Allergies: Penicillins (Verified Allergy, Mild, hives, 04/28/19) Home Medications Apixaban 2.5 Mg Tablet, 2.5 MG PO BID, (Reported) Aspirin 81 Mg Tab.chew, 81 MG PO DAILY@0900 Prescribed by: JOSSE ANNE on 03/26/19 1325 Atorvastatin Calcium 10 Mg Tablet, 10 MG PO HS, (Reported) LAST FILLED #30 11-02-18 Carvedilol 3.125 Mg Tablet, 3.125 MG PO BID, (Reported) Metformin HCl 500 Mg Tablet, 500 MG PO BID Prescribed by: CA STOLL on 04/28/19 1855 Patient Home Medication List Home Medication List Reviewed: Yes Review of Systems Review of Systems Constitutional: see HPI, dizziness Psychiatric/Neurological: See HPI, Other (confusion) All Other Systems Reviewed Negative Unless Noted: Yes Past Fmubmzf-Bpuowu-Ptpjyj Hx Past Med/Social Hx: Reviewed Nursing Past Med/Soc Hx Patient Social History Alcohol Use: Denies Use Recreational Drug Use: No Type Used: Cigarettes Former Smoker, Quit: Apr 23, 2001 2nd Hand Smoke Exposure: Yes Recent Foreign Travel: No Contact w/Someone Who Travel: No Recent Infectious Disease Expo: No Recent Hopitalizations: No Immunizations Up To Date Tetanus Booster (TDap): Unknown PED Vaccines UTD: Yes Date of Pneumonia Vaccine: Nov 22, 2010 Date of Influenza Vaccine: Sep 11, 2018 Seasonal Allergies Seasonal Allergies: No Past Medical History Surgeries: Yes Appendectomy, Coronary Stent Respiratory: No Cardiac: Yes (HEART STENTS) Coronary Artery Disease, Hypertension Neurological: No Genitourinary: No Kidney Stones Gastrointestinal: No Musculoskeletal: Yes Arthritis Endocrine: Yes Diabetes, Non-Insulin dep Cataract Hearing Impairment: Hard of Hearing 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 9.6oz. [id number]; 20.9 BMI Method:Stated General Appearance: No Apparent Distress Eyes: Bilateral Eye Normal Inspection, Bilateral Eye PERRL, Bilateral Eye EOMI HEENT: PERRL/EOMI, TMs Normal, Normal ENT Inspection, Pharynx Normal Neck: Full Range of Motion, Normal Inspection, Non Tender, Supple Respiratory: Chest Non Tender, Lungs Clear, Normal Breath Sounds Cardiovascular: Regular Rate, Rhythm, No Edema, No Murmur, Normal Peripheral Pulses Gastrointestinal: Normal Bowel Sounds, Non Tender, Soft Extremity: Normal Capillary Refill, Normal Inspection, Normal Range of Motion, No Pedal Edema Neurologic/Psychiatric: Alert, No Motor/Sensory Deficits, Normal 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 Answers all questions appropriately. Able to do finger to nose and heel down lizarraga. ) Skin: Normal Color, Warm/Dry Lymphatic: No Adenopathy Progress/Results/Core Measures Suspected Sepsis Recent Fever Within 48 Hours: No Infection Criteria Present: None New/Unexplained Altered Menta: No Sepsis Screen: No Definite Risk SIRS Temperature: Pulse: 74 Respiratory Rate: 18 Laboratory Tests 04/28/19 17:04: White Blood Count 8.5 Blood Pressure 180 /89 Mean: 119 Laboratory Tests 04/28/19 17:04: Creatinine 0.83, Platelet Count 308, Total Bilirubin 0.3 Results/Orders Lab Results Laboratory Tests Test 04/28/19 17:03 04/28/19 17:04 04/28/19 17:27 04/28/19 18:42 Range/Units Glucometer 225 H 135 H 70-110 MG/DL White Blood Count 8.5 4.3-11.0 10^3/uL Red Blood Count 3.99 L 4.35-5.85 10^6/uL Hemoglobin 10.9 L 13.3-17.7 G/DL Hematocrit 34 L 40-54 % Mean Corpuscular Volume 85 80-99 FL Mean Corpuscular Hemoglobin 27 25-34 PG Mean Corpuscular Hemoglobin Concent 32 32-36 G/DL Red Cell Distribution Width 15.5 H 10.0-14.5 % Platelet Count 308 130-400 10^3/uL Mean Platelet Volume 9.2 7.4-10.4 FL Neutrophils (%) (Auto) 44 42-75 % Lymphocytes (%) (Auto) 36 12-44 % Monocytes (%) (Auto) 8 0-12 % Eosinophils (%) (Auto) 10 0-10 % Basophils (%) (Auto) 1 0-10 % Neutrophils # (Auto) 3.8 1.8-7.8 X 10^3 Lymphocytes # (Auto) 3.1 1.0-4.0 X 10^3 Monocytes # (Auto) 0.7 0.0-1.0 X 10^3 Eosinophils # (Auto) 0.9 H 0.0-0.3 10^3/uL Basophils # (Auto) 0.1 0.0-0.1 10^3/uL Sodium Level 131 L 135-145 MMOL/L Potassium Level 4.2 3.6-5.0 MMOL/L Chloride Level 96 L 98-107 MMOL/L Carbon Dioxide Level 26 21-32 MMOL/L Anion Gap 9 5-14 MMOL/L Blood Urea Nitrogen 13 7-18 MG/DL Creatinine 0.83 0.60-1.30 MG/DL Estimat Glomerular Filtration Rate > 60 BUN/Creatinine Ratio 16 Glucose Level 211 H 70-105 MG/DL Calcium Level 9.4 8.5-10.1 MG/DL Corrected Calcium 9.2 8.5-10.1 MG/DL Total Bilirubin 0.3 0.1-1.0 MG/DL Aspartate Amino Transf (AST/SGOT) 13 5-34 U/L Alanine Aminotransferase (ALT/SGPT) 15 0-55 U/L Alkaline Phosphatase 54 40-136 U/L Total Protein 7.4 6.4-8.2 GM/DL Albumin 4.2 3.2-4.5 GM/DL Urine Color YELLOW Urine Clarity SLIGHTLY CLOUDY Urine pH 7 5-9 Urine Specific [place] 1.010 L 1.016-1.022 Urine Protein NEGATIVE NEGATIVE Urine Glucose (UA) 2+ H NEGATIVE Urine Ketones NEGATIVE NEGATIVE Urine Nitrite NEGATIVE NEGATIVE Urine Bilirubin NEGATIVE NEGATIVE Urine Urobilinogen NORMAL NORMAL MG/DL Urine Leukocyte Esterase NEGATIVE NEGATIVE Urine RBC (Auto) NEGATIVE NEGATIVE Urine RBC NONE /HPF Urine WBC NONE /HPF Urine Crystals NONE /LPF Urine Bacteria NEGATIVE /HPF Urine Casts PRESENT /LPF Urine Hyaline Casts RARE /LPF Urine Mucus NEGATIVE /LPF Urine Culture Indicated NO My Orders Orders - CA STOLL Accucheck Stat ONCE (04/28/19 16:59) Cbc With Automated Diff (04/28/19 17:12) Comprehensive Metabolic Panel (04/28/19 17:12) Ua Culture If Indicated (04/28/19 17:12) Ed Iv/Invasive Line Start (04/28/19 17:12) Ns Iv 1000 Ml (Sodium Chloride 0.9%) (04/28/19 17:12) Ekg Tracing (04/28/19 17:12) Insulin (Regular) Human (Humulin R (Per (04/28/19 17:55) General/Regular (04/28/19 Dinner) Accucheck Stat ONCE (04/28/19 18:40) Vital Signs/I&O 04/28/19 04/28/19 16:59 19:11 Temp 98.0 Pulse 74 90 Resp 18 16 B/P (MAP) 180/89 (119) 133/97 (109) Pulse Ox 99 97 O2 Delivery Room Air Room Air Capillary Refill : Less Than 3 Seconds Blood Pressure Mean: 119 Point of Care Testing Finger Stick Blood Glucose: 225 Progress Note : Time: 17:00 Progress Note Patient seen and evaluated, recommended labs and EKG. saline 1 L IV. 1800 labs essentially normal. Accu-Chek 225, will give Regular Insulin 5 units subcutaneous. 1845 Accu-Chek 135 patient reports no further vertigo. Ambulating in room with a steady gait. He ate crackers and peanut butter. 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 No other family members were here. Discussed patient by phone with Dr. Boss with his improved BUN/creatinine will resume his metformin and he is to follow-up with Dr. Anne tomorrow. This was explained to the patient and his several times. Discharge instructions and return pre cautions were reviewed with them. ECG Initial ECG Impression Date: Apr 28, 2019 Initial ECG Impression Time: 17:17 Initial ECG Rate: 66 Initial ECG Rhythm: Normal Sinus Initial ECG Intervals: Normal Initial ECG Intervals IL 196, QRSD 86, QT 440, QTC 461. [place] P 60, QRS 46, T 62. Initial ECG Impression: Normal Initial ECG Comparisson: Unchanged Comment Viewed with Dr. Plummer, concurred with interpretation. Departure Impression Primary Impression: Hyperglycemia Additional Impression: Syncope Qualified Codes: R55 - Syncope and collapse Disposition: 01 HOME, SELF-CARE Condition: Improved Departure-Patient Inst. Decision time for Depature: 18:45 Referrals: JOSSE ANNE DO (PCP/Family) Primary Care Physician Patient Instructions: Hyperglycemia, Adult (DC), Syncope (Fainting) (DC) Add. Discharge Instructions: Call Dr. Dr. Anne's office tomorrow morning for a follow-up [phone], he wants to see you on 04/29/19 Resume the metformin and new prescription has been sent to [facility] for you. Continue your home medications. Keep your scheduled follow-up with Dr. Stinson. Return to the emergency department for new, urgent health care needs. All discharge instructions reviewed with patient and/or family. Voiced understanding. Scripts Metformin HCl (Metformin HCl) 500 Mg Tablet 500 MG PO BID, #30 TAB 0 Refills Prov: CA STOLL 04/28/19 Copy Copies To 1: JOSSE ANNE DO; CHEMO STINSON MD [facility] CA STOLL Apr 28, 2019 17:46
[2019-04-28 17:48] LABS: BACTERIA,URINE NEGATIVE /HPF; HYALINE CASTS, URINE RARE /LPF
[2019-04-28] MEDS ORDERED: inSUlin (REGULAR) HUMAN 1 UNIT/0.01 ML (CHARGE PER UNIT) SC STA (17:55)
[2019-04-28] MEDS ORDERED: METF-397 PO (18:55)
[2019-04-28 19:11] VITALS: BP 133/97
== END 2019-04-28 19:11 | disposition home or self-care (01) ==
LOC: EDUNIT# 16:52 → ER 16:54
DX: R55 Syncope and collapse (principal); E11.65 Type 2 diabetes mellitus with hyperglycemia; I25.10 Atherosclerotic heart disease of native coronary artery without angina pectoris; I10 Essential (primary) hypertension; Z87.442 Personal history of urinary calculi; Z90.49 Acquired absence of other specified parts of digestive tract; Z88.0 Allergy status to penicillin; Z79.82 Long term (current) use of aspirin; Z79.84 Long term (current) use of oral hypoglycemic drugs; Z95.5 Presence of coronary angioplasty implant and graft; Z85.21 Personal history of malignant neoplasm of larynx
CPT/HCPCS: 36415; 80053; 81000; 82962; 85025; 93005

== ENCOUNTER 2019-07-01 09:08 | Emergency (ER) | payer MEDICARE ==
[~2019-07-01] VITALS: Ht 177.8 cm; Wt 68.0 kg
[~2019-07-01 09:08] MED LIST changes: +METF-397 PO
[2019-07-01] MEDS ORDERED: ASPIRIN 81 MG CHEW (CHILDREN'S ASA) PO ONE (09:30)
--- NOTE | 2019-07-01 09:30 | ED Syncope ---
General Chief Complaint: Dizziness/Syncope Stated Complaint: DIZZINESS Source of Information: Patient, Spouse Exam Limitations: No Limitations History of Present Illness Date Seen by Provider: Jul 01, 2019 Time Seen by Provider: 09:13 Initial Comments Patient presents to ER by EMS from home with chief complaint he had a syncopal episode at the breakfast table. He slumped over for a couple seconds and then his was able to arouse him. He has a history of low blood pressure. Does not take medicines for that but does have a history of stent. 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 He follows with Dr. Anne primarily. He denies taking blood pressure medicines but her recent review of his pharmacy records demonstrates he filled carvedilol 3.125 mg in March 2019. He is poor historian when it comes to his medications and his remembers she takes Eliquis and metformin. He does not smoke drink or do drugs. He denies having any vertiginous symptoms. EMS reports blood sugar of 226 when they arrived. No history of seizure activity. No pain, shortness of breath, cough, fever, chills, nausea, vomiting, diarrhea. He says he is regular and had a bowel movement already today. He has not checked his blood sugar yet this morning. He does not use insulin. EMS reports that he wanted try to walk through the house to get on the cot out front and made about 20 feet and said he felt like he was given a pass out and had to sit down. Allergies and Home Medications Allergies Coded Allergies: Penicillins (Verified Allergy, Mild, hives, 04/28/19) Home Medications Apixaban 2.5 Mg Tablet, 2.5 MG PO BID, (Reported) Aspirin 81 Mg Tab.chew, 81 MG PO DAILY@0900 Prescribed by: JOSSE ANNE on 03/26/19 1325 Atorvastatin Calcium 10 Mg Tablet, 10 MG PO HS, (Reported) LAST FILLED #30 11-02-18 Carvedilol 3.125 Mg Tablet, 3.125 MG PO BID, (Reported) Metformin HCl 500 Mg Tablet, 500 MG PO BID Prescribed by: CA STOLL on 04/28/19 0109 Patient Home Medication List Home Medication List Reviewed: Yes Review of Systems Constitutional: No chills, No diaphoresis, No fever EENTM: No ear discharge, No ear pain Respiratory: No cough, No short of breath Cardiovascular: No chest pain, No edema; Hx of Intervention, syncope, vascular heart diseas Gastrointestinal: No abdominal pain, No nausea, No vomiting Genitourinary: No discharge, No dysuria Musculoskeletal: No back pain, No joint pain Skin: No pruritus, No rash Psychiatric/Neurological: Denies Headache, Denies Numbness Past Oschkic-Ivuatv-Hrwmlj Hx Patient Social History Alcohol Use: Denies Use Recreational Drug Use: No Smoking Status: Never a Smoker Type Used: Cigarettes Former Smoker, Quit: Apr 23, 2001 2nd Hand Smoke Exposure: Yes Recent Hopitalizations: No Immunizations Up To Date Tetanus Booster (TDap): Unknown PED Vaccines UTD: Yes Date of Pneumonia Vaccine: Nov 22, 2010 Date of Influenza Vaccine: Sep 11, 2018 Seasonal Allergies Seasonal Allergies: No Past Medical History Surgeries: Yes Appendectomy, Coronary Stent Respiratory: No Cardiac: Yes (HEART STENTS) Coronary Artery Disease, Hypertension Neurological: No Genitourinary: No Kidney Stones Gastrointestinal: No Musculoskeletal: Yes Arthritis Endocrine: Yes Diabetes, Non-Insulin dep Cataract Hearing Impairment: Hard of Hearing 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 9.6oz. 67.847859aa; 20.9 BMI Method:Stated General Appearance: No Apparent Distress, Thin HEENT: PERRL/EOMI, TMs Normal, Normal ENT Inspection, Pharynx Normal, Moist Mucous Membranes Neck: Full Range of Motion, Normal Inspection Cardiovascular: Regular Rate, Rhythm, No Edema, No Gallop, No Murmur, Normal Peripheral Pulses Respiratory: Chest Non Tender, Lungs Clear, Normal Breath Sounds, No Accessory Muscle Use, No Respiratory Distress Gastrointestinal: Normal Bowel Sounds (active), No Organomegaly, Non Tender, Soft Back: Normal Inspection, No Vertebral Tenderness Extremities: Normal Capillary Refill, Normal Inspection, No Pedal Edema Neurologic/Psychiatric: Alert, Oriented x3 Cranial Nerves: Normal Hearing, Normal Speech, PERRL Coordination/Gait: Normal Gait Motor/Sensory: No Motor Deficit, No Sensory Deficit Skin: Normal Color, Warm/Dry Progress/Results/Core Measures Results/Orders Lab Results Laboratory Tests Test 07/01/19 09:10 07/01/19 10:35 Range/Units White Blood Count 9.6 4.3-11.0 10^3/uL Red Blood Count 3.96 L 4.35-5.85 10^6/uL Hemoglobin 10.7 L 13.3-17.7 G/DL Hematocrit 34 L 40-54 % Mean Corpuscular Volume 86 80-99 FL Mean Corpuscular Hemoglobin 27 25-34 PG Mean Corpuscular Hemoglobin Concent 32 32-36 G/DL Red Cell Distribution Width 15.4 H 10.0-14.5 % Platelet Count 311 130-400 10^3/uL Mean Platelet Volume 9.7 7.4-10.4 FL Neutrophils (%) (Auto) 46 42-75 % Lymphocytes (%) (Auto) 40 12-44 % Monocytes (%) (Auto) 8 0-12 % Eosinophils (%) (Auto) 6 0-10 % Basophils (%) (Auto) 1 0-10 % Neutrophils # (Auto) 4.4 1.8-7.8 X 10^3 Lymphocytes # (Auto) 3.8 1.0-4.0 X 10^3 Monocytes # (Auto) 0.8 0.0-1.0 X 10^3 Eosinophils # (Auto) 0.5 H 0.0-0.3 10^3/uL Basophils # (Auto) 0.1 0.0-0.1 10^3/uL Sodium Level 134 L 135-145 MMOL/L Potassium Level 4.1 3.6-5.0 MMOL/L Chloride Level 100 98-107 MMOL/L Carbon Dioxide Level 19 L 21-32 MMOL/L Anion Gap 15 H 5-14 MMOL/L Blood Urea Nitrogen 18 7-18 MG/DL Creatinine 0.95 0.60-1.30 MG/DL Estimat Glomerular Filtration Rate > 60 BUN/Creatinine Ratio 19 Glucose Level 224 H 70-105 MG/DL Calcium Level 9.1 8.5-10.1 MG/DL Corrected Calcium 9.0 8.5-10.1 MG/DL Total Bilirubin 0.6 0.1-1.0 MG/DL Aspartate Amino Transf (AST/SGOT) 16 5-34 U/L Alanine Aminotransferase (ALT/SGPT) 10 0-55 U/L Alkaline Phosphatase 50 40-136 U/L Troponin I < 0.028 <0.028 NG/ML B-Type Natriuretic Peptide 203.5 H <100.0 PG/ML Total Protein 7.2 6.4-8.2 GM/DL Albumin 4.1 3.2-4.5 GM/DL Urine Color YELLOW Urine Clarity CLEAR Urine pH 8 5-9 Urine Specific [place] 1.010 L 1.016-1.022 Urine Protein NEGATIVE NEGATIVE Urine Glucose (UA) 1+ H NEGATIVE Urine Ketones NEGATIVE NEGATIVE Urine Nitrite NEGATIVE NEGATIVE Urine Bilirubin NEGATIVE NEGATIVE Urine Urobilinogen NORMAL NORMAL MG/DL Urine Leukocyte Esterase NEGATIVE NEGATIVE Urine RBC (Auto) NEGATIVE NEGATIVE Urine RBC NONE /HPF Urine WBC NONE /HPF Urine Squamous Epithelial Cells 2-5 /HPF Urine Crystals NONE /LPF Urine Bacteria NEGATIVE /HPF Urine Casts PRESENT /LPF Urine Hyaline Casts 0-2 H /LPF Urine Mucus NEGATIVE /LPF Urine Culture Indicated NO My Orders Orders - SAADIA TOMLIN Cbc With Automated Diff (07/01/19 09:22) Comprehensive Metabolic Panel (07/01/19 09:22) Orthostatic Vital Signs (Adult (07/01/19 09:22) Ekg Tracing (07/01/19 09:22) Continuous Ekg Monitoring (07/01/19 09:22) Troponin I (07/01/19 09:22) BNP (07/01/19 09:22) Aspirin Chewable Tablet (Baby Aspirin Ch (07/01/19 09:30) Chest 1 View, Ap/Pa Only (07/01/19 09:22) Ua Culture If Indicated (07/01/19 09:31) Ed Iv/Invasive Line Start (07/01/19 09:44) Ns Iv 1000 Ml (Sodium Chloride 0.9%) (07/01/19 09:44) Ondansetron Injection (Zofran Injectio (07/01/19 11:45) Medications Given in ED Current Medications Medications Dose Ordered Sig/Vielka Route Start Time Stop Time Status Last Admin Dose Admin Aspirin 324 mg ONCE ONCE PO 07/01/19 09:30 07/01/19 09:31 DC 07/01/19 09:51 324 MG Vital Signs/I&O 07/01/19 07/01/19 07/01/19 09:08 09:35 11:05 Temp 96.8 Pulse 81 88 92 76 88 97 101 Resp 18 B/P (MAP) 107/61 (76) 122/8 (46) 133/88 (103) 119/66 (83) 132/84 (100) 97/63 (74) 105/66 (79) Pulse Ox 98 O2 Delivery Room Air Progress Progress Note #1: Time: 09:29 Progress Note Syncopal workup thinking about low blood pressure. Orthostatic vital signs. We'll get EKG chest x-ray BNP and troponin. Give him aspirin to chew up and swallow. No acute distress at this time. His initial presentation blood pressure was 101 systolic over 60. He does not have tachycardia, with a heart rate of 80 so very possible he is taking the carvedilol despite saying that he does not. Progress Note #2: Time: 09:45 Progress Note Initial orthostatics are significant for a greater than 20 mmHg drop in the systolic, 10 mmHg drop in the diastolic and a 20 heartbeat raise from lying to standing. He's received a liter and then give him a second liter which would be just under 30 mL/kg and reevaluate with orthostatics. Probably suggest you hold the carvedilol if he is actually on it and follow up with his primary care doctor. Progress Note #3: Time: 10:38 Progress Note Plan to repeat orthostatics now that he is received 2 L of fluid. Itmann syncope score of 8 points. Medium risk. 8.1% risk of 30-day serious adverse event Plan to interrogate the [employer] implanted phototypesetting equipment monitor. Orthostatics are still positive with a drop from lying 133 systolic down to 101 systolic on standing. However he is not symptomatic. Previous syncopal events on March 24, April 192018. History of coronary stent [address] Mantilla at [facility]. November 2018 bilateral carotid ultrasound reveals mild disease. Echocardiogram [address] Kaufman demonstrates ejection fraction 55-65% and grade 2 diastolic dysfunction. Progress Note #4: Time: 11:41 Progress Note [employer] called and stated the patient had an episode about 5-10 minutes of A. fib with RVR coinciding with the time the patient had this syncopal episode. Rate was 145-155. Yesterday he had 3 episodes lasting about 2-3 minutes each of A. fib with RVR. Initial ECG Impression Date: Jul 01, 2019 Initial ECG Impression Time: 09:32 Initial ECG Rate: 84 Initial ECG Rhythm: A Fib/Flutter Initial ECG Intervals: QT (473) Initial ECG Impression: Atrial Fibrillation Initial ECG Comparisson: Changed Comment Paroxysmal atrial fibrillation without significant ST elevation or depression. Diagnostic Imaging Diagonstic Imaging: Xray Plain Films/CT/US/NM/MRI: chest (1v) Comments No acute cardiopulmonary processes noted. NAME: KENNEDY SMITH [facility] REC#: [id number] PT STATUS: REG ER : 06/29/1993 PHYSICIAN: SAADIA TOMLIN MD ADMIT DATE: 07/01/19/ER Draft Date of Exam:07/01/19 CHEST PA/LAT (2 VIEW) Indication: Chest pain, nausea 2 days of duration. No previous. Findings: The lungs are clear. The heart and vessels normal. The cardiomediastinal and hilar contours normal. No free air beneath the diaphragms. No pleural pathology. Impression: Negative. Dictated on workstation # [id number] Dict: 07/01/19 1101 Trans: 07/01/19 1102 [facility] [id number] Interpreted by: FOX WISE Electronically signed by: Reviewed: Reviewed by Me Consults : Consulting Physician: CHEMO PIMENTEL MD [facility] Consults Notes 1155: Discussed the case with Dr. [place], cardiology and he is known to Dr. [place]. He thinks they orthostasis is probably what is causing his symptoms. He would discontinue the Coreg and have him follow-up later this week in the clinic. He would encourage him to drink plenty of fluids and also have him follow-up with primary care and discuss outpatient workup for his orthostatic hypotension. Departure Impression Primary Impression: Syncope Qualified Codes: R55 - Syncope and collapse Additional Impressions: Paroxysmal atrial fibrillation with RVR Orthostatic syncope Disposition: 01 HOME, SELF-CARE Condition: Improved Departure-Patient Inst. Decision time for Depature: 11:59 Referrals: JOSSE ANNE DO (PCP/Family) Primary Care Physician CHEMO PIMENTEL MD FACP FACC CCDS Patient Instructions: Syncope (Fainting) (DC), Orthostatic Hypotension Add. Discharge Instructions: Discontinue Coreg. Call Dr. Anne and asked for a follow-up appointment for your orthostatic hypotension. Call Dr. Pimentel's office and ask for a follow-up appointment later this week to discuss your syncopal episodes. All discharge instructions reviewed with patient and/or family. Voiced understanding. Copy Copies To 1: JOSSE ANNE DO SAADIA TOMLIN Jul 01, 2019 09:30
[2019-07-01 09:32] LABS: BASOPHILS # (AUTO) 0.1 10^3/uL (0.0-0.1); BASOPHILS % (AUTO) 1 % (0-10); EOSINOPHILS # (AUTO) 0.5 10^3/uL (0.0-0.3); EOSINOPHILS % (AUTO) 6 % (0-10); HEMATOCRIT 34 % (40-54); HEMOGLOBIN 10.7 G/DL (13.3-17.7); LYMPHOCYTES # (AUTO) 3.8 X 10^3 (1.0-4.0); LYMPHOCYTES % (AUTO) 40 % (12-44); MEAN CORPUSCULAR HEMOGLOBIN 27 PG (25-34); MEAN CORPUSCULAR HGB CONC 32 G/DL (32-36); MEAN CORPUSCULAR VOLUME 86 FL (80-99); MEAN PLATELET VOLUME 9.7 FL (7.4-10.4); MONOCYTES # (AUTO) 0.8 X 10^3 (0.0-1.0); MONOCYTES % (AUTO) 8 % (0-12); NEUTROPHILS # (AUTO) 4.4 X 10^3 (1.8-7.8); NEUTROPHILS % (AUTO) 46 % (42-75); PLATELET COUNT 311 10^3/uL (130-400); RED CELL DISTRIBUTION WIDTH 15.4 % (10.0-14.5); WHITE BLOOD COUNT 9.6 10^3/uL (4.3-11.0)
[2019-07-01 09:35] VITALS: BP_SYST 119; BP_SYST 122; BP_SYST 97; BP_DIAS 63; BP_DIAS 66; BP_DIAS 8
[2019-07-01] MEDS ORDERED: NS IV 1000 ML 1,000 ML IV SCH (09:44)
[2019-07-01 09:45] LABS: ALANINE AMINOTRANSFERASE 10 U/L (0-55); ALBUMIN 4.1 GM/DL (3.2-4.5); ALKALINE PHOSPHATASE 50 U/L (40-136); BILIRUBIN,TOTAL 0.6 MG/DL (0.1-1.0); BUN/CREATININE RATIO 19; CALCIUM 9.1 MG/DL (8.5-10.1); CARBON DIOXIDE 19 MMOL/L (21-32); CHLORIDE 100 MMOL/L (98-107); CREATININE SERUM 0.95 MG/DL (0.60-1.30); GFR ESTIMATED > 60; GLUCOSE 224 MG/DL (70-105); POTASSIUM 4.1 MMOL/L (3.6-5.0); SODIUM 134 MMOL/L (135-145); TOTAL PROTEIN 7.2 GM/DL (6.4-8.2)
[2019-07-01 10:40] LABS: BILIRUBIN,URINE NEGATIVE (NEGATIVE); CLARITY,URINE CLEAR; COLOR,URINE YELLOW; GLUCOSE, URINE (UA) 1+ (NEGATIVE); KETONES,URINE NEGATIVE (NEGATIVE); LEUKOCYTE ESTERASE ,URINE NEGATIVE (NEGATIVE); NITRITE,URINE NEGATIVE (NEGATIVE); PH,URINE 8 (5-9); PROTEIN,URINE NEGATIVE (NEGATIVE); UROBILINOGEN,URINE NORMAL (NORMAL)
[2019-07-01 11:00] LABS: BACTERIA,URINE NEGATIVE /HPF
[2019-07-01 11:01] LABS: HYALINE CASTS, URINE 0-2 /LPF
[2019-07-01 11:05] VITALS: BP_SYST 105; BP_SYST 132; BP_SYST 133; BP_DIAS 66; BP_DIAS 84; BP_DIAS 88
--- NOTE | 2019-07-01 11:15 | Diagnostic Imaging Report ---
INDICATION: Altered mental status. Comparison is made with prior examination from 04/19/2019. FINDINGS: The heart size is normal. The mediastinum is unremarkable. Lungs are clear. There is no pleural effusion or pneumothorax. IMPRESSION: No acute cardiopulmonary abnormality Dictated by: Dictated on workstation # [id number]
[2019-07-01] MEDS ORDERED: ONDANSETRON 4 MG/2 ML (SDV) Z0FRAN IVP ONE (11:45)
[2019-07-01 12:16] VITALS: BP 123/85
== END 2019-07-01 12:16 | disposition home or self-care (01) ==
LOC: EDUNIT# 09:08 → ER 09:10
DX: R55 Syncope and collapse (principal); I48.0 Paroxysmal atrial fibrillation; I25.10 Atherosclerotic heart disease of native coronary artery without angina pectoris; I10 Essential (primary) hypertension; E11.9 Type 2 diabetes mellitus without complications; Z87.442 Personal history of urinary calculi; Z95.5 Presence of coronary angioplasty implant and graft; Z79.01 Long term (current) use of anticoagulants; Z79.84 Long term (current) use of oral hypoglycemic drugs; Z88.0 Allergy status to penicillin; Z79.82 Long term (current) use of aspirin; Z87.891 Personal history of nicotine dependence; Z90.49 Acquired absence of other specified parts of digestive tract
CPT/HCPCS: 36415; 71045; 80053; 81000; 83880; 84484; 85025; 93005

== ENCOUNTER 2019-09-16 09:57 | Observation (INO) | payer MEDICARE ==
[~2019-09-16] VITALS: Ht 177.8 cm; Wt 63.3 kg
[2019-09-16 11:04] LABS: BILIRUBIN,URINE NEGATIVE (NEGATIVE); CLARITY,URINE CLEAR; COLOR,URINE YELLOW; GLUCOSE, URINE (UA) NEGATIVE (NEGATIVE); KETONES,URINE NEGATIVE (NEGATIVE); LEUKOCYTE ESTERASE ,URINE NEGATIVE (NEGATIVE); NITRITE,URINE NEGATIVE (NEGATIVE); PH,URINE 7.5 (5-9); PROTEIN,URINE NEGATIVE (NEGATIVE)
[2019-09-16 11:11] LABS: BACTERIA,URINE NEGATIVE /HPF; SQUAMOUS EPITHELIAL CELL,UR RARE /HPF
--- NOTE | 2019-09-16 11:11 | Diagnostic Imaging Report ---
INDICATION: Weakness and unresponsiveness. TECHNIQUE/COMPARISON: A frontal chest was obtained at 1102 hours and compared to 07/01/2019. FINDINGS: The heart is normal in size. There is COPD change. There is elevation of the left hemidiaphragm. These findings are all unchanged compared to the prior study. There are chronic appearing increased interstitial markings but no acute infiltrate or pleural fluid. There is no pneumothorax. IMPRESSION: Chronic changes as described above appearing similar to 07/01/2019. No new abnormality. Dictated by: Dictated on workstation # [id number]
[2019-09-16 11:14] LABS: BASOPHILS # (AUTO) 0.1 10^3/uL (0.0-0.1); BASOPHILS % (AUTO) 1 % (0-10); EOSINOPHILS # (AUTO) 0.6 10^3/uL (0.0-0.3); EOSINOPHILS % (AUTO) 6 % (0-10); HEMATOCRIT 35 % (40-54); HEMOGLOBIN 11.1 G/DL (13.3-17.7); LYMPHOCYTES # (AUTO) 4.9 X 10^3 (1.0-4.0); LYMPHOCYTES % (AUTO) 45 % (12-44); MEAN CORPUSCULAR HEMOGLOBIN 26 PG (25-34); MEAN CORPUSCULAR HGB CONC 31 G/DL (32-36); MEAN CORPUSCULAR VOLUME 83 FL (80-99); MEAN PLATELET VOLUME 9.9 FL (7.4-10.4); MONOCYTES # (AUTO) 0.9 X 10^3 (0.0-1.0); MONOCYTES % (AUTO) 8 % (0-12); NEUTROPHILS # (AUTO) 4.5 X 10^3 (1.8-7.8); NEUTROPHILS % (AUTO) 41 % (42-75); PLATELET COUNT 352 10^3/uL (130-400); RED CELL DISTRIBUTION WIDTH 15.5 % (10.0-14.5)
--- NOTE | 2019-09-16 11:15 | NUR ---
1 LITER NS STARTED BY EMS IN AT THIS TIME.
[2019-09-16 11:27] LABS: ALANINE AMINOTRANSFERASE 9 U/L (0-55); ALBUMIN 4.4 GM/DL (3.2-4.5); ALKALINE PHOSPHATASE 60 U/L (40-136); BILIRUBIN,TOTAL 0.6 MG/DL (0.1-1.0); BUN/CREATININE RATIO 13; CALCIUM 9.3 MG/DL (8.5-10.1); CARBON DIOXIDE 25 MMOL/L (21-32); CHLORIDE 96 MMOL/L (98-107); CREATININE SERUM 1.28 MG/DL (0.60-1.30); GFR ESTIMATED 53; GLUCOSE 237 MG/DL (70-105); POTASSIUM 3.9 MMOL/L (3.6-5.0); SODIUM 132 MMOL/L (135-145); TOTAL PROTEIN 7.5 GM/DL (6.4-8.2)
--- NOTE | 2019-09-16 11:54 | ED General ---
General Chief Complaint: General Problems/Pain Stated Complaint: GENERALIZED WEAKNESS;HYPOTENSION Nursing Triage Note: PT TO RM 7 BY [facility] FROM HOME WITH CC OF WEAKNESS THIS A.M. STATES PT WENT UNRESPONSIVE OR FELL ASLEEP AT THE KITCHEN TABLE, DID NOT FALL TO THE FLOOR. PT WAS AWAKE TO VERBAL AFTER HE SLUMPPED OVER. PT STATES HE FEELS WEAK AND TIRED. Nursing Sepsis Screen: No Definite Risk Source of Information: Patient Exam Limitations: No Limitations History of Present Illness Date Seen by Provider: Sep 16, 2019 Time Seen by Provider: 10:15 Initial Comments Here with episode of weakness this morning after getting up. He was sitting at the kitchen table and slumped over. His thought he was unresponsive although he responded rather quickly when she checked him. He states that he just feels weak. This is been going on for couple days but worsening. EMS arrived and found that he was tachycardic and in A. fib with RVR with this improved when laying down. They were unable to get blood pressure sitting but were able to laying down. They did initiate IV and fluid bolus and that helped. On arrival he was actually doing better. He does get tachycardic when sitting up. We did not attempt to stand him. Also noted again increasing shortness of breath when sitting up. reports that he does have atrial fibrillation and he is on Eliquis. Timing/Duration: 1-2 Days, Getting Worse Severity: Moderate, Severe Modifying Factors: worse with Movement; improves with Rest Associated Systoms: No Chest Pain, No Cough, No Fever/Chills; Shortness of Air, Syncope, Weakness Allergies and Home Medications Allergies Coded Allergies: Penicillins (Verified Allergy, Mild, hives, 04/28/19) Home Medications Apixaban 2.5 Mg Tablet, 2.5 MG PO BID, (Reported) Aspirin 81 Mg Tab.chew, 81 MG PO DAILY@0900 Prescribed by: JOSSE ANNE on 03/26/19 1325 Atorvastatin Calcium 10 Mg Tablet, 10 MG PO HS, (Reported) LAST FILLED #30 11-02-18 Metformin HCl 500 Mg Tablet, 500 MG PO BID Prescribed by: CA STOLL on 04/28/19 1855 Patient Home Medication List Home Medication List Reviewed: Yes Review of Systems Review of Systems Constitutional: see HPI; No chills, No fever; weakness EENTM: no symptoms reported Respiratory: No cough, No short of breath Cardiovascular: No chest pain, No edema; syncope Gastrointestinal: No abdominal pain; nausea; No vomiting Genitourinary: no symptoms reported All Other Systems Reviewed Negative Unless Noted: Yes Past Kzfrvhq-Jmieqm-Faqfuq Hx Past Med/Social Hx: Reviewed Nursing Past Med/Soc Hx Patient Social History Alcohol Use: Denies Use Recreational Drug Use: No Smoking Status: Former Smoker Type Used: Cigarettes Former Smoker, Quit: Apr 23, 2001 2nd Hand Smoke Exposure: Yes Recent Foreign Travel: No Contact w/Someone Who Travel: No Recent Infectious Disease Expo: No Recent Hopitalizations: No Physical Abuse: No Sexual Abuse: No Mistreated: No Fear: No Immunizations Up To Date Tetanus Booster (TDap): Unknown PED Vaccines UTD: Yes Date of Pneumonia Vaccine: Nov 22, 2010 Date of Influenza Vaccine: Aug 05, 2019 Seasonal Allergies Seasonal Allergies: No Past Medical History Surgeries: Yes Appendectomy, Coronary Stent Respiratory: No Cardiac: Yes (HEART STENTS) Coronary Artery Disease, Hypertension Neurological: No Genitourinary: No Kidney Stones Gastrointestinal: No Musculoskeletal: Yes Arthritis Endocrine: Yes Diabetes, Non-Insulin dep Cataract Hearing Impairment: Hard of Hearing Cancer: Yes (LARYNX W/RADIATION ) Did You Recieve Any Treatments: Yes What Type of Treatment Did You: Radiation Psychosocial: No Integumentary: No Blood Disorders: No Family Medical History Reviewed Nursing Family Hx No Pertinent Family Hx Physical Exam Vital Signs Vital Signs - First Documented 09/16/19 10:16 Temp 36.1 Pulse 86 Resp 16 B/P (MAP) 131/78 (95) Pulse Ox 98 O2 Delivery Room Air Capillary Refill : Less Than 3 Seconds Height, Weight, BMI Height: 5'10.00" Weight: 150lbs. 9.6oz. [id number]; 20.00 BMI Method:Stated General Appearance: No Apparent Distress, Thin HEENT: PERRL/EOMI, Pharynx Normal Neck: Non Tender, Supple Respiratory: Lungs Clear, Normal Breath Sounds Cardiovascular: No Murmur, Irregularly Irregular Gastrointestinal: Non Tender, Soft Back: Normal Inspection, No CVA Tenderness, No Vertebral Tenderness Extremity: Normal Range of Motion, Non Tender Neurologic/Psychiatric: Alert, Oriented x3 Skin: Normal Color, Warm/Dry Progress/Results/Core Measures Suspected Sepsis Recent Fever Within 48 Hours: No Infection Criteria Present: None New/Unexplained Altered Menta: No Sepsis Screen: No Definite Risk SIRS Temperature: Pulse: 86 Respiratory Rate: 16 Laboratory Tests 09/16/19 10:00: White Blood Count 11.0 Blood Pressure 131 /78 Mean: 95 Laboratory Tests 09/16/19 10:00: Creatinine 1.28, Platelet Count 352, Total Bilirubin 0.6 Results/Orders Lab Results Laboratory Tests Test 09/16/19 10:00 09/16/19 10:55 Range/Units White Blood Count 11.0 4.3-11.0 10^3/uL Red Blood Count 4.24 L 4.35-5.85 10^6/uL Hemoglobin 11.1 L 13.3-17.7 G/DL Hematocrit 35 L 40-54 % Mean Corpuscular Volume 83 80-99 FL Mean Corpuscular Hemoglobin 26 25-34 PG Mean Corpuscular Hemoglobin Concent 31 L 32-36 G/DL Red Cell Distribution Width 15.5 H 10.0-14.5 % Platelet Count 352 130-400 10^3/uL Mean Platelet Volume 9.9 7.4-10.4 FL Neutrophils (%) (Auto) 41 L 42-75 % Lymphocytes (%) (Auto) 45 H 12-44 % Monocytes (%) (Auto) 8 0-12 % Eosinophils (%) (Auto) 6 0-10 % Basophils (%) (Auto) 1 0-10 % Neutrophils # (Auto) 4.5 1.8-7.8 X 10^3 Lymphocytes # (Auto) 4.9 H 1.0-4.0 X 10^3 Monocytes # (Auto) 0.9 0.0-1.0 X 10^3 Eosinophils # (Auto) 0.6 H 0.0-0.3 10^3/uL Basophils # (Auto) 0.1 0.0-0.1 10^3/uL Sodium Level 132 L 135-145 MMOL/L Potassium Level 3.9 3.6-5.0 MMOL/L Chloride Level 96 L 98-107 MMOL/L Carbon Dioxide Level 25 21-32 MMOL/L Anion Gap 11 5-14 MMOL/L Blood Urea Nitrogen 17 7-18 MG/DL Creatinine 1.28 0.60-1.30 MG/DL Estimat Glomerular Filtration Rate 53 BUN/Creatinine Ratio 13 Glucose Level 237 H 70-105 MG/DL Calcium Level 9.3 8.5-10.1 MG/DL Corrected Calcium 9.0 8.5-10.1 MG/DL Total Bilirubin 0.6 0.1-1.0 MG/DL Aspartate Amino Transf (AST/SGOT) 16 5-34 U/L Alanine Aminotransferase (ALT/SGPT) 9 0-55 U/L Alkaline Phosphatase 60 40-136 U/L Troponin I < 0.028 <0.028 NG/ML C-Reactive Protein High Sensitivity 0.06 0.00-0.50 MG/DL Total Protein 7.5 6.4-8.2 GM/DL Albumin 4.4 3.2-4.5 GM/DL Urine Color YELLOW Urine Clarity CLEAR Urine pH 7.5 5-9 Urine Specific [place] 1.010 L 1.016-1.022 Urine Protein NEGATIVE NEGATIVE Urine Glucose (UA) NEGATIVE NEGATIVE Urine Ketones NEGATIVE NEGATIVE Urine Nitrite NEGATIVE NEGATIVE Urine Bilirubin NEGATIVE NEGATIVE Urine Urobilinogen 0.2 < = 1.0 MG/DL Urine Leukocyte Esterase NEGATIVE NEGATIVE Urine RBC (Auto) NEGATIVE NEGATIVE Urine RBC NONE /HPF Urine WBC NONE /HPF Urine Squamous Epithelial Cells RARE /HPF Urine Crystals NONE /LPF Urine Bacteria NEGATIVE /HPF Urine Casts NONE /LPF Urine Mucus NEGATIVE /LPF Urine Culture Indicated NO My Orders Orders - TRESA SAMPSON MD Chest 1 View, Ap/Pa Only (09/16/19 10:21) Cbc With Automated Diff (09/16/19 10:21) Comprehensive Metabolic Panel (09/16/19 10:21) Hs C Reactive Protein (09/16/19 10:21) Troponin I (09/16/19 10:21) Ua Culture If Indicated (09/16/19 10:21) Ekg Tracing (09/16/19 10:21) Monitor-Rhythm Ecg Trace Only (09/16/19 10:21) Hemoglobin A1c (09/16/19 12:50) Cho 75g/M 0snack (21-2400 James) (09/16/19 Lunch) Lactated Ringers (Lr 1000 Ml Iv Solution (09/16/19 12:55) Apixaban Tablet (Eliquis Tablet) (09/16/19 13:30) Medications Given in ED Current Medications Medications Dose Ordered Sig/Vielka Route Start Time Stop Time Status Last Admin Dose Admin Lactated Ringer's 1,000 ml @ 100 mls/hr Q10H ONCE IV 09/16/19 12:55 09/16/19 22:54 09/16/19 13:06 100 MLS/HR Vital Signs/I&O 09/16/19 09/16/19 10:16 12:46 Temp 36.1 Pulse 86 76 85 136 Resp 16 B/P (MAP) 131/78 (95) 147/86 (106) 135/79 (97) 93/60 (71) Pulse Ox 98 O2 Delivery Room Air Capillary Refill : Less Than 3 Seconds Blood Pressure Mean: 95 POS Progress Note : Progress Note Seen and evaluated. IV by EMS. Normal saline 1 L bolus by EMS. Labs, UA and EKG ordered. We will also check chest x-ray. Does have 25 bpm Heart rate increased with sitting up. Monitor patient. 1230: Patient up to the bathroom and not dizzy currently. Blood sugar noted to be elevated on chemistry panel but should be somewhat improved now. He does have to have a bowel movement. We will recheck after settling for orthostatics. Monitor patient. 1257: Or the study vital signs done and patient has significant drop and blood pressure with blood pressure being 93/60. He is a little unsteady with that. She is her to have 1 L of fluid. Given his age and comorbidities, patient will need admission for observation. I did discuss the case with Dr. Anne and he will see the patient. He requested cardiology consult. Dr. 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 1319: I did discuss the case with Dr. Stinson and he will see the patient and consult ECG Initial ECG Impression Date: Sep 16, 2019 Initial ECG Impression Time: 10:35 Initial ECG Rate: 71 Initial ECG Rhythm: A Fib/Flutter Initial ECG Comparisson: Unchanged Comment Atrial fibrillation with not clearly discernible P waves. Normal axis. No evidence of ST elevation MT. Similar to previous of 07/01/19. Interpreted by me. Diagnostic Imaging Diagonstic Imaging: Xray Plain Films/CT/US/NM/MRI: chest Comments [facility]. POS [place], [place] POS NAME: AMANDA SOTELO [facility] REC#: [id number] PT STATUS: REG ER : 1930 PHYSICIAN: TRESA SAMPSON MD ADMIT DATE: 09/16/19/ER Draft POSDate of Exam:09/16/19 CHEST 1 VIEW, AP/PA ONLY INDICATION: Weakness and unresponsiveness. TECHNIQUE/COMPARISON: A frontal chest was obtained at 1102 hours and compared to 07/01/2019. FINDINGS: The heart is normal in size. There is COPD change. There is elevation of the left hemidiaphragm. These findings are all unchanged compared to the prior study. There are chronic appearing increased interstitial markings but no acute infiltrate or pleural fluid. There is no pneumothorax. IMPRESSION: Chronic changes as described above appearing similar to 07/01/2019. No new abnormality. Dictated on workstation # [id number] Dict: 09/16/19 1108 Trans: 09/16/19 1110 [id number] Interpreted by: DAVION CALI MD Electronically signed by: Departure Communication (Admissions) Time/Spoke to Admitting Phy: 12:57 Time/Spoke to Consulting Phy: 13:19 Impression Primary Impression: Orthostatic hypotension Additional Impression: Dehydration Disposition: 09 ADMITTED INPATIENT Condition: Stable Admissions Decision to Admit Reason: Admit from ER (General) Decision to Admit/Date: Sep 16, 2019 Time/Decision to Admit Time: 12:57 Departure-Patient Inst. Referrals: JOSSE ANNE DO (PCP/Family) Primary Care Physician TRESA SAMPSON MD Sep 16, 2019 11:54 POS
--- NOTE | 2019-09-16 12:40 | NUR ---
WAS WONDERING WHAT IS TAKING SO LONG, STATES THEY HAVE BEEN HERE FOR ALMOST 5 HOURS. AT THE TIME SHE WAS COMPLAINING THE PT HAD BEEN HERE 2 HOURS AND 43 MIN. THIS WAS EXPLAINED TO THE AND PT.
[2019-09-16 12:46] VITALS: BP_SYST 135; BP_SYST 147; BP_SYST 93; BP_DIAS 60; BP_DIAS 79; BP_DIAS 86
[2019-09-16] MEDS ORDERED: LACTATED RINGERS 1,000 ML IV ONE (12:55)
[2019-09-16] MEDS ORDERED: APIXABAN 2.5 MG (ELIQUIS) TABLET PO ONE (13:30)
--- NOTE | 2019-09-16 13:40 | Consultation-Cardiology ---
HPI-Cardiology Cardiology Consultation: Date of Consultation 09/16/19 Time Seen by a Provider: 14:15 Date of Admission 09-16-19 Attending Physician Admitting Physician Guicho Gutierrez DO Consulting Physician Orlando Stinson MD HPI: Chief Complaint: Near-syncope Mr. Antonio is an 89 year old male admitted to 410 from the ED. He reports he was sitting at the kitchen table this morning and when he got up from the table he began to feel weak and light headed. He states he fell down to the floor, but did not lose consciousness. He reports his called EMS and he was brought here. He denies any c/o CP, palpitations, dyspnea. He denies any n/v/d. He denies any fever or chills. He reports he does not recall any other details of the morning. His is not currently at the bedside. He denies any dizziness when assisted to transfer from the ED cart to the bed. He reports he has been taking his medications and has not missed any doses. Review of Systems-Cardiology Review of Systems Constitutional: No chills, No fever; lightheadedness Eyes: No vision change Ears/Nose/Throat: No epistaxis, No recent hearing loss Respiratory: As described under HPI Cardiovascular: As described under HPI Gastrointestinal: No constipation, No diarrhea, No nausea, No vomiting Genitourinary: No dysuria, No hematuria Musculoskeletal: no symptoms reported Skin: No rash on exposed areas, No ulcerations on exposed areas Psychiatric/Neurological: As described under HPI; No seizure Hematologic: No bleeding abnormalities All Other Systems Reviewed Negative Unless Noted: Yes AKP-Xxzldp-Jptbvu Hx Patient Social History Alcohol Use: Denies Use Recreational Drug Use: No Smoking Status: Former Smoker Type Used: Cigarettes 2nd Hand Smoke Exposure: Yes Recent Foreign Travel: No Recent Infectious Disease Expo: No Immunizations Up To Date Tetanus Booster (TDap): Unknown Date of Pneumonia Vaccine: Nov 22, 2010 Date of Influenza Vaccine: Aug 05, 2019 Past Medical History PMH As described under Assessment. Family Medical History Family Medical History: Does not report fam h/o early CAD or SCD Allergies and Home Medications Allergies Coded Allergies: Penicillins (Verified Allergy, Mild, hives, 09/16/19) Home Medications Apixaban 2.5 Mg Tablet, 2.5 MG PO BID, (Reported) FILLED 07-22-19 #60 AND AGAIN 09-16-19 Atorvastatin Calcium 10 Mg Tablet, 10 MG PO HS, (Reported) Diltiazem HCl 240 Mg Cap.er.24h, 240 MG PO DAILY Prescribed by: NANY FERNANDEZ on 09/17/19 1137 Metformin HCl 1,000 Mg Tablet, 1,000 MG PO BID, (Reported) Physical Exam-Cardiology Physical Exam Vital Signs/I&O Capillary Refill : Less Than 3 Seconds Constitutional: AAO x 3, well-developed, well-nourished HEENT: PERRL, hearing is well preserved, oral hygience is good Neck: No carotid bruit; carotid pulses are 2 + bilaterally Respiratory: No accessory muscle use, No respiratory distress; chest expansion is symmetric, chest is bilaterally symmetric, lungs clear to auscultation Cardiovascular: irregularly irregular; No JVD; S1 and S2 Gastrointestinal: soft, round, audible bowel sounds Extremities: no lower extremity edema bilateral Neurologic/Psychiatric: grossly intact Skin: No rash on exposed areas, No ulcerations on exposed areas Data Review Labs Radiology NAME: AMANDA ANTONIO MED REC#: [id number] PT STATUS: REG ER : 1930 PHYSICIAN: TRESA SAMPSON MD ADMIT DATE: 09/16/19/ER Signed Date of Exam: 09/16/19 CHEST 1 VIEW, AP/PA ONLY INDICATION: Weakness and unresponsiveness. TECHNIQUE/COMPARISON: A frontal chest was obtained at 1102 hours and compared to 07/01/2019. FINDINGS: The heart is normal in size. There is COPD change. There is elevation of the left hemidiaphragm. These findings are all unchanged compared to the prior study. There are chronic appearing increased interstitial markings but no acute infiltrate or pleural fluid. There is no pneumothorax. IMPRESSION: Chronic changes as described above appearing similar to 07/01/2019. No new abnormality. Dictated by: Dictated on workstation # [id number] Dict: 09/16/19 1108 Trans: 09/16/19 1312 Interpreted by: DAVION CALI MD Electronically signed by: DAVION CALI MD 09/16/19 1312 ECG Impression ECG Initial ECG Impression: Atrial Fibrillation A/P-Cardiology Assessment/Admission Diagnosis Near syncopal episode Orthostatic hypotension - again seen at time of eval in the ED H/o orthostatic hypotension for which he reports he had undergone w/u in the pas t. H/o syncopal episode on 09-12-18 - determined to be d/t postural hypotension. H/o fall at home on 10-12-18 resulting in right rib fx S/p ILR ([employer] Reveal LINQ) implantation on 03/25/19; brief episodes of PAFwith a rapid ventricular response detected in Jun/Jul/Aug 2019, no significant bradycardia or vent arrhythmia seen since implantation Mild bilat carotid arterial dz per carotid u/s of Nov 2018 H/O syncope for which cardiac cause has not been determined, etiology undetermined H/o Zeta 4 x 15 stent on 01-01-[address] Mantilla at [facility]. 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 Kaufman showed - LVEF 55-65%, concentric LVH; grade 2 diastolic dysfunction; RA and LA dilated; Mild MR; Mild AoV stenosis; Mod TR; PASP 55-60 mmHg Chronic leg swelling, likely related to venous insuff, currently stable Hyponatremia of undetermined etiology, managed by the [facility] DM II, managed by the [facility] Discussion and Recomendations Complex management issue Near syncopal episode of undetermined etiology - possibly r/t orthostatic hypotension A-fib with RVR seen at time of presentation by EMS and on ILR interrogations. We will resume Cardizem CD at a lower dose even though he has episodes of rapid heart rate d/t the fact that based on his multiple symptoms as listed above he does seem to be a suitable for higher dose. Give IVF Monitor on tele Continue OAC Monitor lab Further recs will be based on his hospital course We would like to thank medical services for this consult DANIA NUNEZ Sep 16, 2019 13:39 POS
[2019-09-16] MEDS ORDERED: LACTATED RINGERS 1,000 ML IV SCH (14:45)
[2019-09-16] MEDS ORDERED: CATHETER FLUSH 10 ML SYR IV PRN (14:45)
[2019-09-16 14:47] VITALS: BP 164/87
--- NOTE | 2019-09-16 15:20 | NUR ---
AMANDA SOTELO admitted to room 410-1, with an admitting diagnosis of orthostatic hypotension, on 09/16/19 from ED via bed, accompanied by family and staff.AMANDA SOTELO introduced to surroundings, call light, bed controls, phone, TV, temperature control, lights, meal times, smoking policy, visitor policy, side rail policy, bathrooms and showers. AMANDA SOTELO verbalizes understanding that [facility] is not responsible for the loss or damage to any personal effects or valuables that are kept in the patients posession during their hospitalization. AMANDA SOTELO verbalizes understanding of Interdisciplinary Patient Education. Patient and/or family were informed about the Rapid Response Team and its purpose.
[2019-09-16] MEDS: NS IV 1000 ML 1,000 ML IV SCH (15:25)
[2019-09-16] MEDS ORDERED: DILT300C52 PO (15:27)
[2019-09-16] MEDS ORDERED: METF-399 PO (15:27)
--- NOTE | 2019-09-16 15:34 | NUR ---
SPOKE WITH THE PATIENTS ABOUT MEDICATIONS. [facility] AND TOLD ME THIS IS ALL HE TAKES. HE DOES NOT TAKE ANYTHING OTC THAT SHE IS AWARE OF BECAUSE IT IS NOT IN THIS BAGGIE SHE HAS HERE. THE EXT MED HX SHOWS HE LAST FILLED ELIQUIS 2.5MG BID 07-22-19 #60- SHE STATES SHE GIVE IT TO HIM EVERYDAY AND HE DOES NOT MISS A DOSE HOWEVER THEY DO NOT GET SAMPLES. I CALLED [facility] TO VERIFY IF THIS LAST FILL DATE IS ACCURATE AND THEY STATE HE DID REFILL IT AGAIN AND PICKED IT UP TODAY HOWEVER HE DID NOT FILL IT IN AUGUST SO IT WAS PAST DUE UNTIL TODAY WHEN THEY PICKED IT UP, I NOTED THE FILL DATES ON THE MED REC.
[2019-09-16 15:50] VITALS: BP 168/90
--- NOTE | 2019-09-16 15:55 | Consultation-Cardiology ---
HPI-Cardiology Cardiology Consultation: Date of Consultation 09/16/19 Time Seen by a Provider: 14:30 Date of Admission Attending Physician Guicho Gutierrez DO Admitting Physician Guicho Gutierrez DO Consulting Physician CHEMO PIMENTEL MD, MA, FACP, FACC, FSCAI, CCDS HPI: Chief Complaint: Reason for consultation: Near-syncope HPI Mr. Antonio is an 89 year old male admitted to 410 from the ED. He reports he w as sitting at the kitchen table this morning and when he got up from the table he began to feel weak and light headed. He states he fell down to the floor, but did not lose consciousness. He reports his called EMS and he was brought here. He denies any c/o CP, palpitations, dyspnea. He denies any n/v/d. He denies any fever or chills. He reports he does not recall any other details of the morning. His is not currently at the bedside. He denies any dizziness when assisted to transfer from the ED cart to the bed. He reports he has been taking his medications and has not missed any doses. Review of Systems-Cardiology Review of Systems Constitutional: No chills, No fever; lightheadedness Eyes: No vision change Ears/Nose/Throat: No epistaxis, No recent hearing loss Respiratory: As described under HPI Cardiovascular: As described under HPI Gastrointestinal: No constipation, No diarrhea, No nausea, No vomiting Genitourinary: No dysuria, No hematuria Musculoskeletal: no symptoms reported Skin: No rash on exposed areas, No ulcerations on exposed areas Psychiatric/Neurological: As described under HPI; No seizure Hematologic: No bleeding abnormalities All Other Systems Reviewed Negative Unless Noted: Yes SRI-Bdqacr-Litvyd Hx Patient Social History Alcohol Use: Denies Use Recreational Drug Use: No Smoking Status: Former Smoker Type Used: Cigarettes 2nd Hand Smoke Exposure: Yes Recent Foreign Travel: No Recent Infectious Disease Expo: No Immunizations Up To Date Tetanus Booster (TDap): Unknown Date of Pneumonia Vaccine: Nov 22, 2010 Date of Influenza Vaccine: Aug 05, 2019 Past Medical History PMH As described under Assessment. Family Medical History Family Medical History: Does not report fam h/o early CAD or SCD Allergies and Home Medications Allergies Coded Allergies: Penicillins (Verified Allergy, Mild, hives, 04/28/19) Home Medications Apixaban 2.5 Mg Tablet, 2.5 MG PO BID, (Reported) FILLED 07-22-19 #60 AND AGAIN 09-16-19 Atorvastatin Calcium 10 Mg Tablet, 10 MG PO HS, (Reported) Diltiazem HCl 300 Mg Cap.er.24h, 300 MG PO DAILY, (Reported) Metformin HCl 1,000 Mg Tablet, 1,000 MG PO BID, (Reported) Patient Home Medication List Home Medication List Reviewed: Yes Physical Exam-Cardiology Physical Exam Vital Signs/I&O 09/16/19 09/16/19 09/16/19 10:16 12:46 14:47 Temp 36.1 35.6 Pulse 86 76 73 85 136 Resp 16 18 B/P (MAP) 131/78 (95) 147/86 (106) 164/87 135/79 (97) 93/60 (71) Pulse Ox 98 100 O2 Delivery Room Air Room Air Capillary Refill : Less Than 3 Seconds Constitutional: AAO x 3 (Slow to respond, does appear to have diminished recent memory), well-developed, well-nourished HEENT: PERRL, hearing is well preserved, oral hygience is good Neck: No carotid bruit; carotid pulses are 2 + bilaterally Respiratory: No accessory muscle use, No respiratory distress; chest expansion is symmetric, chest is bilaterally symmetric, lungs clear to auscultation Cardiovascular: irregularly irregular; No JVD; S1 and S2 Gastrointestinal: soft, round, audible bowel sounds Extremities: no lower extremity edema bilateral Neurologic/Psychiatric: other (Somewhat slow to respond, moves all limbs equally) Skin: No rash on exposed areas, No ulcerations on exposed areas Data Review Labs Laboratory Tests 09/16/19 10:00: White Blood Count 11.0, Red Blood Count 4.24L, Hemoglobin 11.1L, Hematocrit 35L, Mean Corpuscular Volume 83, Mean Corpuscular Hemoglobin 26, Mean Corpuscular Hemoglobin Concent 31L, Red Cell Distribution Width 15.5H, Platelet Count 352, Mean Platelet Volume 9.9, Neutrophils (%) (Auto) 41L, Lymphocytes (%) (Auto) 45H , Monocytes (%) (Auto) 8, Eosinophils (%) (Auto) 6, Basophils (%) (Auto) 1, Neutrophils # (Auto) 4.5, Lymphocytes # (Auto) 4.9H, Monocytes # (Auto) 0.9, Eosinophils # (Auto) 0.6H, Basophils # (Auto) 0.1, Sodium Level 132L, Potassium Level 3.9, Chloride Level 96L, Carbon Dioxide Level 25, Anion Gap 11, Blood Urea Nitrogen 17, Creatinine 1.28, Estimat Glomerular Filtration Rate 53, BUN/Creatinine Ratio 13, Glucose Level 237H, Calcium Level 9.3, Corrected Calcium 9.0, Total Bilirubin 0.6, Aspartate Amino Transf (AST/SGOT) 16, Alanine Aminotransferase (ALT/SGPT) 9, Alkaline Phosphatase 60, Troponin I < 0.028, C- Reactive Protein High Sensitivity 0.06, Total Protein 7.5, Albumin 4.4 09/16/19 10:55: Urine Color YELLOW, Urine Clarity CLEAR, Urine pH 7.5, Urine Specific Forman 1.010L, Urine Protein NEGATIVE, Urine Glucose (UA) NEGATIVE, Urine Ketones NEGATIVE, Urine Nitrite NEGATIVE, Urine Bilirubin NEGATIVE, Urine Urobilinogen 0.2, Urine Leukocyte Esterase NEGATIVE, Urine RBC (Auto) NEGATIVE, Urine RBC NONE, Urine WBC NONE, Urine Squamous Epithelial Cells RARE, Urine Crystals NONE, Urine Bacteria NEGATIVE, Urine Casts NONE, Urine Mucus NEGATIVE, Urine Culture Indicated NO Laboratory Tests 09/16/19 10:00 A/P-Cardiology Assessment/Admission Diagnosis Near-syncopal episode. (H/o syncope for which no cardiac cause has been found, etiology undetermined) Orthostatic hypotension - again seen at time of eval in the ED on 09/16/19 (H/o orthostatic hypotension for which he has undergone w/u in the past. H/o syncopal episode on 09-12-18 - determined to be d/t postural hypotension. 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 Mantilla at [facility]. 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 Kaufman showed - LVEF 55-65%, concentric LVH; grade 2 diastolic dysfunction; RA and LA dilated; Mild MR; Mild AoV stenosis; Mod TR; PASP 55-60 mmHg Hyponatremia of undetermined etiology, managed by the [facility] DM II, managed by the [facility] Discussion and Recomendations * iv fluid * Reduce dilt (because of orthostatic) hypotension even though he does have brief episodes of PAF with RVR, as shown on his ILR * Continue OAC for stroke prophylaxis * Monitor labs CHEMO PIMENTEL MD FACP FACC CCDS Sep 16, 2019 15:55 POS
[2019-09-16 15:59] VITALS: BP 160/82
--- NOTE | 2019-09-16 16:17 | History & Physical ---
History of Present Illness History of Present Illness Reason for visit/HPI CC: Light Headedness, near syncope HPI: 89 yo male presented to the ER this afternoon for dizziness and near syncope at the dinner table this morning causing him to slide off his chair. Patient stated that he did not lose consciousness and did not hit his head. Joseph mortensen did not complain of anything and answered no to lightheadedness, shortness of breath, chest pain, n/v, constipation. Patient fell asleep and the rest of the medical history was received from his . Date of Admission Sep 16, 2019 at 13:31 Date Seen by a Provider: Sep 16, 2019 Time Seen by a Provider: 16:00 I consulted on this patient on 09/16/19 16:12 Attending Physician Guicho Gutierrez DO Admitting Physician Guicho Gutierrez DO Consult Allergies and Home Medications Allergies Coded Allergies: Penicillins (Verified Allergy, Mild, hives, 04/28/19) Home Medications Apixaban 2.5 Mg Tablet, 2.5 MG PO BID, (Reported) FILLED 07-22-19 #60 AND AGAIN 09-16-19 Atorvastatin Calcium 10 Mg Tablet, 10 MG PO HS, (Reported) Diltiazem HCl 300 Mg Cap.er.24h, 300 MG PO DAILY, (Reported) Metformin HCl 1,000 Mg Tablet, 1,000 MG PO BID, (Reported) Patient Home Medication List Home Medication List Reviewed: Yes Past Gxgqfbz-Mwtnst-Aqfxir Hx Patient Social History Alcohol Use: Rarely Uses Recreational Drug Use: No Smoking Status: Former Smoker (6-7 years. no more than a ppd) Former Smoker, Quit: Apr 23, 2001 Type Used: Cigarettes 2nd Hand Smoke Exposure: Yes Recent Foreign Travel: No Contact w/other who traveled: No Recent Hopitalizations: No Recent Infectious Disease Expo: No Immunizations Up To Date Tetanus Booster (TDap): Unknown Pediatric: Yes Date of Pneumonia Vaccine: Nov 22, 2010 Date of Influenza Vaccine: Aug 05, 2019 Seasonal Allergies Seasonal Allergies: No Surgeries Yes (Hernia repair. ) Coronary Stent Respiratory No Cardiovascular Yes (HEART STENTS) Coronary Artery Disease, Hypertension Neurological No Genitourinary No Kidney Stones Gastrointestinal No Musculoskeletal Yes Arthritis Endocrine History of Endocrine Disorders: Yes Endocrine Disorders: Diabetes, Non-Insulin dep HEENT HEENT Disorders: Cataract Hearing Impairment: Hard of Hearing Cancer Yes (LARYNX W/RADIATION ) Did You Recieve Any Treatments: Yes Type of Treatment: Radiation Psychosocial History of Psychiatric Problem: No Integumentary History of Skin or Integumenta: No Blood Transfusions History of Blood Disorders: No Family Medical History Significant Family History: No Pertinent Family Hx Review of Systems Constitutional: No chills, No fever EENTM: no symptoms reported Respiratory: No cough, No short of breath Cardiovascular: No chest pain, No edema Gastrointestinal: No nausea, No vomiting Physical Exam Vital Signs Vital Signs - First Documented 09/16/19 10:16 Temp 36.1 Pulse 86 Resp 16 B/P (MAP) 131/78 (95) Pulse Ox 98 O2 Delivery Room Air Capillary Refill : Less Than 3 Seconds Height, Weight, BMI Height: 5'10.00" Weight: 150lbs. 9.6oz. [id number]; 20.02 BMI Method:Stated General Appearance: No Apparent Distress, WD/WN HEENT: PERRL/EOMI Respiratory: Chest Non Tender, Lungs Clear, Normal Breath Sounds, No Accessory Muscle Use, No Respiratory Distress Cardiovascular: Regular Rate, Rhythm, No Edema, No JVD, No Murmur, Normal Peripheral Pulses (Radial 2/4 bilateral) Neurologic/Psychiatric: Alert, Oriented x3 Skin: Normal Color, Warm/Dry Assessment/Plan Assessment and Plan near syncope afib anemia hyponatremia Diabetic Hyperglycemic IV fluids Monitor Lab values Monitor Heart Rate Admission Diagnosis Near Syncope Afib hyponatremia Hyperglycemia Admission Status: Observation Supervisory-Addendum Brief Verification & Attestation Participated in pt care: other (Medical Student) Personally performed: other (Medical Student) Care discussed with: other (Dr. Gutierrez) Procedures: n/a MSIII giovanni Christian Following Dr. Gutierrez for Family Medicine rotation KEVIN CHRISTIAN MED STUDEN Sep 16, 2019 16:17 POS
[2019-09-16 19:49] VITALS: BP 169/77
[2019-09-16] MEDS: inSUlin ASPART (NovoLOG) 1 UNIT/0.01 ML (CHARGE PER UNIT) SC SCH (20:08)
[2019-09-16] MEDS: APIXABAN 2.5 MG (ELIQUIS) TABLET PO SCH (21:00)
--- NOTE | 2019-09-16 21:44 | NUR ---
PT STATES HE TOOK HIS MORNING DOSE OF ELIQUIS, AND THIS NURSE NOTICED A SECOND DOSE WAS ADMINISTERED IN THE AFTERNOON. DR. ANNE CALLED, AND SAID TO HOLD THE EVENING DOSE, CONTINUE NORMAL MEDICATION SCHEDULE FOR ELIQUIS IN THE MORNING.
[2019-09-17 00:04] VITALS: BP 121/66
[2019-09-17] MEDS: NS IV 1000 ML 1,000 ML IV SCH ×2 (02:55→11:12)
[2019-09-17 03:04] VITALS: BP 167/90
[2019-09-17 05:20] VITALS: BP 139/90
[2019-09-17 06:07] LABS: BASOPHILS % (AUTO) 0 % (0-10); EOSINOPHILS # (AUTO) 0.4 10^3/uL (0.0-0.3); EOSINOPHILS % (AUTO) 5 % (0-10); HEMATOCRIT 33 % (40-54); HEMOGLOBIN 10.5 G/DL (13.3-17.7); LYMPHOCYTES # (AUTO) 2.9 X 10^3 (1.0-4.0); LYMPHOCYTES % (AUTO) 33 % (12-44); MEAN CORPUSCULAR HEMOGLOBIN 27 PG (25-34); MEAN CORPUSCULAR HGB CONC 32 G/DL (32-36); MEAN CORPUSCULAR VOLUME 83 FL (80-99); MONOCYTES # (AUTO) 0.7 X 10^3 (0.0-1.0); MONOCYTES % (AUTO) 8 % (0-12); NEUTROPHILS # (AUTO) 4.9 X 10^3 (1.8-7.8); NEUTROPHILS % (AUTO) 55 % (42-75); PLATELET COUNT 283 10^3/uL (130-400); RED CELL DISTRIBUTION WIDTH 15.2 % (10.0-14.5); WHITE BLOOD COUNT 8.9 10^3/uL (4.3-11.0)
[2019-09-17 06:28] LABS: ALANINE AMINOTRANSFERASE 9 U/L (0-55); ALBUMIN 3.9 GM/DL (3.2-4.5); ALKALINE PHOSPHATASE 47 U/L (40-136); BILIRUBIN,TOTAL 0.5 MG/DL (0.1-1.0); BUN/CREATININE RATIO 16; CALCIUM 8.7 MG/DL (8.5-10.1); CARBON DIOXIDE 25 MMOL/L (21-32); CHLORIDE 100 MMOL/L (98-107); CREATININE SERUM 0.79 MG/DL (0.60-1.30); GFR ESTIMATED > 60; GLUCOSE 128 MG/DL (70-105); POTASSIUM 3.8 MMOL/L (3.6-5.0); SODIUM 137 MMOL/L (135-145); TOTAL PROTEIN 6.7 GM/DL (6.4-8.2)
[2019-09-17] MEDS: inSUlin ASPART (NovoLOG) 1 UNIT/0.01 ML (CHARGE PER UNIT) SC SCH ×2 (06:32→11:15)
--- NOTE | 2019-09-17 07:49 | History & Physical ---
History of Present Illness History of Present Illness Reason for visit/HPI Patient was sitting at the kitchen table. Patient can't weak and slid off a chair. Patient did not hit his head. EMS was called. Patient sent out to the emergency room and evaluated. Patient had orthostatic hypotension. Patient admitted for observation. Patient has history of paroxysmal atrial fibrillation. Patient on Cardizem for this. Patient and known diabetic. Patient is morning is not sure what happened yesterday Date of Admission Sep 16, 2019 at 13:31 Time Seen by a Provider: 07:43 I consulted on this patient on 09/17/19 07:43 Attending Physician Guicho Anne DO Admitting Physician Guicho Anne DO Consult Allergies and Home Medications Allergies Coded Allergies: Penicillins (Verified Allergy, Mild, hives, 09/16/19) Home Medications Apixaban 2.5 Mg Tablet, 2.5 MG PO BID, (Reported) FILLED 07-22-19 #60 AND AGAIN 09-16-19 Atorvastatin Calcium 10 Mg Tablet, 10 MG PO HS, (Reported) Diltiazem HCl 300 Mg Cap.er.24h, 300 MG PO DAILY, (Reported) Metformin HCl 1,000 Mg Tablet, 1,000 MG PO BID, (Reported) Patient Home Medication List Home Medication List Reviewed: Yes Past Hytmqbq-Jqvwix-Wkneae Hx Past Med/Social Hx: Reviewed Nursing Past Med/Soc Hx Patient Social History Marrital Status: Employed/Student: retired Alcohol Use: Rarely Uses Recreational Drug Use: No Smoking Status: Former Smoker (6-7 years. no more than a ppd) Former Smoker, Quit: Apr 23, 2001 Type Used: Cigarettes 2nd Hand Smoke Exposure: Yes Recent Foreign Travel: No Contact w/other who traveled: No Recent Hopitalizations: No Recent Infectious Disease Expo: No Immunizations Up To Date Tetanus Booster (TDap): Unknown Pediatric: Yes Date of Pneumonia Vaccine: Nov 22, 2010 Date of Influenza Vaccine: Aug 05, 2019 Seasonal Allergies Seasonal Allergies: No Past Medical History Surgeries: Coronary Stent Currently Using CPAP: No Currently Using BIPAP: No Cardiac: Atrial Fibrillation, Coronary Artery Disease, Hypertension Genitourinary: Kidney Stones Musculoskeletal: Arthritis Endocrine: Diabetes, Non-Insulin dep HEENT: Cataract Hearing Impairment: Hard of Hearing Did You Recieve Any Treatments: Yes What Type of Treatment Did You: Radiation History of Blood Disorders: No Family History Reviewed Nursing Family Hx No Pertinent Family Hx Review of Systems Constitutional: weakness EENTM: no symptoms reported Respiratory: no symptoms reported Cardiovascular: other (Atrial fibrillation history proximal) Gastrointestinal: no symptoms reported Genitourinary: no symptoms reported Physical Exam Vital Signs Vital Signs - First Documented 09/16/19 10:16 Temp 36.1 Pulse 86 Resp 16 B/P (MAP) 131/78 (95) Pulse Ox 98 O2 Delivery Room Air Capillary Refill : Less Than 3 Seconds Height, Weight, BMI Height: 5'10.00" Weight: 150lbs. 9.6oz. [id number]; 20.02 BMI Method:Stated General Appearance: No Apparent Distress, Thin Eyes: Bilateral Eye Normal Inspection HEENT: Normal ENT Inspection Neck: Normal Inspection Respiratory: Lungs Clear, No Accessory Muscle Use, No Respiratory Distress Cardiovascular: No Murmur, Irregularly Irregular Gastrointestinal: Non Tender, Soft Assessment/Plan Assessment and Plan Orthostatic hypotension. Near-syncope episode. Paroxysmal atrial fibrillation. Diabetes. Hyponatremia. Admission Diagnosis Admission Status: Observation Clinical Quality Measures DVT/VTE Risk/Contraindication: Risk Factor Score Per Nursin RFS Level Per Nursing on Admit: 3=High GUICHO ANNE DO Sep 17, 2019 07:48 POS
[2019-09-17 08:00] VITALS: BP 181/96
[2019-09-17] MEDS: APIXABAN 2.5 MG (ELIQUIS) TABLET PO SCH (08:42)
[2019-09-17] MEDS ORDERED: DILTIAZEM 240 MG (CARDIZEM CD) CAP PO SCH (09:00)
[2019-09-17] MEDS ORDERED: NON-FORMULARY MEDICATION 1 EA EA (Metformin HCl 1,000 MG) PO SCH (09:00)
--- NOTE | 2019-09-17 09:06 | Cardiology Progress Note ---
Subjective Date Seen by Provider: Sep 17, 2019 Time Seen by Provider: 09:01 Subjective/Events-last exam Patient sitting up in bed, denies any further dizziness or lightheadedness. Denies any chest pain. Review of Systems General: No Chills, No Night Sweats, No Fatigue, No Malaise, No Appetite, No Other HEENT: No Head Aches, No Visual Changes, No Eye Pain, No Ear Pain, No Dysphasia, No Sinus Congestion, No Post Nasal Drip, No Sore Throat, No Other Pulmonary: No Dyspnea, No Cough, No Pleuritic Chest Pain, No Other Cardiovascular: No: Chest Pain, Palpitations, Orthopnea, Paroxysmal Noc. Dyspnea, Edema, Lt Headedness, Other Objective-Cardiology Exam Last Set of Vital Signs Vital Signs 09/17/19 08:00 Temp 36.1 Pulse 82 Resp 18 B/P (MAP) 181/96 (124) Pulse Ox 94 O2 Delivery Room Air Capillary Refill : Less Than 3 Seconds I&O Intake and Output 09/17/19 00:00 Intake Total 240 ml Output Total 450 ml Balance -210 ml Intake Oral 240 ml Output Urine Total 450 ml # Bowel Movements 1 Daily Weight Change No No General: Alert, Oriented X3, Cooperative HEENT: Atraumatic, PERRLA Neck: Supple, No JVD, No Thyromegaly Lungs: Clear to Auscultation, Normal Air Movement Heart: Regular Rate, Normal S1, Normal S2, No Murmurs Abdomen: Normal Bowel Sounds, Soft, No Tenderness, No Hepatosplenomegaly, No Masses Extremities: No Clubbing, No Cyanosis, No Edema, Normal Pulses, No Tenderness/Swelling Skin: No Rashes, No Breakdown, No Significant Lesion Neuro: Normal Speech, Cranial Nerves 3-12 NL Psych/Mental Status: Mental Status NL Results Lab Laboratory Tests 09/17/19 05:55 A/P-Cardiology Admission Diagnosis Near syncope Orthostatic hypotension CAD Hyponatremia Assessment/Plan Near-syncopal episode, resolved. H/o syncope for which no cardiac cause has been found, etiology undetermined. s/p LINq implantation done 03/25/19. No arrhythmia detected. Continue to monitor. Echocardiogram of 09-12-[address] Kaufman showed - LVEF 55-65%, concentric LVH; grade 2 diastolic dysfunction; RA and LA dilated; Mild MR; Mild AoV stenosis; Mod TR; PASP 55-60 mmHg Orthostatic hypotension - again seen at time of eval in the ED on 09/16/19 (H/o orthostatic hypotension for which he has undergone w/u in the past. H/o syncopal episode on 09-12-18 - determined to be d/t postural hypotension. 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 Mantilla at [facility]. 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 GERD Hyponatremia of undetermined etiology, managed by the [facility] DM II, managed by the [employer] Patient was seen and evaluated with Irma, examination performed, management plan was discussed, agree with the current scribed note, I made few changes to the note using Italic font Patient is sitting comfortably in bed, no new complaint Lungs were clear to auscultation, heart is regular rate and rhythm I instructed him on using BRYN hose, monitor blood pressure, he has labile blood pressure, difficult to control Continue all current medication, avoid dehydration, follow-up with Dr. Stinson as an outpatient Clinical Quality Measures DVT/VTE Risk/Contraindication: Risk Factor Score Per Nursin RFS Level Per Nursing on Admit: 3=High Contraindications-Pharm: Other *list below* Supervisory-Addendum Brief Supervisory Addendum Participated in pt care: history, MDM, physical Personally performed: exam, history, MDM Care discussed with: IRMA MOORE Sep 17, 2019 9:06 am ALEXANDER WOOTEN MD Sep 17, 2019 1:06 pm JENIFER
[2019-09-17] MEDS ORDERED: DILT240C97 PO (11:37)
[2019-09-17 13:44] VITALS: BP 181/96
[2019-09-17] MEDS ORDERED: metFORMIN 500 MG (GLUCOPHAGE) TAB PO SCH (17:00)
--- NOTE | 2019-09-18 07:53 | Clinic Account Progress/Dx ---
Clinic Account Progress/Dx DIAGNOSIS: Time Seen by Provider: 07:51 Near syncope. Orthostatic hypotension. Anemia. Hypertension. Diabetes. Coronary artery disease. Hyponatremia. Paroxymal atrial fibrillation. History of laryngeal cancer JOSSE ANNE DO Sep 18, 2019 07:53 POS
== END 2019-09-17 11:29 | disposition home or self-care (01) ==
LOC: EDUNIT# 09:57 → ER 09:58 → UNDOADMOB 13:31 → 4TH 13:31 → UNDODISOB 09-17 14:22
PROVIDERS: ADMIT Family Medicine; ATTEND Family Medicine
DX: I95.1 Orthostatic hypotension (principal); I48.0 Paroxysmal atrial fibrillation; E11.9 Type 2 diabetes mellitus without complications; E87.1 Hypo-osmolality and hyponatremia; I25.10 Atherosclerotic heart disease of native coronary artery without angina pectoris; I10 Essential (primary) hypertension; M19.90 Unspecified osteoarthritis, unspecified site; Z88.0 Allergy status to penicillin; Z79.01 Long term (current) use of anticoagulants; Z79.899 Other long term (current) drug therapy; Z95.5 Presence of coronary angioplasty implant and graft
CPT/HCPCS: 36415; 71045; 80053; 81000; 82962; 83036; 84484; 85025; 86141; 93005; 93041; 96360; G0378

== ENCOUNTER 2019-10-13 09:52 | Observation (INO) | payer MEDICARE ==
[~2019-10-13] VITALS: Ht 177.8 cm; Wt 59.3 kg
[~2019-10-13 09:52] MED LIST changes: +DILT240C97 PO; +DILT300C52 PO
--- NOTE | 2019-10-13 10:45 | ED Syncope ---
General Chief Complaint: Dizziness/Syncope Stated Complaint: LETHARGY Nursing Triage Note: Pt to ED via EMS for syncopal episode. present during assessment. reports pt had syncopla episode at the breakfast table. unable to answer how long pt was "out." reports pt has these "episodes." Pt denies pain or any other symptoms. Source of Information: Patient, Family Exam Limitations: No Limitations History of Present Illness Date Seen by Provider: Oct 13, 2019 Time Seen by Provider: 10:42 Initial Comments This 89-year-old white male presents after a syncopal episode that occurred at home this morning at the breakfast table. The patient finished his toes when he slumped over for several minutes. Patient roused and was awake and alert by the time EMS transported him to the emergency department. The patient and his relate that he has had several episodes of fainting like this in the past. Although the patient is diabetic the patient and relate that this is felt to be due to his A. fib. It is unclear if he has an arrhythmia noted slow or fast with these episodes. Allergies and Home Medications Allergies Coded Allergies: Penicillins (Verified Allergy, Mild, hives, 09/16/19) Home Medications Apixaban 2.5 Mg Tablet, 2.5 MG PO BID, (Reported) FILLED 07-22-19 #60 AND AGAIN 09-16-19 Atorvastatin Calcium 10 Mg Tablet, 10 MG PO HS, (Reported) Diltiazem HCl 240 Mg Cap.er.24h, 240 MG PO DAILY Prescribed by: NANY FERNANDEZ on 09/17/19 1137 Metformin HCl 1,000 Mg Tablet, 1,000 MG PO BID, (Reported) Patient Home Medication List Home Medication List Reviewed: Yes Review of Systems Constitutional: No chills, No fever EENTM: No blurred vision Respiratory: No cough Cardiovascular: No chest pain, No palpitations; syncope Gastrointestinal: No abdominal pain, No diarrhea, No nausea, No vomiting Genitourinary: No dysuria, No frequency Musculoskeletal: no symptoms reported Skin: no symptoms reported Psychiatric/Neurological: No Symptoms Reported Past Chskeeq-Ogevjk-Zvyccz Hx Past Med/Social Hx: Reviewed Nursing Past Med/Soc Hx Patient Social History Alcohol Use: Denies Use Recreational Drug Use: No Smoking Status: Former Smoker Type Used: Cigarettes Former Smoker, Quit: Apr 23, 2001 2nd Hand Smoke Exposure: Yes Recent Foreign Travel: No Contact w/Someone Who Travel: No Recent Infectious Disease Expo: No Recent Hopitalizations: No Immunizations Up To Date Tetanus Booster (TDap): Unknown PED Vaccines UTD: Yes Date of Pneumonia Vaccine: Nov 22, 2010 Date of Influenza Vaccine: Aug 05, 2019 Seasonal Allergies Seasonal Allergies: No Past Medical History Surgeries: Yes (Hernia repair. ) Coronary Stent Respiratory: No Currently Using CPAP: No Currently Using BIPAP: No Cardiac: Yes (HEART STENTS) Atrial Fibrillation, Coronary Artery Disease, Hypertension Neurological: No Genitourinary: No Kidney Stones Gastrointestinal: No Musculoskeletal: Yes Arthritis Endocrine: Yes Diabetes, Non-Insulin dep Cataract Hearing Impairment: Hard of Hearing Cancer: Yes (LARYNX W/RADIATION ) Did You Recieve Any Treatments: Yes What Type of Treatment Did You: Radiation Psychosocial: No Integumentary: No Blood Disorders: No Family Medical History No Pertinent Family Hx Physical Exam Vital Signs Vital Signs - First Documented 10/13/19 09:52 Temp 36.3 Pulse 96 Resp 27 B/P (MAP) 131/84 (100) Pulse Ox 96 O2 Delivery Room Air Capillary Refill : Less Than 3 Seconds Height, Weight, BMI Height: 5'10.00" Weight: 150lbs. 9.6oz. 68.610952ah; 21.00 BMI Method:Stated General Appearance: No Apparent Distress, Cachetic HEENT: Normal ENT Inspection Neck: Normal Inspection Cardiovascular: Irregularly Irregular Respiratory: Lungs Clear, Normal Breath Sounds, No Respiratory Distress Gastrointestinal: Normal Bowel Sounds Extremities: Normal Inspection, Normal Range of Motion, Non Tender Neurologic/Psychiatric: Oriented x3, No Motor/Sensory Deficits Cranial Nerves: Normal Hearing, Normal Speech Motor/Sensory: No Motor Deficit, No Sensory Deficit Skin: Normal Color, Warm/Dry Progress/Results/Core Measures Results/Orders Lab Results Laboratory Tests Test 10/13/19 09:52 10/13/19 11:20 Range/Units White Blood Count 10.7 4.3-11.0 10^3/uL Red Blood Count 4.09 L 4.35-5.85 10^6/uL Hemoglobin 10.7 L 13.3-17.7 G/DL Hematocrit 33 L 40-54 % Mean Corpuscular Volume 81 80-99 FL Mean Corpuscular Hemoglobin 26 25-34 PG Mean Corpuscular Hemoglobin Concent 32 32-36 G/DL Red Cell Distribution Width 16.1 H 10.0-14.5 % Platelet Count 373 130-400 10^3/uL Mean Platelet Volume 9.9 7.4-10.4 FL Neutrophils (%) (Auto) 49 42-75 % Lymphocytes (%) (Auto) 38 12-44 % Monocytes (%) (Auto) 9 0-12 % Eosinophils (%) (Auto) 4 0-10 % Basophils (%) (Auto) 1 0-10 % Neutrophils # (Auto) 5.2 1.8-7.8 X 10^3 Lymphocytes # (Auto) 4.1 H 1.0-4.0 X 10^3 Monocytes # (Auto) 0.9 0.0-1.0 X 10^3 Eosinophils # (Auto) 0.4 H 0.0-0.3 10^3/uL Basophils # (Auto) 0.1 0.0-0.1 10^3/uL D-Dimer 0.45 0.00-0.49 UG/ML Sodium Level 133 L 135-145 MMOL/L Potassium Level 3.9 3.6-5.0 MMOL/L Chloride Level 99 98-107 MMOL/L Carbon Dioxide Level 24 21-32 MMOL/L Anion Gap 10 5-14 MMOL/L Blood Urea Nitrogen 16 7-18 MG/DL Creatinine 1.11 0.60-1.30 MG/DL Estimat Glomerular Filtration Rate > 60 BUN/Creatinine Ratio 14 Glucose Level 184 H 70-105 MG/DL Calcium Level 9.2 8.5-10.1 MG/DL Corrected Calcium 8.9 8.5-10.1 MG/DL Total Bilirubin 0.6 0.1-1.0 MG/DL Aspartate Amino Transf (AST/SGOT) 14 5-34 U/L Alanine Aminotransferase (ALT/SGPT) 9 0-55 U/L Alkaline Phosphatase 52 40-136 U/L Troponin I < 0.028 <0.028 NG/ML B-Type Natriuretic Peptide 178.1 H <100.0 PG/ML Total Protein 7.5 6.4-8.2 GM/DL Albumin 4.4 3.2-4.5 GM/DL Urine Color YELLOW Urine Clarity CLEAR Urine pH 8.0 5-9 Urine Specific [place] 1.015 L 1.016-1.022 Urine Protein NEGATIVE NEGATIVE Urine Glucose (UA) NEGATIVE NEGATIVE Urine Ketones TRACE H NEGATIVE Urine Nitrite NEGATIVE NEGATIVE Urine Bilirubin NEGATIVE NEGATIVE Urine Urobilinogen 1.0 < = 1.0 MG/DL Urine Leukocyte Esterase NEGATIVE NEGATIVE Urine RBC (Auto) NEGATIVE NEGATIVE Urine RBC NONE /HPF Urine WBC NONE /HPF Urine Squamous Epithelial Cells RARE /HPF Urine Crystals NONE /LPF Urine Bacteria NEGATIVE /HPF Urine Casts NONE /LPF Urine Mucus NEGATIVE /LPF Urine Culture Indicated NO My Orders Orders - JOE, CRISTAL Marie MD Ekg Tracing (10/13/19 10:22) Continuous Ekg Monitoring (10/13/19 10:22) Troponin I (10/13/19 10:37) Cbc With Automated Diff (10/13/19 10:37) Comprehensive Metabolic Panel (10/13/19 10:37) Chest 1 View, Ap/Pa Only (10/13/19 10:37) Fibrin Degradation Products (10/13/19 10:45) BNP (10/13/19 10:45) Ua Culture If Indicated (10/13/19 10:45) Ns Iv 1000 Ml (Sodium Chloride 0.9%) (10/13/19 11:00) Ct Head Wo (10/13/19 11:46) Vital Signs/I&O 10/13/19 09:52 Temp 36.3 Pulse 96 Resp 27 B/P (MAP) 131/84 (100) Pulse Ox 96 O2 Delivery Room Air Blood Pressure Mean: 100 POS Progress Progress Note : Time: 11:49 Progress Note The patient's EKG demonstrated A. fib A flutter with ventricular rate of 95. The patient's troponin was normal. His BNP was not elevated. Dr. Anne was kind enough to admit patient to monitored bed for further observation. Dr. [place] was consulted and requested a CT of the head which I have ordered. Departure Communication (Admissions) Time/Spoke to Admitting Phy: 11:51 Dr. Anne Time/Spoke to Consulting Phy: 11:52 Dr. Stinson Impression Primary Impression: A-fib Qualified Codes: I48.11 - Longstanding persistent atrial fibrillation Additional Impression: Syncope Qualified Codes: R55 - Syncope and collapse Disposition: ADMITTED INPATIENT Condition: Unchanged Admissions Decision to Admit Reason: Admit from ER (General) Decision to Admit/Date: Oct 13, 2019 Time/Decision to Admit Time: 11:53 Transfer Method of Transfer: Private Vehicle Departure-Patient Inst. Referrals: JOSSE ANNE DO (PCP/Family) Primary Care Physician CRISTAL DIAZ MD Oct 13, 2019 10:45 POS
[2019-10-13 10:47] LABS: BASOPHILS # (AUTO) 0.1 10^3/uL (0.0-0.1); BASOPHILS % (AUTO) 1 % (0-10); EOSINOPHILS # (AUTO) 0.4 10^3/uL (0.0-0.3); EOSINOPHILS % (AUTO) 4 % (0-10); HEMATOCRIT 33 % (40-54); HEMOGLOBIN 10.7 G/DL (13.3-17.7); LYMPHOCYTES # (AUTO) 4.1 X 10^3 (1.0-4.0); LYMPHOCYTES % (AUTO) 38 % (12-44); MEAN CORPUSCULAR HEMOGLOBIN 26 PG (25-34); MEAN CORPUSCULAR HGB CONC 32 G/DL (32-36); MEAN CORPUSCULAR VOLUME 81 FL (80-99); MEAN PLATELET VOLUME 9.9 FL (7.4-10.4); MONOCYTES # (AUTO) 0.9 X 10^3 (0.0-1.0); MONOCYTES % (AUTO) 9 % (0-12); NEUTROPHILS # (AUTO) 5.2 X 10^3 (1.8-7.8); NEUTROPHILS % (AUTO) 49 % (42-75); PLATELET COUNT 373 10^3/uL (130-400); RED CELL DISTRIBUTION WIDTH 16.1 % (10.0-14.5); WHITE BLOOD COUNT 10.7 10^3/uL (4.3-11.0)
[2019-10-13] MEDS ORDERED: NS IV 1000 ML 1,000 ML IV SCH (11:00)
[2019-10-13 11:17] LABS: ALANINE AMINOTRANSFERASE 9 U/L (0-55); ALBUMIN 4.4 GM/DL (3.2-4.5); ALKALINE PHOSPHATASE 52 U/L (40-136); BILIRUBIN,TOTAL 0.6 MG/DL (0.1-1.0); BUN/CREATININE RATIO 14; CALCIUM 9.2 MG/DL (8.5-10.1); CARBON DIOXIDE 24 MMOL/L (21-32); CHLORIDE 99 MMOL/L (98-107); CREATININE SERUM 1.11 MG/DL (0.60-1.30); GFR ESTIMATED > 60; GLUCOSE 184 MG/DL (70-105); POTASSIUM 3.9 MMOL/L (3.6-5.0); SODIUM 133 MMOL/L (135-145); TOTAL PROTEIN 7.5 GM/DL (6.4-8.2)
--- NOTE | 2019-10-13 11:20 | Diagnostic Imaging Report ---
INDICATION: Syncope. Frontal chest obtained at 11:14 a.m. Comparison made to 09/16/2019. FINDINGS: Heart and mediastinal silhouette are normal in appearance. Lungs appear clear. There is no pneumothorax or pleural fluid. There is unchanged elevation of the left hemidiaphragm. A loop recorder is visualized over the chest wall. IMPRESSION: No acute process in the chest and no change from 09/16/2019. Dictated by: Dictated on workstation # [id number]
[2019-10-13 11:30] LABS: BILIRUBIN,URINE NEGATIVE (NEGATIVE); CLARITY,URINE CLEAR; COLOR,URINE YELLOW; GLUCOSE, URINE (UA) NEGATIVE (NEGATIVE); KETONES,URINE TRACE (NEGATIVE); LEUKOCYTE ESTERASE ,URINE NEGATIVE (NEGATIVE); NITRITE,URINE NEGATIVE (NEGATIVE); PROTEIN,URINE NEGATIVE (NEGATIVE)
[2019-10-13 11:40] LABS: BACTERIA,URINE NEGATIVE /HPF; SQUAMOUS EPITHELIAL CELL,UR RARE /HPF
--- NOTE | 2019-10-13 13:08 | Diagnostic Imaging Report ---
PROCEDURE: CT head without contrast. TECHNIQUE: Multiple contiguous axial images were obtained through the brain without the use of intravenous contrast. Auto Exposure Controls were utilized during the CT exam to meet ALARA standards for radiation dose reduction. INDICATION: Syncope. COMPARISON: Comparison made with prior examination 04/19/2019. FINDINGS: There is prominence of the ventricles and sulci. There is no hydrocephalus or cerebral edema. There is no midline shift or mass-effect. There is no intracranial mass, hemorrhage, or extra-axial fluid collection. There is some diffuse decreased attenuation of the periventricular white matter which is nonspecific. The visualized paranasal sinuses and mastoid air cells are clear. There are no regional areas of decreased attenuation appreciated to suggest an acute CVA. IMPRESSION: 1. No acute intracranial process. 2. Age-appropriate atrophy. 3. Decreased attenuation of the periventricular white matter which is nonspecific, however, likely reflects senescent change and/or chronic small vessel ischemic disease. Dictated by: Dictated on workstation # [id number]
--- NOTE | 2019-10-13 13:14 | NUR ---
AMANDA SOTELO admitted to room 407-1, with an admitting diagnosis of [], on 10/13/19 from AM via [], accompanied by [].AMANDA SOTELO introduced to surroundings, call light, bed controls, phone, TV, temperature control, lights, meal times, smoking policy, visitor policy, side rail policy, bathrooms and showers. Patient Rights given to patient in the handbook. AMANDA SOTELO verbalizes understanding that [facility] is not responsible for the loss or damage to any personal effects or valuables that are kept in the patients posession during their hospitalization. The following Patient Care Plans were discussed with the []: Discharge Planning, [],[], and []. AMANDA SOTELO verbalizes understanding of Interdisciplinary Patient Education. Patient and/or family were informed about the Rapid Response Team and its purpose.
[2019-10-13 13:15] VITALS: BP 166/92
[2019-10-13] MEDS ORDERED: ACETAMINOPHEN 325 MG TABLET PO PRN ×2 (13:30)
[2019-10-13] MEDS ORDERED: ONDANSETRON 4 MG (ZOFRAN) ORAL DISSOLVE TAB PO PRN (13:30)
[2019-10-13] MEDS ORDERED: CATHETER FLUSH 10 ML SYR IV PRN (13:45)
[2019-10-13] MEDS: NS IV 1000 ML 1,000 ML IV SCH (13:47)
[2019-10-13] MEDS ORDERED: DILT120C53 PO (13:49)
--- NOTE | 2019-10-13 13:53 | NUR ---
SPOKE WITH THE PATIENT AND HIS ABOUT MEDICATIONS. WE WENT OVER THE EXT MED HX AND THEY VERIFIED HOW HE TAKES THEM TO THE BEST OF THEIR ABILITY. I HAVE SPOKEN WITH THEM BEFORE AND THEY ARE NEVER VERY CERTAIN OF WHAT THEY DO AT HOME. SHE IS GOING TO BRING IN THE BOTTLES TO VERIFY IN THE MORNING BUT IS PRETTY CERTAIN WE HAVE THEM CORRECT OF NOW. HE HAS FILLED THREE DIFFERENT DOSES OF DILTIAZEM IN THE PAST TWO MONTHS, SHE STATES HE IS TAKING THE ONE THAT WAS MOST RECENTLY FILLED BUT AGAIN WILL BRING IT IN TOMORROW MORNING FOR VERIFICATION. 09-27-19 CARTIA XT 120MG #30 DR. PIMENTEL 09-17-19 DILTIAZEM ER 240MG #90 DR. ANNE 09-02-19 DILTIAZEM ER 300MG #90 DR. PIMENTEL HE IS PAST DUE FOR REFILL ON LIPITOR LAST FILLED 10MG #90 06-18-19 - SHE STATES HE STILL TAKES IT DAILY, I NOTED THE PAST DUE FILL DATE ON THE MED REC. Addendum: 10/14/19 at 1030 by NAREN WHALEN [facility] CHECKED BACK AT THIS TIME WITH THE WHO YESTERDAY WANTED TO BRING IN THE BOTTLES TODAY FOR ME TO DOUBLE CHECK HIS MEDICATION STRENGTHS. SHE FORGOT TO BRING THE BOTTLES AND DID NOT SEEM TO REMEMBER THE CONVERSATION. SHE STATES SHE WILL WRITE IT DOWN SO SHE DOESN'T FORGET AND WILL GET THEM AT NOON WHEN SHE GOES TO CHECK THE MAIL. I ASKED HER TO HAVE THE NURSE CALL ME IF SHE REMEMBERS TO BRING IN THE BOTTLES LATER TODAY.
--- NOTE | 2019-10-13 14:38 | Consultation-Cardiology ---
HPI-Cardiology Cardiology Consultation: Date of Consultation 10/13/19 Time Seen by a Provider: 14:40 Date of Admission 10-13-19 Attending Physician Guicho Gutierrez DO Admitting Physician Guicho Gutierrez DO Consulting Physician Orlando Stinson MD HPI: Chief Complaint: Syncope Mr. Antonio is an 89 year old male who has been admitted to 407 from the ED. He states this morning while sitting at the breakfast table he had a passing out spell. His spouse is at the bedside. She states he was at the breakfast table when he slumped over. She states he wasn't completely unconscious. She states he would mumble to her, but nothing sensible. She states he was like that for several minutes and then came to. She states he was appropriately responding and alert. She states she then called EMS. He reports he is always dizzy. No recent falls. He denies any c/o CP, dyspnea, palpitations. No c/o LE swelling . No c/o fever, chills, n/v/d. He is sitting up in bed at this time without c/o. He is very alert and conversation is appropriate. Review of Systems-Cardiology Review of Systems Constitutional: No chills, No fever; tiredness Eyes: No vision change Ears/Nose/Throat: No epistaxis, No recent hearing loss Respiratory: As described under HPI Cardiovascular: As described under HPI Gastrointestinal: No constipation, No diarrhea, No nausea, No vomiting Genitourinary: No dysuria, No hematuria Musculoskeletal: no symptoms reported Skin: No rash on exposed areas, No ulcerations on exposed areas Psychiatric/Neurological: As described under HPI Hematologic: No bleeding abnormalities [id number]-Qlxcoz Hx Patient Social History Alcohol Use: Denies Use Recreational Drug Use: No Smoking Status: Former Smoker Type Used: Cigarettes 2nd Hand Smoke Exposure: Yes Recent Foreign Travel: No Recent Infectious Disease Expo: No Hospitalization with Isolation: Denies Immunizations Up To Date Tetanus Booster (TDap): Unknown Date of Pneumonia Vaccine: Nov 22, 2010 Date of Influenza Vaccine: Aug 05, 2019 Past Medical History PMH As described under Assessment. Family Medical History Family Medical History: Does not report fam h/o early CAD or SCD Allergies and Home Medications Allergies Coded Allergies: Penicillins (Verified Allergy, Mild, hives, 09/16/19) Home Medications Apixaban 2.5 Mg Tablet, 2.5 MG PO BID, (Reported) Atorvastatin Calcium 10 Mg Tablet, 10 MG PO HS, (Reported) LAST FILLED #90 06-18-19 Diltiazem HCl 120 Mg Cap.er.24h, 120 MG PO DAILY, (Reported) Metformin HCl 1,000 Mg Tablet, 1,000 MG PO BID, (Reported) Patient Home Medication List Home Medication List Reviewed: Yes Physical Exam-Cardiology Physical Exam Vital Signs/I&O 10/14/19 10/14/19 10/14/19 10/14/19 00:00 00:44 04:00 07:00 Temp 36.5 36.2 Pulse 73 73 106 103 Resp 18 20 B/P (MAP) 169/92 (117) 168/90 (116) Pulse Ox 98 99 O2 Delivery Room Air Room Air 10/14/19 10/14/19 08:00 08:00 Temp 36.4 Pulse 98 Resp 18 B/P (MAP) 134/93 (107) Pulse Ox 97 97 O2 Delivery Room Air Room Air 10/14/19 00:00 Intake Total 600 ml Balance 600 ml Capillary Refill : Less Than 3 Seconds Constitutional: AAO x 3, well-developed, well-nourished HEENT: hearing is well preserved, oral hygience is good Neck: No carotid bruit; carotid pulses are 2 + bilaterally Respiratory: No accessory muscle use, No respiratory distress; chest expansion is symmetric, chest is bilaterally symmetric, lungs clear to auscultation Cardiovascular: irregularly irregular; No JVD; S1 and S2 Gastrointestinal: No tender; soft, round, audible bowel sounds Extremities: no lower extremity edema bilateral Neurologic/Psychiatric: grossly intact (moves all extremities) Skin: No rash on exposed areas, No ulcerations on exposed areas Data Review Labs Laboratory Tests 10/13/19 16:24: Troponin I < 0.028 10/13/19 21:45: Troponin I < 0.028 10/14/19 05:15: Troponin I 0.030H, White Blood Count 8.2, Red Blood Count 4.06L, Hemoglobin 10.5L, Hematocrit 33L, Mean Corpuscular Volume 82, Mean Corpuscular Hemoglobin 26, Mean Corpuscular Hemoglobin Concent 32, Red Cell Distribution Width 15.7H, Platelet Count 297, Mean Platelet Volume 9.9, Neutrophils (%) (Auto) 58, Lymphocytes (%) (Auto) 28, Monocytes (%) (Auto) 9, Eosinophils (%) (Auto) 5, Basophils (%) (Auto) 0, Neutrophils # (Auto) 4.7, Lymphocytes # (Auto) 2.3, Monocytes # (Auto) 0.8, Eosinophils # (Auto) 0.4H, Basophils # (Auto) 0.0, Sodium Level 134L, Potassium Level 4.0, Chloride Level 101, Carbon Dioxide Level 22, Anion Gap 11, Blood Urea Nitrogen 16, Creatinine 0.78, Estimat Glomerular Filtration Rate > 60, BUN/Creatinine Ratio 21, Glucose Level 160H, Calcium Level 8.7, Corrected Calcium 8.6, Magnesium Level 1.4L, Total Bilirubin 0.5, Aspartate Amino Transf (AST/SGOT) 13, Alanine Aminotransferase (ALT/SGPT) 10, Alkaline Phosphatase 55, Total Protein 7.1, Albumin 4.1, Thyroid Stimulating Hormone (TSH) 2.50 10/14/19 09:40: Troponin I < 0.028, Digoxin Level < 0.30L Radiology NAME: AMANDA ANTONIO [facility] REC#: [id number] PT STATUS: ADM Rhett : 1930 PHYSICIAN: CRISTAL DIAZ MD ADMIT DATE: 10/13/19 Signed Date of Exam:10/13/19 CHEST 1 VIEW, AP/PA ONLY INDICATION: Syncope. Frontal chest obtained at 11:14 a.m. Comparison made to 09/16/2019. FINDINGS: Heart and mediastinal silhouette are normal in appearance. Lungs appear clear. There is no pneumothorax or pleural fluid. There is unchanged elevation of the left hemidiaphragm. A loop recorder is visualized over the chest wall. IMPRESSION: No acute process in the chest and no change from 09/16/2019. Dictated by: Dictated on workstation # [id number] Dict: 10/13/19 1118 Trans: 10/13/19 1324 NAME: DEEPAKAMANDA L [facility] REC#: [id number] PT STATUS: ADM Rhett : 1930 PHYSICIAN: CRISTAL DIAZ MD ADMIT DATE: 10/13/19 Signed Date of Exam:10/13/19 CT HEAD WO PROCEDURE: CT head without contrast. TECHNIQUE: Multiple contiguous axial images were obtained through the brain without the use of intravenous contrast. Auto Exposure Controls were utilized during the CT exam to meet ALARA standards for radiation dose reduction. INDICATION: Syncope. COMPARISON: Comparison made with prior examination 04/19/2019. FINDINGS: There is prominence of the ventricles and sulci. There is no hydrocephalus or cerebral edema. There is no midline shift or mass-effect. There is no intracranial mass, hemorrhage, or extra-axial fluid collection. There is some diffuse decreased attenuation of the periventricular white matter which is nonspecific. The visualized paranasal sinuses and mastoid air cells are clear. There are no regional areas of decreased attenuation appreciated to suggest an acute CVA. IMPRESSION: 1. No acute intracranial process. 2. Age-appropriate atrophy. 3. Decreased attenuation of the periventricular white matter which is nonspecific, however, likely reflects senescent change and/or chronic small vessel ischemic disease. Dictated by: Dictated on workstation # [id number] Dict: 10/13/19 1300 Trans: 10/13/19 1336 [id number] Interpreted by: SULEMAN REYNAGA MD Electronically signed by: SULEMAN REYNAGA MD 10/13/19 1336 A/P-Cardiology Assessment/Admission Diagnosis Syncope, apparently noncardiac, etiology undetermined, possibly episodes of falling asleep (multiple episodes) S/p ILR ([employer] Reveal LINQ) implantation on 03/25/19; multiple, brief episodes of PAF with a rapid ventricular response have been seen on transmissions; no documented pauses or bradycardia Mild bilat carotid arterial dz per carotid u/s of Nov 2018 H/o Zeta 4 x 15 stent on 01-01-[address] Mantilla at [facility]. MPI 04/21/19 shows no evidence of infarction or ischemia H/o orthostatic hypotension for which he reports he had undergone w/u in the past. H/o syncopal episode on 09-12-18 - determined to be d/t postural hypotension. 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 Kaufman showed - LVEF 55-65%, concentric LVH; grade 2 diastolic dysfunction; RA and LA dilated; Mild MR; Mild AoV stenosis; Mod TR; PASP 55-60 mmHg Chronic leg swelling, likely related to venous insuff, currently stable Hyponatremia of undetermined etiology, managed by the [facility] Svce DM II, managed by the [facility] Discussion and Recomendations Complex management issue Multiple admissions for reported syncopal/near syncopal episodes ILR in place and on transmissions there is no documentation of any pauses or bradycardia to explain the episodes ILR does show freqeunt episodes of rapid heart rate, however d/t previous documentation of orthostatic hypotension it has prevented us from augmenting his tx regimen We will start digoxin for rate control, as this will not have an affect on blood pressure We advise continuation of OAC with Eliquis for stroke prophylaxis We will check ortho v/s Continue tele Monitor lab Further recs will be based on his hospital course We would like to thank medical service for this consult DANIA NUNEZ Oct 13, 2019 14:38 POS
[2019-10-13] MEDS ORDERED: DIGOXIN 0.125 MG (LANOXIN) TAB PO NR (14:45)
[2019-10-13 15:49] VITALS: BP 146/63
--- NOTE | 2019-10-13 17:36 | Consultation-Cardiology ---
HPI-Cardiology Cardiology Consultation: Date of Consultation 10/13/19 Time Seen by a Provider: 16:50 Date of Admission Attending Physician Guicho Gutierrez DO Admitting Physician Guicho Gutierrez DO Consulting Physician CHEMO PIMENTEL MD, MA, FACP, FACC, FSCAI, CCDS HPI: Chief Complaint: Reason for consultation: Syncope Mr. Antonio is an 89 year old male who has been admitted to [facility] from the ED. He states this morning while sitting at the breakfast table he had a passing out spell. His spouse is at the bedside. She states he was at the breakfast table when he slumped over. She states he wasn't completely unconscious. She states he would mumble to her, but nothing sensible. She states he was like that for several minutes and then came to. She states he was appropriately responding and alert. She states she then called EMS. He reports he is always dizzy. No recent falls. He denies any c/o CP, dyspnea, palpitations. No c/o LE swelling . No c/o fever, chills, n/v/d. He is sitting up in bed at this time without c/o. He is very alert and conversation is appropriate. Review of Systems-Cardiology Review of Systems Constitutional: No chills, No fever; tiredness Eyes: No vision change Ears/Nose/Throat: No epistaxis, No recent hearing loss Respiratory: As described under HPI Cardiovascular: As described under HPI Gastrointestinal: No constipation, No diarrhea, No nausea, No vomiting Genitourinary: No dysuria, No hematuria Musculoskeletal: no symptoms reported Skin: No rash on exposed areas, No ulcerations on exposed areas Psychiatric/Neurological: As described under HPI Hematologic: No bleeding abnormalities MMU-Clsven-Mexrxv Hx Patient Social History Alcohol Use: Denies Use Recreational Drug Use: No Smoking Status: Former Smoker Type Used: Cigarettes 2nd Hand Smoke Exposure: Yes Recent Foreign Travel: No Recent Infectious Disease Expo: No Hospitalization with Isolation: Denies Immunizations Up To Date Tetanus Booster (TDap): Unknown Date of Pneumonia Vaccine: Nov 22, 2010 Date of Influenza Vaccine: Aug 05, 2019 Past Medical History PMH As described under Assessment. Family Medical History Family Medical History: Does not report fam h/o early CAD or SCD Allergies and Home Medications Allergies Coded Allergies: Penicillins (Verified Allergy, Mild, hives, 09/16/19) Home Medications Apixaban 2.5 Mg Tablet, 2.5 MG PO BID, (Reported) Atorvastatin Calcium 10 Mg Tablet, 10 MG PO HS, (Reported) LAST FILLED #90 06-18-19 Diltiazem HCl 120 Mg Cap.er.24h, 120 MG PO DAILY, (Reported) Metformin HCl 1,000 Mg Tablet, 1,000 MG PO BID, (Reported) Patient Home Medication List Home Medication List Reviewed: Yes Physical Exam-Cardiology Physical Exam Vital Signs/I&O 10/13/19 10/13/19 10/13/19 10/13/19 09:52 13:05 13:15 15:10 Temp 36.3 36.3 36.0 Pulse 96 82 88 101 Resp 27 22 16 B/P (MAP) 131/84 (100) 151/89 (100) 166/92 Pulse Ox 96 96 99 O2 Delivery Room Air Room Air Room Air 10/13/19 15:49 Temp 36.4 Pulse 78 Resp 20 B/P (MAP) 146/63 (90) Pulse Ox 99 O2 Delivery Room Air Capillary Refill : Less Than 3 Seconds Constitutional: AAO x 3, well-developed, well-nourished HEENT: hearing is well preserved, oral hygience is good Neck: No carotid bruit; carotid pulses are 2 + bilaterally Respiratory: No accessory muscle use, No respiratory distress; chest expansion is symmetric, chest is bilaterally symmetric, lungs clear to auscultation Cardiovascular: irregularly irregular; No JVD; S1 and S2 Gastrointestinal: No tender; soft, round, audible bowel sounds Extremities: no lower extremity edema bilateral Neurologic/Psychiatric: grossly intact (moves all extremities) Skin: No rash on exposed areas, No ulcerations on exposed areas Data Review Labs Laboratory Tests 10/13/19 09:52: White Blood Count 10.7, Red Blood Count 4.09L, Hemoglobin 10.7L, Hematocrit 33L, Mean Corpuscular Volume 81, Mean Corpuscular Hemoglobin 26, Mean Corpuscular Hemoglobin Concent 32, Red Cell Distribution Width 16.1H, Platelet Count 373, Mean Platelet Volume 9.9, Neutrophils (%) (Auto) 49, Lymphocytes (%) (Auto) 38, Monocytes (%) (Auto) 9, Eosinophils (%) (Auto) 4, Basophils (%) (Auto) 1, Neutrophils # (Auto) 5.2, Lymphocytes # (Auto) 4.1H, Monocytes # (Auto) 0.9, Eosinophils # (Auto) 0.4H, Basophils # (Auto) 0.1, D-Dimer 0.45, Sodium Level 133L, Potassium Level 3.9, Chloride Level 99, Carbon Dioxide Level 24, Anion Gap 10, Blood Urea Nitrogen 16, Creatinine 1.11, Estimat Glomerular Filtration Rate > 60, BUN/Creatinine Ratio 14, Glucose Level 184H, Calcium Level 9.2, Corrected Calcium 8.9, Total Bilirubin 0.6, Aspartate Amino Transf (AST/SGOT) 14, Alanine Aminotransferase (ALT/SGPT) 9, Alkaline Phosphatase 52, Troponin I < 0.028, B- Type Natriuretic Peptide 178.1H, Total Protein 7.5, Albumin 4.4 10/13/19 11:20: Urine Color YELLOW, Urine Clarity CLEAR, Urine pH 8.0, Urine Specific [place] 1.015L, Urine Protein NEGATIVE, Urine Glucose (UA) NEGATIVE, Urine Ketones TRACEH, Urine Nitrite NEGATIVE, Urine Bilirubin NEGATIVE, Urine Urobilinogen 1.0, Urine Leukocyte Esterase NEGATIVE, Urine RBC (Auto) NEGATIVE, Urine RBC NONE, Urine WBC NONE, Urine Squamous Epithelial Cells RARE, Urine Crystals NONE, Urine Bacteria NEGATIVE, Urine Casts NONE, Urine Mucus NEGATIVE, Urine Culture Indicated NO 10/13/19 16:24: Troponin I < 0.028 A/P-Cardiology Assessment/Admission Diagnosis Syncope, apparently noncardiac, etiology undetermined, possibly episodes of falling asleep (multiple episodes, each at the dinner table) S/p ILR ([employer] Reveal LINQ) implantation on 03/25/19; multiple, brief episodes of PAF with a rapid ventricular response have been seen on transmissions; no documented pauses or bradycardia Mild bilat carotid arterial dz per carotid u/s of Nov 2018 H/o Zeta 4 x 15 stent on 01-01-[address] Mantilla at [facility]. MPI 04/21/19 shows no evidence of infarction or ischemia H/o orthostatic hypotension for which he reports he had undergone w/u in the past. H/o syncopal episode on 09-12-18 - determined to be d/t postural hypotension. 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 Kaufman showed - LVEF 55-65%, concentric LVH; grade 2 diastolic dysfunction; RA and LA dilated; Mild MR; Mild AoV stenosis; Mod TR; PASP 55-60 mmHg Chronic leg swelling, likely related to venous insuff, currently stable Hyponatremia of undetermined etiology, managed by the [facility] DM II, managed by the [facility] Discussion and Recomendations Complex management issue Multiple admissions for reported syncopal/near syncopal episodes ILR in place and on transmissions there is no documentation of any pauses or bradycardia to explain the episodes ILR does show freqeunt episodes of rapid heart rate, however d/t previous documentation of orthostatic hypotension it has prevented us from augmenting his tx regimen We will start digoxin for rate control, as this will not have an affect on blood pressure We advise continuation of OAC with Eliquis for stroke prophylaxis We will check ortho v/s Continue tele Monitor lab Further recs will be based on his hospital course We would like to thank medical service for this consult Clinical Quality Measures DVT/VTE Risk/Contraindication: Risk Factor Score Per Nursin RFS Level Per Nursing on Admit: 2=Moderate CHEMO PIMENTEL MD FACP FAC CCDS Oct 13, 2019 17:36 POS
--- NOTE | 2019-10-13 19:19 | History & Physical ---
History of Present Illness History of Present Illness Reason for visit/HPI Patient was at first confused. Patient and stated he was sitting at the breakfast table and got up quickly and fainted for a few minutes. EMS called patient sent out to the emergency room. Patient had A. fib with flutter and on blood thinner for this. Patient has history of orthostatic hypotension. Patient and known diabetic. Patient has history of hyponatremia area Patient has history of laryngeal cancer Date of Admission Oct 13, 2019 at 11:48 Time Seen by a Provider: 19:18 I consulted on this patient on 10/13/19 19:13 Attending Physician Guicho Anne DO Admitting Physician Guicho Anne DO Consult Allergies and Home Medications Allergies Coded Allergies: Penicillins (Verified Allergy, Mild, hives, 09/16/19) Home Medications Apixaban 2.5 Mg Tablet, 2.5 MG PO BID, (Reported) Atorvastatin Calcium 10 Mg Tablet, 10 MG PO HS, (Reported) LAST FILLED #90 06-18-19 Diltiazem HCl 120 Mg Cap.er.24h, 120 MG PO DAILY, (Reported) Metformin HCl 1,000 Mg Tablet, 1,000 MG PO BID, (Reported) Patient Home Medication List Home Medication List Reviewed: Yes Past Yjqntqi-Zjxnuw-Hqcjpy Hx Past Med/Social Hx: Reviewed Nursing Past Med/Soc Hx Patient Social History Marrital Status: Employed/Student: retired Alcohol Use: Denies Use Recreational Drug Use: No Smoking Status: Former Smoker Former Smoker, Quit: Apr 23, 2001 Type Used: Cigarettes 2nd Hand Smoke Exposure: Yes Recent Foreign Travel: No Contact w/other who traveled: No Recent Hopitalizations: No Recent Infectious Disease Expo: No Immunizations Up To Date Tetanus Booster (TDap): Unknown Pediatric: Yes Date of Pneumonia Vaccine: Nov 22, 2010 Date of Influenza Vaccine: Aug 05, 2019 Seasonal Allergies Seasonal Allergies: No Past Medical History Surgeries: Coronary Stent Currently Using CPAP: No Currently Using BIPAP: No Cardiac: Atrial Fibrillation, Coronary Artery Disease, Hypertension Genitourinary: Kidney Stones Musculoskeletal: Arthritis Endocrine: Diabetes, Non-Insulin dep HEENT: Cataract Hearing Impairment: Hard of Hearing Did You Recieve Any Treatments: Yes What Type of Treatment Did You: Radiation History of Blood Disorders: No Family History No Pertinent Family Hx Review of Systems Constitutional: malaise, weakness EENTM: no symptoms reported Respiratory: no symptoms reported Cardiovascular: other (A. fib history) Genitourinary: no symptoms reported Physical Exam Vital Signs Vital Signs - First Documented 10/13/19 09:52 Temp 36.3 Pulse 96 Resp 27 B/P (MAP) 131/84 (100) Pulse Ox 96 O2 Delivery Room Air Capillary Refill : Less Than 3 Seconds Height, Weight, BMI Height: 5'10.00" Weight: 150lbs. 9.6oz. 68.071718ul; 18.75 BMI Method:Stated General Appearance: No Apparent Distress, Thin, Other (Confused when first spoke to) Eyes: Bilateral Eye Normal Inspection HEENT: Normal ENT Inspection Neck: Full Range of Motion, Normal Inspection Respiratory: No Accessory Muscle Use, No Respiratory Distress, Decreased Breath Sounds Cardiovascular: Irregularly Irregular Gastrointestinal: Non Tender, Soft Assessment/Plan Assessment and Plan Syncope. Atrial fibrillation. Confusion. Diabetes. History of hyponatremia. History of laryngeal cancer Admission Diagnosis Admission Status: Observation Clinical Quality Measures DVT/VTE Risk/Contraindication: Risk Factor Score Per Nursin RFS Level Per Nursing on Admit: 2=Moderate Contraindications-Pharm: Other *list below* GUICHO ANNE DO Oct 13, 2019 19:19 POS
[2019-10-13 19:47] VITALS: BP 155/75
[2019-10-13] MEDS: APIXABAN 2.5 MG (ELIQUIS) TABLET PO SCH (20:06)
[2019-10-14] VITALS: BP 169/92
[2019-10-14 04:00] VITALS: BP 168/90
[2019-10-14 06:20] LABS: BASOPHILS % (AUTO) 0 % (0-10); EOSINOPHILS # (AUTO) 0.4 10^3/uL (0.0-0.3); EOSINOPHILS % (AUTO) 5 % (0-10); HEMATOCRIT 33 % (40-54); HEMOGLOBIN 10.5 G/DL (13.3-17.7); LYMPHOCYTES # (AUTO) 2.3 X 10^3 (1.0-4.0); LYMPHOCYTES % (AUTO) 28 % (12-44); MEAN CORPUSCULAR HEMOGLOBIN 26 PG (25-34); MEAN CORPUSCULAR HGB CONC 32 G/DL (32-36); MEAN CORPUSCULAR VOLUME 82 FL (80-99); MEAN PLATELET VOLUME 9.9 FL (7.4-10.4); MONOCYTES # (AUTO) 0.8 X 10^3 (0.0-1.0); MONOCYTES % (AUTO) 9 % (0-12); NEUTROPHILS # (AUTO) 4.7 X 10^3 (1.8-7.8); NEUTROPHILS % (AUTO) 58 % (42-75); PLATELET COUNT 297 10^3/uL (130-400); RED CELL DISTRIBUTION WIDTH 15.7 % (10.0-14.5); WHITE BLOOD COUNT 8.2 10^3/uL (4.3-11.0)
[2019-10-14 06:44] LABS: ALANINE AMINOTRANSFERASE 10 U/L (0-55); ALBUMIN 4.1 GM/DL (3.2-4.5); ALKALINE PHOSPHATASE 55 U/L (40-136); BILIRUBIN,TOTAL 0.5 MG/DL (0.1-1.0); BUN/CREATININE RATIO 21; CALCIUM 8.7 MG/DL (8.5-10.1); CARBON DIOXIDE 22 MMOL/L (21-32); CHLORIDE 101 MMOL/L (98-107); CREATININE SERUM 0.78 MG/DL (0.60-1.30); GFR ESTIMATED > 60; GLUCOSE 160 MG/DL (70-105); MAGNESIUM 1.4 MG/DL (1.6-2.4); SODIUM 134 MMOL/L (135-145); TOTAL PROTEIN 7.1 GM/DL (6.4-8.2)
[2019-10-14 08:00] VITALS: BP 134/93
[2019-10-14] MEDS: APIXABAN 2.5 MG (ELIQUIS) TABLET PO SCH (08:05)
[2019-10-14] MEDS: MAGNESIUM 1 GM/100 ML IVPB 100 ML IV SCH ×2 (08:06→09:39)
[2019-10-14] MEDS: NS IV 1000 ML 1,000 ML IV SCH (08:06)
--- NOTE | 2019-10-14 08:06 | Progress Note ---
Subjective Time Seen by a Provider: 08:03 Subjective/Events-last exam Patient has a little confusion this morning. When patient goes to the bathroom apical rate [place] 250 with a flutter. Patient hypertensive. Patient troponin minimally elevated Objective Exam Vital Signs Date Time Temp Pulse Resp B/P (MAP) Pulse Ox O2 Delivery O2 Flow Rate FiO2 10/14/19 07:00 103 10/14/19 04:00 36.2 106 20 168/90 (116) 99 Room Air 10/14/19 00:44 73 10/14/19 00:00 36.5 73 18 169/92 (117) 98 Room Air 10/13/19 20:00 Room Air 10/13/19 19:47 36.6 102 20 155/75 (101) 94 Room Air 10/13/19 18:50 97 10/13/19 15:49 36.4 78 20 146/63 (90) 99 Room Air 10/13/19 15:10 101 10/13/19 13:15 36.0 88 16 166/92 99 Room Air 10/13/19 13:05 36.3 82 22 151/89 (100) 96 Room Air 10/13/19 09:52 36.3 96 27 131/84 (100) 96 Room Air I & O 10/14/19 07:00 Intake Total 1600 ml Balance 1600 ml Capillary Refill : Less Than 3 Seconds General Appearance: No Apparent Distress, Thin HEENT: Normal ENT Inspection Neck: Full Range of Motion, Normal Inspection Respiratory: Lungs Clear, No Accessory Muscle Use, No Respiratory Distress Cardiovascular: Irregularly Irregular Gastrointestinal: non tender, soft Results Lab Laboratory Tests 10/13/19 09:52 10/14/19 05:15 Laboratory Tests 10/13/19 09:52: White Blood Count 10.7, Red Blood Count 4.09L, Hemoglobin 10.7L, Hematocrit 33L, Mean Corpuscular Volume 81, Mean Corpuscular Hemoglobin 26, Mean Corpuscular Hemoglobin Concent 32, Red Cell Distribution Width 16.1H, Platelet Count 373, Mean Platelet Volume 9.9, Neutrophils (%) (Auto) 49, Lymphocytes (%) (Auto) 38, Monocytes (%) (Auto) 9, Eosinophils (%) (Auto) 4, Basophils (%) (Auto) 1, Neutrophils # (Auto) 5.2, Lymphocytes # (Auto) 4.1H, Monocytes # (Auto) 0.9, Eosinophils # (Auto) 0.4H, Basophils # (Auto) 0.1, D-Dimer 0.45, Sodium Level 133L, Potassium Level 3.9, Chloride Level 99, Carbon Dioxide Level 24, Anion Gap 10, Blood Urea Nitrogen 16, Creatinine 1.11, Estimat Glomerular Filtration Rate > 60, BUN/Creatinine Ratio 14, Glucose Level 184H, Calcium Level 9.2, Corrected Calcium 8.9, Total Bilirubin 0.6, Aspartate Amino Transf (AST/SGOT) 14, Alanine Aminotransferase (ALT/SGPT) 9, Alkaline Phosphatase 52, Troponin I < 0.028, B- Type Natriuretic Peptide 178.1H, Total Protein 7.5, Albumin 4.4 10/13/19 11:20: Urine Color YELLOW, Urine Clarity CLEAR, Urine pH 8.0, Urine Specific [place] 1.015L, Urine Protein NEGATIVE, Urine Glucose (UA) NEGATIVE, Urine Ketones TRACEH, Urine Nitrite NEGATIVE, Urine Bilirubin NEGATIVE, Urine Urobilinogen 1.0, Urine Leukocyte Esterase NEGATIVE, Urine RBC (Auto) NEGATIVE, Urine RBC NONE, Urine WBC NONE, Urine Squamous Epithelial Cells RARE, Urine Crystals NONE, Urine Bacteria NEGATIVE, Urine Casts NONE, Urine Mucus NEGATIVE, Urine Culture Indicated NO 10/13/19 16:24: Troponin I < 0.028 10/13/19 21:45: Troponin I < 0.028 10/14/19 05:15: White Blood Count 8.2, Red Blood Count 4.06L, Hemoglobin 10.5L, Hematocrit 33L, Mean Corpuscular Volume 82, Mean Corpuscular Hemoglobin 26, Mean Corpuscular Hemoglobin Concent 32, Red Cell Distribution Width 15.7H, Platelet Count 297, Mean Platelet Volume 9.9, Neutrophils (%) (Auto) 58, Lymphocytes (%) (Auto) 28, Monocytes (%) (Auto) 9, Eosinophils (%) (Auto) 5, Basophils (%) (Auto) 0, Neutrophils # (Auto) 4.7, Lymphocytes # (Auto) 2.3, Monocytes # (Auto) 0.8, Eosinophils # (Auto) 0.4H, Basophils # (Auto) 0.0, Sodium Level 134L, Potassium Level 4.0, Chloride Level 101, Carbon Dioxide Level 22, Anion Gap 11, Blood Urea Nitrogen 16, Creatinine 0.78, Estimat Glomerular Filtration Rate > 60, BUN/Creatinine Ratio 21, Glucose Level 160H, Calcium Level 8.7, Corrected Calcium 8.6, Magnesium Level 1.4L, Total Bilirubin 0.5, Aspartate Amino Transf (AST/SGOT) 13, Alanine Aminotransferase (ALT/SGPT) 10, Alkaline Phosphatase 55, Troponin I 0.030H, Total Protein 7.1, Albumin 4.1 Assessment/Plan Assessment/Plan Assess & Plan/Chief Complaint Syncope. Atrial flutter. Apical rate 150 with exertion. Dementia. Diabetes Clinical Quality Measures Admission Status Admission Dx Syncope. Atrial fibrillation. Confusion. Diabetes. History of hyponatremia. History of laryngeal cancer DVT/VTE Risk/Contraindication: Risk Factor Score Per Nursin RFS Level Per Nursing on Admit: 2=Moderate Contraindications-Pharm: Other *list below* JOSSE ANNE DO Oct 14, 2019 08:06 POS
[2019-10-14] MEDS ORDERED: NON-FORMULARY MEDICATION 1 EA EA (Diltiazem HCl (Cartia Xt) 120 MG) PO SCH (09:00)
[2019-10-14] MEDS ORDERED: DILTIAZEM 120 MG (CARDIZEM CD) CAP PO SCH (09:00)
[2019-10-14] MEDS ORDERED: DIGOXIN 0.125 MG (LANOXIN) TAB PO SCH (09:00)
--- NOTE | 2019-10-14 11:30 | Progress Note - Cardiology ---
Cardiology SOAP Progress Note Subjective: In bed. Spouse at the bedside. He states he feels good this morning. No c/o CP, palpitations, syncope or near syncope. Dosing off to sleep during conversation. Easily awakened and appropriate. Objective: I&O/Vital Signs 10/14/19 10/14/19 10/14/19 10/14/19 00:44 04:00 07:00 08:00 Temp 36.2 36.4 Pulse 73 106 103 98 Resp 20 18 B/P (MAP) 168/90 (116) 134/93 (107) Pulse Ox 99 97 O2 Delivery Room Air Room Air 10/14/19 10/14/19 08:00 12:11 Pulse 49 119 132 B/P (MAP) 178/97 (124) 133/70 (91) 129/74 (92) Pulse Ox 97 O2 Delivery Room Air 10/14/19 00:00 Intake Total 600 ml Balance 600 ml Weight (Pounds): 150 Weight (Ounces): 9.6 Weight (Calculated Kilograms): 68.562352 Constitutional: AAO x 3, well-developed, well-nourished Respiratory: No accessory muscle use, No respiratory distress; chest expansion is symmetric, chest is bilaterally symmetric, lungs clear to auscultation Cardiovascular: irregularly irregular; No JVD; S1 and S2 Gastrointestional: No tender; soft, round, audible bowel sounds Extremities: no lower extremity edema bilateral Neurologic/Psychiatric: grossly intact (moves all extremities) Skin: No rash on exposed areas, No ulcerations on exposed areas Results/Procedures: Labs Laboratory Tests 10/13/19 16:24: Troponin I < 0.028 10/13/19 21:45: Troponin I < 0.028 10/14/19 05:15: Troponin I 0.030H, White Blood Count 8.2, Red Blood Count 4.06L, Hemoglobin 10.5L, Hematocrit 33L, Mean Corpuscular Volume 82, Mean Corpuscular Hemoglobin 26, Mean Corpuscular Hemoglobin Concent 32, Red Cell Distribution Width 15.7H, Platelet Count 297, Mean Platelet Volume 9.9, Neutrophils (%) (Auto) 58, Lymphocytes (%) (Auto) 28, Monocytes (%) (Auto) 9, Eosinophils (%) (Auto) 5, Basophils (%) (Auto) 0, Neutrophils # (Auto) 4.7, Lymphocytes # (Auto) 2.3, Monocytes # (Auto) 0.8, Eosinophils # (Auto) 0.4H, Basophils # (Auto) 0.0, Sodium Level 134L, Potassium Level 4.0, Chloride Level 101, Carbon Dioxide Level 22, Anion Gap 11, Blood Urea Nitrogen 16, Creatinine 0.78, Estimat Glomerular Filtration Rate > 60, BUN/Creatinine Ratio 21, Glucose Level 160H, Calcium Level 8.7, Corrected Calcium 8.6, Magnesium Level 1.4L, Total Bilirubin 0.5, Aspartate Amino Transf (AST/SGOT) 13, Alanine Aminotransferase (ALT/SGPT) 10, Alkaline Phosphatase 55, Total Protein 7.1, Albumin 4.1, Thyroid Stimulating Hormone (TSH) 2.50 10/14/19 09:40: Troponin I < 0.028, Digoxin Level < 0.30L A/P: Assessment: Syncope, apparently noncardiac, etiology undetermined, possibly episodes of falling asleep (multiple episodes, each at the dinner table) S/p ILR ([employer] Reveal LINQ) implantation on 03/25/19; multiple, brief episodes of PAF with a rapid ventricular response have been seen on transmissions; no documented pauses or bradycardia Mild bilat carotid arterial dz per carotid u/s of Nov 2018 H/o Zeta 4 x 15 stent on 01-01-[address] Mantilla at [facility]. MPI 04/21/19 shows no evidence of infarction or ischemia H/o orthostatic hypotension for which he reports he had undergone w/u in the past. H/o syncopal episode on 09-12-18 - determined to be d/t postural hypotension. 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 Kaufman showed - LVEF 55-65%, concentric LVH; grade 2 diastolic dysfunction; RA and LA dilated; Mild MR; Mild AoV stenosis; Mod TR; PASP 55-60 mmHg Chronic leg swelling, likely related to venous insuff, currently stable Hyponatremia of undetermined etiology, managed by the [facility] DM II, managed by the [facility] Plan: Complex management issue ILR does show freqeunt episodes of rapid heart rate, however d/t previous doc umentation of orthostatic hypotension it has prevented us from augmenting his tx regimen Continue digoxin for rate control, as this will not have an affect on blood pressure We advise continuation of OAC with Eliquis for stroke prophylaxis We will check ortho v/s Continue tele Monitor lab Replace electrolytes DANIA NUNEZ Oct 14, 2019 11:30 POS
--- NOTE | 2019-10-14 11:48 | Progress Note - Cardiology ---
Cardiology SOAP Progress Note Subjective: No cp or palp or syncope (since admission) Denies shortness of breath Denies leg swelling Does not have any recollection of the events of yesterday Objective: I&O/Vital Signs 10/14/19 10/14/19 10/14/19 10/14/19 00:00 00:44 04:00 07:00 Temp 36.5 36.2 Pulse 73 73 106 103 Resp 18 20 B/P (MAP) 169/92 (117) 168/90 (116) Pulse Ox 98 99 O2 Delivery Room Air Room Air 10/14/19 10/14/19 08:00 08:00 Temp 36.4 Pulse 98 Resp 18 B/P (MAP) 134/93 (107) Pulse Ox 97 97 O2 Delivery Room Air Room Air 10/14/19 00:00 Intake Total 600 ml Balance 600 ml Weight (Pounds): 150 Weight (Ounces): 9.6 Weight (Calculated Kilograms): 68.919089 Constitutional: AAO x 3, well-developed, well-nourished Respiratory: No accessory muscle use, No respiratory distress; chest expansion is symmetric, chest is bilaterally symmetric, lungs clear to auscultation Cardiovascular: irregularly irregular; No JVD; S1 and S2 Gastrointestional: No tender; soft, round, audible bowel sounds Extremities: no lower extremity edema bilateral Neurologic/Psychiatric: grossly intact (moves all extremities) Skin: No rash on exposed areas, No ulcerations on exposed areas Results/Procedures: Labs Laboratory Tests 10/13/19 16:24: Troponin I < 0.028 10/13/19 21:45: Troponin I < 0.028 10/14/19 05:15: Troponin I 0.030H, White Blood Count 8.2, Red Blood Count 4.06L, Hemoglobin 10.5L, Hematocrit 33L, Mean Corpuscular Volume 82, Mean Corpuscular Hemoglobin 26, Mean Corpuscular Hemoglobin Concent 32, Red Cell Distribution Width 15.7H, Platelet Count 297, Mean Platelet Volume 9.9, Neutrophils (%) (Auto) 58, Lymphocytes (%) (Auto) 28, Monocytes (%) (Auto) 9, Eosinophils (%) (Auto) 5, Basophils (%) (Auto) 0, Neutrophils # (Auto) 4.7, Lymphocytes # (Auto) 2.3, Monocytes # (Auto) 0.8, Eosinophils # (Auto) 0.4H, Basophils # (Auto) 0.0, Sodium Level 134L, Potassium Level 4.0, Chloride Level 101, Carbon Dioxide Level 22, Anion Gap 11, Blood Urea Nitrogen 16, Creatinine 0.78, Estimat Glomerular Filtration Rate > 60, BUN/Creatinine Ratio 21, Glucose Level 160H, Calcium Level 8.7, Corrected Calcium 8.6, Magnesium Level 1.4L, Total Bilirubin 0.5, Aspartate Amino Transf (AST/SGOT) 13, Alanine Aminotransferase (ALT/SGPT) 10, Alkaline Phosphatase 55, Total Protein 7.1, Albumin 4.1, Thyroid Stimulating Hormone (TSH) 2.50 10/14/19 09:40: Troponin I < 0.028, Digoxin Level < 0.30L Laboratory Tests 10/13/19 09:52 10/14/19 05:15 A/P: Assessment: Syncope, no cardiac etiology found. This is suspected to be narcolepsy/somnolence or atypical seizure activity No evidence of acute IL (type 1 or type 2) during this hospitalization. Multiple troponins normal; one was borderline (0.03) that appears to be false positive because reading immediately before and after are normal (<0.028) and there is no clinical evidence of IL S/p ILR ([employer] Reveal LINQ) implantation on 03/25/19; multiple, brief episodes of PAF with a rapid ventricular response have been seen on transmissions; no documented pauses or bradycardia or any wide-complex tachycardia Mild bilat carotid arterial dz per carotid u/s of Nov 2018 H/o Zeta 4 x 15 stent on 01-01-[address] Mantilla at [facility]. MPI 04/21/19 shows no evidence of infarction or ischemia H/o orthostatic hypotension for which he reports he had undergone w/u in the past. H/o syncopal episode on 09-12-18 - determined to be d/t postural hypotension. 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 Kaufman showed - LVEF 55-65%, concentric LVH; grade 2 diastolic dysfunction; RA and LA dilated; Mild MR; Mild AoV stenosis; Mod TR; PASP 55-60 mmHg Chronic leg swelling, likely related to venous insuff, currently stable Hyponatremia of undetermined etiology, managed by the [facility] DM [facility] Plan: * Management is complex. No cardiac causes of syncope after extensive w/u and continuing rhythm monitoring. I had a long detailed discussion with the romie ent and his . I also called Dr Gutierrez and discussed this with him in detail. We recommend consideration of a consultation with a neurologist and with a geriatric specialist * We are continuing to monitor his heart rhythm. So far, we have not seen any rhythm abnormality to account for his syncope. He sometimes exhibits PAF with RVR, but this does not appear to be contributing at all to his syncope. We cannot increase CCB or add beta-rhea because of chronically low bp and previously-documented propensity to postural hypotension. We have added a low dose of dig for rate control and have advised dig level in a week. We have advised continuing close outpt cardiac f/u CHEMO PIMENTEL MD FACP [facility] Oct 14, 2019 11:48 POS
[2019-10-14] MEDS ORDERED: DIGO125T18 PO (11:52)
[2019-10-14 12:00] VITALS: BP 133/70
--- NOTE | 2019-10-14 12:10 | NUR ---
Orthostatic BPs obtained. Laying BP 178/97 P 49, Sitting BP 129/74 P 132, Standing BP 133/70 P 119 Addendum: 10/14/19 at 1214 by RAYSHAWN GARCIA RN Correction Sitting BP 133/70 P 119, Standing BP 129/74 P 132
[2019-10-14 12:11] VITALS: BP_SYST 129; BP_SYST 133; BP_SYST 178; BP_DIAS 70; BP_DIAS 74; BP_DIAS 97
--- NOTE | 2019-10-15 07:26 | Clinic Account Progress/Dx ---
Clinic Account Progress/Dx DIAGNOSIS: Time Seen by Provider: 07:25 P. Orthostatic hypotension. Hypertension. Confusion. Tachycardia. Dementia. Anemia. Diabetes. Atrial flutter. History of lung cancer JOSSE ANNE DO Oct 15, 2019 07:26 POS
== END 2019-10-14 13:55 | disposition home or self-care (01) ==
LOC: EDUNIT# 09:52 → ER 09:54 → 4TH 11:48
PROVIDERS: ADMIT Family Medicine; ATTEND Family Medicine
DX: I48.11 Longstanding persistent atrial fibrillation (principal); I25.10 Atherosclerotic heart disease of native coronary artery without angina pectoris; I77.9 Disorder of arteries and arterioles, unspecified; I95.1 Orthostatic hypotension; I10 Essential (primary) hypertension; M19.90 Unspecified osteoarthritis, unspecified site; E11.36 Type 2 diabetes mellitus with diabetic cataract; H26.9 Unspecified cataract; E87.1 Hypo-osmolality and hyponatremia; K21.9 Gastro-esophageal reflux disease without esophagitis; Z88.0 Allergy status to penicillin; Z79.84 Long term (current) use of oral hypoglycemic drugs; Z79.899 Other long term (current) drug therapy; Z87.891 Personal history of nicotine dependence; Z95.1 Presence of aortocoronary bypass graft; Z85.21 Personal history of malignant neoplasm of larynx
CPT/HCPCS: 36415; 70450; 71045; 80053; 80162; 81000; 83735; 83880; 84443; 84484; 85025; 85379; 93005; G0378

== ENCOUNTER 2019-12-31 09:08 | Inpatient (IN) | payer MEDICARE ==
[~2019-12-31] VITALS: Ht 177.8 cm; Wt 68.3 kg
[2019-12-31] VITALS (11 sets, daily range): BP systolic 97–159; BP diastolic 54–83
[~2019-12-31 09:08] MED LIST changes: +DIGO125T18 PO; +DILT120C53 PO; +DILT240C92 PO; -DILT240C97 PO; -GLIM1TAB PO; +GLIM1TAB4 PO
--- NOTE | 2019-12-31 09:31 | ED Syncope ---
General Chief Complaint: Dizziness/Syncope Stated Complaint: SYNCOPE Nursing Triage Note: ARRIVED VIA EMS FROM HOME. PT WAS SITTING IN HIS CHAIR GETTING READY TO EAT BREAKFAST WHEN HE PASSED OUT. EMS REPORTS THE EPISODE LASTED APPX 10 MINUES AND WOKE UP ALERT. BLOOD SUGAR 262 ACCORDING TO EMS. PT ARRIVED TO ER A/O X3 ET MAKING JOKES. Source of Information: Patient, EMS, Old Records History of Present Illness Date Seen by Provider: Dec 31, 2019 Time Seen by Provider: 09:12 Initial Comments PT ARRIVES VIA EMS FROM HOME EMS REPORT THAT PT'S CALLED, PT HAD A SYNCOPAL EPISODE AFTER SITTING DOWN AND GETTING READY TO EAT BREAKFAST WHEN EMS ARRIVED AT THE SCENE, PT WAS STILL SITTING IN THE CHAIR AND WAS NOT RESPONSIVE, BUT WOKE UP WHEN THEY WERE ON THEIR WAY FROM THE HOUSE TO THE AMBULANCE. EPISODE LASTED APPROXIMATELY 10 MINUTES PT HAS BEEN AWAKE, ALERT AND ORIENTED X 3 SINCE THEN NO INCONTINENCE NO CONFUSION PT HAS NO COMPLAINTS OTHER THAN BEING HUNGRY THIS HAS HAPPENED MULTIPLE TIMES,PER EMS PT HAS HISTORY OF DIABETES--ACCUCHECK BY WHEN HE WOKE UP WAS IN THE 300'S, AND WAS 262 FOR EMS PT ALSO HAS HISTORY OF CHRONIC ATRIAL FIBRILLATION, WITH RATE IN 70'S FOR EMS. HAS LINQ DEVICE IN PLACE-PREVIOUS INTERROGATIONS HAVE SHOWN BRIEF EPISODES OF AFIB/RVR. PT IS ON ELIQUIS AND DIGOXIN PT ALSO HAS HISTORY OF CAD WITH STENT X 1 IN 2003 ALSO HAS HISTORY OF HYPOTENSION, ESPECIALLY ORTHOSTATIC HYPOTENSION, AND BP WAS 105-110 SYSTOLIC FOR EMS O2 SAS 98% ON ROOM AIR PT HAS NO COMPLAINTS OF ANY KIND ON ARRIVAL STATES THIS HAS HAPPENED BEFORE SEVERAL TIMES. ON REVIEW OF OLD RECORDS, ESSENTIALLY EACH TIME THIS HAS OCCURRED, IT WAS SAME SCENARIO--SITTING DOWN TO EAT BREAKFAST. NO CHEST PAIN NO PALPITATIONS NO SHORTNESS OF BREATH NO SWEATS NO SWELLING IN LEGS/ FEET OR PAIN IN CALVES NO HEADACHE NO VISION CHANGES NO ABDOMINAL PAIN OR NAUSEA/VOMITING NO DIZZINESS AT THIS TIME NO FEVER/COUGH OR RECENT ILLNESS PCP: HAS BEEN DR. ANNE PT, IN PROCESSING OF SWITCHING TO DR. CARLSON, BUT HAS NOT SEEN HER YET. Allergies and Home Medications Allergies Coded Allergies: Penicillins (Verified Allergy, Mild, hives, 09/16/19) Home Medications Apixaban 2.5 Mg Tablet, 2.5 MG PO BID, (Reported) Atorvastatin Calcium 10 Mg Tablet, 10 MG PO HS, (Reported) LAST FILLED #90 06-18-19 Digoxin 125 Mcg Tablet, 125 MCG PO DAILY, (Reported) Diltiazem HCl 300 Mg Cap.er.24h, 300 MG PO DAILY, (Reported) Metformin HCl 1,000 Mg Tablet, 1,000 MG PO BID, (Reported) Patient Home Medication List Home Medication List Reviewed: Yes Review of Systems Constitutional: no symptoms reported; No chills, No diaphoresis, No dizziness EENTM: no symptoms reported Respiratory: no symptoms reported Cardiovascular: see HPI; No chest pain, No edema, No palpitations; syncope Gastrointestinal: no symptoms reported Genitourinary: no symptoms reported Musculoskeletal: no symptoms reported Skin: no symptoms reported Psychiatric/Neurological: See HPI (SYNCOPE); Denies Headache, Denies Numbness, Denies Paresthesia, Denies Seizure, Denies Tingling, Denies Tremors, Denies Weakness Past Drznpvs-Igxieb-Iheqhi Hx Past Med/Social Hx: Reviewed and Corrections made Patient Social History Alcohol Use: Denies Use Recreational Drug Use: No Smoking Status: Former Smoker Type Used: Cigarettes Former Smoker, Quit: Apr 23, 2001 2nd Hand Smoke Exposure: Yes Recent Foreign Travel: No Contact w/Someone Who Travel: No Recent Infectious Disease Expo: No Recent Hopitalizations: No Immunizations Up To Date Tetanus Booster (TDap): Unknown PED Vaccines UTD: Yes Date of Pneumonia Vaccine: Nov 22, 2010 Date of Influenza Vaccine: Aug 05, 2019 Seasonal Allergies Seasonal Allergies: No Past Medical History Surgeries: Yes (HERNIA REPAIR; CARDIAC CATHS-STENT X 1 IN 2003;LINQ DEVICE 03/25/19) Abdominal, Coronary Stent Respiratory: No Currently Using CPAP: No Currently Using BIPAP: No Cardiac: Yes (CARDIAC CATH-STENTS X1;SYNCOPE-MULT EPISODES;ORTHOSTATIC HYPOTENSION;LINQ ) Atrial Fibrillation, Chronic Edema/Swelling, Coronary Artery Disease, Hypertension, Syncope Neurological: No Genitourinary: Yes Kidney Stones Gastrointestinal: Yes Gastroesophageal Reflux Musculoskeletal: Yes Arthritis Endocrine: Yes Diabetes, Non-Insulin dep HEENT: Yes (LARYNGEAL CANCER) Cataract Hearing Impairment: Hard of Hearing Cancer: Yes (LARYNX W/RADIATION ) Did You Recieve Any Treatments: Yes What Type of Treatment Did You: Radiation Psychosocial: No Nursing Suicide Risk Notes: PMH/PSH: -LINQ DEVICE IMPLANTED 03/25/19--INTERROGATION HAS SHOWN BRIEF EPISODES OF AFIB WITH RVR. Integumentary: No Blood Disorders: No Family Medical History No Pertinent Family Hx Physical Exam Vital Signs Vital Signs - First Documented 12/31/19 12/31/19 09:18 10:09 Temp 36.6 Pulse 64 Resp 16 B/P (MAP) 110/63 (79) Pulse Ox 97 O2 Delivery Room Air O2 Flow Rate 2.00 FiO2 97 Capillary Refill : Less Than 3 Seconds Height, Weight, BMI Height: 5'10.00" Weight: 150lbs. 9.6oz. 68.515788hn; 22.00 BMI Method:Stated General Appearance: No Apparent Distress, Cachetic (ALL RIBS VISIBLE) Neck: Full Range of Motion, Normal Inspection, Non Tender, Supple Cardiovascular: Regular Rate, Rhythm, No Edema, No JVD, Normal Peripheral Pulses, Systolic Murmur (FAINT) Respiratory: Chest Non Tender, Normal Breath Sounds, No Accessory Muscle Use, No Respiratory Distress Gastrointestinal: Normal Bowel Sounds, No Organomegaly, No Pulsatile Mass, Non Tender, Soft Back: Normal Inspection, No CVA Tenderness Extremities: Normal Capillary Refill, Normal Inspection, Normal Range of Motio n, Non Tender, No Calf Tenderness, No Pedal Edema Neurologic/Psychiatric: Alert, Oriented x3, No Motor/Sensory Deficits, Normal 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, 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 Norm as Tested Cranial Nerves: Normal Hearing, Normal Speech, PERRL Motor/Sensory: No Motor Deficit, No Sensory Deficit, No Pronator Drift Skin: Normal Color, Warm/Dry; No Rash Progress/Results/Core Measures Results/Orders Lab Results Laboratory Tests Test 12/31/19 09:25 12/31/19 09:29 Range/Units White Blood Count 10.8 4.3-11.0 10^3/uL Red Blood Count 3.90 L 4.35-5.85 10^6/uL Hemoglobin 10.4 L 13.3-17.7 G/DL Hematocrit 32 L 40-54 % Mean Corpuscular Volume 83 80-99 FL Mean Corpuscular Hemoglobin 27 25-34 PG Mean Corpuscular Hemoglobin Concent 32 32-36 G/DL Red Cell Distribution Width 16.6 H 10.0-14.5 % Platelet Count 246 130-400 10^3/uL Mean Platelet Volume 9.7 7.4-10.4 FL Neutrophils (%) (Auto) 57 42-75 % Lymphocytes (%) (Auto) 30 12-44 % Monocytes (%) (Auto) 9 0-12 % Eosinophils (%) (Auto) 3 0-10 % Basophils (%) (Auto) 0 0-10 % Neutrophils # (Auto) 6.1 1.8-7.8 X 10^3 Lymphocytes # (Auto) 3.3 1.0-4.0 X 10^3 Monocytes # (Auto) 1.0 0.0-1.0 X 10^3 Eosinophils # (Auto) 0.4 H 0.0-0.3 10^3/uL Basophils # (Auto) 0.0 0.0-0.1 10^3/uL Prothrombin Time 15.2 H 12.2-14.7 SEC INR Comment 1.2 0.8-1.4 Activated Partial Thromboplast Time 21 L 24-35 SEC Sodium Level 131 L 135-145 MMOL/L Potassium Level 3.8 3.6-5.0 MMOL/L Chloride Level 96 L 98-107 MMOL/L Carbon Dioxide Level 24 21-32 MMOL/L Anion Gap 11 5-14 MMOL/L Blood Urea Nitrogen 14 7-18 MG/DL Creatinine 1.01 0.60-1.30 MG/DL Estimat Glomerular Filtration Rate > 60 BUN/Creatinine Ratio 14 Glucose Level 218 H 70-105 MG/DL Calcium Level 8.9 8.5-10.1 MG/DL Corrected Calcium 8.8 8.5-10.1 MG/DL Magnesium Level 1.0 *L 1.6-2.4 MG/DL Total Bilirubin 0.6 0.1-1.0 MG/DL Aspartate Amino Transf (AST/SGOT) 11 5-34 U/L Alanine Aminotransferase (ALT/SGPT) 10 0-55 U/L Alkaline Phosphatase 50 40-136 U/L Total Creatine Kinase 68 30-200 U/L Creatine Kinase MB 1.3 <6.6 NG/ML Myoglobin 83.0 10.0-92.0 NG/ML Troponin I < 0.028 <0.028 NG/ML Total Protein 7.2 6.4-8.2 GM/DL Albumin 4.1 3.2-4.5 GM/DL Free Thyroxine 0.98 0.70-1.48 NG/DL TSH [place] Testing 6.75 H 0.35-4.94 UIU/ML Digoxin Level 0.69 L 0.80-2.00 NG/ML Serum Alcohol < 10 <10 MG/DL Glucometer 226 H 70-110 MG/DL Micro Results Microbiology 12/31/19 Influenza Types A,B Antigen (BALAJI) - Final, Complete My Orders Orders - LUDIVINA CARLSON DO Accucheck Stat ONCE (12/31/19 09:12) Ed Iv/Invasive Line Start (12/31/19 09:12) Ekg Tracing (12/31/19 09:12) O2 (12/31/19 09:12) Monitor-Rhythm Ecg Trace Only (12/31/19 09:12) Ct Head Wo-R/O Stroke (12/31/19 09:12) Chest 1 View, Ap/Pa Only (12/31/19 09:12) Alcohol (12/31/19 09:12) Cbc With Automated Diff (12/31/19 09:12) Comprehensive Metabolic Panel (12/31/19 09:12) Creatine Kinase (12/31/19 09:12) Creatine Kinase Mb (12/31/19 09:12) Drug Screen Stat (Urine) (12/31/19 09:12) Magnesium (12/31/19 09:12) Protime With Inr (12/31/19 09:12) Partial Thromboplastin Time (12/31/19 09:12) Thyroid Analyzer (12/31/19 09:12) Ua Culture If Indicated (12/31/19 09:12) Influenza A And B Antigens (12/31/19 09:12) Myoglobin Serum (12/31/19 09:12) Troponin I (12/31/19 09:12) Ekg Tracing (12/31/19 09:23) Orthostatic Vital Signs (Adult (12/31/19 10:01) Ed Iv/Invasive Line Start (12/31/19 10:08) Ns Iv 1000 Ml (Sodium Chloride 0.9%) (12/31/19 10:08) Digoxin (12/31/19 09:25) Magnesium 1 Gm/100 Ml Ivpb (Magnesium [place] (12/31/19 10:15) Free T4 (Free Thyroxine) (12/31/19 09:25) Medications Given in ED Current Medications Medications Dose Ordered Sig/Vielka Route Start Time Stop Time Status Last Admin Dose Admin Magnesium Sulfate/ Dextrose 100 ml @ 100 mls/hr ONCE ONCE IV 12/31/19 10:15 12/31/19 11:14 DC 12/31/19 10:19 100 MLS/HR Vital Signs/I&O 12/31/19 12/31/19 12/31/19 09:18 10:07 10:09 Temp 36.6 Pulse 64 65 80 91 Resp 16 B/P (MAP) 110/63 (79) 126/67 (86) 118/59 (78) 97/54 (68) Pulse Ox 97 O2 Delivery Room Air Nasal Cannula O2 Flow Rate 2.00 FiO2 97 Blood Pressure Mean: 79 Progress Progress Note : Progress Note ORTHOSTATICS +--GIVEN IV FLUIDS UNEVENTFUL ER STAY PT HAD NO COMPLAINTS FOR ENTIRE STAY Initial ECG Impression Date: Dec 31, 2019 Initial ECG Impression Time: 09:14 Initial ECG Rate: 73 Initial ECG Impression: Atrial Fibrillation Initial ECG Comparisson: Unchanged EKG : EKG Time: 09:17 Rate: 75 Rhythm: A Fib/Flutter ECG Comparisson: Unchanged Diagnostic Imaging Comments CXR--NO ACUTE PROCESS CT HEAD--NO ACUTE PROCESS, CHRONIC/SENESCENT CHANGES PER RADIOLOGIST REPORTS AT 1002 Reviewed: Reviewed by Me Departure Communication (Admissions) 1019--CALLED DR. CARLSON'S OFFICE, MESSAGE LEFT [phone]--CALLED DR. CARLSON'S CELL, MESSAGE LEFT. THEN CALLED OFFICE. 1112--SPOKE WITH DR. CARLSON, ACCEPTS PT FOR ADMIT. WILL CONSULT DR. PIMENTEL Impression Primary Impression: Syncope Additional Impressions: Orthostatic hypotension Chronic atrial fibrillation NIDDM Hypomagnesemia Hyponatremia CAD (coronary artery disease) Disposition: ADMITTED INPATIENT Condition: Stable Admissions Decision to Admit Reason: Admit from ER (General) Decision to Admit/Date: Dec 31, 2019 Time/Decision to Admit Time: 11:15 Departure-Patient Inst. Referrals: JOSSE ANNE DO (PCP/Family) Primary Care Physician LUDIVINA CARLSON DO Dec 31, 2019 09:30
[2019-12-31 09:33] LABS: BASOPHILS % (AUTO) 0 % (0-10); EOSINOPHILS # (AUTO) 0.4 10^3/uL (0.0-0.3); EOSINOPHILS % (AUTO) 3 % (0-10); HEMATOCRIT 32 % (40-54); HEMOGLOBIN 10.4 G/DL (13.3-17.7); LYMPHOCYTES # (AUTO) 3.3 X 10^3 (1.0-4.0); LYMPHOCYTES % (AUTO) 30 % (12-44); MEAN CORPUSCULAR HEMOGLOBIN 27 PG (25-34); MEAN CORPUSCULAR HGB CONC 32 G/DL (32-36); MEAN CORPUSCULAR VOLUME 83 FL (80-99); MEAN PLATELET VOLUME 9.7 FL (7.4-10.4); MONOCYTES % (AUTO) 9 % (0-12); NEUTROPHILS # (AUTO) 6.1 X 10^3 (1.8-7.8); NEUTROPHILS % (AUTO) 57 % (42-75); PLATELET COUNT 246 10^3/uL (130-400); RED CELL DISTRIBUTION WIDTH 16.6 % (10.0-14.5); WHITE BLOOD COUNT 10.8 10^3/uL (4.3-11.0)
--- NOTE | 2019-12-31 09:50 | Diagnostic Imaging Report ---
Indication: Syncope Portable chest 9:40 AM There is a loop recorder projecting over the left lower chest. Heart size and pulmonary vascularity are normal. Lungs are clear. There are no effusions or pneumothoraces. IMPRESSION: Negative chest Dictated by: Dictated on workstation # [id number]
--- NOTE | 2019-12-31 09:58 | Diagnostic Imaging Report ---
PROCEDURE: CT head without, r/o stroke. TECHNIQUE: Multiple contiguous axial images were obtained through the brain without the use of intravenous contrast. Auto Exposure Controls were utilized during the CT exam to meet ALARA standards for radiation dose reduction. INDICATION: Syncope. COMPARISON: 10/13/2019. FINDINGS: The ventricles and sulci are prominent, consistent with cerebral atrophy. There is periventricular hypodensity noted, consistent with senescent change. No sulcal effacement or midline shift is identified. No acute intra-axial or extra-axial hemorrhage is detected. The cisterns are patent. The visualized paranasal sinuses are clear. IMPRESSION: Chronic and senescent changes. No acute intracranial process is detected. Dictated by: Dictated on workstation # [id number]
[2019-12-31 09:59] LABS: ALANINE AMINOTRANSFERASE 10 U/L (0-55); ALBUMIN 4.1 GM/DL (3.2-4.5); ALKALINE PHOSPHATASE 50 U/L (40-136); BILIRUBIN,TOTAL 0.6 MG/DL (0.1-1.0); BUN/CREATININE RATIO 14; CALCIUM 8.9 MG/DL (8.5-10.1); CARBON DIOXIDE 24 MMOL/L (21-32); CHLORIDE 96 MMOL/L (98-107); CREATINE KINASE 68 U/L (30-200); CREATININE SERUM 1.01 MG/DL (0.60-1.30); GFR ESTIMATED > 60; GLUCOSE 218 MG/DL (70-105); POTASSIUM 3.8 MMOL/L (3.6-5.0); SODIUM 131 MMOL/L (135-145); TOTAL PROTEIN 7.2 GM/DL (6.4-8.2)
[2019-12-31] MEDS ORDERED: NS IV 1000 ML 1,000 ML IV SCH (10:08)
[2019-12-31] MEDS ORDERED: MAGNESIUM 1 GM/100 ML IVPB 100 ML IV ONE (10:15)
[2019-12-31 10:21] LABS: INR 1.2 (0.8-1.4); PROTHROMBIN TIME PATIENT 15.2 SEC (12.2-14.7)
[2019-12-31 10:26] LABS: CREATINE KINASE MB 1.3 NG/ML (<6.6); TSH (THYROID ANALYZER) 6.75 UIU/ML (0.35-4.94)
[2019-12-31 11:04] LABS: FREE T4 (FREE THYROXINE) 0.98 NG/DL (0.70-1.48)
--- NOTE | 2019-12-31 11:23 | NUR ---
IN TALKING TO PT AT THIS TIME.
--- NOTE | 2019-12-31 11:46 | NUR ---
ATTEMPT TO CALL REPORT ET CALL WENT TO VOICE MAIL.
--- NOTE | 2019-12-31 11:49 | NUR ---
ATTEMPT TO CALL ET NURSE UNAVAILABLE FOR REPORT AT THIS TIME.
[2019-12-31 12:16] LABS: BILIRUBIN,URINE NEGATIVE (NEGATIVE); CLARITY,URINE CLEAR; COLOR,URINE YELLOW; GLUCOSE, URINE (UA) NEGATIVE (NEGATIVE); KETONES,URINE NEGATIVE (NEGATIVE); LEUKOCYTE ESTERASE ,URINE NEGATIVE (NEGATIVE); NITRITE,URINE NEGATIVE (NEGATIVE); PROTEIN,URINE NEGATIVE (NEGATIVE)
[2019-12-31 12:29] LABS: BACTERIA,URINE NEGATIVE /HPF
[2019-12-31 12:36] LABS: AMPHETAMINE SCREEN, URINE NEGATIVE (NEGATIVE); BARBITURATE SCREEN URINE NEGATIVE (NEGATIVE); BENZODIAZEPINES SCREEN URINE NEGATIVE (NEGATIVE); CANNABINOID SCREEN, URINE NEGATIVE (NEGATIVE); COCAINE SCREEN URINE NEGATIVE (NEGATIVE); METHADONE STAT NEGATIVE (NEGATIVE); METHAMPHETAMINE SCREEN URINE S NEGATIVE (NEGATIVE); OPIATE SCREEN URINE NEGATIVE (NEGATIVE); OXYCODONE STAT NEGATIVE (NEGATIVE); PROPOXYPHENE STAT NEGATIVE (NEGATIVE); TRICYCLIC ANTIDEPRESSANTS SCRE NEGATIVE (NEGATIVE)
[2019-12-31] MEDS: NS IV 1000 ML 1,000 ML IV SCH ×2 (12:51→19:11)
[2019-12-31] MEDS: MAGNESIUM 1 GM/D5W 100 ML IVPB IV SCH ×3 (12:54→14:50)
--- NOTE | 2019-12-31 14:12 | Consultation-Cardiology ---
HPI-Cardiology Cardiology Consultation: Date of Consultation 12/31/19 Time Seen by a Provider: 14:45 Date of Admission 12-31-2019 Attending Physician Jessica Samuel MD Admitting Physician Jessica Samuel MD Consulting Physician Orlando Stinson MD HPI: Chief Complaint: Syncope Mr. Antonio is an 89 year old male admitted to [facility] from the ED via ambulance from home. He is accompanied by his spouse. He is drowsy, but awakens easily and is appropriate. He reports he was sitting at the breakfast table this morning and became nauseated. His spouse states he was semi-conscious and she lowered him from his chair to the floor until EMS arrived. She states she was able to talk to him. She reports she is unsure how long he was in this state, but reports by the time EMS arrived he had come around. He denies any loss of bowel or bladder control. He denies any vomiting or diarrhea. He reports he has had a good appetite and eating well. He denies any LE swelling. He denies any c/o CP, dyspnea or palpitations. His spouse states she is unsure of his medications, since she feels she has some dementia and they are both awaiting appts to establish care with Dr. Samuel from Dr. Gutierrez. She reports she has been giving him his medications every day. Review of Systems-Cardiology Review of Systems Constitutional: No chills, No fever; malaise Eyes: No vision change Ears/Nose/Throat: No epistaxis Respiratory: As described under HPI Cardiovascular: As described under HPI Gastrointestinal: As described under HPI Genitourinary: No dysuria, No hematuria Musculoskeletal: no symptoms reported Skin: No rash on exposed areas, No ulcerations on exposed areas Psychiatric/Neurological: syncope; No anxiety, No depression, No seizure, No focal weakness Hematologic: No bleeding abnormalities EVQ-[id number]-Psxgxy Hx Patient Social History Alcohol Use: Denies Use Recreational Drug Use: No Smoking Status: Former Smoker Type Used: Cigarettes 2nd Hand Smoke Exposure: Yes Recent Foreign Travel: No Recent Infectious Disease Expo: No Immunizations Up To Date Tetanus Booster (TDap): Unknown Date of Pneumonia Vaccine: Nov 22, 2010 Date of Influenza Vaccine: Aug 05, 2019 Past Medical History PMH As described under Assessment. Family Medical History Family Medical History: Does not report fam h/o early CAD or SCD Allergies and Home Medications Allergies Coded Allergies: Penicillins (Verified Allergy, Mild, hives, 09/16/19) Home Medications Apixaban 2.5 Mg Tablet, 2.5 MG PO BID, (Reported) Atorvastatin Calcium 10 Mg Tablet, 10 MG PO HS, (Reported) LAST FILLED #90 06-18-19 Digoxin 125 Mcg Tablet, 125 MCG PO DAILY, (Reported) Diltiazem HCl 300 Mg Cap.er.24h, 300 MG PO DAILY, (Reported) Metformin HCl 1,000 Mg Tablet, 1,000 MG PO BID, (Reported) Physical Exam-Cardiology Physical Exam Vital Signs/I&O 12/31/19 12/31/19 12/31/19 01/01/20 19:50 20:00 21:00 00:00 Temp 36.3 36.3 Pulse 83 88 Resp 16 18 B/P (MAP) 157/82 (107) 155/76 (102) Pulse Ox 94 98 98 97 O2 Delivery Room Air Room Air Room Air Room Air 01/01/20 01/01/20 01/01/20 01/01/20 00:00 01:00 04:00 04:00 Temp 36.2 Pulse 88 86 Resp 18 B/P (MAP) 164/91 (115) Pulse Ox 98 94 98 O2 Delivery Room Air Room Air Room Air 01/01/20 07:00 Pulse 92 01/01/20 00:00 Intake Total 620 ml Output Total 700 ml Balance -80 ml Capillary Refill : Less Than 3 Seconds Constitutional: AAO x 3, other (thin) HEENT: PERRL, hearing is well preserved Neck: No carotid bruit; carotid pulses are 2 + bilaterally Respiratory: No accessory muscle use, No respiratory distress; chest expansion is symmetric, chest is bilaterally symmetric, lungs clear to auscultation Cardiovascular: irregularly irregular; No JVD; S1 and S2 Gastrointestinal: No tender; soft, audible bowel sounds Extremities: no lower extremity edema bilateral Neurologic/Psychiatric: grossly intact (moves all extremities) Skin: No rash on exposed areas, No ulcerations on exposed areas Data Review Labs Laboratory Tests 12/31/19 09:25: White Blood Count 10.8, Red Blood Count 3.90L, Hemoglobin 10.4L, Hematocrit 32L, Mean Corpuscular Volume 83, Mean Corpuscular Hemoglobin 27, Mean Corpuscular Hemoglobin Concent 32, Red Cell Distribution Width 16.6H, Platelet Count 246, Mean Platelet Volume 9.7, Neutrophils (%) (Auto) 57, Lymphocytes (%) (Auto) 30, Monocytes (%) (Auto) 9, Eosinophils (%) (Auto) 3, Basophils (%) (Auto) 0, Neutrophils # (Auto) 6.1, Lymphocytes # (Auto) 3.3, Monocytes # (Auto) 1.0, Eosinophils # (Auto) 0.4H, Basophils # (Auto) 0.0, Prothrombin Time 15.2H, INR Comment 1.2, Activated Partial Thromboplast Time 21L, Sodium Level 131L, Potassium Level 3.8, Chloride Level 96L, Carbon Dioxide Level 24, Anion Gap 11, Blood Urea Nitrogen 14, Creatinine 1.01, Estimat Glomerular Filtration Rate > 60, BUN/Creatinine Ratio 14, Glucose Level 218H, Calcium Level 8.9, Corrected Calcium 8.8, Magnesium Level 1.0*L, Total Bilirubin 0.6, Aspartate Amino Transf (AST/SGOT) 11, Alanine Aminotransferase (ALT/SGPT) 10, Alkaline Phosphatase 50, Total Creatine Kinase 68, Creatine Kinase MB 1.3, Myoglobin 83.0, Troponin I < 0.028, Total Protein 7.2, Albumin 4.1, Free Thyroxine 0.98, TSH Dare Testing 6.75H, Digoxin Level 0.69L, Serum Alcohol < 10 12/31/19 09:29: Glucometer 226H 12/31/19 11:23: Urine Color YELLOW, Urine Clarity CLEAR, Urine pH 7.0, Urine Specific [place] <=1.005, Urine Protein NEGATIVE, Urine Glucose (UA) NEGATIVE, Urine Ketones NEGATIVE, Urine Nitrite NEGATIVE, Urine Bilirubin NEGATIVE, Urine Urobilinogen 0.2, Urine Leukocyte Esterase NEGATIVE, Urine RBC (Auto) NEGATIVE, Urine RBC NONE, Urine WBC NONE, Urine Crystals NONE, Urine Bacteria NEGATIVE, Urine Casts NONE, Urine Mucus NEGATIVE, Urine Culture Indicated NO, Urine Opiates Screen NEGATIVE, Urine Oxycodone Screen NEGATIVE, Urine Methadone Screen NEGATIVE, Urine Propoxyphene Screen NEGATIVE, Urine Barbiturates Screen NEGATIVE, Ur Tricyclic Antidepressants Screen NEGATIVE, Urine Phencyclidine Screen NEGATIVE, Urine Amphetamines Screen NEGATIVE, Urine Methamphetamines Screen NEGATIVE, Urine Benzodiazepines Screen NEGATIVE, Urine Cocaine Screen NEGATIVE, Urine Cannabinoids Screen NEGATIVE 12/31/19 15:25: Troponin I < 0.028 12/31/19 15:34: Glucometer 320H 12/31/19 20:46: Glucometer 174H 01/01/20 03:35: White Blood Count 10.7, Red Blood Count 4.01L, Hemoglobin 10.6L, Hematocrit 34L, Mean Corpuscular Volume 84, Mean Corpuscular Hemoglobin 26, Mean Corpuscular Hemoglobin Concent 32, Red Cell Distribution Width 16.5H, Platelet Count 323, Mean Platelet Volume 9.7, Neutrophils (%) (Auto) 58, Lymphocytes (%) (Auto) 28, Monocytes (%) (Auto) 11, Eosinophils (%) (Auto) 3, Basophils (%) (Auto) 0, Neutrophils # (Auto) 6.2, Lymphocytes # (Auto) 3.0, Monocytes # (Auto) 1.2H, Eosinophils # (Auto) 0.3, Basophils # (Auto) 0.0, Sodium Level 136, Potassium Level 4.2, Chloride Level 101, Carbon Dioxide Level 23, Anion Gap 12, Blood Urea Nitrogen 12, Creatinine 0.93, Estimat Glomerular Filtration Rate > 60, BUN/Creatinine Ratio 13, Glucose Level 179H, Calcium Level 8.5, Corrected Ca lcium 8.2L, Magnesium Level 1.7, Total Bilirubin 0.5, Aspartate Amino Transf (AST/SGOT) 19, Alanine Aminotransferase (ALT/SGPT) 13, Alkaline Phosphatase 53, Total Protein 7.8, Albumin 4.4 Microbiology 12/31/19 Influenza Types A,B Antigen (BALAJI) - Final, Complete Radiology NAME: AMANDA ANTONIO [facility] REC#: [id number] PT STATUS: REG ER : 1930 PHYSICIAN: LUDIVINA CARLSON DO ADMIT DATE: 12/31/19/ER Draft Date of Exam:12/31/19 CT HEAD WO-R/O STROKE PROCEDURE: CT head without, r/o stroke. TECHNIQUE: Multiple contiguous axial images were obtained through the brain without the use of intravenous contrast. Auto Exposure Controls were utilized during the CT exam to meet ALARA standards for radiation dose reduction. INDICATION: Syncope. COMPARISON: 10/13/2019. FINDINGS: The ventricles and sulci are prominent, consistent with cerebral atrophy. There is periventricular hypodensity noted, consistent with senescent change. No sulcal effacement or midline shift is identified. No acute intra-axial or extra-axial hemorrhage is detected. The cisterns are patent. The visualized paranasal sinuses are clear. IMPRESSION: Chronic and senescent changes. No acute intracranial process is detected. Dictated on workstation # [id number] Dict: 12/31/1947 Trans: 12/31/1958 [id number] Interpreted by: RUTHIE SANDRA MD Electronically signed by: NAME: AMANDA ANTONIO [facility] REC#: [id number] PT STATUS: REG ER : 1930 PHYSICIAN: LUDIVINA CARLSON DO ADMIT DATE: 12/31/19/ER Signed Date of Exam:12/31/19 CHEST 1 VIEW, AP/PA ONLY Indication: Syncope Portable chest 9:40 AM There is a loop recorder projecting over the left lower chest. Heart size and pulmonary vascularity are normal. Lungs are clear. There are no effusions or pneumothoraces. 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 Mantilla at [facility]. MPI 04/21/19 shows no evidence of infarction or ischemia H/o orthostatic hypotension for which he reports he had undergone w/u in the past. H/o syncopal episode on 09-12-18 - determined to be d/t postural hypotension. 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 Kaufman showed - LVEF 55-65%, concentric LVH; grade 2 diastolic dysfunction; RA and LA dilated; Mild MR; Mild AoV stenosis; Mod TR; PASP 55-60 mmHg Chronic leg swelling, likely related to venous insuff, currently stable Hyponatremia of undetermined etiology, managed by the [facility] DM II, managed by the [facility] Discussion and Recomendations Complex issue Reported syncopal episode of undetermined etiology - ILR interrogations have thus far shown no evidence of bradyarrhythmia or pauses thus far Possible orthostatic hypotension, which has been documented in the past Hypomag and hyponatremia of undetermined etiology - replace electrolytes Monitor lab Hypothyroidism indicated by TSH on lab of 12-31-2019 - medical services managing Further recs will be based on his hospital course We would like to thank Dr. Samuel for this consult DANIA NUNEZ Dec 31, 2019 14:12
[2019-12-31] MEDS ORDERED: DILT300C52 PO (15:10)
[2019-12-31] MEDS ORDERED: DIGO125T3 PO (15:10)
--- NOTE | 2019-12-31 15:10 | NUR ---
SPOKE WITH THE PATIENT'S , WENT THRU THE EXT MED HISTORY, CALLED [facility] AND DR. BAHENA OFFICE TO COMPLETE THE MED REC. I SPOKE WITH DR. BAHENA NURSE GOPAL Mora AND VERIFIED WHICH DOSE OF CARTIA (DILTIAZEM) THE PT SHOULD BE ON (FROM THE EXT MED HISTORY IS LOOKS LIKE 120MG, 240MG AND 300MG HAVE ALL BEEN PICKED UP OVER THE LAST COUPLE MONTHS AND THE DIDNT KNOW WHICH WAS CORRECT). THE OFFICE VERIFIED THE CORRECT RX IS 300MG ONCE DAILY. ATORVASTATIN 10MG WAS LAST FILLED ON 06-18-2019 #90- WHEN I ASKED PT'S ABOUT THIS SHE SAID SHE DIDNT UNDERSTAND THE PAST DUE FILL DATE AND SAYS HE IS STILL TAKING. THE FILL DATE IS DOCUMENTED ON THE MED REC. METFORMIN 1000MG LAST FILLED 12-27-2019 #60/30DS (MED REC DOES NOT SHOW THIS) OTC MEDS: NONE
[2019-12-31] MEDS: inSUlin ASPART (NovoLOG) 1 UNIT/0.01 ML (CHARGE PER UNIT) SC SCH ×2 (15:47→21:00)
--- NOTE | 2019-12-31 18:34 | Consultation-Cardiology ---
HPI-Cardiology Cardiology Consultation: Date of Consultation 12/31/19 Time Seen by a Provider: 15:50 Date of Admission Attending Physician Jessica Samuel MD Admitting Physician Jessica Samuel MD Consulting Physician CHEMO PIMENTEL MD, MA, FACP, FACC, PSYCHIATRIC HPI: Chief Complaint: CC: Syncope HPI Mr. Antonio is an 89 year old male admitted to [facility] from the ED via ambulance from home. He is accompanied by his spouse. He is drowsy, but awakens easily and is appropriate. He reports he was sitting at the breakfast table this morning and became nauseated. His spouse states he was semi-conscious and she lowered him from his chair to the floor until EMS arrived. She states she was able to talk to him. She reports she is unsure how long he was in this state, but reports by the time EMS arrived he had come around. He denies any loss of bowel or bladder control. He denies any vomiting or diarrhea. He reports he has had a good appetite and eating well. He denies any LE swelling. He denies any c/o CP, dyspnea or palpitations. His spouse states she is unsure of his medications, since she feels she has some dementia and they are both awaiting appts to establish care with Dr. Samuel from Dr. Gutierrez. She reports she has been giving him his medications every day. Review of Systems-Cardiology Review of Systems Constitutional: No chills, No fever; malaise Eyes: No vision change Ears/Nose/Throat: No epistaxis Respiratory: As described under HPI Cardiovascular: As described under HPI Gastrointestinal: As described under HPI Genitourinary: No dysuria, No hematuria Musculoskeletal: no symptoms reported Skin: No rash on exposed areas, No ulcerations on exposed areas Psychiatric/Neurological: syncope; No anxiety, No depression, No seizure, No focal weakness Hematologic: No bleeding abnormalities SWT-Bnkcap-Erkpxa Hx Patient Social History Alcohol Use: Denies Use Recreational Drug Use: No Smoking Status: Former Smoker Type Used: Cigarettes 2nd Hand Smoke Exposure: Yes Recent Foreign Travel: No Recent Infectious Disease Expo: No Immunizations Up To Date Tetanus Booster (TDap): Unknown Date of Pneumonia Vaccine: Nov 22, 2010 Date of Influenza Vaccine: Aug 05, 2019 Past Medical History PMH As described under Assessment. Family Medical History Family Medical History: Does not report fam h/o early CAD or SCD Allergies and Home Medications Allergies Coded Allergies: Penicillins (Verified Allergy, Mild, hives, 09/16/19) Home Medications Apixaban 2.5 Mg Tablet, 2.5 MG PO BID, (Reported) Atorvastatin Calcium 10 Mg Tablet, 10 MG PO HS, (Reported) LAST FILLED #90 06-18-19 Digoxin 125 Mcg Tablet, 125 MCG PO DAILY, (Reported) Diltiazem HCl 300 Mg Cap.er.24h, 300 MG PO DAILY, (Reported) Metformin HCl 1,000 Mg Tablet, 1,000 MG PO BID, (Reported) Patient Home Medication List Home Medication List Reviewed: Yes Physical Exam-Cardiology Physical Exam Vital Signs/I&O 12/31/19 12/31/19 12/31/19 12/31/19 09:18 10:07 10:09 12:15 Temp 36.6 Pulse 64 65 94 80 91 Resp 16 16 B/P (MAP) 110/63 (79) 126/67 (86) 131/76 118/59 (78) 97/54 (68) Pulse Ox 97 97 O2 Delivery Room Air Nasal Cannula Nasal Cannula O2 Flow Rate 2.00 2.00 FiO2 97 12/31/19 12/31/19 12/31/19 12/31/19 12:25 12:25 12:30 12:48 Temp 36.6 Pulse 86 94 70 Resp 16 B/P (MAP) 159/79 (105) 131/76 Pulse Ox 97 O2 Delivery Nasal Cannula Nasal Cannula O2 Flow Rate 2.00 2.00 2.00 12/31/19 12/31/19 12/31/19 12/31/19 12:55 13:10 13:40 13:55 Pulse 75 75 75 69 B/P (MAP) 144/79 (100) 143/73 (96) 134/83 (100) 151/74 (99) 12/31/19 12/31/19 12/31/19 12/31/19 14:10 14:55 15:25 15:40 Temp 36.2 Pulse 69 67 55 73 Resp 14 B/P (MAP) 150/72 (98) 113/68 (83) 133/61 (85) 155/78 (103) Pulse Ox 99 O2 Delivery Nasal Cannula O2 Flow Rate 1.50 12/31/19 12/31/19 16:00 16:20 Pulse Ox 99 O2 Delivery Nasal Cannula Nasal Cannula O2 Flow Rate 1.50 1.50 FiO2 97 Capillary Refill : Less Than 3 Seconds Constitutional: AAO x 3, other (thin) HEENT: PERRL, hearing is well preserved Neck: No carotid bruit; carotid pulses are 2 + bilaterally Respiratory: No accessory muscle use, No respiratory distress; chest expansion is symmetric, chest is bilaterally symmetric, lungs clear to auscultation Cardiovascular: irregularly irregular; No JVD; S1 and S2 Gastrointestinal: No tender; soft, audible bowel sounds Extremities: no lower extremity edema bilateral Neurologic/Psychiatric: grossly intact (moves all extremities) Skin: No rash on exposed areas, No ulcerations on exposed areas Data Review Labs Laboratory Tests 12/31/19 09:25: White Blood Count 10.8, Red Blood Count 3.90L, Hemoglobin 10.4L, Hematocrit 32L, Mean Corpuscular Volume 83, Mean Corpuscular Hemoglobin 27, Mean Corpuscular Hemoglobin Concent 32, Red Cell Distribution Width 16.6H, Platelet Count 246, Mean Platelet Volume 9.7, Neutrophils (%) (Auto) 57, Lymphocytes (%) (Auto) 30, Monocytes (%) (Auto) 9, Eosinophils (%) (Auto) 3, Basophils (%) (Auto) 0, Neutrophils # (Auto) 6.1, Lymphocytes # (Auto) 3.3, Monocytes # (Auto) 1.0, Eosinophils # (Auto) 0.4H, Basophils # (Auto) 0.0, Prothrombin Time 15.2H, INR Comment 1.2, Activated Partial Thromboplast Time 21L, Sodium Level 131L, Potassium Level 3.8, Chloride Level 96L, Carbon Dioxide Level 24, Anion Gap 11, Blood Urea Nitrogen 14, Creatinine 1.01, Estimat Glomerular Filtration Rate > 60, BUN/Creatinine Ratio 14, Glucose Level 218H, Calcium Level 8.9, Corrected Calcium 8.8, Magnesium Level 1.0*L, Total Bilirubin 0.6, Aspartate Amino Transf (AST/SGOT) 11, Alanine Aminotransferase (ALT/SGPT) 10, Alkaline Phosphatase 50, Total Creatine Kinase 68, Creatine Kinase MB 1.3, Myoglobin 83.0, Troponin I < 0.028, Total Protein 7.2, Albumin 4.1, Free Thyroxine 0.98, TSH Cord Testing 6.75H, Digoxin Level 0.69L, Serum Alcohol < 10 12/31/19 09:29: Glucometer 226H 12/31/19 11:23: Urine Color YELLOW, Urine Clarity CLEAR, Urine pH 7.0, Urine Specific [place] <=1.005, Urine Protein NEGATIVE, Urine Glucose (UA) NEGATIVE, Urine Ketones NEGATIVE, Urine Nitrite NEGATIVE, Urine Bilirubin NEGATIVE, Urine Urobilinogen 0.2, Urine Leukocyte Esterase NEGATIVE, Urine RBC (Auto) NEGATIVE, Urine RBC NONE, Urine WBC NONE, Urine Crystals NONE, Urine Bacteria NEGATIVE, Urine Casts NONE, Urine Mucus NEGATIVE, Urine Culture Indicated NO, Urine Opiates Screen NEGATIVE, Urine Oxycodone Screen NEGATIVE, Urine Methadone Screen NEGATIVE, Urine Propoxyphene Screen NEGATIVE, Urine Barbiturates Screen NEGATIVE, Ur Tricyclic Antidepressants Screen NEGATIVE, Urine Phencyclidine Screen NEGATIVE, Urine Amphetamines Screen NEGATIVE, Urine Methamphetamines Screen NEGATIVE, Urine Benzodiazepines Screen NEGATIVE, Urine Cocaine Screen NEGATIVE, Urine Cannabinoids Screen NEGATIVE 12/31/19 15:25: Troponin I < 0.028 12/31/19 15:34: Glucometer 320H Microbiology 12/31/19 Influenza Types A,B Antigen (BALAJI) - Final, Complete A/P-Cardiology Assessment/Admission Diagnosis Syncope, for which no cardiac cause has been found, etiology undetermined, possibly episodes of falling asleep 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 Mantilla at [facility]. MPI 04/21/19 shows no evidence of infarction or ischemia H/o orthostatic hypotension for which he reports he had undergone w/u in the past. H/o syncopal episode on 09-12-18 - determined to be d/t postural hypotension. 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 Kaufman showed - LVEF 55-65%, concentric LVH; grade 2 diastolic dysfunction; RA and LA dilated; Mild MR; Mild AoV stenosis; Mod TR; PASP 55-60 mmHg Chronic leg swelling, likely related to venous insuff, currently stable Hyponatremia of undetermined etiology, managed by the [facility] DM II, managed by the [facility] Discussion and Recomendations Complex issue Reported syncopal episode of undetermined etiology - ILR interrogations have thus far shown no evidence of bradyarrhythmia or pauses thus far Possible orthostatic hypotension, which has been documented in the past Hypomag and hyponatremia of undetermined etiology - replace electrolytes Monitor lab Hypothyroidism indicated by TSH on lab of 12-31-2019 - Medical services managing Further recs will be based on his hospital course We would like to thank Dr. Samuel for this consult CHEMO PIMENTEL MD FACP FACC CCDS Dec 31, 2019 18:34
--- NOTE | 2019-12-31 20:12 | History & Physicial ---
History of Present Illness History of Present Illness Reason for visit/HPI PT IS AN 89 Y/O MALE WHO IS A NEW PATIENT TO ME OF THIS HOSPITALIZATION. HIS HAS FILLED OUT PAPERWORK FOR HIM TO ESTABLISH WITH THE CLINIC, BUT HE HAS YET TO BE SEEN IN THE OFFICE. PER THE EMERGENCY DEPARTMENT REPORT AND PATIENT REPORT, HE WAS SITTING AT THE TABLE EATING WHEN HE BECAME UNRESPONSIVE AND HIS LOWERED HIM TO THE FLOOR AND CALLED EMS. BY THE TIME THAT THE EMS CREW ARRIVED, HE WAS RESPONSIVE. TO MY KNOWLEDGE AND PT REPORT, HE HAS NOT HAD AN EEG. Date of Admission Dec 31, 2019 at 11:15 Date Seen by a Provider: Dec 31, 2019 Time Seen by a Provider: 20:00 I consulted on this patient on 12/31/19 20:09 Attending Physician Elisa Samuel MD Admitting Physician Elisa Samuel MD Consult Allergies and Home Medications Allergies Coded Allergies: Penicillins (Verified Allergy, Mild, hives, 09/16/19) Home Medications Apixaban 2.5 Mg Tablet, 2.5 MG PO BID, (Reported) Atorvastatin Calcium 10 Mg Tablet, 10 MG PO HS, (Reported) LAST FILLED #90 06-18-19 Digoxin 125 Mcg Tablet, 125 MCG PO DAILY, (Reported) Diltiazem HCl 300 Mg Cap.er.24h, 300 MG PO DAILY, (Reported) Metformin HCl 1,000 Mg Tablet, 1,000 MG PO BID, (Reported) Patient Home Medication List Home Medication List Reviewed: Yes Past Yoqwcya-Ekccqf-Lmsheq Hx Patient Social History Marrital Status: Living Status: LIVES AT HOME WITH SPOUSE Alcohol Use: Denies Use Recreational Drug Use: No Smoking Status: Former Smoker Former Smoker, Quit: Apr 23, 2001 Type Used: Cigarettes 2nd Hand Smoke Exposure: Yes Recent Foreign Travel: No Contact w/other who traveled: No Recent Hopitalizations: No Recent Infectious Disease Expo: No Immunizations Up To Date Tetanus Booster (TDap): Unknown Pediatric: Yes Date of Pneumonia Vaccine: Nov 22, 2010 Date of Influenza Vaccine: Aug 05, 2019 Seasonal Allergies Seasonal Allergies: No Surgeries Yes (HERNIA REPAIR; CARDIAC CATHS-STENT X 1 IN 2003;LINQ DEVICE 03/25/19) Abdominal, Coronary Stent Respiratory No Currently Using CPAP: No Currently Using BIPAP: No Cardiovascular Yes (CARDIAC CATH-STENTS X1;SYNCOPE-MULT EPISODES;ORTHOSTATIC HYPOTENSION;LINQ ) Atrial Fibrillation, Chronic Edema/Swelling, Coronary Artery Disease, Hypertension, Syncope Neurological No Genitourinary Yes Kidney Stones Gastrointestinal Yes Gastroesophageal Reflux Musculoskeletal Yes Arthritis Endocrine History of Endocrine Disorders: Yes Endocrine Disorders: Diabetes, Non-Insulin dep HEENT History of HEENT Disorders: Yes (LARYNGEAL CANCER) HEENT Disorders: Cataract Hearing Impairment: Hard of Hearing Cancer Yes (LARYNX W/RADIATION ) Did You Recieve Any Treatments: Yes Type of Treatment: Radiation Psychosocial History of Psychiatric Problem: No Integumentary History of Skin or Integumenta: No Blood Transfusions History of Blood Disorders: No Reviewed Nursing Assessment Reviewed/Agree w Nursing PMH: Yes Family Medical History Significant Family History: Heart Disease, Hypertension Review of Systems Constitutional: No chills, No fever, No malaise; weakness EENTM: No hoarseness, No throat pain Respiratory: No cough, No dyspnea on exertion, No short of breath Cardiovascular: No chest pain, No palpitations Gastrointestinal: No abdominal pain, No constipation, No diarrhea, No loss of appetite, No nausea, No vomiting Genitourinary: no symptoms reported Musculoskeletal: muscle weakness Skin: no symptoms reported Psychiatric/Neurological: Denies Anxiety, Denies Depressed; Weakness All Other Systems Reviewed Negative Unless Noted: Yes Physical Exam Vital Signs Vital Signs - First Documented 12/31/19 12/31/19 09:18 10:09 Temp 36.6 Pulse 64 Resp 16 B/P (MAP) 110/63 (79) Pulse Ox 97 O2 Delivery Room Air O2 Flow Rate 2.00 FiO2 97 Capillary Refill : Less Than 3 Seconds Height, Weight, BMI Height: 5'10.00" Weight: 150lbs. 9.6oz. [id number]; 22.43 BMI Method:Stated General Appearance: WD/WN, Thin Eyes: Bilateral Eye Normal Inspection, Bilateral Eye PERRL HEENT: PERRL/EOMI, Pharynx Normal Neck: Full Range of Motion, Normal Inspection, Supple Respiratory: Chest Non Tender, Lungs Clear, Normal Breath Sounds Cardiovascular: Irregularly Irregular Gastrointestinal: Normal Bowel Sounds, No Organomegaly, No Pulsatile Mass, Non Tender, Soft Rectal: Deferred Back: Normal Inspection, No CVA Tenderness, No Vertebral Tenderness Extremity: Normal Capillary Refill, No Pedal Edema Neurologic/Psychiatric: Alert, Oriented x3, No Motor/Sensory Deficits, Normal Mood/Affect Skin: Normal Color, Warm/Dry Lymphatic: No Adenopathy Assessment/Plan Assessment and Plan SYNCOPE ORTHOSTATIC HYPOTENSION DEMENTIA DIABETES MELLITUS SYNCOPE - SUSPECT DUE TO ORTHOSTATIC HYPOTENSION -WILL REDUCE DOSE OF CARDIZEM CD FROM 300MG TO 240MG - MONITOR SYMPTOMS CLOSELY - START THERAPY - WILL GET PT SET UP FOR AN EEG DEMENTIA - WILL ORDER SPEECH THERAPY FOR SLUMS EXAM DIABETES MELLITUS - CHECK HGBA1C Admission Diagnosis SYNCOPE ORTHOSTATIC HYPOTENSION DEMENTIA DIABETES MELLITUS Admission Status: Inpatient Order (span 2 midnights) Reason for Inpatient Admission: SYNCOPE, ORTHOSTATIC HYPOTENSION WITH FALLING DOSES, WILL NEED AT LEAST 48 HOURS IN THE HOSPITAL FOR STABILIZATION. ELISA SAMUEL MD Dec 31, 2019 20:12
[2020-01-01] VITALS: BP 155/76
[2020-01-01] MEDS: NS IV 1000 ML 1,000 ML IV SCH ×4 (02:08→22:23)
[2020-01-01 04:00] VITALS: BP 164/91
[2020-01-01 04:10] LABS: BASOPHILS % (AUTO) 0 % (0-10); EOSINOPHILS # (AUTO) 0.3 10^3/uL (0.0-0.3); EOSINOPHILS % (AUTO) 3 % (0-10); HEMATOCRIT 34 % (40-54); HEMOGLOBIN 10.6 G/DL (13.3-17.7); LYMPHOCYTES % (AUTO) 28 % (12-44); MEAN CORPUSCULAR HEMOGLOBIN 26 PG (25-34); MEAN CORPUSCULAR HGB CONC 32 G/DL (32-36); MEAN CORPUSCULAR VOLUME 84 FL (80-99); MEAN PLATELET VOLUME 9.7 FL (7.4-10.4); MONOCYTES # (AUTO) 1.2 X 10^3 (0.0-1.0); MONOCYTES % (AUTO) 11 % (0-12); NEUTROPHILS # (AUTO) 6.2 X 10^3 (1.8-7.8); NEUTROPHILS % (AUTO) 58 % (42-75); PLATELET COUNT 323 10^3/uL (130-400); RED CELL DISTRIBUTION WIDTH 16.5 % (10.0-14.5); WHITE BLOOD COUNT 10.7 10^3/uL (4.3-11.0)
[2020-01-01 04:20] LABS: ALANINE AMINOTRANSFERASE 13 U/L (0-55); ALBUMIN 4.4 GM/DL (3.2-4.5); ALKALINE PHOSPHATASE 53 U/L (40-136); BILIRUBIN,TOTAL 0.5 MG/DL (0.1-1.0); BUN/CREATININE RATIO 13; CALCIUM 8.5 MG/DL (8.5-10.1); CARBON DIOXIDE 23 MMOL/L (21-32); CHLORIDE 101 MMOL/L (98-107); CREATININE SERUM 0.93 MG/DL (0.60-1.30); GFR ESTIMATED > 60; GLUCOSE 179 MG/DL (70-105); MAGNESIUM 1.7 MG/DL (1.6-2.4); POTASSIUM 4.2 MMOL/L (3.6-5.0); SODIUM 136 MMOL/L (135-145); TOTAL PROTEIN 7.8 GM/DL (6.4-8.2)
[2020-01-01] MEDS: inSUlin ASPART (NovoLOG) 1 UNIT/0.01 ML (CHARGE PER UNIT) SC SCH ×4 (06:07→20:50)
[2020-01-01 08:00] VITALS: BP 124/71
--- NOTE | 2020-01-01 08:53 | Progress Note ---
Subjective All Other Systems Reviewed All Other Systems Reviewed: Yes Objective Exam Vital Signs Vital Signs - First Documented 12/31/19 12/31/19 09:18 10:09 Temp 36.6 Pulse 64 Resp 16 B/P (MAP) 110/63 (79) Pulse Ox 97 O2 Delivery Room Air O2 Flow Rate 2.00 FiO2 97 Capillary Refill : Less Than 3 Seconds General Appearance: WD/WN, Thin Eyes: Bilateral Eye Normal Inspection, Bilateral Eye PERRL HEENT: PERRL/EOMI, Pharynx Normal Neck: Full Range of Motion, Normal Inspection, Supple Respiratory: Chest Non Tender, Lungs Clear, Normal Breath Sounds Cardiovascular: Irregularly Irregular Gastrointestinal: Normal Bowel Sounds, No Organomegaly, No Pulsatile Mass, Non Tender, Soft Rectal: Deferred Back: Normal Inspection, No CVA Tenderness, No Vertebral Tenderness Extremity: Normal Capillary Refill, No Pedal Edema Neurologic/Psychiatric: Alert, Oriented x3, No Motor/Sensory Deficits, Normal Mood/Affect Skin: Normal Color, Warm/Dry Lymphatic: No Adenopathy Results Lab Laboratory Tests 12/31/19 09:25: White Blood Count 10.8, Red Blood Count 3.90L, Hemoglobin 10.4L, Hematocrit 32L, Mean Corpuscular Volume 83, Mean Corpuscular Hemoglobin 27, Mean Corpuscular Hemoglobin Concent 32, Red Cell Distribution Width 16.6H, Platelet Count 246, Mean Platelet Volume 9.7, Neutrophils (%) (Auto) 57, Lymphocytes (%) (Auto) 30, Monocytes (%) (Auto) 9, Eosinophils (%) (Auto) 3, Basophils (%) (Auto) 0, Neutrophils # (Auto) 6.1, Lymphocytes # (Auto) 3.3, Monocytes # (Auto) 1.0, Eosinophils # (Auto) 0.4H, Basophils # (Auto) 0.0, Prothrombin Time 15.2H, INR Comment 1.2, Activated Partial Thromboplast Time 21L, Sodium Level 131L, Potassium Level 3.8, Chloride Level 96L, Carbon Dioxide Level 24, Anion Gap 11, Blood Urea Nitrogen 14, Creatinine 1.01, Estimat Glomerular Filtration Rate > 60, BUN/Creatinine Ratio 14, Glucose Level 218H, Calcium Level 8.9, Corrected Calcium 8.8, Magnesium Level 1.0*L, Total Bilirubin 0.6, Aspartate Amino Transf (AST/SGOT) 11, Alanine Aminotransferase (ALT/SGPT) 10, Alkaline Phosphatase 50, Total Creatine Kinase 68, Creatine Kinase MB 1.3, Myoglobin 83.0, Troponin I < 0.028, Total Protein 7.2, Albumin 4.1, Free Thyroxine 0.98, TSH [place] Testing 6.75H, Digoxin Level 0.69L, Serum Alcohol < 10 12/31/19 09:29: Glucometer 226H 12/31/19 11:23: Urine Color YELLOW, Urine Clarity CLEAR, Urine pH 7.0, Urine Specific [place] <=1.005, Urine Protein NEGATIVE, Urine Glucose (UA) NEGATIVE, Urine Ketones NEGATIVE, Urine Nitrite NEGATIVE, Urine Bilirubin NEGATIVE, Urine Urobilinogen 0.2, Urine Leukocyte Esterase NEGATIVE, Urine RBC (Auto) NEGATIVE, Urine RBC NONE, Urine WBC NONE, Urine Crystals NONE, Urine Bacteria NEGATIVE, Urine Casts NONE, Urine Mucus NEGATIVE, Urine Culture Indicated NO, Urine Opiates Screen NEGATIVE, Urine Oxycodone Screen NEGATIVE, Urine Methadone Screen NEGATIVE, Urine Propoxyphene Screen NEGATIVE, Urine Barbiturates Screen NEGATIVE, Ur Tricyclic Antidepressants Screen NEGATIVE, Urine Phencyclidine Screen NEGATIVE, Urine Amphetamines Screen NEGATIVE, Urine Methamphetamines Screen NEGATIVE, Urine Benzodiazepines Screen NEGATIVE, Urine Cocaine Screen NEGATIVE, Urine Cannabinoids Screen NEGATIVE 12/31/19 15:25: Troponin I < 0.028 12/31/19 15:34: Glucometer 320H 12/31/19 20:46: Glucometer 174H 01/01/20 03:35: White Blood Count 10.7, Red Blood Count 4.01L, Hemoglobin 10.6L, Hematocrit 34L, Mean Corpuscular Volume 84, Mean Corpuscular Hemoglobin 26, Mean Corpuscular Hemoglobin Concent 32, Red Cell Distribution Width 16.5H, Platelet Count 323, Mean Platelet Volume 9.7, Neutrophils (%) (Auto) 58, Lymphocytes (%) (Auto) 28, Monocytes (%) (Auto) 11, Eosinophils (%) (Auto) 3, Basophils (%) (Auto) 0, Neutrophils # (Auto) 6.2, Lymphocytes # (Auto) 3.0, Monocytes # (Auto) 1.2H, Eosinophils # (Auto) 0.3, Basophils # (Auto) 0.0, Sodium Level 136, Potassium Level 4.2, Chloride Level 101, Carbon Dioxide Level 23, Anion Gap 12, Blood Urea Nitrogen 12, Creatinine 0.93, Estimat Glomerular Filtration Rate > 60, BUN/Creatinine Ratio 13, Glucose Level 179H, Calcium Level 8.5, Corrected Calcium 8.2L, Magnesium Level 1.7, Total Bilirubin 0.5, Aspartate Amino Transf (AST/SGOT) 19, Alanine Aminotransferase (ALT/SGPT) 13, Alkaline Phosphatase 53, Total Protein 7.8, Albumin 4.4 Microbiology 12/31/19 Influenza Types A,B Antigen (BALAJI) - Final, Complete Assessment/Plan Assessment/Plan Admission Dx SYNCOPE ORTHOSTATIC HYPOTENSION DEMENTIA DIABETES MELLITUS Admission Dx SYNCOPE ORTHOSTATIC HYPOTENSION DEMENTIA DIABETES MELLITUS Clinical Quality Measures Admission Status Admission Dx SYNCOPE ORTHOSTATIC HYPOTENSION DEMENTIA DIABETES MELLITUS ELISA CARLSON MD Jan 01, 2020 08:52
--- NOTE | 2020-01-01 09:12 | Progress Note - Cardiology ---
Cardiology SOAP Progress Note Subjective: Lying in bed. States he feels good this morning. No c/o CP, palpitations. Objective: I&O/Vital Signs 01/01/20 01/01/20 01/01/20 01/01/20 07:00 08:00 08:00 09:00 Temp 36.4 Pulse 92 86 Resp 18 B/P (MAP) 124/71 (88) Pulse Ox 98 94 97 O2 Delivery Room Air Room Air Room Air 01/01/20 01/01/20 01/01/20 01/01/20 12:00 12:00 12:18 15:34 Temp 36.4 36.7 Pulse 83 84 73 Resp 18 17 B/P (MAP) 138/68 (91) 150/74 (99) Pulse Ox 97 96 98 O2 Delivery Room Air Room Air 01/01/20 16:00 Pulse Ox 97 O2 Delivery Room Air 01/01/20 00:00 Intake Total 620 ml Output Total 700 ml Balance -80 ml Weight (Pounds): 150 Weight (Ounces): 9.6 Weight (Calculated Kilograms): 68.154734 Constitutional: AAO x 3, other (thin) Respiratory: No accessory muscle use, No respiratory distress; chest expansion is symmetric, chest is bilaterally symmetric, lungs clear to auscultation Cardiovascular: irregularly irregular; No JVD; S1 and S2 Gastrointestional: No tender; soft, audible bowel sounds Extremities: no lower extremity edema bilateral Neurologic/Psychiatric: grossly intact (moves all extremities) Skin: No rash on exposed areas, No ulcerations on exposed areas Results/Procedures: Labs Laboratory Tests 12/31/19 20:46: Glucometer 174H 01/01/20 03:35: White Blood Count 10.7, Red Blood Count 4.01L, Hemoglobin 10.6L, Hematocrit 34L, Mean Corpuscular Volume 84, Mean Corpuscular Hemoglobin 26, Mean Corpuscular Hemoglobin Concent 32, Red Cell Distribution Width 16.5H, Platelet Count 323, Mean Platelet Volume 9.7, Neutrophils (%) (Auto) 58, Lymphocytes (%) (Auto) 28, Monocytes (%) (Auto) 11, Eosinophils (%) (Auto) 3, Basophils (%) (Auto) 0, Neutrophils # (Auto) 6.2, Lymphocytes # (Auto) 3.0, Monocytes # (Auto) 1.2H, Eosinophils # (Auto) 0.3, Basophils # (Auto) 0.0, Sodium Level 136, Potassium Level 4.2, Chloride Level 101, Carbon Dioxide Level 23, Anion Gap 12, Blood Urea Nitrogen 12, Creatinine 0.93, Estimat Glomerular Filtration Rate > 60, BUN/Creatinine Ratio 13, Glucose Level 179H, Calcium Level 8.5, Corrected Calcium 8.2L, Magnesium Level 1.7, Total Bilirubin 0.5, Aspartate Amino Transf (AST/SGOT) 19, Alanine Aminotransferase (ALT/SGPT) 13, Alkaline Phosphatase 53, Total Protein 7.8, Albumin 4.4 01/01/20 15:46: Glucometer 220H Microbiology 12/31/19 Influenza Types A,B Antigen (BALAJI) - Final, Complete A/P: Assessment: Syncope, for which no cardiac cause has been found, etiology undetermined, possibly episodes of falling asleep S/p ILR (MedSitemasher Reveal LINQ) implantation on 03/25/19; multiple, brief episodes of PAF with a rapid ventricular response - no casimiro-arrhythmia or pauses seen on ILR interrogation thus far Hyponatremia and hypomag of undetermined etiology Hypothyroidism per TSH of 12-31-2019 - management per medical services Mild bilat carotid arterial dz per carotid u/s of Nov 2018 H/o Zeta 4 x 15 stent on 01-01-[address] Mantilla at [facility]. MPI 04/21/19 shows no evidence of infarction or ischemia H/o orthostatic hypotension for which he reports he had undergone w/u in the past. H/o syncopal episode on 09-12-18 - determined to be d/t postural hypotension. 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 Kaufman showed - LVEF 55-65%, concentric LVH; grade 2 diastolic dysfunction; RA and LA dilated; Mild MR; Mild AoV stenosis; Mod TR; PASP 55-60 mmHg Chronic leg swelling, likely related to venous insuff, currently stable Hyponatremia of undetermined etiology, managed by the [facility] DM II, managed by the [facility] Plan: Complex issue Reported syncopal episode of undetermined etiology - ILR interrogations have thus far shown no evidence of bradyarrhythmia or pauses thus far - interrogate today Orthostatic hypotension, which has been documented in the past Hypomag and hyponatremia of undetermined etiology - resolved Monitor lab learning support services director consult DANIA NUNEZ Jan 01, 2020 09:12
--- NOTE | 2020-01-01 09:37 | Progress Note - Cardiology ---
Cardiology SOAP Progress Note Subjective: No cp or palp or shortness of breath at rest No recurrence of syncope Gen weakness and malaise present No n/v/d Objective: I&O/Vital Signs 01/01/20 01/01/20 01/01/20 01/01/20 00:00 00:00 01:00 04:00 Temp 36.3 36.2 Pulse 88 88 86 Resp 18 18 B/P (MAP) 155/76 (102) 164/91 (115) Pulse Ox 97 98 94 O2 Delivery Room Air Room Air Room Air 01/01/20 01/01/20 04:00 07:00 Pulse 92 Pulse Ox 98 O2 Delivery Room Air 01/01/20 00:00 Intake Total 620 ml Output Total 700 ml Balance -80 ml Weight (Pounds): 150 Weight (Ounces): 9.6 Weight (Calculated Kilograms): 68.533159 Constitutional: AAO x 3, other (thin) Respiratory: No accessory muscle use, No respiratory distress; chest expansion is symmetric, chest is bilaterally symmetric, lungs clear to auscultation Cardiovascular: irregularly irregular; No JVD; S1 and S2 Gastrointestional: No tender; soft, audible bowel sounds Extremities: no lower extremity edema bilateral Neurologic/Psychiatric: grossly intact (moves all extremities) Skin: No rash on exposed areas, No ulcerations on exposed areas Results/Procedures: Labs Laboratory Tests 12/31/19 11:23: Urine Color YELLOW, Urine Clarity CLEAR, Urine pH 7.0, Urine Specific [place] <=1.005, Urine Protein NEGATIVE, Urine Glucose (UA) NEGATIVE, Urine Ketones NEGATIVE, Urine Nitrite NEGATIVE, Urine Bilirubin NEGATIVE, Urine Urobilinogen 0.2, Urine Leukocyte Esterase NEGATIVE, Urine RBC (Auto) NEGATIVE, Urine RBC NONE, Urine WBC NONE, Urine Crystals NONE, Urine Bacteria NEGATIVE, Urine Casts NONE, Urine Mucus NEGATIVE, Urine Culture Indicated NO, Urine Opiates Screen NEGATIVE, Urine Oxycodone Screen NEGATIVE, Urine Methadone Screen NEGATIVE, Urine Propoxyphene Screen NEGATIVE, Urine Barbiturates Screen NEGATIVE, Ur Tricyclic Antidepressants Screen NEGATIVE, Urine Phencyclidine Screen NEGATIVE, Urine Amphetamines Screen NEGATIVE, Urine Methamphetamines Screen NEGATIVE, Urin e Benzodiazepines Screen NEGATIVE, Urine Cocaine Screen NEGATIVE, Urine Cannabinoids Screen NEGATIVE 12/31/19 15:25: Troponin I < 0.028 12/31/19 15:34: Glucometer 320H 12/31/19 20:46: Glucometer 174H 01/01/20 03:35: White Blood Count 10.7, Red Blood Count 4.01L, Hemoglobin 10.6L, Hematocrit 34L, Mean Corpuscular Volume 84, Mean Corpuscular Hemoglobin 26, Mean Corpuscular Hemoglobin Concent 32, Red Cell Distribution Width 16.5H, Platelet Count 323, Mean Platelet Volume 9.7, Neutrophils (%) (Auto) 58, Lymphocytes (%) (Auto) 28, Monocytes (%) (Auto) 11, Eosinophils (%) (Auto) 3, Basophils (%) (Auto) 0, Neutrophils # (Auto) 6.2, Lymphocytes # (Auto) 3.0, Monocytes # (Auto) 1.2H, Eosinophils # (Auto) 0.3, Basophils # (Auto) 0.0, Sodium Level 136, Potassium Level 4.2, Chloride Level 101, Carbon Dioxide Level 23, Anion Gap 12, Blood Urea Nitrogen 12, Creatinine 0.93, Estimat Glomerular Filtration Rate > 60, BUN/Creatinine Ratio 13, Glucose Level 179H, Calcium Level 8.5, Corrected Calcium 8.2L, Magnesium Level 1.7, Total Bilirubin 0.5, Aspartate Amino Transf (AST/SGOT) 19, Alanine Aminotransferase (ALT/SGPT) 13, Alkaline Phosphatase 53, Total Protein 7.8, Albumin 4.4 Microbiology 12/31/19 Influenza Types A,B Antigen (BALAJI) - Final, Complete Laboratory Tests 12/31/19 09:25 01/01/20 03:35 A/P: Assessment: Syncope, for which no cardiac cause has been found, etiology undetermined, possibly episodes of falling asleep S/p ILR (Medtronic Reveal LINQ) implantation on 03/25/19; multiple, brief episodes of PAF with a rapid ventricular response - no casimiro-arrhythmia or pauses seen on ILR interrogation thus far Hyponatremia and hypomag of undetermined etiology, resolved with replacement Hypothyroidism per TSH of 12-31-2019 - management per medical services Mild bilat carotid arterial dz per carotid u/s of Nov 2018 H/o Zeta 4 x 15 stent on 01-01-[address] Mantilla at [facility]. MPI 04/21/19 shows no evidence of infarction or ischemia H/o orthostatic hypotension for which he reports he had undergone w/u in the past. H/o syncopal episode on 09-12-18 - determined to be d/t postural hypotension. 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 Kaufman showed - LVEF 55-65%, concentric LVH; grade 2 diastolic dysfunction; RA and LA dilated; Mild MR; Mild AoV stenosis; Mod TR; PASP 55-60 mmHg Chronic leg swelling, likely related to venous insuff, currently stable Hyponatremia of undetermined etiology, managed by the [facility] DM II, managed by the [facility] Plan: * Continue current regimen * Ok to d/c from card standpoint after repeat ILR interrogation today * Outpt f/u advised CHEMO PIMENTEL MD FACP FAC CCDS Jan 01, 2020 09:37
[2020-01-01] MEDS: APIXABAN 2.5 MG (ELIQUIS) TABLET PO SCH ×2 (11:50→20:50)
[2020-01-01] MEDS: DIGOXIN 0.125 MG (LANOXIN) TAB PO SCH (11:50)
[2020-01-01 12:00] VITALS: BP 138/68
[2020-01-01 15:34] VITALS: BP 150/74
[2020-01-01] MEDS: metFORMIN 500 MG (GLUCOPHAGE) TAB PO SCH (15:55)
--- NOTE | 2020-01-01 16:18 | NUR ---
CM/SS: Visited with pt and spouse as to plan for discharge Plan: Undetermined at this time. Spouse is NOT open to Assisted Living at this time. Other options were discussed, such as home care and private care givers. Summary: Discuss discharge plan options with pt and spouse. Spouse immediately indicates that are NOT going to assisted living and that they want to remain at home. Options are discussed. Home Care discussed, initially they indicate they have never had the service, then they indicate that they had [facility] in the past. They seem somewhat open to this. Spouse also is concerned as to who will pay for this. She is educated on Medicare paying for the service. This worker explains that private caregivers will be an out of pocket cost. Spouse reports she is having some issues with her memory and is going to have it checked in a few weeks. Both pt and spouse feel as if they will be ok to return home. This worker talks with them as to safety and what equipment would be needed, they each seemed confused as to if he had a cane or if he had walker at home. This worker finishes the visit and returns after talking with nursing staff. They express that spouse had gotten lost yesterday and also locked herself out of their home, and that they will not be safe to return home. This worker wanted to discuss perhaps a skilled placement and or inpatient rehab. Upon return, spouse has left and went home. Talked with pt one on one, he reports they have a daughter in [place], but says that I need to ask the spouse if it is ok to call her as she is busy, and then indicates that spouse will not give permission. Pt does not want to give permission either. Pt seems open to options, however did indicate that they may not be able to pay for assisted living. This worker notified Dr. Samuel of the above. This worker will follow up and determine what the agreed plan of care is for pt at time of discharge.
--- NOTE | 2020-01-01 16:20 | ST Cognitive Linguistic Eval ---
Speech Evaluation-General Medical Diagnosis Syncope Onset Date: Dec 31, 2019 Therapy Diagnosis Therapy Diagnosis: Cognitive-communication Precautions Precautions: None Referral Referring Physician: Dr. Samuel Reason for Referral: Evaluation/Treatment Medical History Pertinent Medical History: CAD, DM, HTN Reviewed History: Yes Social History Current Living Status: Spouse Speech PLF-Current Status Prior Level of Function Patients reported having some intermittent word finding difficulties prior to hospital stay. Subjective The patient was alert, pleasant, and cooperative for all evaluation tasks. The patients was present for the evaluation and provided additional case history information. Patient sat upright in his chair for the duration of the evaluation. Language Eval: Auditory Comprehends Simple Yes/No Ques: Functional Indent/Objects Multiple [place]: Functional Ident/Pics in Multiple [place]: Functional Follows 1-Step Commands: Functional Follows Complex Directions: Functional Follows General Conversations: Functional Language Eval: Verbal Language Completes Spontaneous Greeting: Functional Produces Auto, Serial Info: Functional Imitates Simple Words/Phrases: Functional Word Finding: Mild Requests Basic Needs: Functional States Basic Personal Info: Functional Expresses Complex Ideas: Mild Objective Cognitive Domain Attention: WNL Memory: Mild Problem Solving: Functional Executive Functions: WNL Visuospatial Skills: WNL Composite Severity Rating: Mild Clock Drawing Severity Rating: WNL Objective Formal/Standardized Tests [facility] Mental Status (UMS) Examination was administered. Results The patient was administered the SLUMS and scored 27/30 which falls within the mild dementia range of cognitive function. Oral Motor/Speech Production Within functional limits. Impression The patient is an 89-year-old male admitted the the cardiac step down unit s/p syncope episode. The patient was administered the SLUMS and scored 27/30 which falls within normal limits range of cognitive function. The patients score reveals mild deficits predominately in the areas of memory and word-finding, however these deficits were reported to be pre-existing. Speech-Plan Patient/Family Goals Patient/Family Goals: Patient reports wishing to return to prior level of independence and mobility. Treatment Plan Speech Therapy Treatment Plan: Discontinue ST Treatment Duration: Jan 01, 2020 Frequency: 1 time per week Estimated Hrs Per Day: .25 hour per day Rehab Potential: Good Barriers to Learning: Mild cognitive deficits Pt/Family Agrees to Plan: Yes Safety Risks/Education Teaching Recipient: Patient, Significant Other Teaching Methods: Demonstration, Discussion Response to Teaching: Verbalize Understanding Education Topics Provided: Evaluation tasks and areas of cognition being assessed Time Speech Therapy Time In: 11:30 Speech Therapy Time Out: 11:45 Total Billed Time: 15 Billed Treatment Time 1, NICOLASANDEASTON Torres Jan 01, 2020 16:20
[2020-01-01 19:42] VITALS: BP 136/72
[2020-01-02] VITALS: BP 140/68
[2020-01-02 04:00] VITALS: BP 151/82
[2020-01-02] MEDS: NS IV 1000 ML 1,000 ML IV SCH (04:39)
[2020-01-02] MEDS: metFORMIN 500 MG (GLUCOPHAGE) TAB PO SCH (06:24)
[2020-01-02] MEDS: inSUlin ASPART (NovoLOG) 1 UNIT/0.01 ML (CHARGE PER UNIT) SC SCH (06:31)
[2020-01-02 08:07] VITALS: BP 157/78
[2020-01-02] MEDS: DIGOXIN 0.125 MG (LANOXIN) TAB PO SCH (08:53)
[2020-01-02] MEDS: APIXABAN 2.5 MG (ELIQUIS) TABLET PO SCH (08:54)
--- NOTE | 2020-01-02 08:54 | Discharge Summary ---
Diagnosis/Chief Complaint Date of Admission Dec 31, 2019 at 11:15 Date of Discharge Reason Hospital Visit PT IS AN 89 Y/O MALE WHO IS A NEW PATIENT TO ME OF THIS HOSPITALIZATION. HIS HAS FILLED OUT PAPERWORK FOR HIM TO ESTABLISH WITH THE CLINIC, BUT HE HAS YET TO BE SEEN IN THE OFFICE. PER THE EMERGENCY DEPARTMENT REPORT AND PATIENT REPORT, HE WAS SITTING AT THE TABLE EATING WHEN HE BECAME UNRESPONSIVE AND HIS LOWERED HIM TO THE FLOOR AND CALLED EMS. BY THE TIME THAT THE EMS CREW ARRIVED, HE WAS RESPONSIVE. TO MY KNOWLEDGE AND PT REPORT, HE HAS NOT HAD AN EEG. Discharge Summary Discharge Physical Examination Allergies: Coded Allergies: Penicillins (Verified Allergy, Mild, hives, 09/16/19) Vitals & I&Os Vital Signs Date Time Temp Pulse Resp B/P (MAP) Pulse Ox O2 Delivery O2 Flow Rate FiO2 01/02/20 08:07 36.0 84 18 157/78 (104) 96 Room Air 12/31/19 16:20 1.50 12/31/19 16:00 97 Hospital Course Pending Labs Laboratory Tests 01/02/20 06:28: Glucometer 185 Discharge Instructions to patient/family Please see electronic discharge instructions given to patient. Discharge Medications Reviewed and agree with Discharge Medication list on patient's Discharge Instruction sheet ELISA CARLSON MD Jan 02, 2020 08:54
[2020-01-02] MEDS ORDERED: DILT240C91 PO (08:57)
--- NOTE | 2020-01-02 09:04 | D/C HH Face to Face Order ---
D/C Face to Face Orders Reconcile Patient Problems Problems Reviewed?: Yes Instructions for Patient Via [employer], Patient Instructions/FollowUp: 1 WEEK FOLLOW UP WITH [facility] Physician to follow Patient: [facility] Discharge Diet for Home: ADA Diet Patient Problems: DIABETES HYPERTENSION ORTHOSTATIC HYPOTENSION ATRIAL FIBRILLATION MILD COGNITIVE IMPAIRMENT Goals for Patient: IMPROVED STRENGTH IMPROVED HYPOTENSIVE EPISODES DECREASE FALLING EPISODES Patient Data-Allergies,Ht & Wt Patient Allergies: Coded Allergies: Penicillins (Verified Allergy, Mild, hives, 09/16/19) Height (Feet): 5 Height (Inches): 10.00 Weight (Pounds): 150 Weight (Ounces): 9.6 Home Health Need/Face to Face Date of Face to Face: Jan 02, 2020 Clinical Findings: Muscle weakness, Unsteady gait I have seen Pt [id number]: Yes Discharged To: Home Diagnosis/Conditions: DIABETES HYPERTENSION ORTHOSTATIC HYPOTENSION ATRIAL FIBRILLATION MILD COGNITIVE IMPAIRMENT Patient is Homebound due to: CognItive deficits, Muscle weakness Homebound Status Due to the above stated illness, injury or surgical procedure (medical condition or diagnosis) and associated clinical findings, the patient is homebound because of his/her inability to leave home except with aid of a supportive device and/or person AND leaving the home requires a considerable and taxing effort or is medically contraindicated. Pt req the following assistanc: Medically contraindicated Home Health Nursing Orders Home Health Services Order: Nursing Services, Physical Therapy-Evaluate & Treat, Speech Language-Evaluate & Treat HIS MEDICATIONS HAVE CHANGED AND I THINK THAT HIS HAS MULTIPLE DOSES OF HIS CARDIZEM AT HOME. HIS MEDICATIONS NEED CLEANED UP SO THAT HE IS ONLY GETTING THE CORRECT DOSAGES OF HIS HEART MEDICATIONS TO HELP PREVENT HIM FROM HAVING SYNCOPAL EPISODES. NURSING TO CHECK ORTHOSTATIC BLOOD PRESSURE AND HEART RATE READINGS AND MAKE SURE TO SEND IT TO DR. PIMENTEL AND DR. CARLSON. HE WILL BE A NEW PATIENT IN THE [facility] - HAS YET TO BE SEEN OVER AT OUR OFFICE. THEY ALSO NEED DIABETIC EDUCATION - HIS HGBA1C IS OVER 8.4 AND HE IS ONLY ON METFORMIN WHICH IS NOT CONTROLLING HIS BLOOD GLUCOSE. Therapy Orders Therapy Orders: Physical Therapy, Speech Language Pathology Therapy Specific Orders: Eval assistive deivces, Teach strategies/cognitive deficits, Teach enviro modifications/safety, Increase strength/endurance Certify Stmt I certify that this patient is under my care and that I, a nurse practitioner or a physician; a healthcare administrative assistant working with me, had a face to face encounter that - meets the physician face to face encounter requirements with this patient as dated. Medication List: Active Scripts Active Diltiazem 24Hr ER (Diltiazem HCl) 240 Mg Cap.er.24h 240 Mg PO DAILY Reported Diltiazem 24Hr ER (Diltiazem HCl) 300 Mg Cap.er.24h 300 Mg PO DAILY Digoxin 125 Mcg Tablet 125 Mcg PO DAILY Metformin HCl 1,000 Mg Tablet 1,000 Mg PO BID Eliquis (Apixaban) 2.5 Mg Tablet 2.5 Mg PO BID Atorvastatin Calcium 10 Mg Tablet 10 Mg PO HS LAST FILLED #90 8-14-19 Lab results: Laboratory Tests Test 01/01/20 15:46 01/01/20 20:38 01/02/20 06:28 Range/Units Glucometer 220 H 260 H 185 H 70-110 MG/DL My orders: Orders - ELISA CARLSON MD Request Speech/Language Servic (01/01/20 09:11) Manager Law Consult (01/01/20 09:18) Patient Visit (01/01/20 ) Speech Sound Lang Comp (01/01/20 ) Attending Discharge Inpt/Inobs (01/02/20 08:54) [facility] Dischage (01/02/20 08:54) ELISA CARLSON MD Jan 02, 2020 09:03
--- NOTE | 2020-01-02 09:20 | NUR ---
DR PIMENTEL NOTIFIED THIS NURSE THAT PT CAN GO HOME AND FOLLOW UP NEXT WITH DR PIMENTEL.
--- NOTE | 2020-01-02 09:37 | Progress Note - Cardiology ---
Cardiology SOAP Progress Note Subjective: No cp or palp or syncope Gen weakness and malaise No n/v/d Objective: I&O/Vital Signs 01/02/20 01/02/20 01/02/20 01/02/20 00:00 00:00 01:00 04:00 Temp 36.2 36.3 Pulse 69 71 68 Resp 16 21 B/P (MAP) 140/68 (92) 151/82 (105) Pulse Ox 96 98 95 O2 Delivery Room Air Room Air 01/02/20 01/02/20 01/02/20 04:00 07:00 08:07 Temp 36.0 Pulse 89 84 Resp 18 B/P (MAP) 157/78 (104) Pulse Ox 98 96 O2 Delivery Room Air Room Air 01/02/20 00:00 Intake Total 400 ml Balance 400 ml Weight (Pounds): 150 Weight (Ounces): 9.6 Weight (Calculated Kilograms): 68.417450 Constitutional: AAO x 3, other (thin) Respiratory: No accessory muscle use, No respiratory distress; chest expansion is symmetric, chest is bilaterally symmetric, lungs clear to auscultation Cardiovascular: irregularly irregular; No JVD; S1 and S2, systolic murmur (2/6 OLIVIA at card base) Gastrointestional: No tender; soft, audible bowel sounds Extremities: no lower extremity edema bilateral Neurologic/Psychiatric: grossly intact (moves all extremities) Skin: No rash on exposed areas, No ulcerations on exposed areas Results/Procedures: Labs Laboratory Tests 01/01/20 15:46: Glucometer 220H 01/01/20 20:38: Glucometer 260H 01/02/20 06:28: Glucometer 185H Microbiology 12/31/19 Influenza Types A,B Antigen (BALAJI) - Final, Complete Laboratory Tests 01/01/20 03:35 A/P: Assessment: Syncope, for which no cardiac cause has been found, etiology undetermined, possibly episodes of falling asleep S/p ILR (Medtronic Reveal LINQ) implantation on 03/25/19; multiple, brief episodes of PAF with a rapid ventricular response - no casimiro-arrhythmia or aamir ses seen on ILR interrogation thus far Hyponatremia and hypomag of undetermined etiology, resolved with replacement Hypothyroidism per TSH of 12-31-2019 - management per medical services Mild bilat carotid arterial dz per carotid u/s of Nov 2018 H/o Zeta 4 x 15 stent on 01-01-[address] Mantilla at [facility]. MPI 04/21/19 shows no evidence of infarction or ischemia H/o orthostatic hypotension for which he reports he had undergone w/u in the past. H/o syncopal episode on 09-12-18 - determined to be d/t postural hypotension. 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 Kaufman showed - LVEF 55-65%, concentric LVH; grade 2 diastolic dysfunction; RA and LA dilated; Mild MR; Mild AoV stenosis; Mod TR; PASP 55-60 mmHg DM II, managed by the Med Svce Plan: * Continue current regimen * Ok to d/c from card standpoint * I discussed his case in detail with Dr Samuel today * Outpt f/u advised CHEMO PIMENTEL MD FACP FAC CCDS Jan 02, 2020 09:37
[2020-01-02 10:57] VITALS: BP 157/78
--- NOTE | 2020-01-02 10:57 | NUR ---
THIS NURSE EDUCATED PT AND FAMILY ON DISCHARGE INSTRUCTIONS. PT AND FAMILY STATED UNDERSTANDING. PT'S TOOK BELONGINGS. PT KATARINA TOOK PT WATCH WITH HER. PT TAKEN DOWN VIA WHEELCHAIR TO CAR. TO TAKE PT HOME.
--- NOTE | 2020-01-02 13:51 | NUR ---
CM/SS: Daughter Molly [phone] at the hospital to visit with Training And Quality Manager about her parents and the discharge plan for pt. Plan: She is working to get pt and spouse placed in an Assisted Living in [place], [place] Summary: Daughter came to hospital to talk with mental health social worker as to options for her parents and to discuss plan going forward for her parents. She is emotional and feels likes she has tried to get them in an assisted living before , however her mother always does something to not go along with the plan. Daughter is tearful and encouraged to do what is best for her parents. She thanks this worker for visiting with her. She is given this workers contact information if she should have any other questions.
--- NOTE | 2020-01-05 14:09 | NUR ---
CM/SS: Late entry 01-02-2020 - Referral made to [facility] - as pt previously had them for Home Care services. Pt to be discharged to home with [facility]. Pt and spouse are aware that [place] will visit them on Sunday, December. They are given this workers contact information, if they should have questions.
== END 2020-01-02 10:57 | disposition home health service (06) | DRG 312 ==
LOC: EDUNIT# 09:08 → ER 09:09 → ICU 11:15 → CSD 12:26
PROVIDERS: ADMIT Family Medicine; ATTEND Family Medicine
DX: I95.1 Orthostatic hypotension (principal); I48.0 Paroxysmal atrial fibrillation; E87.1 Hypo-osmolality and hyponatremia; R64 Cachexia; E83.42 Hypomagnesemia; E03.9 Hypothyroidism, unspecified; I87.2 Venous insufficiency (chronic) (peripheral); E11.9 Type 2 diabetes mellitus without complications; I25.10 Atherosclerotic heart disease of native coronary artery without angina pectoris; K21.9 Gastro-esophageal reflux disease without esophagitis; M19.91 Primary osteoarthritis, unspecified site; I08.0 Rheumatic disorders of both mitral and aortic valves; F03.90 Unspecified dementia, unspecified severity, without behavioral disturbance, psychotic disturbance, mood disturbance, and anxiety; I65.23 Occlusion and stenosis of bilateral carotid arteries; Z95.5 Presence of coronary angioplasty implant and graft; Z85.21 Personal history of malignant neoplasm of larynx; Z92.3 Personal history of irradiation; Z92.21 Personal history of antineoplastic chemotherapy; Z79.84 Long term (current) use of oral hypoglycemic drugs; Z87.891 Personal history of nicotine dependence; Z79.01 Long term (current) use of anticoagulants; R29.6 Repeated falls
CPT/HCPCS: 36415; 70450; 71045; 80053; 80162; 80306; 80320; 81000; 82306; 82550; 82553; 82607; 82746; 82962; 83036; 83735; 83874; 84439; 84443; 84484; 85025; 85610; 85730; 87804; 93005; 93041; 96361; 96365

== ENCOUNTER 2020-05-21 12:35 | Emergency (ER) | payer MEDICARE ==
[~2020-05-21] VITALS: Ht 177.8 cm; Wt 68.1 kg
[~2020-05-21 12:35] MED LIST changes: +DIGO125T3 PO; +DILT240C91 PO
[2020-05-21] MEDS ORDERED: NS IV 1000 ML 1,000 ML IV ONE (12:48)
--- NOTE | 2020-05-21 12:57 | ED Syncope ---
General Stated Complaint: LETHARGIC Source of Information: Patient Exam Limitations: Other (moderate dementia) History of Present Illness Date Seen by Provider: May 21, 2020 Time Seen by Provider: 12:43 Initial Comments Patient presents ER by EMS from home with chief complaint of a syncopal episode for a few minutes while family was yelling at him. He says they stopped yelling at him he came to. He was sitting in his easy chair and did not fall. He is not having any chest pain shortness of air fever chills nausea. Patient remembers waking up with his family standing over him and then they helped him out on the lawn where he ambulated with assistance. He usually walks with a walker as necessary. EMS then brought him in. They remarked that he has a blood sugar of 240. He takes metformin but no insulin. He has a history of CHF and chronic atrial fibrillation on Eliquis 2.5 mg. Patient says he is having some left lower quadrant abdominal pain and dysuria. He says his stools are regular. He is oriented to person, situation and place but not time. Is followed by Dr. Stinson for cardiology. Patient is allow natural , DO NOT RESUSCITATE. Allergies and Home Medications Allergies Coded Allergies: Penicillins (Verified Allergy, Mild, hives, 09/16/19) Home Medications Apixaban 2.5 Mg Tablet, 2.5 MG PO BID, (Reported) Atorvastatin Calcium 10 Mg Tablet, 10 MG PO HS, (Reported) LAST FILLED #90 06-18-19 Digoxin 125 Mcg Tablet, 125 MCG PO DAILY, (Reported) Diltiazem HCl 240 Mg Cap.er.24h, 240 MG PO DAILY Prescribed by: ELISA CARLSON on 01/02/20 0857 Metformin HCl 1,000 Mg Tablet, 1,000 MG PO BID, (Reported) Patient Home Medication List Home Medication List Reviewed: Yes Review of Systems Constitutional: No chills, No dizziness EENTM: No ear discharge, No hearing loss, No ear pain Respiratory: No cough, No short of breath Cardiovascular: No chest pain, No edema Gastrointestinal: LLQ, abdominal pain; No constipation, No diarrhea, No nausea, No vomiting Genitourinary: No discharge, No dysuria Musculoskeletal: No back pain, No joint pain Skin: No pruritus, No rash All Other Systems Reviewed Negative Unless Noted: Yes Past Nmjamej-Efqcxd-Ubmxdy Hx Patient Social History Alcohol Use: Denies Use Recreational Drug Use: No Smoking Status: Former Smoker Type Used: Cigarettes Former Smoker, Quit: Apr 23, 2001 2nd Hand Smoke Exposure: Yes Recent Hopitalizations: No Immunizations Up To Date Tetanus Booster (TDap): Unknown PED Vaccines UTD: Yes Date of Pneumonia Vaccine: Nov 22, 2010 Date of Influenza Vaccine: Aug 05, 2019 Seasonal Allergies Seasonal Allergies: No Past Medical History Surgeries: Yes (HERNIA REPAIR; CARDIAC CATHS-STENT X 1 IN 2003;LINQ DEVICE 03/25/19) Abdominal, Coronary Stent Respiratory: No Currently Using CPAP: No Currently Using BIPAP: No Cardiac: Yes (CARDIAC CATH-STENTS X1;SYNCOPE-MULT EPISODES;ORTHOSTATIC HYPOTENSION;LINQ ) Atrial Fibrillation, Chronic Edema/Swelling, Coronary Artery Disease, Hypertension, Syncope Neurological: No Genitourinary: Yes Kidney Stones Gastrointestinal: Yes Gastroesophageal Reflux Musculoskeletal: Yes Arthritis Endocrine: Yes Diabetes, Non-Insulin dep HEENT: Yes (LARYNGEAL CANCER) Cataract Hearing Impairment: Hard of Hearing Cancer: Yes (LARYNX W/RADIATION ) Did You Recieve Any Treatments: Yes What Type of Treatment Did You: Radiation Psychosocial: No Integumentary: No Blood Disorders: No Family Medical History Heart Disease, Hypertension Physical Exam Vital Signs Vital Signs - First Documented 05/21/20 12:35 Temp 36.7 Pulse 96 Resp 18 B/P (MAP) 97/67 (77) Pulse Ox 96 O2 Delivery Room Air Capillary Refill : Height, Weight, BMI Height: 5'10.00" Weight: 150lbs. 9.6oz. 68.572157pq; 22.43 BMI Method:Stated General Appearance: No Apparent Distress, WD/WN, Thin HEENT: PERRL/EOMI, Pharynx Normal, Moist Mucous Membranes Neck: Full Range of Motion, Normal Inspection, Non Tender Cardiovascular: No Edema, No Murmur, Normal Peripheral Pulses Respiratory: Lungs Clear, Normal Breath Sounds, No Accessory Muscle Use, No Respiratory Distress Gastrointestinal: Normal Bowel Sounds, Soft, Tenderness (LLQ without Rovsing sign or psoas.) Extremities: Normal Capillary Refill, Normal Inspection, No Pedal Edema Neurologic/Psychiatric: Alert, Other (oriented to person place and situation but not time.) Cranial Nerves: Normal Hearing, Normal Speech, PERRL Motor/Sensory: No Motor Deficit, No Sensory Deficit Skin: Normal Color, Warm/Dry Progress/Results/Core Measures Results/Orders Lab Results Laboratory Tests Test 05/21/20 12:52 05/21/20 14:24 Range/Units White Blood Count 7.7 4.3-11.0 10^3/uL Red Blood Count 3.81 L 4.35-5.85 10^6/uL Hemoglobin 10.2 L 13.3-17.7 G/DL Hematocrit 32 L 40-54 % Mean Corpuscular Volume 83 80-99 FL Mean Corpuscular Hemoglobin 27 25-34 PG Mean Corpuscular Hemoglobin Concent 32 32-36 G/DL Red Cell Distribution Width 17.1 H 10.0-14.5 % Platelet Count 322 130-400 10^3/uL Mean Platelet Volume 9.4 7.4-10.4 FL Neutrophils (%) (Auto) 68 42-75 % Lymphocytes (%) (Auto) 21 12-44 % Monocytes (%) (Auto) 9 0-12 % Eosinophils (%) (Auto) 2 0-10 % Basophils (%) (Auto) 0 0-10 % Neutrophils # (Auto) 5.2 1.8-7.8 X 10^3 Lymphocytes # (Auto) 1.6 1.0-4.0 X 10^3 Monocytes # (Auto) 0.7 0.0-1.0 X 10^3 Eosinophils # (Auto) 0.2 0.0-0.3 10^3/uL Basophils # (Auto) 0.0 0.0-0.1 10^3/uL Sodium Level 135 135-145 MMOL/L Potassium Level 3.9 3.6-5.0 MMOL/L Chloride Level 101 98-107 MMOL/L Carbon Dioxide Level 24 21-32 MMOL/L Anion Gap 10 5-14 MMOL/L Blood Urea Nitrogen 18 7-18 MG/DL Creatinine 1.00 0.60-1.30 MG/DL Estimat Glomerular Filtration Rate > 60 BUN/Creatinine Ratio 18 Glucose Level 213 H 70-105 MG/DL Calcium Level 8.8 8.5-10.1 MG/DL Corrected Calcium 8.8 8.5-10.1 MG/DL Total Bilirubin 0.5 0.1-1.0 MG/DL Aspartate Amino Transf (AST/SGOT) 14 5-34 U/L Alanine Aminotransferase (ALT/SGPT) 7 0-55 U/L Alkaline Phosphatase 41 40-136 U/L Troponin I < 0.028 <0.028 NG/ML C-Reactive Protein High Sensitivity 0.04 0.00-0.50 MG/DL B-Type Natriuretic Peptide 236.0 H <100.0 PG/ML Total Protein 7.0 6.4-8.2 GM/DL Albumin 4.0 3.2-4.5 GM/DL Lipase 24 8-78 U/L Digoxin Level < 0.30 L 0.80-2.00 NG/ML Urine Color YELLOW Urine Clarity CLEAR Urine pH 7.5 5-9 Urine Specific [place] 1.010 L 1.016-1.022 Urine Protein NEGATIVE NEGATIVE Urine Glucose (UA) NEGATIVE NEGATIVE Urine Ketones NEGATIVE NEGATIVE Urine Nitrite NEGATIVE NEGATIVE Urine Bilirubin NEGATIVE NEGATIVE Urine Urobilinogen 1.0 < = 1.0 MG/DL Urine Leukocyte Esterase NEGATIVE NEGATIVE Urine RBC (Auto) NEGATIVE NEGATIVE Urine RBC NONE /HPF Urine WBC NONE /HPF Urine Crystals PRESENT H /LPF Urine Amorphous Sediment RARE LISA PHOSPHATE H /LPF Urine Bacteria TRACE /HPF Urine Casts NONE /LPF Urine Mucus NEGATIVE /LPF Urine Culture Indicated NO My Orders Orders - SAADIA TOMLIN Digoxin (05/21/20 12:48) Cbc With Automated Diff (05/21/20 12:48) Comprehensive Metabolic Panel (05/21/20 12:48) Hs C Reactive Protein (05/21/20 12:48) Troponin I (05/21/20 12:48) BNP (05/21/20 12:48) Chest 1 View, Ap/Pa Only (05/21/20 12:48) Continuous Ekg Monitoring (05/21/20 12:48) Ekg Tracing (05/21/20 12:48) Ct Abdomen/Pelvis W (05/21/20 12:48) Ed Iv/Invasive Line Start (05/21/20 12:48) Ns Iv 1000 Ml (Sodium Chloride 0.9%) (05/21/20 12:48) Ua Culture If Indicated (05/21/20 12:48) Lipase (05/21/20 12:48) Iohexol Injection (Omnipaque 350 Mg/Ml 1 (05/21/20 14:00) Received Contrast (Hold Metformin- Contr (05/21/20 14:00) Sodium Chloride Flush (Catheter Flush Sy (05/21/20 14:00) Ns (Ivpb) (Sodium Chloride 0.9% Ivpb Bag (05/21/20 14:00) Medications Given in ED Current Medications Medications Dose Ordered Sig/Vielka Route Start Time Stop Time Status Last Admin Dose Admin Iohexol 100 ml ONCE ONCE IV 05/21/20 14:00 05/21/20 14:01 DC 05/21/20 14:49 78 ML Sodium Chloride 10 ml NEEDED PRN IV 05/21/20 14:00 05/21/20 14:49 10 ML Sodium Chloride 100 ml ONCE ONCE IV 05/21/20 14:00 05/21/20 14:01 DC 05/21/20 14:49 80 ML Sodium Chloride 1,000 ml @ 0 mls/hr Q0M ONCE IV 05/21/20 12:48 05/21/20 12:51 DC 05/21/20 13:09 999 MLS/HR Vital Signs/I&O 05/21/20 12:35 Temp 36.7 Pulse 96 Resp 18 B/P (MAP) 97/67 (77) Pulse Ox 96 O2 Delivery Room Air Progress Progress Note #1: Time: 12:57 Progress Note Syncope without neurologic findings. He has a history of atrial fibrillation which could cause syncope if he had atrial fib with rapid ventricular rate that spontaneously resolved by the time EMS arrived. His blood sugar is elevated at 240 which could if it has been high cause dehydration. He's having dysuria and left lower quadrant abdominal pain. Infection could cause syncope. Plan to get urinalysis labs give him a liter of fluids and get a CT of his abdomen and pelvis with IV contrast if possible. We'll check his digoxin level. Progress Note #2: Time: 14:44 Progress Note Greenlandic syncopal score: 1 points; Green[place]ic Syncope Risk Score. Medium risk. 3.1% risk of 30-day serious adverse event (, arrhythmia, DE full list in Evidence) Initial ECG Impression Date: May 21, 2020 Initial ECG Impression Time: 12:58 Initial ECG Rate: 89 Initial ECG Rhythm: A Fib/Flutter Initial ECG Intervals: Normal Initial ECG Impression: Atrial Fibrillation Comment Atrial fibrillation without rapid ventricular response. No clinically relevant ST changes. Diagnostic Imaging Diagonstic Imaging: Xray Plain Films/CT/US/NM/MRI: chest Comments NAME: AMANDA SOTELO [facility] REC#: [id number] PT STATUS: REG ER : 1930 PHYSICIAN: SAADIA TOMLIN MD ADMIT DATE: 05/21/20/ER Draft Date of Exam:05/21/20 CHEST 1 VIEW, AP/PA ONLY INDICATION: Shortness of air. TIME OF EXAM: 2:10 PM Correlation is made with prior chest 12/31/2019. FINDINGS: Heart size normal. Cardiac monitoring device overlies left heart. Left hemidiaphragm is mildly elevated. Lungs are clear. Pulmonary vascularity is normal. No infiltrates are seen. There is no effusion or pneumothorax. IMPRESSION: Stable chest. No acute cardiopulmonary process is detected. Dictated on workstation # [id number] Dict: 05/21/20 1416 Trans: 05/21/20 1419 [id number] Interpreted by: RUTHIE SANDRA MD Electronically signed by: Reviewed: Reviewed by Sc Diagonstic Imaging: CT (with IV contrast) Plain Films/CT/US/NM/MRI: abdomen, pelvis Comments [facility] [place] NAME: AMANDA SOTELO [facility] REC#: [id number] PT STATUS: REG ER : 1930 PHYSICIAN: SAADIA TOMLIN MD ADMIT DATE: 05/21/20/ER Signed Date of Exam:05/21/20 CT ABDOMEN/PELVIS W EXAMINATION: CT Abdomen and Pelvis with intravenous contrast. TECHNIQUE: Multiple contiguous axial images were obtained through the abdomen and pelvis after the uneventful administration of intravenous contrast. All CT scans use one or more of the following dose optimizing techniques: automated exposure control, MA and/or KvP adjustment based on a patient size and exam type, or iterative reconstruction. HISTORY: Syncopal episode. COMPARISON: None available. FINDINGS: The heart is unremarkable. The included lung bases are clear. The liver, spleen, pancreas, adrenal glands, and kidneys have a normal appearance. Simple cortical cysts are seen in the kidneys bilaterally which do not require follow-up. The gallbladder is unremarkable. There is no pathologically enlarged mesenteric or retroperitoneal adenopathy. The bowel loops are nondilated. The appendix is visualized in the right lower quadrant and has a normal appearance. There is no free fluid or free air. Multilevel degenerative changes are seen in the lower thoracic and lumbar spine. No acute fracture or dislocation is seen. There is calcified aortic and iliac atherosclerotic plaque without evidence of aneurysm. Ureters and bladder are grossly normal. There is no free air, loculated collection, or adenopathy in the pelvis. IMPRESSION: 1. No acute abnormalities are seen in the abdomen and pelvis. No evidence of bowel obstruction, free fluid, or free air. Dictated by: Dictated on workstation # [id number] Dict: 05/21/20 1457 Trans: 05/21/20 1508 [facility] [id number] Interpreted by: RUSSEL DEAN DO Electronically signed by: RUSSEL DEAN DO 05/21/20 1508 Reviewed: Reviewed by Me Departure Impression Primary Impression: Episode of syncope Qualified Codes: R55 - Syncope and collapse Additional Impression: Left lower quadrant abdominal pain Disposition: 01 HOME, SELF-CARE Condition: Stable Departure-Patient Inst. Decision time for Depature: 16:37 Referrals: ELISA CARLSON MD (PCP/Family) Primary Care Physician Patient Instructions: Syncope (Fainting) (DC) Add. Discharge Instructions: We could not find a dangerous cause for your syncope today however Sunday morning you need to call Dr. Stinson and make a follow-up appointment in the next 1-2 weeks. If you continue to have passing out/syncope episodes then you need to return to the ER for further evaluation. Drink plenty of fluids. SAADIA TOMLIN May 21, 2020 12:57
[2020-05-21 12:59] LABS: BASOPHILS % (AUTO) 0 % (0-10); EOSINOPHILS # (AUTO) 0.2 10^3/uL (0.0-0.3); EOSINOPHILS % (AUTO) 2 % (0-10); HEMATOCRIT 32 % (40-54); HEMOGLOBIN 10.2 G/DL (13.3-17.7); LYMPHOCYTES # (AUTO) 1.6 X 10^3 (1.0-4.0); LYMPHOCYTES % (AUTO) 21 % (12-44); MEAN CORPUSCULAR HEMOGLOBIN 27 PG (25-34); MEAN CORPUSCULAR HGB CONC 32 G/DL (32-36); MEAN CORPUSCULAR VOLUME 83 FL (80-99); MEAN PLATELET VOLUME 9.4 FL (7.4-10.4); MONOCYTES # (AUTO) 0.7 X 10^3 (0.0-1.0); MONOCYTES % (AUTO) 9 % (0-12); NEUTROPHILS # (AUTO) 5.2 X 10^3 (1.8-7.8); NEUTROPHILS % (AUTO) 68 % (42-75); PLATELET COUNT 322 10^3/uL (130-400); RED CELL DISTRIBUTION WIDTH 17.1 % (10.0-14.5); WHITE BLOOD COUNT 7.7 10^3/uL (4.3-11.0)
--- NOTE | 2020-05-21 13:00 | NUR ---
CALLED AND GAVE UPDATE TO .
[2020-05-21 13:23] LABS: CHLORIDE 101 MMOL/L (98-107); POTASSIUM 3.9 MMOL/L (3.6-5.0); SODIUM 135 MMOL/L (135-145)
[2020-05-21 13:24] LABS: CALCIUM 8.8 MG/DL (8.5-10.1)
[2020-05-21 13:26] LABS: GLUCOSE 213 MG/DL (70-105)
[2020-05-21 13:27] LABS: CARBON DIOXIDE 24 MMOL/L (21-32)
[2020-05-21 13:28] LABS: BILIRUBIN,TOTAL 0.5 MG/DL (0.1-1.0)
[2020-05-21 13:29] LABS: ALKALINE PHOSPHATASE 41 U/L (40-136); GFR ESTIMATED > 60
[2020-05-21 13:30] LABS: BUN/CREATININE RATIO 18
[2020-05-21 13:32] LABS: ALANINE AMINOTRANSFERASE 7 U/L (0-55)
[2020-05-21 13:33] LABS: LIPASE 24 U/L (8-78)
[2020-05-21] MEDS ORDERED: CATHETER FLUSH 10 ML SYR IV PRN (14:00)
[2020-05-21] MEDS ORDERED: HOLD METFORMIN - RECEIVED CONTRAST 20 ML VIAL IV SCH (14:00)
[2020-05-21] MEDS ORDERED: NS 100 ML (IVPB) BAG IV ONE (14:00)
[2020-05-21] MEDS ORDERED: IOHEXOL 350 MG/ML 100 ML (OMNIPAQUE 350) VIAL IV ONE (14:00)
--- NOTE | 2020-05-21 14:20 | Diagnostic Imaging Report ---
INDICATION: Shortness of air. TIME OF EXAM: 2:10 PM Correlation is made with prior chest 12/31/2019. FINDINGS: Heart size normal. Cardiac monitoring device overlies left heart. Left hemidiaphragm is mildly elevated. Lungs are clear. Pulmonary vascularity is normal. No infiltrates are seen. There is no effusion or pneumothorax. IMPRESSION: Stable chest. No acute cardiopulmonary process is detected. Dictated by: Dictated on workstation # [id number]
[2020-05-21 14:32] LABS: BILIRUBIN,URINE NEGATIVE (NEGATIVE); CLARITY,URINE CLEAR; COLOR,URINE YELLOW; GLUCOSE, URINE (UA) NEGATIVE (NEGATIVE); KETONES,URINE NEGATIVE (NEGATIVE); LEUKOCYTE ESTERASE ,URINE NEGATIVE (NEGATIVE); NITRITE,URINE NEGATIVE (NEGATIVE); PH,URINE 7.5 (5-9); PROTEIN,URINE NEGATIVE (NEGATIVE)
[2020-05-21 14:43] LABS: AMORPHOUS SEDIMENT,UR RARE AMOR PHOSPHATE /LPF; BACTERIA,URINE TRACE /HPF
--- NOTE | 2020-05-21 15:03 | Diagnostic Imaging Report ---
EXAMINATION: CT Abdomen and Pelvis with intravenous contrast. TECHNIQUE: Multiple contiguous axial images were obtained through the abdomen and pelvis after the uneventful administration of intravenous contrast. All CT scans use one or more of the following dose optimizing techniques: automated exposure control, MA and/or KvP adjustment based on a patient size and exam type, or iterative reconstruction. HISTORY: Syncopal episode. COMPARISON: None available. FINDINGS: The heart is unremarkable. The included lung bases are clear. The liver, spleen, pancreas, adrenal glands, and kidneys have a normal appearance. Simple cortical cysts are seen in the kidneys bilaterally which do not require follow-up. The gallbladder is unremarkable. There is no pathologically enlarged mesenteric or retroperitoneal adenopathy. The bowel loops are nondilated. The appendix is visualized in the right lower quadrant and has a normal appearance. There is no free fluid or free air. Multilevel degenerative changes are seen in the lower thoracic and lumbar spine. No acute fracture or dislocation is seen. There is calcified aortic and iliac atherosclerotic plaque without evidence of aneurysm. Ureters and bladder are grossly normal. There is no free air, loculated collection, or adenopathy in the pelvis. IMPRESSION: 1. No acute abnormalities are seen in the abdomen and pelvis. No evidence of bowel obstruction, free fluid, or free air. Dictated by: Dictated on workstation # [id number]
--- NOTE | 2020-05-21 16:06 | NUR ---
CALLED BACK INFORMED THAT DR IS REVIEWING LAB AND CT. REPORTS THAT IS NOT GOOD ENOUGH . [address] TOMLIN.
--- OUTSIDE RECORDS SUMMARY | 2020-05-21 16:06 | XMS REPORT | Continuity of Care Document ---
Author Organization Unknown Address Unknown Phone Unavailable Allergies Active Description Code Type Severity Reaction Onset Reported/Identified Relationship to Patient Clinical Status Yes Penicillins [id number] Drug Aller gy Mild hives 09/16/2019 Medications There is no data. Problems Date Dx Coded Attending Type Code Diagnosis Diagnosed By 04/30/2016 CRISTAL DIAZ MD Ot I95. 9 HYPOTENSION, UNSPECIFIED 04/30/2016 CRISTAL DIAZ MD Ot [...] DIAZ MD Ot Y92.[address] IN [facility] NON-INSTITUT (PRIVATE 04/30/2016 CRISTAL DIAZ MD Ot Y99. 8 OTHER EXTERNAL CAUSE STATUS 05/02/2016 CIRSTAL DIAZ MD Ot I95. 9 HYPOTENSION, UNSPECIFIED 05/02/2016 CRISTAL DIAZ MD Ot [...] SAME LEV FROM SLIP/TRIP W/O STRIKE 05/02/2016 CRISTAL DIAZ MD S Ot Y92.[address] IN [facility] NON-INSTITUT (PRIVATE 05/02/2016 JOE SUÁREZ, CRISTAL Marie Ot Y99. 8 OTHER EXTERNAL CAUSE STATUS 05/05/2016 JOE SUÁREZ, CRISTAL Marie Ot I95. 9 HYPOTENSION, UNSPECIFIED 05/05/2016 JOE SUÁREZ, CRISTAL Marie [...] CRISTAL Marie Ot Y92.[address] IN [facility] NON-INSTITUT (PRIVATE 05/05/2016 JOE SUÁREZ, CRISTAL Marie Ot Y99. 8 OTHER EXTERNAL CAUSE STATUS 05/16/2017 DWIGHT SUÁREZ, CHELSEA Marie Ot 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 W/O MYELOPATHY OR RADICULOPA 05/16/2017 DWIGHT SUÁREZ, CHELSEA Marie Ot M48.02 SPINAL STENOSIS, CERVICAL REGION 05/28/2017 DWIGHT SUÁREZ, CHELSEA Marie Ot 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 W/O MYELOPATHY OR RADICULOPA 05/28/2017 DWIGHT SUÁREZ, CHELSEA Marie Ot M48.02 SPINAL STENOSIS, CERVICAL REGION 09/13/2018 NEFTALY VILLALOBOS MD Ot E11. 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 1 ORTHOSTATIC HYPOTENSION 09/13/2018 NEFTALY VILLALOBOS MD Ot Z79. 01 [facility] (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 ANTICOAGULANT 09/13/2018 NEFTALY VILLALOBOS MD, Ot Z79. 84 MEDICAL OBSERVER (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 ORAL HYPOGLYC 09/13/2018 GRISELDA SUÁREZ, NEFTALY M Ot Z95. 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21 PERSONAL HISTORY OF MALIGNANT NEOPLASM O 10/12/2018 MARY LOU CALERO MD, Ot Z87.442 PERSONAL HISTORY OF URINARY CALCULI 10/12/2018 MARY LOU CALERO MD, Ot Z88 .0 ALLERGY STATUS TO PENICILLIN 10/12/2018 MARY LOU CALERO MD, Ot Z90.49 ACQUIRED ABSENCE OF OTHER SPECIFIED PART 10/12/2018 MARY LOU CALERO MD, Ot Z92.21 PERSONAL HISTORY OF ANTINEOPLASTIC CHEMO 10/12/2018 MARY LOU CALERO MD, Ot Z95 .5 PRESENCE OF CORONARY ANGIOPLASTY IMPLANT 10/15/2018 GHISLAINE FLORES MD Ot E11. 9 TYPE 2 DIABETES MELLITUS WITHOUT COMPLIC 10/15/2018 GHISLAINE FLORES MD, Ot E83. 42 HYPOMAGNESEMIA 10/15/2018 GHISLAINE FLORES MD, Ot E87. 1 HYPO-OSMOLALITY AND HYPONATREMIA 10/15/2018 GHISLAINE FLORES MD Ot I08. 3 COMB 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MITRAL, AORTIC 10/15/2018 GHISLAINE FLORES MD, Ot I11. 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 0 PAROXYSMAL ATRIAL FIBRILLATION 10/15/2018 GHISLAINE FLORES MD, Ot I49. 8 OTHER SPECIFIED CARDIAC ARRHYTHMIAS 10/15/2018 GHISLAINE FLORES MD, Ot I50. 32 CHRONIC DIASTOLIC (CONGESTIVE) HEART CHAI 10/15/2018 GHISLAINE FLORES MD, Ot I95. 1 ORTHOSTATIC HYPOTENSION 10/15/2018 HGISLAINE FLORES MD, Ot K21. 9 GASTRO-ESOPHAGEAL REFLUX DISEASE WITHOUT 10/15/2018 GHISLAINE FLORES MD, Ot M19. 91 PRIMARY OSTEOARTHRITIS, UNSPECIFIED SITE 10/15/2018 GHISLAINE FLORES MD, Ot R17 UNSPECIFIED JAUNDICE 10/15/2018 GHISLAINE FLORES MD, Ot R53. 1 WEAKNESS 10/15/2018 GHISLAINE FLORES MD, Ot R79. 1 ABNORMAL COAGULATION PROFILE 10/15/2018 GHISLAINE FLORES MD, Ot S22.41XD MULTIPLE FX OF RIBS, RIGHT SIDE, SUBS FO 10/15/2018 GHISLAINE FLORES MD, Ot W01.190D FALL SAME LEV FROM SLIP/TRIP W STRIKE AG 10/15/2018 GHISLAINE FLORES MD, Ot Z79. 01 [facility] (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 ANTICOAGULANT 10/15/2018 GHISLAINE FLORES MD, Ot Z79. 84 MEDICAL OBSERVER (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 ORAL HYPOGLYC 10/15/2018 GHISLAINE FLORES MD, Ot Z85. 21 PERSONAL HISTORY OF MALIGNANT NEOPLASM O 10/15/2018 GHISLAINE FLORES MD, Ot Z87.891 PERSONAL HISTORY OF NICOTINE DEPENDENCE 10/15/2018 GHISLAINE FLORES MD, Ot Z92. 3 PERSONAL HISTORY OF IRRADIATION 10/15/2018 GHISLAINE FLORES MD, Ot Z95. 5 PRESENCE OF CORONARY ANGIOPLASTY IMPLANT 10/16/2018 MARY LOU CALERO MD Ot E11 .9 TYPE 2 DIABETES MELLITUS WITHOUT COMPLIC 10/16/2018 MARY LOU CALERO MD Ot I10 ESSENTIAL (PRIMARY) HYPERTENSION 10/16/2018 MARY LOU CALERO MD Ot 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 10/16/2018 MARY LOU CALERO MD Ot R07.81 PLEURODYNIA 10/16/2018 MARY LOU CALERO MD, Ot S22.41XA MULTIPLE FRACTURES OF RIBS, RIGHT SIDE, 10/16/2018 MARY LOU CALERO MD Ot W01.190A FALL SAME LEV FROM SLIP/TRIP W STRIKE AG 10/16/2018 MARY LOU CALERO MD, Ot Y92.[address] [facility] [address] IN [facility] NON-INSTIT[facility] (PRIVATE 10/16/2018 MARY LOU CALERO MD, Ot Z79.01 [facility] (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 ANTICOAGULANT 10/16/2018 MARY LOU CALERO MD, Ot Z79.82 [facility] (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 ASPIRIN 10/16/2018 MARY LOU CALERO MD, Ot Z79.84 MEDICAL OBSERVER (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 ORAL HYPOGLYC 10/16/2018 MARY LOU CALERO MD, Ot Z85.21 PERSONAL HISTORY OF MALIGNANT NEOPLASM O 10/16/2018 MARY LOU CALERO MD, Ot Z87.442 PERSONAL HISTORY OF URINARY CALCULI 10/16/2018 MARY LOU CALERO MD, Ot Z88 .0 ALLERGY STATUS TO PENICILLIN 10/16/2018 MARY LOU CALERO MD, Ot Z90.49 ACQUIRED ABSENCE OF OTHER SPECIFIED PART 10/16/2018 MARY LOU CALERO MD, Ot Z92.21 PERSONAL HISTORY OF ANTINEOPLASTIC CHEMO 10/16/2018 MARY LOU CALERO MD, Ot Z95 .5 PRESENCE OF CORONARY ANGIOPLASTY IMPLANT 10/17/2018 GHISLAINE FLORES MD Ot E11. 9 TYPE 2 DIABETES MELLITUS WITHOUT COMPLIC 10/17/2018 GHISLAINE FLORES MD, Ot E83. 42 HYPOMAGNESEMIA 10/17/2018 GHISLAINE FLORES MD Ot E87. 1 HYPO-OSMOLALITY AND HYPONATREMIA 10/17/2018 GHISLAINE FLORES MD, Ot I08. 3 COMB 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MITRAL, AORTIC 10/17/2018 GHISLAINE FLORES MD Ot I11. 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 0 PAROXYSMAL ATRIAL FIBRILLATION 10/17/2018 GHISLAINE FLORES MD Ot I49. 8 OTHER SPECIFIED CARDIAC ARRHYTHMIAS 10/17/2018 GHISLAINE FLORES MD, Ot I50. 32 CHRONIC DIASTOLIC (CONGESTIVE) HEART CHAI 10/17/2018 GHISLAINE FLORES MD, Ot I95. 1 ORTHOSTATIC HYPOTENSION 10/17/2018 GHISLAINE FLORES MD, Ot K21. 9 GASTRO-ESOPHAGEAL REFLUX DISEASE WITHOUT 10/17/2018 GHISLAINE FLORES MD, Ot M19. 91 PRIMARY OSTEOARTHRITIS, UNSPECIFIED SITE 10/17/2018 GHISLAINE FLORES MD, Ot R17 UNSPECIFIED JAUNDICE 10/17/2018 GHISLAINE FLORES MD, Ot R53. 1 WEAKNESS 10/17/2018 GHISLAINE FLORES MD, Ot R79. 1 ABNORMAL COAGULATION PROFILE 10/17/2018 GHISLAINE FLORES MD, Ot S22.41XD MULTIPLE FX OF RIBS, RIGHT SIDE, SUBS FO 10/17/2018 GHISLAINE FLORES MD, Ot W01.190D FALL SAME LEV FROM SLIP/TRIP W STRIKE AG 10/17/2018 GHISLAINE FLORES MD, Ot Z79. 01 MEDICAL OBSERVER (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 ANTICOAGULANT 10/17/2018 GHISLAINE FLORES MD, Ot Z79. 84 MEDICAL OBSERVER (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 ORAL HYPOGLYC 10/17/2018 GHISLAINE FLORES MD, Ot Z85. 21 PERSONAL HISTORY OF MALIGNANT NEOPLASM O 10/17/2018 GHISLAINE FLORES MD, Ot Z87.891 PERSONAL HISTORY OF NICOTINE DEPENDENCE 10/17/2018 GHISLAINE FLORES MD, Ot Z92. 3 PERSONAL HISTORY OF IRRADIATION 10/17/2018 GHISLAINE FLOERS MD, Ot Z95. 5 PRESENCE OF CORONARY ANGIOPLASTY IMPLANT 10/17/2018 GHISLAINE FLORES MD, Ot E11. 9 TYPE 2 DIABETES MELLITUS WITHOUT COMPLIC 10/17/2018 GHISLAINE FLORES MD, Ot E83. 42 HYPOMAGNESEMIA 10/17/2018 GHISLAINE FLORES MD, Ot E87. 1 HYPO-OSMOLALITY AND HYPONATREMIA 10/17/2018 GHISLAINE FLORES MD, Ot I08. 3 COMB 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MITRAL, AORTIC 10/17/2018 GHISLAINE FLORES MD, Ot I11. 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 0 PAROXYSMAL ATRIAL FIBRILLATION 10/17/2018 GHISLAINE FLORES MD, Ot I49. 8 OTHER SPECIFIED CARDIAC ARRHYTHMIAS 10/17/2018 GHISLAINE FLORES MD, Ot I50. 32 CHRONIC DIASTOLIC (CONGESTIVE) HEART CHAI 10/17/2018 GHISLAINE FLORES MD, Ot I95. 1 ORTHOSTATIC HYPOTENSION 10/17/2018 GHISLAINE FLORES MD, Ot K21. 9 GASTRO-ESOPHAGEAL REFLUX DISEASE WITHOUT 10/17/2018 GHISLAINE FLORES MD, Ot M19. 91 PRIMARY OSTEOARTHRITIS, UNSPECIFIED SITE 10/17/2018 GHISLAINE FLORES MD, Ot R17 UNSPECIFIED JAUNDICE 10/17/2018 GHISLAINE FLORES MD, Ot R53. 1 WEAKNESS 10/17/2018 GHISLAINE FLORES MD, Ot R79. 1 ABNORMAL COAGULATION PROFILE 10/17/2018 GHISLAINE FLORES MD, Ot S22.41XD MULTIPLE FX OF RIBS, RIGHT SIDE, SUBS FO 10/17/2018 GHISLAINE FLORES MD, Ot W01.190D FALL SAME LEV FROM SLIP/TRIP W STRIKE AG 10/17/2018 GHISLAINE FLORES MD, Ot Z79. 01 [facility] (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 ANTICOAGULANT 10/17/2018 GHISLAINE FLORES MD, Ot Z79. 84 MEDICAL OBSERVER (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 ORAL HYPOGLYC 10/17/2018 GHISLAINE FLORES MD, Ot Z85. 21 PERSONAL HISTORY OF MALIGNANT NEOPLASM O 10/17/2018 GHISLAINE FLORES MD, Ot Z87.891 PERSONAL HISTORY OF NICOTINE DEPENDENCE 10/17/2018 GHISLAINE FLORES MD, Ot Z92. 3 PERSONAL HISTORY OF IRRADIATION 10/17/2018 GHISLAINE FLORES MD, Ot Z95. 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 03/26/2019 [facility], JOSSE Patino Ot I49.5 SICK SINUS SYNDROME 03/26/2019 [facility], JOSSE Patino Ot 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 03/26/2019 [facility], JOSSE Patino Ot K21.9 GASTRO-ESOPHAGEAL REFLUX DISEASE WITHOUT 03/26/2019 [facility] DO, JOSSE Patino Ot M79.89 OTHER SPECIFIED SOFT TISSUE DISORDERS 03/26/2019 [facility], JOSSE Patino Ot R29.704 NIHSS SCORE 4 03/26/2019 [facility], JOSSE Patino Ot R41.0 DISORIENTATION, UNSPECIFIED 03/26/2019 [facility], JOSSE Patino Ot Z79.01 MEDICAL OBSERVER (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 ANTICOAGULANT 03/26/2019 [facility], JOSSE Patino Ot Z79.84 [facility] (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 ORAL HYPOGLYC 03/26/2019 [facility], JOSSE Patino Ot Z79.899 OTHER [facility] (CURRENT) DRUG THERAPY 03/26/2019 [facility], JOSSE Patino Ot Z85.21 PERSONAL HISTORY OF MALIGNANT NEOPLASM O 03/26/2019 [facility], JOSSE Patino Ot Z87.891 PERSONAL HISTORY OF NICOTINE DEPENDENCE 03/26/2019 [facility], JOSSE Patino Ot Z92.3 PERSONAL HISTORY OF IRRADIATION 03/26/2019 [facility], JOSSE Patino Ot Z95.5 PRESENCE OF CORONARY ANGIOPLASTY IMPLANT 03/26/2019 [facility], JOSSE Patino Ot Z95.818 PRESENCE OF OTHER CARDIAC IMPLANTS AND G 04/09/2019 [facility], JOSSE Patino Ot B95.8 UNSP STAPHYLOCOCCUS THE CAUSE OF DISE 04/09/2019 [facility], JOSSE Patino Ot D64.9 ANEMIA, UNSPECIFIED 04/09/2019 [facility] Patino Ot E11.9 TYPE 2 DIABETES MELLITUS WITHOUT COMPLIC 04/09/2019 [facility], JOSSE Patino Ot E83.42 HYPOMAGNESEMIA 04/09/2019 [facility], JOSSE Patino Ot I08.3 COMB 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MITRAL, AORTIC 04/09/2019 GELLEND[facility] DO, JOSSE Patino Ot I10 ESSENTIAL (PRIMARY) HYPERTENSION 04/09/2019 GELLEND[facility] DO, JOSSE Patino Ot 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 04/09/2019 [facility] DO, JOSSE Patino Ot I49.5 SICK SINUS SYNDROME 04/09/2019 GELLEND[facility] DO, JOSSE Patino Ot 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 04/09/2019 GELLENDER DO, JOSSE Patino Ot K21.9 GASTRO-ESOPHAGEAL REFLUX DISEASE WITHOUT 04/09/2019 [facility]END[facility] DO, JOSSE Patino Ot M79.89 OTHER SPECIFIED SOFT TISSUE DISORDERS 04/09/2019 [facility]LLEND[facility] DO, JOSSE Patino Ot R29.704 NIHSS SCORE 4 04/09/2019 [facility]END[facility] DO, JOSSE Patino Ot R41.0 DISORIENTATION, UNSPECIFIED 04/09/2019 [facility]LLEND[facility] DO, JOSSE Patino Ot Z79.01 MEDICAL OBSERVER (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 ANTICOAGULANT 04/09/2019 GELLENDER DO, JOSSE Patino Ot Z79.84 [facility] (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 ORAL HYPOGLYC 04/09/2019 GELLENDER DO, JOSSE Patino Ot Z79.899 OTHER MEDICAL OBSERVER (CURRENT) DRUG THERAPY 04/09/2019 GELLENDER DO, JOSSE Patino Ot Z85.21 PERSONAL HISTORY OF MALIGNANT NEOPLASM O 04/09/2019 GELLENDER DO, JOSSE Patino Ot Z87.891 PERSONAL HISTORY OF NICOTINE DEPENDENCE 04/09/2019 GELLENDER DO, JOSSE Patino Ot Z92.3 PERSONAL HISTORY OF IRRADIATION 04/09/2019 GELLENDER DO, JOSSE Patino Ot Z95.5 PRESENCE OF CORONARY ANGIOPLASTY IMPLANT 04/09/2019 [facility]LLENDER DO, JOSSE Patino Ot Z95.818 PRESENCE OF OTHER CARDIAC IMPLANTS AND G 04/10/2019 [facility]END[facility] DO, JOSSE Patino Ot B95.8 UNSP STAPHYLOCOCCUS THE CAUSE OF DISE 04/10/2019 GELLENDER DO, JOSSE Patino Ot D64.9 ANEMIA, UNSPECIFIED 04/10/2019 GELLENDER DO, JOSSE Patino Ot E11.9 TYPE 2 DIABETES MELLITUS WITHOUT COMPLIC 04/10/2019 GELLENDER DO, JOSSE Patino Ot E83.42 HYPOMAGNESEMIA 04/10/2019 GELLENDER DO, JOSSE Patino Ot I08.3 COMB 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MITRAL, AORTIC 04/10/2019 GELLENDER DO, JOSSE Patino Ot I10 ESSENTIAL (PRIMARY) HYPERTENSION 04/10/2019 [facility], JOSSE aPtino Ot 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 04/10/2019 [facility] , JOSSE Patino Ot I49.5 SICK SINUS SYNDROME 04/10/2019 [facility] Patino Ot 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 04/10/2019 [facility], JOSSE Patino Ot K21.9 GASTRO-ESOPHAGEAL REFLUX DISEASE WITHOUT 04/10/2019 [facility]END[facility] DO, JOSSE Patino Ot M79.89 OTHER SPECIFIED SOFT TISSUE DISORDERS 04/10/2019 GELLENDER DO, JOSSE Patino Ot R29.704 NIHSS SCORE 4 04/10/2019 [facility]OS[facility] Patino Ot R41.0 DISORIENTATION, UNSPECIFIED 04/10/2019 GELLENDER DO, JOSSE Patino Ot Z79.01 MEDICAL OBSERVER (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 ANTICOAGULANT 04/10/2019 [facility] , JOSSE Patino Ot Z79.84 [facility] (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 ORAL HYPOGLYC 04/10/2019 [facility] JOSSE Patino Ot Z79.899 OTHER MEDICAL OBSERVER (CURRENT) DRUG THERAPY 04/10/2019 [facility] JOSSE Patino Ot Z85.21 PERSONAL HISTORY OF MALIGNANT NEOPLASM O 04/10/2019 [facility] , JOSSE Patino Ot Z87.891 PERSONAL HISTORY OF NICOTINE DEPENDENCE 04/10/2019 [facility] JOSSE Patino Ot Z92.3 PERSONAL HISTORY OF IRRADIATION 04/10/2019 [facility], JOSSE Patino Ot Z95.5 PRESENCE OF CORONARY ANGIOPLASTY IMPLANT 04/10/2019 [facility] , JOSSE Patino Ot Z95.818 PRESENCE OF OTHER CARDIAC IMPLANTS AND G 2019 [facility]END[facility] DO, JOSSE Patino Ot B95.8 UNSP STAPHYLOCOCCUS THE CAUSE OF DISE 2019 [facility] Patino Ot D64.9 ANEMIA, UNSPECIFIED 2019 [facility]END[facility] DO, JOSSE Patino Ot E11.9 TYPE 2 DIABETES MELLITUS WITHOUT COMPLIC 2019 [facility]END[facility] DO, JOSSE Patino Ot E83.42 HYPOMAGNESEMIA 2019 [facility] DO, JOSSE Ptaino Ot I08.3 COMB 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MITRAL, AORTIC 2019 [facility]END[facility] DO, JOSSE Patino Ot I10 ESSENTIAL (PRIMARY) HYPERTENSION 2019 [facility], JOSSE Sukumar Ot 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 2019 [facility], JOSSE Patino Ot I49.5 SICK SINUS SYNDROME 2019 [facility] 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 2019 [facility] K21.9 GASTRO-ESOPHAGEAL REFLUX DISEASE WITHOUT 2019 [facility] M79.89 OTHER SPECIFIED SOFT TISSUE DISORDERS 2019 [facility], JOSSE Patino Ot R29.704 NIHSS SCORE 4 [facility] R41.0 DISORIENTATION, UNSPECIFIED 2019 [facility] Z79.01 MEDICAL OBSERVER (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 ANTICOAGULANT 2019 [facility] Z79.84 MEDICAL OBSERVER (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 ORAL HYPOGLYC 2019 [facility] Z79.899 OTHER MEDICAL OBSERVER (CURRENT) DRUG THERAPY [facility] Z85.21 PERSONAL HISTORY OF MALIGNANT NEOPLASM O [facility] Z87.891 PERSONAL HISTORY OF NICOTINE DEPENDENCE 2019 [facility] Z92.3 PERSONAL HISTORY OF IRRADIATION 2019 [facility], JOSSE Patino Ot Z95.5 PRESENCE OF CORONARY ANGIOPLASTY IMPLANT 2019 [facility] Z95.818 PRESENCE OF OTHER CARDIAC IMPLANTS AND G 2019 [facility]RE[facility], CHELSEA S Ot 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 W/O MYELOPATHY OR RADICULOPA 2019 [facility] SUÁREZ, CHELSEA S Ot M48.02 SPINAL STENOSIS, CERVICAL REGION 04/22/2019 PRINCE AVERY DO Ot D64.9 ANEMIA, UNSPECIFIED 04/22/2019 MORENITA AVERY DOI Ot E11.9 TYPE 2 DIABETES MELLITUS WITHOUT COMPLIC 04/22/2019 MORENITA AVERY DOI Ot E83.42 HYPOMAGNESEMIA 04/22/2019 MORENITA AVERY DOI Ot E87.1 HYPO-OSMOLALITY AND HYPONATREMIA 04/22/2019 MORENITA AVERY DOI Ot I10 ESSENTIAL (PRIMARY) HYPERTENSION 04/22/2019 PRINCE AVERY DO Ot 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 04/22/2019 PRINCE AVERY DO Ot I48.0 PAROXYSMAL ATRIAL FIBRILLATION 04/22/2019 PRINCE AVERY DO Ot 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 04/22/2019 PRINCE AVERY DO Ot K21.9 GASTRO-ESOPHAGEAL REFLUX DISEASE WITHOUT 04/22/2019 PRINCE AVERY DO Ot M19.91 PRIMARY OSTEOARTHRITIS, UNSPECIFIED SITE 04/22/2019 PRINCE AVERY DO Ot R53.1 WEAKNESS 04/22/2019 PRINCE AVERY DO Ot R55 SYNCOPE AND COLLAPSE 04/22/2019 PRINCE AVERY DO Ot W07.XX XA FALL FROM CHAIR, INITIAL ENCOUNTER 04/22/2019 PRINCE AVERY DO Ot Y92.[address] IN SINGLE-FAMILY (PRIVATE) 04/22/2019 PRINCE AVERY DO Ot Z79.82 MEDICAL OBSERVER (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 ASPIRIN 04/22/2019 PRICNE AVERY DO Ot Z79.84 [facility] (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 ORAL HYPOGLYC 04/22/2019 PRINCE AVERY DO Ot Z79.89 9 OTHER [facility] (CURRENT) DRUG THERAPY 04/22/2019 PRINCE AVERY DO Ot Z85.21 PERSONAL HISTORY OF MALIGNANT NEOPLASM O 04/22/2019 PRINCE AVERY DO Ot Z87.89 1 PERSONAL HISTORY OF NICOTINE DEPENDENCE 04/22/2019 PRINCE AVERY DO Ot Z92.3 PERSONAL HISTORY OF IRRADIATION 04/22/2019 PRINCE AVERY DO Ot Z95.5 PRESENCE OF CORONARY ANGIOPLASTY IMPLANT 04/22/2019 PRINCE AVERY DO Ot D64.9 ANEMIA, UNSPECIFIED 04/22/2019 PRINCE AVERY DO Ot E11.9 TYPE 2 DIABETES MELLITUS WITHOUT COMPLIC 04/22/2019 PRINCE AVERY DO Ot E83.42 HYPOMAGNESEMIA 04/22/2019 PRINCE AVERY DO Ot E87.1 HYPO-OSMOLALITY AND HYPONATREMIA 04/22/2019 PRINCE AVERY DO Ot I10 ESSENTIAL (PRIMARY) HYPERTENSION 04/22/2019 PRINCE AVERY DO Ot 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 04/22/2019 PRINCE AVERY DO Ot I48.0 PAROXYSMAL ATRIAL FIBRILLATION 04/22/2019 PRINCE AVERY DO Ot 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 04/22/2019 PRINCE AVERY DO Ot K21.9 GASTRO-ESOPHAGEAL REFLUX DISEASE WITHOUT 04/22/2019 PRINCE AVERY DO Ot M19.91 PRIMARY OSTEOARTHRITIS, UNSPECIFIED SITE 04/22/2019 PRINCE AVERY DO Ot R53.1 WEAKNESS 04/22/2019 PRINCE AVERY DO Ot R55 SYNCOPE AND COLLAPSE 04/22/2019 PRINCE AVERY DO Ot W07.XX XA FALL FROM CHAIR, INITIAL ENCOUNTER 04/22/2019 PRINCE AVERY DO Ot Y92.[address] IN SINGLE-FAMILY (PRIVATE) 04/22/2019 PRINCE AVERY DO Ot Z79.82 MEDICAL OBSERVER (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 ASPIRIN 04/22/2019 PRINCE AVERY DO Ot Z79.84 MEDICAL OBSERVER (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 ORAL HYPOGLYC 04/22/2019 PRINCE AVERY DO Ot Z79.89 9 OTHER [facility] (CURRENT) DRUG THERAPY 04/22/2019 PRINCE AVERY DO Ot Z85.21 PERSONAL HISTORY OF MALIGNANT NEOPLASM O 04/22/2019 PRINCE AVERY DO Ot Z87.89 1 PERSONAL HISTORY OF NICOTINE DEPENDENCE 04/22/2019 PRINCE AVERY DO Ot Z92.3 PERSONAL HISTORY OF IRRADIATION 04/22/2019 PRINCE AVERY DO Ot Z95.5 PRESENCE OF CORONARY ANGIOPLASTY IMPLANT 04/28/2019 DWIGHT SUÁREZ, CHELSEA Marie Ot 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 W/O MYELOPATHY OR RADICULOPA 04/28/2019 DWIGHT SUÁREZ, CHELSEA Marie Ot M48.02 SPINAL STENOSIS, CERVICAL REGION 04/28/2019 CA STOLL Ot E11.65 TYPE 2 DIABETES MELLITUS WITH HYPERGLYCE 04/28/2019 CA STOLL Ot I10 ESSENTIAL (PRIMARY) HYPERTENSION 04/28/2019 CA STOLL Ot 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 04/28/2019 CA STOLL Ot R42 DIZZINESS AND GIDDINESS 04/28/2019 CA STOLL Ot R55 SYNCOPE AND COLLAPSE 04/28/2019 CA STOLL Ot Z79.82 [facility] (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 ASPIRIN 04/28/2019 [facility] Ot Z79.84 [facility] (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 ORAL HYPOGLYC 04/28/2019 [facility]MA Ot Z85.21 PERSONAL HISTORY OF MALIGNANT NEOPLASM O 04/28/2019 [facility] CMA Ot Z87.442 PERSONAL HISTORY OF URINARY CALCULI 04/28/2019 [facility] CMA Ot Z88.0 ALLERGY STATUS TO PENICILLIN 04/28/2019 [facility] CMA Ot Z90.49 ACQUIRED ABSENCE OF OTHER SPECIFIED PART 04/28/2019 [facility] CMA Ot Z95.5 PRESENCE OF CORONARY ANGIOPLASTY IMPLANT 04/30/2019 [facility] CMA Ot E11.65 TYPE 2 DIABETES MELLITUS WITH HYPERGLYCE 04/30/2019 [facility] CMA Ot I10 ESSENTIAL (PRIMARY) HYPERTENSION 04/30/2019 [facility] CMA Ot 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 04/30/2019 [facility] CMA Ot R42 DIZZINESS AND GIDDINESS 04/30/2019 JERMANCA RachelP Ot R55 SYNCOPE AND COLLAPSE 04/30/2019 [facility] CMA Ot Z79.82 MEDICAL OBSERVER (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 ASPIRIN 04/30/2019 [facility] CMA Ot Z79.84 [facility] (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 ORAL HYPOGLYC 04/30/2019 [facility] CMA Ot Z85.21 PERSONAL HISTORY OF MALIGNANT NEOPLASM O 04/30/2019 [facility] CMA Ot Z87.442 PERSONAL HISTORY OF URINARY CALCULI 04/30/2019 [facility] CMA Ot Z88.0 ALLERGY STATUS TO PENICILLIN 04/30/2019 [facility] CMA Ot Z90.49 ACQUIRED ABSENCE OF OTHER SPECIFIED PART 04/30/2019 [facility] CMA Ot Z95.5 PRESENCE OF CORONARY ANGIOPLASTY IMPLANT 05/05/2019 GENA DO PRINCE Ot D64.9 ANEMIA, UNSPECIFIED 05/05/2019 MORENITA AVERY DOI Ot E11.9 TYPE 2 DIABETES MELLITUS WITHOUT COMPLIC 05/05/2019 GENA LOPEZ PRINCE Ot E83.42 HYPOMAGNESEMIA 05/05/2019 GENA LOPEZ PRINCE Ot E87.1 HYPO-OSMOLALITY AND HYPONATREMIA 05/05/2019 GENA LOPEZ PRINCE Ot I10 ESSENTIAL (PRIMARY) HYPERTENSION 05/05/2019 PRINCE AVERY DO Ot 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 05/05/2019 PRINCE AVERY DO Ot I48.0 PAROXYSMAL ATRIAL FIBRILLATION 05/05/2019 PRINCE AVERY DO Ot 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 05/05/2019 PRINCE AVERY DO Ot K21.9 GASTRO-ESOPHAGEAL REFLUX DISEASE WITHOUT 05/05/2019 PRINCE AVERY DO Ot M19.91 PRIMARY OSTEOARTHRITIS, UNSPECIFIED SITE 05/05/2019 PRINCE AVERY DO Ot R53.1 WEAKNESS 05/05/2019 PRINCE AVERY DO Ot R55 SYNCOPE AND COLLAPSE 05/05/2019 PRINCE AVERY DO Ot W07.XX XA FALL FROM CHAIR, INITIAL ENCOUNTER 05/05/2019 PRINCE AVERY DO, Ot Y92.[address] IN SINGLE-FAMILY (PRIVATE) 05/05/2019 PRINCE AVERY DO Ot 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 9 TYPE 2 DIABETES MELLITUS WITHOUT COMPLIC 07/01/2019 SAADIA TOMLIN MD Ot I10 ESSENTIAL (PRIMARY) HYPERTENSION 07/01/2019 SAADIA TOMLIN MD Ot I25. 10 ATHSCL HEART DISEASE OF HOH CORONARY 07/01/2019 SAADIA TOMLIN MD Ot I48. 0 PAROXYSMAL ATRIAL FIBRILLATION 07/01/2019 SAADIA TOMLIN MD Ot R55 SYNCOPE AND COLLAPSE 07/01/2019 SAADIA TOMLIN MD Ot Z79. 01 MEDICAL OBSERVER (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 ANTICOAGULANT 07/01/2019 SAADIA TOMLIN MD Ot Z79. 82 [facility] (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 ASPIRIN 07/01/2019 SAADIA TOMLIN MD Ot Z79. 84 [facility] (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 ORAL HYPOGLYC 07/01/2019 SAADIA TOMLIN MD Ot Z87.442 PERSONAL HISTORY OF URINARY CALCULI 07/01/2019 SAADIA TOMLIN MD Ot Z87.891 PERSONAL HISTORY OF NICOTINE DEPENDENCE 07/01/2019 SAADIA TOMLIN MD Ot Z88. 0 ALLERGY STATUS TO PENICILLIN 07/01/2019 SAADIA TOMLIN MD Ot Z90. 49 ACQUIRED ABSENCE OF OTHER SPECIFIED PART 07/01/2019 SAADIA TOMLIN MD Ot Z95. 5 PRESENCE OF CORONARY ANGIOPLASTY IMPLANT 07/04/2019 SAADAI TOMLIN MD Ot E11. 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 0 PAROXYSMAL ATRIAL FIBRILLATION 07/04/2019 SAADIA TOMLIN MD Ot R55 SYNCOPE AND COLLAPSE 07/04/2019 SAADIA TOMLIN MD Ot Z79. 01 [facility] (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 ANTICOAGULANT 07/04/2019 SAADIA TOMLIN MD Ot Z79. 82 [facility] (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 ASPIRIN 07/04/2019 SAADIA TOMLIN MD Ot Z79. 84 MEDICAL OBSERVER (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 ORAL HYPOGLYC 07/04/2019 SAADIA TOMLIN MD Ot Z87.442 PERSONAL HISTORY OF URINARY CALCULI 07/04/2019 SAADIA TOMLIN MD Ot Z87.891 PERSONAL HISTORY OF NICOTINE DEPENDENCE 07/04/2019 SAADIA TOMLIN MD Ot Z88. 0 ALLERGY STATUS TO PENICILLIN 07/04/2019 SAADIA TOMLIN MD Ot Z90. 49 ACQUIRED ABSENCE OF OTHER SPECIFIED PART 07/04/2019 SAADIA TOMLIN MD Ot Z95. 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 09/17/2019 [facility], JOSSE Patino Ot I48.0 PAROXYSMAL ATRIAL FIBRILLATION 09/17/2019 [facility], JOSSE Patino Ot I95.1 ORTHOSTATIC HYPOTENSION 09/17/2019 [facility], JOSSE Patino Ot M19.90 UNSPECIFIED OSTEOARTHRITIS, UNSPECIFIED 09/17/2019 [facility], JOSSE Patino Ot Z79.01 [facility] (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 ANTICOAGULANT 09/17/2019 [facility], JOSSE Patino Ot Z79.899 OTHER [facility] (CURRENT) DRUG THERAPY 09/17/2019 [facility], JOSSE Patino Ot Z88.0 ALLERGY STATUS TO PENICILLIN 09/17/2019 [facility], JOSSE Patino Ot Z95.5 PRESENCE OF CORONARY ANGIOPLASTY IMPLANT 10/14/2019 [facility], JOSSE Patino Ot 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 10/14/2019 [facility], JOSSE Patino Ot E87.1 HYPO-OSMOLALITY AND HYPONATREMIA 10/14/2019 [facility], JOSSE Patino Ot H26.9 UNSPECIFIED CATARACT 10/14/2019 [facility], JOSSE Patino Ot I10 ESSENTIAL (PRIMARY) HYPERTENSION 10/14/2019 [facility], JOSSE Patino Ot 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 10/14/2019 [facility], JOSSE Patino Ot I48.11 LONGSTANDING PERSISTENT ATRIAL FIBRILLAT 10/14/2019 [facility], JOSSE Patino Ot I77.9 DISORDER OF ARTERIES AND ARTERIOLES, UNS 10/14/2019 [facility], JOSSE Patino Ot I95.1 ORTHOSTATIC HYPOTENSION 10/14/2019 [facility], JOSSE Patino Ot K21.9 GASTRO-ESOPHAGEAL REFLUX DISEASE WITHOUT [facility] Patino Ot M19.90 UNSPECIFIED OSTEOARTHRITIS, UNSPECIFIED 10/14/2019 [facility], JOSSE Patino Ot Z79.84 [facility] (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 ORAL HYPOGLYC 10/14/2019 [facility], JOSSE Patino Ot Z79.899 OTHER MEDICAL OBSERVER (CURRENT) DRUG THERAPY 10/14/2019 [facility], JOSSE Patino Ot Z85.21 PERSONAL HISTORY OF MALIGNANT NEOPLASM O 10/14/2019 [facility].891 PERSONAL HISTORY OF NICOTINE DEPENDENCE 10/14/2019 [facility] Patino Ot Z88.0 ALLERGY STATUS TO PENICILLIN 10/14/2019 [facility] Patino Ot Z95.1 PRESENCE OF AORTOCORONARY BYPASS GRAFT 10/14/2019 [facility], JOSSE Patino Ot 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 10/14/2019 [facility], JOSSE Patino Ot E87.1 HYPO-OSMOLALITY AND HYPONATREMIA 10/14/2019 [facility] DO, JOSSE Patino Ot H26.9 UNSPECIFIED CATARACT 10/14/2019 [facility] Patino Ot I10 ESSENTIAL (PRIMARY) HYPERTENSION 10/14/2019 [facility], JOSSE Patino Ot 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 10/14/2019 [facility] , JOSSE Patino Ot I48.11 LONGSTANDING PERSISTENT ATRIAL FIBRILLAT 10/14/2019 [facility], JOSSE Patino Ot I77.9 DISORDER OF ARTERIES AND ARTERIOLES, UNS 10/14/2019 [facility], JOSSE Patino Ot I95.1 ORTHOSTATIC HYPOTENSION 10/14/2019 [facility], JOSSE Patino Ot K21.9 GASTRO-ESOPHAGEAL REFLUX DISEASE WITHOUT 10/14/2019 [facility] , JOSSE Patino Ot M19.90 UNSPECIFIED OSTEOARTHRITIS, UNSPECIFIED 10/14/2019 [facility], JOSSE Patino Ot Z79.84 MEDICAL OBSERVER (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 ORAL HYPOGLYC 10/14/2019 [facility] , JOSSE Patino Ot Z79.899 OTHER MEDICAL OBSERVER (CURRENT) DRUG THERAPY 10/14/2019 [facility], JOSSE Patino Ot Z85.21 PERSONAL HISTORY OF MALIGNANT NEOPLASM O 10/14/2019 [facility], JOSSE Patino Ot Z87.891 PERSONAL HISTORY OF NICOTINE DEPENDENCE 10/14/2019 [facility] Patino Ot Z88.0 ALLERGY STATUS TO PENICILLIN 10/14/2019 [facility], JOSSE Patino Ot Z95.1 PRESENCE OF AORTOCORONARY BYPASS GRAFT 10/27/2019 [facility], JOSSE Patino Ot 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 10/27/2019 [facility]OS[facility] Patino Ot E87.1 HYPO-OSMOLALITY AND HYPONATREMIA 10/27/2019 [facility] DO, JOSSE Patino Ot H26.9 UNSPECIFIED CATARACT 10/27/2019 [facility], JOSSE Patino Ot I10 ESSENTIAL (PRIMARY) HYPERTENSION 10/27/2019 [facility] 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 10/27/2019 DAYANA LOPEZJOSSE Ot I48.11 LONGSTANDING PERSISTENT ATRIAL FIBRILLAT 10/27/2019 DAYANA LOPEZJOSSE Ot I77.9 DISORDER OF ARTERIES AND ARTERIOLES, UNS 10/27/2019 DAYANA LOPEZJOSSE Ot I95.1 ORTHOSTATIC HYPOTENSION 10/27/2019 [facility] Ot K21.9 GASTRO-ESOPHAGEAL REFLUX DISEASE WITHOUT [facility] M19.90 UNSPECIFIED OSTEOARTHRITIS, UNSPECIFIED 10/27/2019 [facility] Ot Z79.84 MEDICAL OBSERVER (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 ORAL HYPOGLYC 10/27/2019 [facility] Z79.899 OTHER [facility] (CURRENT) DRUG THERAPY 10/27/2019 [facility] Ot Z85.21 PERSONAL HISTORY OF MALIGNANT NEOPLASM O 10/27/2019 [facility] Z87.891 PERSONAL HISTORY OF NICOTINE DEPENDENCE 10/27/2019 [facility] Z88.0 ALLERGY STATUS TO PENICILLIN 10/27/2019 [facility] Z95.1 PRESENCE OF AORTOCORONARY BYPASS GRAFT 01/02/2020 ELISA SAMUEL MD Ot E03.9 HYPOTHYROIDISM, UNSPECIFIED 01/02/2020 ELISA SAMUEL MD Ot E11.9 TYPE 2 DIABETES MELLITUS WITHOUT COMPLIC 01/02/2020 ELISA SAMUEL MD Ot E83.42 HYPOMAGNESEMIA 01/02/2020 ELISA SAMUEL MD Ot E87.1 HYPO-OSMOLALITY AND HYPONATREMIA 01/02/2020 ELISA SAMUEL MD Ot F03.90 UNSPECIFIED DEMENTIA WITHOUT BEHAVIORAL 01/02/2020 ELISA SAMUEL MD Ot I08.0 RHEUMATIC DISORDERS OF BOTH MITRAL AND A 01/02/2020 ELISA SAMUEL MD Ot 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 01/02/2020 ELISA SAMUEL MD Ot I48.0 PAROXYSMAL ATRIAL FIBRILLATION 01/02/2020 ELISA SAMUEL MD Ot 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 01/02/2020 ELISA SAMUEL MD Ot I87.2 VENOUS INSUFFICIENCY (CHRONIC) (PERIPHER 01/02/2020 ELISA SAMUEL MD Ot I95.1 ORTHOSTATIC HYPOTENSION 01/02/2020 ELISA SAMUEL MD Ot K21.9 GASTRO-ESOPHAGEAL REFLUX DISEASE WITHOUT 01/02/2020 ELISA SAMUEL MD Ot M19.91 PRIMARY OSTEOARTHRITIS, UNSPECIFIED SITE 01/02/2020 ELISA SAMUEL MD Ot R29.6 REPEATED FALLS 01/02/2020 ELISA SAMUEL MD Ot R6 4 [place]HEX[place] 01/02/2020 ELISA SAMUEL MD, Ot Z79.01 [facility] (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 ANTICOAGULANT 01/02/2020 ELISA SAMUEL MD Ot Z79.84 MEDICAL OBSERVER (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 ORAL HYPOGLYC 01/02/2020 ELISA SAMUEL MD Ot Z85.21 PERSONAL HISTORY OF MALIGNANT NEOPLASM O 01/02/2020 ELISA SAMUEL MD Ot Z87.891 PERSONAL HISTORY OF NICOTINE DEPENDENCE 01/02/2020 ELISA SAMUEL MD Ot Z92.21 PERSONAL HISTORY OF ANTINEOPLASTIC CHEMO 01/02/2020 ELISA SAMUEL MD Ot Z92.3 PERSONAL HISTORY OF IRRADIATION 01/02/2020 ELISA SAMUEL MD Ot Z95.5 PRESENCE OF CORONARY ANGIOPLASTY IMPLANT 01/12/2020 W E11.65 Typ e 2 diabetes mellitus with hyperglycemia Milli Spencer 01/12/2020 W 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 Milli Spencer 01/12/2020 W I10 Essent ial (primary) hypertension Milli Spencer 01/12/2020 W R26.81 Gai t instability Milli Spencer 01/12/2020 W Z09 Hospit al discharge follow-up Milli Spencer 01/12/2020 W E11.65 Typ e 2 diabetes mellitus with hyperglycemia Milli Spencer 01/12/2020 W 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 Results Test Result Range Complete blood count (CBC) with automate d white blood cell (WBC) differential - 09/12/18 08:50 Blood leukocytes automated count (number/volume) 9.2 10*3/uL 4.3-11.0 Blood erythrocytes automated count (number/volume) 4.16 10*6/uL 4.35-5.85 Venous blood hemoglobin measurement (mass/volume) 11.5 g/dL 13.3-17.7 Blood hematocrit (volume fraction) 35 % 40-54 Automated erythrocyte mean corpuscular volume 85 [ foz_us] 80-99 Automated erythrocyte mean corpuscular h emoglobin (mass per erythrocyte) 28 pg 25-34 Automated erythrocyte mean corpuscular h emoglobin concentration measurement (mass/volume) 33 g/dL 32-36 Automated erythrocyte distribution width ratio 16. 6 % 10.0- 14.5 Automated blood platelet count [...] 10*3 1.0-4.0 Blood monocytes automated count (number/volume) 0. 9 10*3 0.0-1.0 Automated eosinophil count 0.4 10*3/uL 0 .0-0.3 Automated blood basophil count (count/volume) 0.0 10*3/uL 0.0-0.1 Comprehensive metabolic panel - 09/12/18 08:50 Serum or plasma sodium measurement (moles/volume) 133 mmol/L 135-145 Serum or plasma potassium measurement (moles/volume) 4.4 mmol/L 3.6-5.0 Serum or plasma chloride measurement (moles/volume) 97 mmol/L 98-107 Carbon dioxide 23 mmol/L 21-32 Serum or plasma anion gap determination (moles/volume) 13 mmol/L 5-14 Serum or plasma urea nitrogen measurement (mass/volume ) 14 mg/dL 7-18 Serum or plasma creatinine measurement (mass/volume) 0.92 mg/dL 0.60-1.30 Serum or plasma urea nitrogen/creatinine mass ratio 15 NRG Serum or plasma creatinine measurement w ith calculation of estimated glomerular filtration rate > NRG Serum or plasma glucose measurement (mass/volume) 152 mg/dL 70-105 Serum or plasma calcium measurement (mass/volume) 9.3 mg/dL 8.5-10.1 Serum or plasma total bilirubin measurement (mass/volu me) 0.5 mg/dL 0.1-1.0 Serum or plasma alkaline phosphatase beti surement (enzymatic activity/volume) 44 U/L 40-136 Serum or plasma aspartate aminotransfera se measurement (enzymatic activity/volume) 19 U/L 5-34 Serum or plasma alanine aminotransferase measurement (enzymatic activity/volume) 20 U/L 0-55 Serum or plasma protein measurement (mass/volume) 7.1 g/dL 6.4-8.2 Serum or plasma albumin measurement (mass/volume) 4.0 g/dL 3.2-4.5 CALCIUM CORRECTED 9.3 mg/dL 8.5-10.1 PT panel in platelet poor plasma by coag ulation assay - 09/12/18 09:08 Prothrombin time (PT) in platelet poor plasma by coagu lation assay 25.1 s 12.2-14.7 INR in platelet poor plasma or blood by coagulation as say 2.3 0.8-1.4 Activated partial thromboplastin time (a PTT) in platelet poor plasma bycoagulation assay - 09/12/18 09:08 Activated partial thromboplastin time (a PTT) in platelet poor plasma bycoagulation assay 26 s 24-35 Capillary blood glucose measurement by g lucometer (mass/volume) - 09/12/18 16:09 Capillary blood glucose measurement by glucometer (mas s/volume) 238 mg/dL 70-110 Capillary blood glucose measurement by g lucometer (mass/volume) - 09/12/18 19:40 Capillary blood glucose measurement by glucometer (mas s/volume) 214 mg/dL 70-110 Complete blood count (CBC) with automate d white blood cell (WBC) differential - 09/13/18 04:20 Blood leukocytes automated count (number/volume) 8.3 10*3/uL 4.3-11.0 Blood erythrocytes automated count (number/volume) 4.08 10*6/uL 4.35-5.85 Venous blood hemoglobin measurement (mass/volume) 11.1 g/dL 13.3-17.7 Blood hematocrit (volume fraction) 34 % 40-54 Automated erythrocyte mean corpuscular volume 84 [ foz_us] 80-99 Automated erythrocyte mean corpuscular h emoglobin (mass per erythrocyte) 27 pg 25-34 Automated erythrocyte mean corpuscular h emoglobin concentration measurement (mass/volume) 33 g/dL 32-36 Automated erythrocyte distribution width ratio 16. 3 % 10.0- 14.5 Automated blood platelet count [...] 10*3 1.0-4.0 Blood monocytes automated count (number/volume) 0. 9 10*3 0.0-1.0 Automated eosinophil count 0.4 10*3/uL 0 .0-0.3 Automated blood basophil count (count/volume) 0.1 10*3/uL 0.0-0.1 Comprehensive metabolic panel - 09/13/18 04:20 Serum or plasma sodium measurement (moles/volume) 134 mmol/L 135-145 Serum or plasma potassium measurement (moles/volume) 3.7 mmol/L 3.6-5.0 Serum or plasma chloride measurement (moles/volume) 100 mmol/L 98-107 Carbon dioxide 23 mmol/L 21-32 Serum or plasma anion gap determination (moles/volume) 11 mmol/L 5-14 Serum or plasma urea nitrogen measurement (mass/volume ) 14 mg/dL 7-18 Serum or plasma creatinine measurement (mass/volume) 0.70 mg/dL 0.60-1.30 Serum or plasma urea nitrogen/creatinine mass ratio 20 NRG Serum or plasma creatinine measurement w ith calculation of estimated glomerular filtration rate > NRG Serum or plasma glucose measurement (mass/volume) 134 mg/dL 70-105 Serum or plasma calcium measurement (mass/volume) 8.7 mg/dL 8.5-10.1 Serum or plasma total bilirubin measurement (mass/volu me) 0.5 mg/dL 0.1-1.0 Serum or plasma alkaline phosphatase beti surement (enzymatic activity/volume) 46 U/L 40-136 Serum or plasma aspartate aminotransfera se measurement (enzymatic activity/volume) 17 U/L 5-34 Serum or plasma alanine aminotransferase measurement (enzymatic activity/volume) 18 U/L 0-55 Serum or plasma protein measurement (mass/volume) 6.7 g/dL 6.4-8.2 Serum or plasma albumin measurement (mass/volume) 3.8 g/dL 3.2-4.5 CALCIUM CORRECTED 8.9 mg/dL 8.5-10.1 PT panel in platelet poor plasma by coag ulation assay - 09/13/18 04:20 Prothrombin time (PT) in platelet poor plasma by coagu lation assay 28.8 s 12.2-14.7 INR in platelet poor plasma or blood by coagulation as say 2.7 0.8-1.4 Capillary blood glucose measurement by g lucometer (mass/volume) - 09/13/18 09:39 Capillary blood glucose measurement by glucometer (mas s/volume) 203 mg/dL 70-110 Complete blood count (CBC) with automate d white blood cell (WBC) differential - 10/12/18 09:39 Blood leukocytes automated count (number/volume) 7.6 10*3/uL 4.3-11.0 Blood erythrocytes automated count (number/volume) 4.11 10*6/uL 4.35-5.85 Venous blood hemoglobin measurement (mass/volume) 11.4 g/dL 13.3-17.7 Blood hematocrit (volume fraction) 35 % 40-54 Automated erythrocyte mean corpuscular volume 84 [ foz_us] 80-99 Automated erythrocyte mean corpuscular h emoglobin (mass per erythrocyte) 28 pg 25-34 Automated erythrocyte mean corpuscular h emoglobin concentration measurement (mass/volume) 33 g/dL 32-36 Automated erythrocyte distribution width ratio 16. 8 % 10.0- 14.5 Automated blood platelet count [...] 10*3 1.0-4.0 Blood monocytes automated count (number/volume) 0. 9 10*3 0.0-1.0 Automated eosinophil count 0.3 10*3/uL 0 .0-0.3 Automated blood basophil count (count/volume) 0.0 10*3/uL 0.0-0.1 Comprehensive metabolic panel - 10/12/18 09:39 Serum or plasma sodium measurement (moles/volume) 133 mmol/L 135-145 Serum or plasma potassium measurement (moles/volume) 4.3 mmol/L 3.6-5.0 Serum or plasma chloride measurement (moles/volume) 98 mmol/L 98-107 Carbon dioxide 24 mmol/L 21-32 Serum or plasma anion gap determination (moles/volume) 11 mmol/L 5-14 Serum or plasma urea nitrogen measurement (mass/volume ) 14 mg/dL 7-18 Serum or plasma creatinine measurement (mass/volume) 0.82 mg/dL 0.60-1.30 Serum or plasma urea nitrogen/creatinine mass ratio 17 NRG Serum or plasma creatinine measurement w ith calculation of estimated glomerular filtration rate > NRG Serum or plasma glucose measurement (mass/volume) 150 mg/dL 70-105 Serum or plasma calcium measurement (mass/volume) 9.4 mg/dL 8.5-10.1 Serum or plasma total bilirubin measurement (mass/volu me) 0.6 mg/dL 0.1-1.0 Serum or plasma alkaline phosphatase beti surement (enzymatic activity/volume) 52 U/L 40-136 Serum or plasma aspartate aminotransfera se measurement (enzymatic activity/volume) 17 U/L 5-34 Serum or plasma alanine aminotransferase measurement (enzymatic activity/volume) 16 U/L 0-55 Serum or plasma protein measurement (mass/volume) 7.4 g/dL 6.4-8.2 Serum or plasma albumin measurement (mass/volume) 4.3 g/dL 3.2-4.5 CALCIUM CORRECTED 9.2 mg/dL 8.5-10.1 Complete urinalysis with reflex to cultu re - 10/14/18 10:25 Urine color determination YELLOW NRG Urine clarity determination CLEAR NR G Urine pH measurement by test strip 6 5-9 Specific gravity of urine by test strip 1.015 1.016-1.022 Urine protein assay by test strip, semi-quantitative 1+ NEGATIVE Urine glucose detection by automated test strip NE GATIVE NEGATIVE Erythrocytes detection in urine sediment by light micr oscopy 1+ NEGATIVE Urine ketones detection by automated test strip NE GATIVE NEGATIVE Urine nitrite detection by test strip NEGATIVE NEGATIVE Urine total bilirubin detection by test strip NEGA TIVE NEGATIVE Urine urobilinogen measurement by automated test strip (mass/volume) NORMAL NORMAL Urine leukocyte esterase detection by dipstick NEG ATIVE NEGATIVE Automated urine sediment erythrocyte cou nt by microscopy (number/high power field) [HPF] NRG Automated urine sediment leukocyte count by microscopy (number/high power field) NONE NRG Bacteria detection in urine sediment by light microsco py NEGATIVE NRG Squamous epithelial cells detection in u rine sediment by light microscopy NONE NRG Crystals detection in urine sediment by light microsco py NONE NRG Casts detection in urine sediment [...] 5-14 Serum or plasma urea nitrogen measurement (mass/volume ) 16 mg/dL 7-18 Serum or plasma creatinine measurement (mass/volume) 0.81 mg/dL 0.60-1.30 Serum or plasma urea nitrogen/creatinine mass ratio 20 NRG Serum or plasma creatinine measurement w ith calculation of estimated glomerular filtration rate > NRG Serum or plasma glucose measurement (mass/volume) 180 mg/dL 70-105 Serum or plasma calcium measurement (mass/volume) 9.3 mg/dL 8.5-10.1 Serum or plasma total bilirubin measurement (mass/volu me) 1.2 mg/dL 0.1-1.0 Serum or plasma alkaline phosphatase beti surement (enzymatic activity/volume) 51 U/L 40-136 Serum or plasma aspartate aminotransfera se measurement (enzymatic activity/volume) 14 U/L 5-34 Serum or plasma alanine aminotransferase measurement (enzymatic activity/volume) 15 U/L 0-55 Serum or plasma protein measurement (mass/volume) 7.2 g/dL 6.4-8.2 Serum or plasma albumin measurement (mass/volume) 4.1 g/dL 3.2-4.5 CALCIUM CORRECTED 9.2 mg/dL 8.5-10.1 Magnesium - 10/14/18 10:33 Magnesium 1.4 mg/dL 1.8-2.4 Serum or plasma troponin i.cardiac measu rement (mass/volume) - 10/14/18 10:33 Serum or plasma troponin i.cardiac measurement (mass/v olume) < ng/mL <0.30 Complete blood count (CBC) with automate d white blood cell (WBC) differential - 10/15/18 05:40 Blood leukocytes automated count (number/volume) 10.5 10*3/uL 4.3-11.0 Blood erythrocytes automated count (number/volume) 4.00 10*6/uL 4.35-5.85 Venous blood hemoglobin measurement (mass/volume) 11.1 g/dL 13.3-17.7 Blood hematocrit (volume fraction) 33 % 40-54 Automated erythrocyte mean corpuscular volume 83 [ foz_us] 80-99 Automated erythrocyte mean corpuscular h emoglobin (mass per erythrocyte) 28 pg 25-34 Automated erythrocyte mean corpuscular h emoglobin concentration measurement (mass/volume) 33 g/dL 32-36 Automated erythrocyte distribution width ratio 16. 2 % 10.0- 14.5 Automated blood platelet count [...] 10*3 1.0-4.0 Blood monocytes automated count (number/volume) 1. 4 10*3 0.0-1.0 Automated eosinophil count 0.0 10*3/uL 0 .0-0.3 Automated blood basophil count (count/volume) 0.0 10*3/uL 0.0-0.1 PT panel in platelet poor plasma by coag ulation assay - 10/15/18 05:40 Prothrombin time (PT) in platelet poor plasma by coagu lation assay 41.1 s 12.2-14.7 INR in platelet poor plasma or blood by coagulation as say 4.2 0.8-1.4 Whole blood basic metabolic panel - 10/05 11/22 05:40 Serum or plasma sodium measurement (moles/volume) 128 mmol/L 135-145 Serum or plasma potassium measurement (moles/volume) 4.0 mmol/L 3.6-5.0 Serum or plasma chloride measurement (moles/volume) 95 mmol/L 98-107 Carbon dioxide 22 mmol/L 21-32 Serum or plasma anion gap determination (moles/volume) 11 mmol/L 5-14 Serum or plasma urea nitrogen measurement (mass/volume ) 13 mg/dL 7-18 Serum or plasma creatinine measurement (mass/volume) 0.71 mg/dL 0.60-1.30 Serum or plasma urea nitrogen/creatinine mass ratio 18 NRG Serum or plasma creatinine measurement w ith calculation of estimated glomerular filtration rate > NRG Serum or plasma glucose measurement (mass/volume) 204 mg/dL 70-105 Serum or plasma calcium measurement (mass/volume) 8.9 mg/dL 8.5-10.1 Magnesium - 10/15/18 05:40 Magnesium 1.5 mg/dL 1.8-2.4 THYROID STIMULATING HORMONE - 10/15/18 0 5:40 THYROID STIMULATING HORMONE 1.68 u[iU]/mL 0.35-4.94 Capillary blood glucose measurement by g lucometer (mass/volume) - 10/15/18 11:02 Capillary blood glucose measurement by glucometer (mas s/volume) 293 mg/dL 70-110 Capillary blood glucose measurement by g lucometer (mass/volume) - 10/15/18 18:17 Capillary blood glucose measurement by glucometer (mas s/volume) 343 mg/dL 70-110 Whole blood basic metabolic panel - 10/05 11/22 20:00 Serum or plasma sodium measurement (moles/volume) 128 mmol/L 135-145 Serum or plasma potassium measurement (moles/volume) 4.1 mmol/L 3.6-5.0 Serum or plasma chloride measurement (moles/volume) 98 mmol/L 98-107 Carbon dioxide 21 mmol/L 21-32 Serum or plasma anion gap determination (moles/volume) 9 mmol/L 5-14 Serum or plasma urea nitrogen measurement (mass/volume ) 18 mg/dL 7-18 Serum or plasma creatinine measurement (mass/volume) 0.77 mg/dL 0.60-1.30 Serum or plasma urea nitrogen/creatinine mass ratio 23 NRG Serum or plasma creatinine measurement w ith calculation of estimated glomerular filtration rate > NRG Serum or plasma glucose measurement (mass/volume) 248 mg/dL 70-105 Serum or plasma calcium measurement (mass/volume) 8.7 mg/dL 8.5-10.1 Capillary blood glucose measurement by g lucometer (mass/volume) - 10/15/18 20:31 Capillary blood glucose measurement by glucometer (mas s/volume) 208 mg/dL 70-110 PT panel in platelet poor plasma by coag ulation assay - 10/16/18 04:20 Prothrombin time (PT) in platelet poor plasma by coagu lation assay 27.9 s 12.2-14.7 INR in platelet poor plasma or blood by coagulation as say 2.6 0.8-1.4 Whole blood basic metabolic panel - 10/05 12/23 04:20 Serum or plasma sodium measurement (moles/volume) 131 mmol/L 135-145 Serum or plasma potassium measurement (moles/volume) 4.0 mmol/L 3.6-5.0 Serum or plasma chloride measurement (moles/volume) 101 mmol/L 98-107 Carbon dioxide 20 mmol/L 21-32 Serum or plasma anion gap determination (moles/volume) 10 mmol/L 5-14 Serum or plasma urea nitrogen measurement (mass/volume ) 17 mg/dL 7-18 Serum or plasma creatinine measurement (mass/volume) 0.66 mg/dL 0.60-1.30 Serum or plasma urea nitrogen/creatinine mass ratio 26 NRG Serum or plasma creatinine measurement w ith calculation of estimated glomerular filtration rate > NRG Serum or plasma glucose measurement (mass/volume) 151 mg/dL 70-105 Serum or plasma calcium measurement (mass/volume) 8.5 mg/dL 8.5-10.1 Magnesium - 10/16/18 04:20 Magnesium 1.7 mg/dL 1.8-2.4 Capillary blood glucose measurement by g lucometer (mass/volume) - 10/16/18 05:18 Capillary blood glucose measurement by glucometer (mas s/volume) 179 mg/dL 70-110 Capillary blood glucose measurement by g lucometer (mass/volume) - 10/16/18 11:10 Capillary blood glucose measurement by glucometer (mas s/volume) 336 mg/dL 70-110 Whole blood basic metabolic panel - 10/05 12/23 16:10 Serum or plasma sodium measurement (moles/volume) 131 mmol/L 135-145 Serum or plasma potassium measurement (moles/volume) 4.3 mmol/L 3.6-5.0 Serum or plasma chloride measurement (moles/volume) 100 mmol/L 98-107 Carbon dioxide 24 mmol/L 21-32 Serum or plasma anion gap determination (moles/volume) 7 mmol/L 5-14 Serum or plasma urea nitrogen measurement (mass/volume ) 19 mg/dL 7-18 Serum or plasma creatinine measurement (mass/volume) 0.73 mg/dL 0.60-1.30 Serum or plasma urea nitrogen/creatinine mass ratio 26 NRG Serum or plasma creatinine measurement w ith calculation of estimated glomerular filtration rate > NRG Serum or plasma glucose measurement (mass/volume) 222 mg/dL 70-105 Serum or plasma calcium measurement (mass/volume) 8.6 mg/dL 8.5-10.1 Capillary blood glucose measurement by g lucometer (mass/volume) - 10/16/18 16:33 Capillary blood glucose measurement by glucometer (mas s/volume) 237 mg/dL 70-110 Capillary blood glucose measurement by g lucometer (mass/volume) - 10/16/18 21:17 Capillary blood glucose measurement by glucometer (mas s/volume) 188 mg/dL 70-110 PT panel in platelet poor plasma by coag ulation assay - 10/17/18 04:37 Prothrombin time (PT) in platelet poor plasma by coagu lation assay 24.8 s 12.2-14.7 INR in platelet poor plasma or blood by coagulation as say 2.2 0.8-1.4 Whole blood basic metabolic panel - 10/05 01/20 04:37 Serum or plasma sodium measurement (moles/volume) 132 mmol/L 135-145 Serum or plasma potassium measurement (moles/volume) 4.0 mmol/L 3.6-5.0 Serum or plasma chloride measurement (moles/volume) 100 mmol/L 98-107 Carbon dioxide 20 mmol/L 21-32 Serum or plasma anion gap determination (moles/volume) 12 mmol/L 5-14 Serum or plasma urea nitrogen measurement (mass/volume ) 20 mg/dL 7-18 Serum or plasma creatinine measurement (mass/volume) 0.74 mg/dL 0.60-1.30 Serum or plasma urea nitrogen/creatinine mass ratio 27 NRG Serum or plasma creatinine measurement w ith calculation of estimated glomerular filtration rate > NRG Serum or plasma glucose measurement (mass/volume) 152 mg/dL 70-105 Serum or plasma calcium measurement (mass/volume) 9.2 mg/dL 8.5-10.1 Magnesium - 10/17/18 04:37 Magnesium 2.0 mg/dL 1.8-2.4 Hemoglobin A1c - 10/17/18 04:37 Blood hemoglobin A1C measurement (mass/volume) 6.9 % 4.0-5.6 MEAN BLOOD GLUCOSE 151 % <=126 Capillary blood glucose measurement by g lucometer (mass/volume) - 10/17/18 06:36 Capillary blood glucose measurement by glucometer (mas s/volume) 191 mg/dL 70-110 Complete blood count (CBC) with automate d white blood cell (WBC) differential - 03/24/19 10:45 Blood leukocytes automated count (number/volume) 8.5 10*3/uL 4.3-11.0 Blood erythrocytes automated count (number/volume) 3.84 10*6/uL 4.35-5.85 Venous blood hemoglobin measurement (mass/volume) 10.5 g/dL 13.3-17.7 Blood hematocrit (volume fraction) 33 % 40-54 Automated erythrocyte mean corpuscular volume 85 [ foz_us] 80-99 Automated erythrocyte mean corpuscular h emoglobin (mass per erythrocyte) 27 pg 25-34 Automated erythrocyte mean corpuscular h emoglobin concentration measurement (mass/volume) 32 g/dL 32-36 Automated erythrocyte distribution width ratio 15. 0 % 10.0- 14.5 Automated blood platelet count [...] 10*3 1.0-4.0 Blood monocytes automated count (number/volume) 0. 8 10*3 0.0-1.0 Automated eosinophil count 0.3 10*3/uL 0 .0-0.3 Automated blood basophil count (count/volume) 0.1 10*3/uL 0.0-0.1 Comprehensive metabolic panel - 03/24/19 10:45 Serum or plasma sodium measurement (moles/volume) 132 mmol/L 135-145 Serum or plasma potassium measurement (moles/volume) 4.6 mmol/L 3.6-5.0 Serum or plasma chloride measurement (moles/volume) 99 mmol/L 98-107 Carbon dioxide 19 mmol/L 21-32 Serum or plasma anion gap determination (moles/volume) 14 mmol/L 5-14 Serum or plasma urea nitrogen measurement (mass/volume ) 16 mg/dL 7-18 Serum or plasma creatinine measurement (mass/volume) 1.03 mg/dL 0.60-1.30 Serum or plasma urea nitrogen/creatinine mass ratio 16 NRG Serum or plasma creatinine measurement w ith calculation of estimated glomerular filtration rate > NRG Serum or plasma glucose measurement (mass/volume) 181 mg/dL 70-105 Serum or plasma calcium measurement (mass/volume) 8.9 mg/dL 8.5-10.1 Serum or plasma total bilirubin measurement (mass/volu me) 0.6 mg/dL 0.1-1.0 Serum or plasma alkaline phosphatase beti surement (enzymatic activity/volume) 41 U/L 40-136 Serum or plasma aspartate aminotransfera se measurement (enzymatic activity/volume) 13 U/L 5-34 Serum or plasma alanine aminotransferase measurement (enzymatic activity/volume) 13 U/L 0-55 Serum or plasma protein measurement (mass/volume) 6.8 g/dL 6.4-8.2 Serum or plasma albumin measurement (mass/volume) 4.0 g/dL 3.2-4.5 CALCIUM CORRECTED 8.9 mg/dL 8.5-10.1 Magnesium - 03/24/19 10:45 Magnesium 1.8 mg/dL 1.8-2.4 Serum or plasma troponin i.cardiac measu rement (mass/volume) - 03/24/19 10:45 Serum or plasma troponin i.cardiac measurement (mass/v olume) < ng/mL <0.028 PT panel in platelet poor plasma by coag ulation assay - 03/24/19 10:45 Prothrombin time (PT) in platelet poor plasma by coagu lation assay 15.6 s 12.2-14.7 INR in platelet poor plasma or blood by coagulation as say 1.2 0.8-1.4 Activated partial thromboplastin time (a PTT) in platelet poor plasma bycoagulation assay - 03/24/19 10:45 Activated partial thromboplastin time (a PTT) in platelet poor plasma bycoagulation assay 28 s 24-35 Myoglobin, serum - 03/24/19 10:45 Myoglobin, serum 88.8 ng/mL 10.0-92.0 Lipase - 03/24/19 10:45 Lipase 22 U/L 8-78 Serum or plasma lithium measurement (mol es/volume) - 03/24/19 10:45 BNP level 122.4 pg/mL <100.0 Blood lactic acid measurement (moles/vol ume) - 03/24/19 10:52 Blood lactic acid measurement (moles/volume) 4.07 mmol/L 0.50-2.00 Bacterial blood culture - 03/24/19 10:52 FREE TEXT EXTERNAL SUSCEPTIBILITY REPORTED [id number] NRG QUANTITY OF GROWTH Isolated NRG Bacterial blood culture [id number] NRG [facility] - 03/24/19 10:5 2 Oxacillin susceptibility test by minimum inhibitory co ncentration <= NRG Clindamycin susceptibility test by minimum inhibitory concentration > NRG Erythromycin susceptibility test by minimum inhibitory concentration <= NRG Vancomycin susceptibility test by minimum inhibitory c oncentration 1 NRG Levofloxacin susceptibility test by minimum inhibitory concentration <= NRG Rifampin susceptibility test by minimum inhibitory con centration <= NRG Cefazolin susceptibility test by minimum inhibitory co ncentration <= NRG Penicillin G susceptibility test by minimum inhibitory concentration 0.5 NRG Moxifloxacin susceptibility test by minimum inhibitory concentration S NRG Minocycline susc BALAJI <= NRG Bacterial blood culture - 03/24/19 10:57 FREE TEXT EXTERNAL REFER TO OTHER BLOOD CULTURE FO R SENS NRG QUANTITY OF GROWTH Isolated NRG Bacterial blood culture [id number] NRG Complete urinalysis with reflex to cultu re - 03/24/19 10:59 Urine color determination YELLOW NRG Urine clarity determination CLEAR NR G Urine pH measurement by test strip 8 5-9 Specific gravity of urine by test strip 1.010 1.016-1.022 Urine protein assay by test strip, semi-quantitative NEGATIVE NEGATIVE Urine glucose detection by automated test strip NE GATIVE NEGATIVE Erythrocytes detection in urine sediment by light micr oscopy 1+ NEGATIVE Urine ketones detection by automated test strip NE GATIVE NEGATIVE Urine nitrite detection by test strip NEGATIVE NEGATIVE Urine total bilirubin detection by test strip NEGA TIVE NEGATIVE Urine urobilinogen measurement by automated test strip (mass/volume) NORMAL NORMAL Urine leukocyte esterase detection by dipstick NEG ATIVE NEGATIVE Automated urine sediment erythrocyte cou nt by microscopy (number/high power field) NONE NRG Automated urine sediment leukocyte count by microscopy (number/high power field) NONE NRG Bacteria detection in urine sediment by light microsco py NEGATIVE NRG Squamous epithelial cells detection in u rine sediment by light microscopy NONE NRG Crystals detection in urine sediment by light microsco py NONE NRG Casts detection in urine sediment by light microscopy NONE NRG Mucus detection in urine sediment by light microscopy NEGATIVE NRG Complete urinalysis with reflex to culture NO NRG Serum or plasma lactate measurement (mol es/volume) - 03/24/19 14:05 Serum or plasma lactate measurement (moles/volume) 2.14 mmol/L 0.50-2.00 Capillary blood glucose measurement by g lucometer (mass/volume) - 03/24/19 15:58 Capillary blood glucose measurement by glucometer (mas s/volume) 199 mg/dL 70-110 Capillary blood glucose measurement by g lucometer (mass/volume) - 03/24/19 20:40 Capillary blood glucose measurement by glucometer (mas s/volume) 215 mg/dL 70-110 Complete blood count (CBC) with automate d white blood cell (WBC) differential - 03/25/19 03:00 Blood leukocytes automated count (number/volume) 10.2 10*3/uL 4.3-11.0 Blood erythrocytes automated count (number/volume) 3.98 10*6/uL 4.35-5.85 Venous blood hemoglobin measurement (mass/volume) 10.9 g/dL 13.3-17.7 Blood hematocrit (volume fraction) 33 % 40-54 Automated erythrocyte mean corpuscular volume 82 [ foz_us] 80-99 Automated erythrocyte mean corpuscular h emoglobin (mass per erythrocyte) 27 pg 25-34 Automated erythrocyte mean corpuscular h emoglobin concentration measurement (mass/volume) 33 g/dL 32-36 Automated erythrocyte distribution width ratio 15. 3 % 10.0- 14.5 Automated blood platelet count [...] 10*3 1.0-4.0 Blood monocytes automated count (number/volume) 1. 1 10*3 0.0-1.0 Automated eosinophil count 0.4 10*3/uL 0 .0-0.3 Automated blood basophil count (count/volume) 0.0 10*3/uL 0.0-0.1 Whole blood basic metabolic panel - 03/06 11/23 03:00 Serum or plasma sodium measurement (moles/volume) 136 mmol/L 135-145 Serum or plasma potassium measurement (moles/volume) 3.8 mmol/L 3.6-5.0 Serum or plasma chloride measurement (moles/volume) 101 mmol/L 98-107 Carbon dioxide 22 mmol/L 21-32 Serum or plasma anion gap determination (moles/volume) 13 mmol/L 5-14 Serum or plasma urea nitrogen measurement (mass/volume ) 11 mg/dL 7-18 Serum or plasma creatinine measurement (mass/volume) 0.71 mg/dL 0.60-1.30 Serum or plasma urea nitrogen/creatinine mass ratio 15 NRG Serum or plasma creatinine measurement w ith calculation of estimated glomerular filtration rate > NRG Serum or plasma glucose measurement (mass/volume) 95 mg/dL 70-105 Serum or plasma calcium measurement (mass/volume) 9.1 mg/dL 8.5-10.1 Lipid 1996 panel - 03/25/19 03:00 Serum or plasma triglyceride measurement (mass/volume) 55 mg/dL <150 Serum or plasma cholesterol measurement (mass/volume) 108 mg/dL < 200 Serum or plasma cholesterol in HDL measurement (mass/v olume) 32 mg/dL 40-60 Cholesterol in LDL [mass/volume] in serum or plasma by direct assay 67 mg/dL 1-129 Serum or plasma cholesterol in VLDL measurement (mass/ volume) 11 mg/dL 5-40 Hemoglobin A1c - 03/25/19 03:00 Blood hemoglobin A1C measurement (mass/volume) 8.5 % 4.0-5.6 MEAN BLOOD GLUCOSE 197 % <=126 Capillary blood glucose measurement by g lucometer (mass/volume) - 03/25/19 11:29 Capillary blood glucose measurement by glucometer (mas s/volume) 191 mg/dL 70-110 Capillary blood glucose measurement by g lucometer (mass/volume) - 03/25/19 15:54 Capillary blood glucose measurement by glucometer (mas s/volume) 238 mg/dL 70-110 Capillary blood glucose measurement by g lucometer (mass/volume) - 03/25/19 20:47 Capillary blood glucose measurement by glucometer (mas s/volume) 315 mg/dL 70-110 Complete blood count (CBC) with automate d white blood cell (WBC) differential - 03/26/19 03:00 Blood leukocytes automated count (number/volume) 11.6 10*3/uL 4.3-11.0 Blood erythrocytes automated count (number/volume) 4.27 10*6/uL 4.35-5.85 Venous blood hemoglobin measurement (mass/volume) 11.8 g/dL 13.3-17.7 Blood hematocrit (volume fraction) 35 % 40-54 Automated erythrocyte mean corpuscular volume 82 [ foz_us] 80-99 Automated erythrocyte mean corpuscular h emoglobin (mass per erythrocyte) 28 pg 25-34 Automated erythrocyte mean corpuscular h emoglobin concentration measurement (mass/volume) 34 g/dL 32-36 Automated erythrocyte distribution width ratio 15. 5 % 10.0- 14.5 Automated blood platelet count [...] 10*3 1.0-4.0 Blood monocytes automated count (number/volume) 1. 1 10*3 0.0-1.0 Automated eosinophil count 0.4 10*3/uL 0 .0-0.3 Automated blood basophil count (count/volume) 0.0 10*3/uL 0.0-0.1 Comprehensive metabolic panel - 03/26/19 03:00 Serum or plasma sodium measurement (moles/volume) 136 mmol/L 135-145 Serum or plasma potassium measurement (moles/volume) 3.9 mmol/L 3.6-5.0 Serum or plasma chloride measurement (moles/volume) 99 mmol/L 98-107 Carbon dioxide 23 mmol/L 21-32 Serum or plasma anion gap determination (moles/volume) 14 mmol/L 5-14 Serum or plasma urea nitrogen measurement (mass/volume ) 8 mg/dL 7-18 Serum or plasma creatinine measurement (mass/volume) 0.72 mg/dL 0.60-1.30 Serum or plasma urea nitrogen/creatinine mass ratio 11 NRG Serum or plasma creatinine measurement w ith calculation of estimated glomerular filtration rate > NRG Serum or plasma glucose measurement (mass/volume) 103 mg/dL 70-105 Serum or plasma calcium measurement (mass/volume) 9.4 mg/dL 8.5-10.1 Serum or plasma total bilirubin measurement (mass/volu me) 0.6 mg/dL 0.1-1.0 Serum or plasma alkaline phosphatase beti surement (enzymatic activity/volume) 48 U/L 40-136 Serum or plasma aspartate aminotransfera se measurement (enzymatic activity/volume) 15 U/L 5-34 Serum or plasma alanine aminotransferase measurement (enzymatic activity/volume) 13 U/L 0-55 Serum or plasma protein measurement (mass/volume) 7.4 g/dL 6.4-8.2 Serum or plasma albumin measurement (mass/volume) 4.1 g/dL 3.2-4.5 CALCIUM CORRECTED 9.3 mg/dL 8.5-10.1 Serum or plasma phosphate measurement (m ass/volume) - 03/26/19 03:00 Serum or plasma phosphate measurement (mass/volume) 3.6 mg/dL 2.3-4.7 Magnesium - 03/26/19 03:00 Magnesium 1.4 mg/dL 1.8-2.4 Capillary blood glucose measurement by g lucometer (mass/volume) - 03/26/19 11:11 Capillary blood glucose measurement by glucometer (mas s/volume) 322 mg/dL 70-110 PT panel in platelet poor plasma by coag ulation assay - 04/19/19 09:38 Prothrombin time (PT) in platelet poor plasma by coagu lation assay 16.9 s 12.2-14.7 INR in platelet poor plasma or blood by coagulation as say 1.3 0.8-1.4 Comprehensive metabolic panel - 04/19/19 09:38 Serum or plasma sodium measurement (moles/volume) 130 mmol/L 135-145 Serum or plasma potassium measurement (moles/volume) 4.2 mmol/L 3.6-5.0 Serum or plasma chloride measurement (moles/volume) 98 mmol/L 98-107 Carbon dioxide 22 mmol/L 21-32 Serum or plasma anion gap determination (moles/volume) 10 mmol/L 5-14 Serum or plasma urea nitrogen measurement (mass/volume ) 12 mg/dL 7-18 Serum or plasma creatinine measurement (mass/volume) 0.97 mg/dL 0.60-1.30 Serum or plasma urea nitrogen/creatinine mass ratio 12 NRG Serum or plasma creatinine measurement w ith calculation of estimated glomerular filtration rate > NRG Serum or plasma glucose measurement (mass/volume) 371 mg/dL 70-105 Serum or plasma calcium measurement (mass/volume) 8.2 mg/dL 8.5-10.1 Serum or plasma total bilirubin measurement (mass/volu me) 0.6 mg/dL 0.1-1.0 Serum or plasma alkaline phosphatase beti surement (enzymatic activity/volume) 46 U/L 40-136 Serum or plasma aspartate aminotransfera se measurement (enzymatic activity/volume) 15 U/L 5-34 Serum or plasma alanine aminotransferase measurement (enzymatic activity/volume) 15 U/L 0-55 Serum or plasma protein measurement (mass/volume) 6.1 g/dL 6.4-8.2 Serum or plasma albumin measurement (mass/volume) 3.6 g/dL 3.2-4.5 CALCIUM CORRECTED 8.5 mg/dL 8.5-10.1 Serum or plasma troponin i.cardiac measu rement (mass/volume) - 04/19/19 09:38 Serum or plasma troponin i.cardiac measurement (mass/v olume) < ng/mL <0.028 Complete blood count (CBC) with automate d white blood cell (WBC) differential - 04/19/19 09:38 Blood leukocytes automated count (number/volume) 6.6 10*3/uL 4.3-11.0 Blood erythrocytes automated count (number/volume) 3.57 10*6/uL 4.35-5.85 Venous blood hemoglobin measurement (mass/volume) 9.8 g/dL 13.3-17.7 Blood hematocrit (volume fraction) 31 % 40-54 Automated erythrocyte mean corpuscular volume 85 [ foz_us] 80-99 Automated erythrocyte mean corpuscular h emoglobin (mass per erythrocyte) 28 pg 25-34 Automated erythrocyte mean corpuscular h emoglobin concentration measurement (mass/volume) 32 g/dL 32-36 Automated erythrocyte distribution width ratio 15. 3 % 10.0- 14.5 Automated blood platelet count (count/volume) 254 10*3/uL 130-400 Automated blood platelet mean volume measurement 10.0 [foz_us] 7.4-10.4 Automated blood neutrophils/100 leukocytes 55 % 42-75 Automated blood lymphocytes/100 leukocytes 27 % 12-44 Blood monocytes/100 leukocytes 11 % 0-12 Automated blood eosinophils/100 leukocytes 7 % 0-10 Automated blood basophils/100 leukocytes 1 % 0-10 Blood neutrophils automated count (number/volume) 3.7 10*3 1.8-7.8 Blood lymphocytes automated count (number/volume) 1.8 10*3 1.0-4.0 Blood monocytes automated count (number/volume) 0. 7 10*3 0.0-1.0 Automated eosinophil count 0.4 10*3/uL 0 .0-0.3 Automated blood basophil count (count/volume) 0.0 10*3/uL 0.0-0.1 Capillary blood glucose measurement by g lucometer (mass/volume) - 04/19/19 09:41 Capillary blood glucose measurement by glucometer (mas s/volume) 376 mg/dL 70-110 Complete urinalysis with reflex to cultu re - 04/19/19 10:36 Urine color determination YELLOW NRG Urine clarity determination CLEAR NR G Urine pH measurement by test strip 8 5-9 Specific gravity of urine by test strip 1.010 1.016-1.022 Urine protein assay by test strip, semi-quantitative NEGATIVE NEGATIVE Urine glucose detection by automated test strip 4+ NEGATIVE Erythrocytes detection in urine sediment by light micr oscopy NEGATIVE NEGATIVE Urine ketones detection by automated test strip NE GATIVE NEGATIVE Urine nitrite detection by test strip NEGATIVE NEGATIVE Urine total bilirubin detection by test strip NEGA TIVE NEGATIVE Urine urobilinogen measurement by automated test strip (mass/volume) NORMAL NORMAL Urine leukocyte esterase detection by dipstick NEG ATIVE NEGATIVE Automated urine sediment erythrocyte cou nt by microscopy (number/high power field) NONE NRG Automated urine sediment leukocyte count by microscopy (number/high power field) NONE NRG Bacteria detection in urine sediment by light microsco py NEGATIVE NRG Squamous epithelial cells detection in u rine sediment by light microscopy RARE NRG Crystals detection in urine sediment by light microsco py NONE NRG Casts detection in urine sediment by light microscopy NONE NRG Mucus detection in urine sediment by light microscopy NEGATIVE NRG Complete urinalysis with reflex to culture NO NRG Capillary blood glucose measurement by g lucometer (mass/volume) - 04/19/19 13:07 Capillary blood glucose measurement by glucometer (mas s/volume) 353 mg/dL 70-110 Capillary blood glucose measurement by g lucometer (mass/volume) - 04/19/19 17:32 Capillary blood glucose measurement by glucometer (mas s/volume) 337 mg/dL 70-110 Serum or plasma troponin i.cardiac measu rement (mass/volume) - 04/19/19 18:01 Serum or plasma troponin i.cardiac measurement (mass/v olume) < ng/mL <0.028 Capillary blood glucose measurement by g lucometer (mass/volume) - 04/19/19 21:03 Capillary blood glucose measurement by glucometer (mas s/volume) 173 mg/dL 70-110 Serum or plasma troponin i.cardiac measu rement (mass/volume) - 04/20/19 00:00 Serum or plasma troponin i.cardiac measurement (mass/v olume) < ng/mL <0.028 Complete blood count (CBC) with automate d white blood cell (WBC) differential - 04/20/19 03:15 Blood leukocytes automated count (number/volume) 10.7 10*3/uL 4.3-11.0 Blood erythrocytes automated count (number/volume) 3.81 10*6/uL 4.35-5.85 Venous blood hemoglobin measurement (mass/volume) 10.4 g/dL 13.3-17.7 Blood hematocrit (volume fraction) 32 % 40-54 Automated erythrocyte mean corpuscular volume 84 [ foz_us] 80-99 Automated erythrocyte mean corpuscular h emoglobin (mass per erythrocyte) 27 pg 25-34 Automated erythrocyte mean corpuscular h emoglobin concentration measurement (mass/volume) 33 g/dL 32-36 Automated erythrocyte distribution width ratio 15. 9 % 10.0- 14.5 Automated blood platelet count (count/volume) 243 10*3/uL 130-400 Automated blood platelet mean volume measurement 9.6 [foz_us] 7.4-10.4 Automated blood neutrophils/100 leukocytes 60 % 42-75 Automated blood lymphocytes/100 leukocytes 27 % 12-44 Blood monocytes/100 leukocytes 9 % 0-12 Automated blood eosinophils/100 leukocytes 3 % 0-10 Automated blood basophils/100 leukocytes 0 % 0-10 Blood neutrophils automated count (number/volume) 6.4 10*3 1.8-7.8 Blood lymphocytes automated count (number/volume) 2.9 10*3 1.0-4.0 Blood monocytes automated count (number/volume) 1. 0 10*3 0.0-1.0 Automated eosinophil count 0.4 10*3/uL 0 .0-0.3 Automated blood basophil count (count/volume) 0.0 10*3/uL 0.0-0.1 Comprehensive metabolic panel - 04/20/19 03:15 Serum or plasma sodium measurement (moles/volume) 132 mmol/L 135-145 Serum or plasma potassium measurement (moles/volume) 3.8 mmol/L 3.6-5.0 Serum or plasma chloride measurement (moles/volume) 101 mmol/L 98-107 Carbon dioxide 21 mmol/L 21-32 Serum or plasma anion gap determination (moles/volume) 10 mmol/L 5-14 Serum or plasma urea nitrogen measurement (mass/volume ) 10 mg/dL 7-18 Serum or plasma creatinine measurement (mass/volume) 0.76 mg/dL 0.60-1.30 Serum or plasma urea nitrogen/creatinine mass ratio 13 NRG Serum or plasma creatinine measurement w ith calculation of estimated glomerular filtration rate > NRG Serum or plasma glucose measurement (mass/volume) 161 mg/dL 70-105 Serum or plasma calcium measurement (mass/volume) 8.6 mg/dL 8.5-10.1 Serum or plasma total bilirubin measurement (mass/volu me) 0.6 mg/dL 0.1-1.0 Serum or plasma alkaline phosphatase beti surement (enzymatic activity/volume) 48 U/L 40-136 Serum or plasma aspartate aminotransfera se measurement (enzymatic activity/volume) 18 U/L 5-34 Serum or plasma alanine aminotransferase measurement (enzymatic activity/volume) 16 U/L 0-55 Serum or plasma protein measurement (mass/volume) 6.6 g/dL 6.4-8.2 Serum or plasma albumin measurement (mass/volume) 3.7 g/dL 3.2-4.5 CALCIUM CORRECTED 8.8 mg/dL 8.5-10.1 Serum or plasma troponin i.cardiac measu rement (mass/volume) - 04/20/19 03:15 Serum or plasma troponin i.cardiac measurement (mass/v olume) < ng/mL <0.028 Capillary blood glucose measurement by g lucometer (mass/volume) - 04/20/19 11:46 Capillary blood glucose measurement by glucometer (mas s/volume) 310 mg/dL 70-110 Capillary blood glucose measurement by g lucometer (mass/volume) - 04/20/19 15:57 Capillary blood glucose measurement by glucometer (mas s/volume) 289 mg/dL 70-110 Capillary blood glucose measurement by g lucometer (mass/volume) - 04/20/19 21:02 Capillary blood glucose measurement by glucometer (mas s/volume) 227 mg/dL 70-110 Whole blood basic metabolic panel - 04/05 05/23 03:26 Serum or plasma sodium measurement (moles/volume) 132 mmol/L 135-145 Serum or plasma potassium measurement (moles/volume) 4.0 mmol/L 3.6-5.0 Serum or plasma chloride measurement (moles/volume) 99 mmol/L 98-107 Carbon dioxide 22 mmol/L 21-32 Serum or plasma anion gap determination (moles/volume) 11 mmol/L 5-14 Serum or plasma urea nitrogen measurement (mass/volume ) 9 mg/dL 7-18 Serum or plasma creatinine measurement (mass/volume) 0.78 mg/dL 0.60-1.30 Serum or plasma urea nitrogen/creatinine mass ratio 12 NRG Serum or plasma creatinine measurement w ith calculation of estimated glomerular filtration rate > NRG Serum or plasma glucose measurement (mass/volume) 155 mg/dL 70-105 Serum or plasma calcium measurement (mass/volume) 8.8 mg/dL 8.5-10.1 Magnesium - 04/21/19 03:26 Magnesium 1.6 mg/dL 1.8-2.4 Lipid 1996 panel - 04/21/19 03:26 Serum or plasma triglyceride measurement (mass/volume) 45 mg/dL <150 Serum or plasma cholesterol measurement (mass/volume) 116 mg/dL < 200 Serum or plasma cholesterol in HDL measurement (mass/v olume) 40 mg/dL 40-60 Cholesterol in LDL [mass/volume] in serum or plasma by direct assay 66 mg/dL 1-129 Serum or plasma cholesterol in VLDL measurement (mass/ volume) 9 mg/dL 5-40 THYROID STIMULATING HORMONE - 04/21/19 0 3:26 THYROID STIMULATING HORMONE 3.63 u[iU]/mL 0.35-4.94 Capillary blood glucose measurement by g lucometer (mass/volume) - 04/21/19 11:47 Capillary blood glucose measurement by glucometer (mas s/volume) 396 mg/dL 70-110 Capillary blood glucose measurement by g lucometer (mass/volume) - 04/21/19 16:07 Capillary blood glucose measurement by glucometer (mas s/volume) 232 mg/dL 70-110 Capillary blood glucose measurement by g lucometer (mass/volume) - 04/21/19 20:46 Capillary blood glucose measurement by glucometer (mas s/volume) 257 mg/dL 70-110 Capillary blood glucose measurement by g lucometer (mass/volume) - 04/22/19 05:42 Capillary blood glucose measurement by glucometer (mas s/volume) 187 mg/dL 70-110 Capillary blood glucose measurement by g lucometer (mass/volume) - 04/28/19 17:03 Capillary blood glucose measurement by glucometer (mas s/volume) 225 mg/dL 70-110 Complete blood count (CBC) with automate d white blood cell (WBC) differential - 04/28/19 17:04 Blood leukocytes automated count (number/volume) 8.5 10*3/uL 4.3-11.0 Blood erythrocytes automated count (number/volume) 3.99 10*6/uL 4.35-5.85 Venous blood hemoglobin measurement (mass/volume) 10.9 g/dL 13.3-17.7 Blood hematocrit (volume fraction) 34 % 40-54 Automated erythrocyte mean corpuscular volume 85 [ foz_us] 80-99 Automated erythrocyte mean corpuscular h emoglobin (mass per erythrocyte) 27 pg 25-34 Automated erythrocyte mean corpuscular h emoglobin concentration measurement (mass/volume) 32 g/dL 32-36 Automated erythrocyte distribution width ratio 15. 5 % 10.0- 14.5 Automated blood platelet count (count/volume) 308 10*3/uL 130-400 Automated blood platelet mean volume measurement 9.2 [foz_us] 7.4-10.4 Automated blood neutrophils/100 leukocytes 44 % 42-75 Automated blood lymphocytes/100 leukocytes 36 % 12-44 Blood monocytes/100 leukocytes 8 % 0-12 Automated blood eosinophils/100 leukocytes 10 % 0-10 Automated blood basophils/100 leukocytes 1 % 0-10 Blood neutrophils automated count (number/volume) 3.8 10*3 1.8-7.8 Blood lymphocytes automated count (number/volume) 3.1 10*3 1.0-4.0 Blood monocytes automated count (number/volume) 0. 7 10*3 0.0-1.0 Automated eosinophil count 0.9 10*3/uL 0 .0-0.3 Automated blood basophil count (count/volume) 0.1 10*3/uL 0.0-0.1 Comprehensive metabolic panel - 04/28/19 17:04 Serum or plasma sodium measurement (moles/volume) 131 mmol/L 135-145 Serum or plasma potassium measurement (moles/volume) 4.2 mmol/L 3.6-5.0 Serum or plasma chloride measurement (moles/volume) 96 mmol/L 98-107 Carbon dioxide 26 mmol/L 21-32 Serum or plasma anion gap determination (moles/volume) 9 mmol/L 5-14 Serum or plasma urea nitrogen measurement (mass/volume ) 13 mg/dL 7-18 Serum or plasma creatinine measurement (mass/volume) 0.83 mg/dL 0.60-1.30 Serum or plasma urea nitrogen/creatinine mass ratio 16 NRG Serum or plasma creatinine measurement w ith calculation of estimated glomerular filtration rate > NRG Serum or plasma glucose measurement (mass/volume) 211 mg/dL 70-105 Serum or plasma calcium measurement (mass/volume) 9.4 mg/dL 8.5-10.1 Serum or plasma total bilirubin measurement (mass/volu me) 0.3 mg/dL 0.1-1.0 Serum or plasma alkaline phosphatase beti surement (enzymatic activity/volume) 54 U/L 40-136 Serum or plasma aspartate aminotransfera se measurement (enzymatic activity/volume) 13 U/L 5-34 Serum or plasma alanine aminotransferase measurement (enzymatic activity/volume) 15 U/L 0-55 Serum or plasma protein measurement (mass/volume) 7.4 g/dL 6.4-8.2 Serum or plasma albumin measurement (mass/volume) 4.2 g/dL 3.2-4.5 CALCIUM CORRECTED 9.2 mg/dL 8.5-10.1 Complete urinalysis with reflex to cultu re - 04/28/19 17:27 Urine color determination YELLOW NRG Urine clarity determination SLIGHTLY CLOUDY NRG Urine pH measurement by test strip 7 5-9 Specific gravity of urine by test strip 1.010 1.016-1.022 Urine protein assay by test strip, semi-quantitative NEGATIVE NEGATIVE Urine glucose detection by automated test strip 2+ NEGATIVE Erythrocytes detection in urine sediment by light micr oscopy NEGATIVE NEGATIVE Urine ketones detection by automated test strip NE GATIVE NEGATIVE Urine nitrite detection by test strip NEGATIVE NEGATIVE Urine total bilirubin detection by test strip NEGA TIVE NEGATIVE Urine urobilinogen measurement by automated test strip (mass/volume) NORMAL NORMAL Urine leukocyte esterase detection by dipstick NEG ATIVE NEGATIVE Automated urine sediment erythrocyte cou nt by microscopy (number/high power field) NONE NRG Automated urine sediment leukocyte count by microscopy (number/high power field) NONE NRG Bacteria detection in urine sediment by light microsco py NEGATIVE NRG Crystals detection in urine sediment by light microsco py NONE NRG Casts detection in urine sediment by light microscopy PRESENT NRG Mucus detection in urine sediment by light microscopy NEGATIVE NRG Complete urinalysis with reflex to culture NO NRG Hyaline casts detection in urine sediment by light balaji roscopy RARE NRG Capillary blood glucose measurement by g lucometer (mass/volume) - 04/28/19 18:42 Capillary blood glucose measurement by glucometer (mas s/volume) 135 mg/dL 70-110 Complete blood count (CBC) with automate d white blood cell (WBC) differential - 07/01/19 09:10 Blood leukocytes automated count (number/volume) 9.6 10*3/uL 4.3-11.0 Blood erythrocytes automated count (number/volume) 3.96 10*6/uL 4.35-5.85 Venous blood hemoglobin measurement (mass/volume) 10.7 g/dL 13.3-17.7 Blood hematocrit (volume fraction) 34 % 40-54 Automated erythrocyte mean corpuscular volume 86 [ foz_us] 80-99 Automated erythrocyte mean corpuscular h emoglobin (mass per erythrocyte) 27 pg 25-34 Automated erythrocyte mean corpuscular h emoglobin concentration measurement (mass/volume) 32 g/dL 32-36 Automated erythrocyte distribution width ratio 15. 4 % 10.0- 14.5 Automated blood platelet count (count/volume) 311 10*3/uL 130-400 Automated blood platelet mean volume measurement 9.7 [foz_us] 7.4-10.4 Automated blood neutrophils/100 leukocytes 46 % 42-75 Automated blood lymphocytes/100 leukocytes 40 % 12-44 Blood monocytes/100 leukocytes 8 % 0-12 Automated blood eosinophils/100 leukocytes 6 % 0-10 Automated blood basophils/100 leukocytes 1 % 0-10 Blood neutrophils automated count (number/volume) 4.4 10*3 1.8-7.8 Blood lymphocytes automated count (number/volume) 3.8 10*3 1.0-4.0 Blood monocytes automated count (number/volume) 0. 8 10*3 0.0-1.0 Automated eosinophil count 0.5 10*3/uL 0 .0-0.3 Automated blood basophil count (count/volume) 0.1 10*3/uL 0.0-0.1 Comprehensive metabolic panel - 07/01/19 09:10 Serum or plasma sodium measurement (moles/volume) 134 mmol/L 135-145 Serum or plasma potassium measurement (moles/volume) 4.1 mmol/L 3.6-5.0 Serum or plasma chloride measurement (moles/volume) 100 mmol/L 98-107 Carbon dioxide 19 mmol/L 21-32 Serum or plasma anion gap determination (moles/volume) 15 mmol/L 5-14 Serum or plasma urea nitrogen measurement (mass/volume ) 18 mg/dL 7-18 Serum or plasma creatinine measurement (mass/volume) 0.95 mg/dL 0.60-1.30 Serum or plasma urea nitrogen/creatinine mass ratio 19 NRG Serum or plasma creatinine measurement w ith calculation of estimated glomerular filtration rate > NRG Serum or plasma glucose measurement (mass/volume) 224 mg/dL 70-105 Serum or plasma calcium measurement (mass/volume) 9.1 mg/dL 8.5-10.1 Serum or plasma total bilirubin measurement (mass/volu me) 0.6 mg/dL 0.1-1.0 Serum or plasma alkaline phosphatase beti surement (enzymatic activity/volume) 50 U/L 40-136 Serum or plasma aspartate aminotransfera se measurement (enzymatic activity/volume) 16 U/L 5-34 Serum or plasma alanine aminotransferase measurement (enzymatic activity/volume) 10 U/L 0-55 Serum or plasma protein measurement (mass/volume) 7.2 g/dL 6.4-8.2 Serum or plasma albumin measurement (mass/volume) 4.1 g/dL 3.2-4.5 CALCIUM CORRECTED 9.0 mg/dL 8.5-10.1 Serum or plasma troponin i.cardiac measu rement (mass/volume) - 07/01/19 09:10 Serum or plasma troponin i.cardiac measurement (mass/v olume) < ng/mL <0.028 Serum or plasma lithium measurement (mol es/volume) - 07/01/19 09:10 BNP PT 203.5 pg/mL <100.0 Complete urinalysis with reflex to cultu re - 07/01/19 10:35 Urine color determination YELLOW NRG Urine clarity determination CLEAR NR G Urine pH measurement by test strip 8 5-9 Specific gravity of urine by test strip 1.010 1.016-1.022 Urine protein assay by test strip, semi-quantitative NEGATIVE NEGATIVE Urine glucose detection by automated test strip 1+ NEGATIVE Erythrocytes detection in urine sediment by light micr oscopy NEGATIVE NEGATIVE Urine ketones detection by automated test strip NE GATIVE NEGATIVE Urine nitrite detection by test strip NEGATIVE NEGATIVE Urine total bilirubin detection by test strip NEGA TIVE NEGATIVE Urine urobilinogen measurement by automated test strip (mass/volume) NORMAL NORMAL Urine leukocyte esterase detection by dipstick NEG ATIVE NEGATIVE Automated urine sediment erythrocyte cou nt by microscopy (number/high power field) NONE NRG Automated urine sediment leukocyte count by microscopy (number/high power field) NONE NRG Bacteria detection in urine sediment by light microsco py NEGATIVE NRG Squamous epithelial cells detection in u rine sediment by light microscopy 2-5 NRG Crystals detection in urine sediment by light microsco py NONE NRG Casts detection in urine sediment by light microscopy PRESENT NRG Mucus detection in urine sediment by light microscopy NEGATIVE NRG Complete urinalysis with reflex to culture NO NRG Hyaline casts detection in urine sediment by light balaji roscopy 0-2 NRG Complete blood count (CBC) with automate d white blood cell (WBC) differential - 09/16/19 10:00 Blood leukocytes automated count (number/volume) 11.0 10*3/uL 4.3-11.0 Blood erythrocytes automated count (number/volume) 4.24 10*6/uL 4.35-5.85 Venous blood hemoglobin measurement (mass/volume) 11.1 g/dL 13.3-17.7 Blood hematocrit (volume fraction) 35 % 40-54 Automated erythrocyte mean corpuscular volume 83 [ foz_us] 80-99 Automated erythrocyte mean corpuscular h emoglobin (mass per erythrocyte) 26 pg 25-34 Automated erythrocyte mean corpuscular h emoglobin concentration measurement (mass/volume) 31 g/dL 32-36 Automated erythrocyte distribution width ratio 15. 5 % 10.0- 14.5 Automated blood platelet count (count/volume) 352 10*3/uL 130-400 Automated blood platelet mean volume measurement 9.9 [foz_us] 7.4-10.4 Automated blood neutrophils/100 leukocytes 41 % 42-75 Automated blood lymphocytes/100 leukocytes 45 % 12-44 Blood monocytes/100 leukocytes 8 % 0-12 Automated blood eosinophils/100 leukocytes 6 % 0-10 Automated blood basophils/100 leukocytes 1 % 0-10 Blood neutrophils automated count (number/volume) 4.5 10*3 1.8-7.8 Blood lymphocytes automated count (number/volume) 4.9 10*3 1.0-4.0 Blood monocytes automated count (number/volume) 0. 9 10*3 0.0-1.0 Automated eosinophil count 0.6 10*3/uL 0 .0-0.3 Automated blood basophil count (count/volume) 0.1 10*3/uL 0.0-0.1 Comprehensive metabolic panel - 09/16/19 10:00 Serum or plasma sodium measurement (moles/volume) 132 mmol/L 135-145 Serum or plasma potassium measurement (moles/volume) 3.9 mmol/L 3.6-5.0 Serum or plasma chloride measurement (moles/volume) 96 mmol/L 98-107 Carbon dioxide 25 mmol/L 21-32 Serum or plasma anion gap determination (moles/volume) 11 mmol/L 5-14 Serum or plasma urea nitrogen measurement (mass/volume ) 17 mg/dL 7-18 Serum or plasma creatinine measurement (mass/volume) 1.28 mg/dL 0.60-1.30 Serum or plasma urea nitrogen/creatinine mass ratio 13 NRG Serum or plasma creatinine measurement w ith calculation of estimated glomerular filtration rate 53 NRG Serum or plasma glucose measurement (mass/volume) 237 mg/dL 70-105 Serum or plasma calcium measurement (mass/volume) 9.3 mg/dL 8.5-10.1 Serum or plasma total bilirubin measurement (mass/volu me) 0.6 mg/dL 0.1-1.0 Serum or plasma alkaline phosphatase beti surement (enzymatic activity/volume) 60 U/L 40-136 Serum or plasma aspartate aminotransfera se measurement (enzymatic activity/volume) 16 U/L 5-34 Serum or plasma alanine aminotransferase measurement (enzymatic activity/volume) 9 U/L 0-55 Serum or plasma protein measurement (mass/volume) 7.5 g/dL 6.4-8.2 Serum or plasma albumin measurement (mass/volume) 4.4 g/dL 3.2-4.5 CALCIUM CORRECTED 9.0 mg/dL 8.5-10.1 Serum or plasma troponin i.cardiac measu rement (mass/volume) - 09/16/19 10:00 Serum or plasma troponin i.cardiac measurement (mass/v olume) < ng/mL <0.028 Serum or plasma C reactive protein measu rement (mass/volume) - 09/16/19 10:00 Serum or plasma C reactive protein measurement (mass/v olume) 0.06 mg/dL 0.00-0.50 Hemoglobin A1c measurement - 09/16/19 10 :00 Blood hemoglobin A1C measurement (mass/volume) 7.6 % 4.0-5.6 MEAN BLOOD GLUCOSE 171 % <=126 Complete urinalysis with reflex to cultu re - 09/16/19 10:55 Urine color determination YELLOW NRG Urine clarity determination CLEAR NR G Urine pH measurement by test strip 7.5 5-9 Specific gravity of urine by test strip 1.010 1.016-1.022 Urine protein assay by test strip, semi-quantitative NEGATIVE NEGATIVE Urine glucose detection by automated test strip NE GATIVE NEGATIVE Erythrocytes detection in urine sediment by light micr oscopy NEGATIVE NEGATIVE Urine ketones detection by automated test strip NE GATIVE NEGATIVE Urine nitrite detection by test strip NEGATIVE NEGATIVE Urine total bilirubin detection by test strip NEGA TIVE NEGATIVE Urine urobilinogen measurement by automated test strip (mass/volume) 0.2 mg/dL < = 1.0 Urine leukocyte esterase detection by dipstick NEG ATIVE NEGATIVE Automated urine sediment erythrocyte cou nt by microscopy (number/high power field) NONE NRG Automated urine sediment leukocyte count by microscopy (number/high power field) NONE NRG Bacteria detection in urine sediment by light microsco py NEGATIVE NRG Squamous epithelial cells detection in u rine sediment by light microscopy RARE NRG Crystals detection in urine sediment by light microsco py NONE NRG Casts detection in urine sediment by light microscopy NONE NRG Mucus detection in urine sediment by light microscopy NEGATIVE NRG Complete urinalysis with reflex to culture NO NRG Capillary blood glucose measurement by g lucometer (mass/volume) - 09/16/19 19:22 Capillary blood glucose measurement by glucometer (mas s/volume) 291 mg/dL 70-110 Capillary blood glucose measurement by g lucometer (mass/volume) - 09/17/19 05:36 Capillary blood glucose measurement by glucometer (mas s/volume) 123 mg/dL 70-110 Complete blood count (CBC) with automate d white blood cell (WBC) differential - 09/17/19 05:55 Blood leukocytes automated count (number/volume) 8.9 10*3/uL 4.3-11.0 Blood erythrocytes automated count (number/volume) 3.94 10*6/uL 4.35-5.85 Venous blood hemoglobin measurement (mass/volume) 10.5 g/dL 13.3-17.7 Blood hematocrit (volume fraction) 33 % 40-54 Automated erythrocyte mean corpuscular volume 83 [ foz_us] 80-99 Automated erythrocyte mean corpuscular h emoglobin (mass per erythrocyte) 27 pg 25-34 Automated erythrocyte mean corpuscular h emoglobin concentration measurement (mass/volume) 32 g/dL 32-36 Automated erythrocyte distribution width ratio 15. 2 % 10.0- 14.5 Automated blood platelet count (count/volume) 283 10*3/uL 130-400 Automated blood platelet mean volume measurement 9.0 [foz_us] 7.4-10.4 Automated blood neutrophils/100 leukocytes 55 % 42-75 Automated blood lymphocytes/100 leukocytes 33 % 12-44 Blood monocytes/100 leukocytes 8 % 0-12 Automated blood eosinophils/100 leukocytes 5 % 0-10 Automated blood basophils/100 leukocytes 0 % 0-10 Blood neutrophils automated count (number/volume) 4.9 10*3 1.8-7.8 Blood lymphocytes automated count (number/volume) 2.9 10*3 1.0-4.0 Blood monocytes automated count (number/volume) 0. 7 10*3 0.0-1.0 Automated eosinophil count 0.4 10*3/uL 0 .0-0.3 Automated blood basophil count (count/volume) 0.0 10*3/uL 0.0-0.1 Comprehensive metabolic panel - 09/17/19 05:55 Serum or plasma sodium measurement (moles/volume) 137 mmol/L 135-145 Serum or plasma potassium measurement (moles/volume) 3.8 mmol/L 3.6-5.0 Serum or plasma chloride measurement (moles/volume) 100 mmol/L 98-107 Carbon dioxide 25 mmol/L 21-32 Serum or plasma anion gap determination (moles/volume) 12 mmol/L 5-14 Serum or plasma urea nitrogen measurement (mass/volume ) 13 mg/dL 7-18 Serum or plasma creatinine measurement (mass/volume) 0.79 mg/dL 0.60-1.30 Serum or plasma urea nitrogen/creatinine mass ratio 16 NRG Serum or plasma creatinine measurement w ith calculation of estimated glomerular filtration rate > NRG Serum or plasma glucose measurement (mass/volume) 128 mg/dL 70-105 Serum or plasma calcium measurement (mass/volume) 8.7 mg/dL 8.5-10.1 Serum or plasma total bilirubin measurement (mass/volu me) 0.5 mg/dL 0.1-1.0 Serum or plasma alkaline phosphatase beti surement (enzymatic activity/volume) 47 U/L 40-136 Serum or plasma aspartate aminotransfera se measurement (enzymatic activity/volume) 14 U/L 5-34 Serum or plasma alanine aminotransferase measurement (enzymatic activity/volume) 9 U/L 0-55 Serum or plasma protein measurement (mass/volume) 6.7 g/dL 6.4-8.2 Serum or plasma albumin measurement (mass/volume) 3.9 g/dL 3.2-4.5 CALCIUM CORRECTED 8.8 mg/dL 8.5-10.1 Complete blood count (CBC) with automate d white blood cell (WBC) differential - 10/13/19 09:52 Blood leukocytes automated count (number/volume) 10.7 10*3/uL 4.3-11.0 Blood erythrocytes automated count (number/volume) 4.09 10*6/uL 4.35-5.85 Venous blood hemoglobin measurement (mass/volume) 10.7 g/dL 13.3-17.7 Blood hematocrit (volume fraction) 33 % 40-54 Automated erythrocyte mean corpuscular volume 81 [ foz_us] 80-99 Automated erythrocyte mean corpuscular h emoglobin (mass per erythrocyte) 26 pg 25-34 Automated erythrocyte mean corpuscular h emoglobin concentration measurement (mass/volume) 32 g/dL 32-36 Automated erythrocyte distribution width ratio 16. 1 % 10.0- 14.5 Automated blood platelet count (count/volume) 373 10*3/uL 130-400 Automated blood platelet mean volume measurement 9.9 [foz_us] 7.4-10.4 Automated blood neutrophils/100 leukocytes 49 % 42-75 Automated blood lymphocytes/100 leukocytes 38 % 12-44 Blood monocytes/100 leukocytes 9 % 0-12 Automated blood eosinophils/100 leukocytes 4 % 0-10 Automated blood basophils/100 leukocytes 1 % 0-10 Blood neutrophils automated count (number/volume) 5.2 10*3 1.8-7.8 Blood lymphocytes automated count (number/volume) 4.1 10*3 1.0-4.0 Blood monocytes automated count (number/volume) 0. 9 10*3 0.0-1.0 Automated eosinophil count 0.4 10*3/uL 0 .0-0.3 Automated blood basophil count (count/volume) 0.1 10*3/uL 0.0-0.1 Fibrin D-dimer FEU measurement in platel et poor plasma (mass/volume) - 10/13/19 09:52 Fibrin D-dimer FEU measurement in platelet poor plasma (mass/volume) 0.45 ug/mL 0.00-0.49 Comprehensive metabolic panel - 10/13/19 09:52 Serum or plasma sodium measurement (moles/volume) 133 mmol/L 135-145 Serum or plasma potassium measurement (moles/volume) 3.9 mmol/L 3.6-5.0 Serum or plasma chloride measurement (moles/volume) 99 mmol/L 98-107 Carbon dioxide 24 mmol/L 21-32 Serum or plasma anion gap determination (moles/volume) 10 mmol/L 5-14 Serum or plasma urea nitrogen measurement (mass/volume ) 16 mg/dL 7-18 Serum or plasma creatinine measurement (mass/volume) 1.11 mg/dL 0.60-1.30 Serum or plasma urea nitrogen/creatinine mass ratio 14 NRG Serum or plasma creatinine measurement w ith calculation of estimated glomerular filtration rate > NRG Serum or plasma glucose measurement (mass/volume) 184 mg/dL 70-105 Serum or plasma calcium measurement (mass/volume) 9.2 mg/dL 8.5-10.1 Serum or plasma total bilirubin measurement (mass/volu me) 0.6 mg/dL 0.1-1.0 Serum or plasma alkaline phosphatase beti surement (enzymatic activity/volume) 52 U/L 40-136 Serum or plasma aspartate aminotransfera se measurement (enzymatic activity/volume) 14 U/L 5-34 Serum or plasma alanine aminotransferase measurement (enzymatic activity/volume) 9 U/L 0-55 Serum or plasma protein measurement (mass/volume) 7.5 g/dL 6.4-8.2 Serum or plasma albumin measurement (mass/volume) 4.4 g/dL 3.2-4.5 CALCIUM CORRECTED 8.9 mg/dL 8.5-10.1 Serum or plasma lithium measurement (mol es/volume) - 10/13/19 09:52 BNP PT 178.1 pg/mL <100.0 Serum or plasma troponin i.cardiac measu rement (mass/volume) - 10/13/19 09:52 Serum or plasma troponin i.cardiac measurement (mass/v olume) < ng/mL <0.028 Complete urinalysis with reflex to cultu re - 10/13/19 11:20 Urine color determination YELLOW NRG Urine clarity determination CLEAR NR G Urine pH measurement by test strip 8.0 5-9 Specific gravity of urine by test strip 1.015 1.016-1.022 Urine protein assay by test strip, semi-quantitative NEGATIVE NEGATIVE Urine glucose detection by automated test strip NE GATIVE NEGATIVE Erythrocytes detection in urine sediment by light micr oscopy NEGATIVE NEGATIVE Urine ketones detection by automated test strip TR AALIYAH NEGATIVE Urine nitrite detection by test strip NEGATIVE NEGATIVE Urine total bilirubin detection by test strip NEGA TIVE NEGATIVE Urine urobilinogen measurement by automated test strip (mass/volume) 1.0 mg/dL < = 1.0 Urine leukocyte esterase detection by dipstick NEG ATIVE NEGATIVE Automated urine sediment erythrocyte cou nt by microscopy (number/high power field) NONE NRG Automated urine sediment leukocyte count by microscopy (number/high power field) NONE NRG Bacteria detection in urine sediment by light microsco py NEGATIVE NRG Squamous epithelial cells detection in u rine sediment by light microscopy RARE NRG Crystals detection in urine sediment by light microsco py NONE NRG Casts detection in urine sediment by light microscopy NONE NRG Mucus detection in urine sediment by light microscopy NEGATIVE NRG Complete urinalysis with reflex to culture NO NRG Serum or plasma troponin i.cardiac measu rement (mass/volume) - 10/13/19 16:24 Serum or plasma troponin i.cardiac measurement (mass/v olume) < ng/mL <0.028 Serum or plasma troponin i.cardiac measu rement (mass/volume) - 10/13/19 21:45 Serum or plasma troponin i.cardiac measurement (mass/v olume) < ng/mL <0.028 Complete blood count (CBC) with automate d white blood cell (WBC) differential - 10/14/19 05:15 Blood leukocytes automated count (number/volume) 8.2 10*3/uL 4.3-11.0 Blood erythrocytes automated count (number/volume) 4.06 10*6/uL 4.35-5.85 Venous blood hemoglobin measurement (mass/volume) 10.5 g/dL 13.3-17.7 Blood hematocrit (volume fraction) 33 % 40-54 Automated erythrocyte mean corpuscular volume 82 [ foz_us] 80-99 Automated erythrocyte mean corpuscular h emoglobin (mass per erythrocyte) 26 pg 25-34 Automated erythrocyte mean corpuscular h emoglobin concentration measurement (mass/volume) 32 g/dL 32-36 Automated erythrocyte distribution width ratio 15. 7 % 10.0- 14.5 Automated blood platelet count (count/volume) 297 10*3/uL 130-400 Automated blood platelet mean volume measurement 9.9 [foz_us] 7.4-10.4 Automated blood neutrophils/100 leukocytes 58 % 42-75 Automated blood lymphocytes/100 leukocytes 28 % 12-44 Blood monocytes/100 leukocytes 9 % 0-12 Automated blood eosinophils/100 leukocytes 5 % 0-10 Automated blood basophils/100 leukocytes 0 % 0-10 Blood neutrophils automated count (number/volume) 4.7 10*3 1.8-7.8 Blood lymphocytes automated count (number/volume) 2.3 10*3 1.0-4.0 Blood monocytes automated count (number/volume) 0. 8 10*3 0.0-1.0 Automated eosinophil count 0.4 10*3/uL 0 .0-0.3 Automated blood basophil count (count/volume) 0.0 10*3/uL 0.0-0.1 Comprehensive metabolic panel - 10/14/19 05:15 Serum or plasma sodium measurement (moles/volume) 134 mmol/L 135-145 Serum or plasma potassium measurement (moles/volume) 4.0 mmol/L 3.6-5.0 Serum or plasma chloride measurement (moles/volume) 101 mmol/L 98-107 Carbon dioxide 22 mmol/L 21-32 Serum or plasma anion gap determination (moles/volume) 11 mmol/L 5-14 Serum or plasma urea nitrogen measurement (mass/volume ) 16 mg/dL 7-18 Serum or plasma creatinine measurement (mass/volume) 0.78 mg/dL 0.60-1.30 Serum or plasma urea nitrogen/creatinine mass ratio 21 NRG Serum or plasma creatinine measurement w ith calculation of estimated glomerular filtration rate > NRG Serum or plasma glucose measurement (mass/volume) 160 mg/dL 70-105 Serum or plasma calcium measurement (mass/volume) 8.7 mg/dL 8.5-10.1 Serum or plasma total bilirubin measurement (mass/volu me) 0.5 mg/dL 0.1-1.0 Serum or plasma alkaline phosphatase beti surement (enzymatic activity/volume) 55 U/L 40-136 Serum or plasma aspartate aminotransfera se measurement (enzymatic activity/volume) 13 U/L 5-34 Serum or plasma alanine aminotransferase measurement (enzymatic activity/volume) 10 U/L 0-55 Serum or plasma protein measurement (mass/volume) 7.1 g/dL 6.4-8.2 Serum or plasma albumin measurement (mass/volume) 4.1 g/dL 3.2-4.5 CALCIUM CORRECTED 8.6 mg/dL 8.5-10.1 Magnesium - 10/14/19 05:15 Magnesium 1.4 mg/dL 1.6-2.4 Serum or plasma troponin i.cardiac measu rement (mass/volume) - 10/14/19 05:15 Serum or plasma troponin i.cardiac measurement (mass/v olume) 0.030 ng/mL <0.028 THYROID STIMULATING HORMONE - 10/14/19 0 5:15 THYROID STIMULATING HORMONE 2.50 u[iU]/mL 0.35-4.94 Serum or plasma troponin i.cardiac measu rement (mass/volume) - 10/14/19 09:40 Serum or plasma troponin i.cardiac measurement (mass/v olume) < ng/mL <0.028 [id number] - 10/14/19 09:40 [id number] < 0.30 0.80-2.00 Complete blood count (CBC) with automate d white blood cell (WBC) differential - 12/31/19 09:25 Blood leukocytes automated count (number/volume) 10.8 10*3/uL 4.3-11.0 Blood erythrocytes automated count (number/volume) 3.90 10*6/uL 4.35-5.85 Venous blood hemoglobin measurement (mass/volume) 10.4 g/dL 13.3-17.7 Blood hematocrit (volume fraction) 32 % 40-54 Automated erythrocyte mean corpuscular volume 83 [ foz_us] 80-99 Automated erythrocyte mean corpuscular h emoglobin (mass per erythrocyte) 27 pg 25-34 Automated erythrocyte mean corpuscular h emoglobin concentration measurement (mass/volume) 32 g/dL 32-36 Automated erythrocyte distribution width ratio 16. 6 % 10.0- 14.5 Automated blood platelet count (count/volume) 246 10*3/uL 130-400 Automated blood platelet mean volume measurement 9.7 [foz_us] 7.4-10.4 Automated blood neutrophils/100 leukocytes 57 % 42-75 Automated blood lymphocytes/100 leukocytes 30 % 12-44 Blood monocytes/100 leukocytes 9 % 0-12 Automated blood eosinophils/100 leukocytes 3 % 0-10 Automated blood basophils/100 leukocytes 0 % 0-10 Blood neutrophils automated count (number/volume) 6.1 10*3 1.8-7.8 Blood lymphocytes automated count (number/volume) 3.3 10*3 1.0-4.0 Blood monocytes automated count (number/volume) 1. 0 10*3 0.0-1.0 Automated eosinophil count 0.4 10*3/uL 0 .0-0.3 Automated blood basophil count (count/volume) 0.0 10*3/uL 0.0-0.1 Comprehensive metabolic panel - 12/31/19 09:25 Serum or plasma sodium measurement (moles/volume) 131 mmol/L 135-145 Serum or plasma potassium measurement (moles/volume) 3.8 mmol/L 3.6-5.0 Serum or plasma chloride measurement (moles/volume) 96 mmol/L 98-107 Carbon dioxide 24 mmol/L 21-32 Serum or plasma anion gap determination (moles/volume) 11 mmol/L 5-14 Serum or plasma urea nitrogen measurement (mass/volume ) 14 mg/dL 7-18 Serum or plasma creatinine measurement (mass/volume) 1.01 mg/dL 0.60-1.30 Serum or plasma urea nitrogen/creatinine mass ratio 14 NRG Serum or plasma creatinine measurement w ith calculation of estimated glomerular filtration rate > NRG Serum or plasma glucose measurement (mass/volume) 218 mg/dL 70-105 Serum or plasma calcium measurement (mass/volume) 8.9 mg/dL 8.5-10.1 Serum or plasma total bilirubin measurement (mass/volu me) 0.6 mg/dL 0.1-1.0 Serum or plasma alkaline phosphatase beti surement (enzymatic activity/volume) 50 U/L 40-136 Serum or plasma aspartate aminotransfera se measurement (enzymatic activity/volume) 11 U/L 5-34 Serum or plasma alanine aminotransferase measurement (enzymatic activity/volume) 10 U/L 0-55 Serum or plasma protein measurement (mass/volume) 7.2 g/dL 6.4-8.2 Serum or plasma albumin measurement (mass/volume) 4.1 g/dL 3.2-4.5 CALCIUM CORRECTED 8.8 mg/dL 8.5-10.1 Magnesium - 12/31/19 09:25 Magnesium 1.0 mg/dL 1.6-2.4 Serum or plasma creatine kinase measurem ent (enzymatic activity/volume) - 12/31/19 09:25 Serum or plasma creatine kinase measurem ent (enzymatic activity/volume) 68 U/L 30-200 Serum or plasma creatine kinase MB measu rement (enzymatic activity/volume) - 12/31/19 09:25 Serum or plasma creatine kinase MB measu rement (enzymatic activity/volume) 1.3 ng/mL <6.6 PT panel in platelet poor plasma by coag ulation assay - 12/31/19 09:25 Prothrombin time (PT) in platelet poor plasma by coagu lation assay 15.2 s 12.2-14.7 INR in platelet poor plasma or blood by coagulation as say 1.2 0.8-1.4 Activated partial thromboplastin time (a PTT) in platelet poor plasma bycoagulation assay - 12/31/19 09:25 Activated partial thromboplastin time (a PTT) in platelet poor plasma bycoagulation assay 21 s 24-35 Serum or plasma troponin i.cardiac measu rement (mass/volume) - 12/31/19 09:25 Serum or plasma troponin i.cardiac measurement (mass/v olume) < ng/mL <0.028 Myoglobin, serum - 12/31/19 09: Myoglobin, serum 83.0 ng/mL 10.0-92.0 Serum or plasma thyroxine (T4) free kaylee urement (mass/volume) - 12/31/19 09:25 Serum or plasma thyroxine (T4) free measurement (mass/ volume) 0.98 ng/dL 0.70-1.48 Serum or plasma thyrotropin measurement by detection limit <=0.05 miu/l (units/volume) - 12/31/19 09:25 Serum or plasma thyrotropin measurement by detection limit <=0.05 miu/l (units/volume) 6.75 u[iU]/mL 0.35-4.94 [id number] - 12/31/19 09:25 [id number] 0.69 ng/mL 0.80-2.00 Serum or plasma ethanol measurement (mas s/volume) - 12/31/19 09:25 Serum or plasma ethanol measurement (mass/volume) < mg/dL <10 Serum or plasma folate measurement (mass /volume) - 12/31/19 09:25 Serum or plasma folate measurement (mass/volume) 1 7.6 % >=4.0 Hemoglobin A1c measurement - 12/31/19 09 :25 Blood hemoglobin A1C measurement (mass/volume) 8.4 % 4.0-5.6 MEAN BLOOD GLUCOSE 194 % <=126 VITAMIN B 12 - 12/31/19 09:25 VITAMIN B 12 339 pg/mL 190-1100 VITAMIN D 25-HYDROXY - 12/31/19 09:25 VITAMIN D 25-HYDROXY (TOTAL) 23.5 % 3 0.0-100.0 Capillary blood glucose measurement by g lucometer (mass/volume) - 12/31/19 09:29 Capillary blood glucose measurement by glucometer (mas s/volume) 226 mg/dL 70-110 Influenza virus A and B antigen detectio n - 12/31/19 09:30 FLU RESULT NEGATIVE FOR INFLUENZA A AND B ANTIGENS BY IA NRG Complete urinalysis with reflex to cultu re - 12/31/19 11:23 Urine color determination YELLOW NRG Urine clarity determination CLEAR NR G Urine pH measurement by test strip 7.0 5-9 Specific gravity of urine by test strip <= 1.016-1.022 Urine protein assay by test strip, semi-quantitative NEGATIVE NEGATIVE Urine glucose detection by automated test strip NE GATIVE NEGATIVE Erythrocytes detection in urine sediment by light micr oscopy NEGATIVE NEGATIVE Urine ketones detection by automated test strip NE GATIVE NEGATIVE Urine nitrite detection by test strip NEGATIVE NEGATIVE Urine total bilirubin detection by test strip NEGA TIVE NEGATIVE Urine urobilinogen measurement by automated test strip (mass/volume) 0.2 mg/dL < = 1.0 Urine leukocyte esterase detection by dipstick NEG ATIVE NEGATIVE Automated urine sediment erythrocyte cou nt by microscopy (number/high power field) NONE NRG Automated urine sediment leukocyte count by microscopy (number/high power field) NONE NRG Bacteria detection in urine sediment by light microsco py NEGATIVE NRG Crystals detection in urine sediment by light microsco py NONE NRG Casts detection in urine sediment by light microscopy NONE NRG Mucus detection in urine sediment by light microscopy NEGATIVE NRG Complete urinalysis with reflex to culture NO NRG Urine drug screening test - 12/31/19 11: 23 Urine phencyclidine detection by screening method NEGATIVE NEGATIVE Urine benzodiazepines detection by screening method NEGATIVE NEGATIVE Urine cocaine detection NEGATIVE NEGATI VE Urine amphetamines detection by screening method N EGATIVE NEGATIVE Urine methamphetamine detection by screening method NEGATIVE NEGATIVE Urine cannabinoids detection by screening method N EGATIVE NEGATIVE Urine opiates detection by screening method NEGATI VE NEGATIVE Urine barbiturates detection NEGATIVE N EGATIVE Screening urine tricyclic antidepressants detection NEGATIVE NEGATIVE Urine methadone detection by screening method NEGA TIVE NEGATIVE Urine oxycodone detection NEGATIVE NEGA TIVE Urine propoxyphene detection NEGATIVE N EGATIVE Serum or plasma troponin i.cardiac measu rement (mass/volume) - 12/31/19 15:25 Serum or plasma troponin i.cardiac measurement (mass/v olume) < ng/mL <0.028 Capillary blood glucose measurement by g lucometer (mass/volume) - 12/31/19 15:34 Capillary blood glucose measurement by glucometer (mas s/volume) 320 mg/dL 70-110 Capillary blood glucose measurement by g lucometer (mass/volume) - 12/31/19 20:46 Capillary blood glucose measurement by glucometer (mas s/volume) 174 mg/dL 70-110 Complete blood count (CBC) with automate d white blood cell (WBC) differential - 01/01/20 03:35 Blood leukocytes automated count (number/volume) 10.7 10*3/uL 4.3-11.0 Blood erythrocytes automated count (number/volume) 4.01 10*6/uL 4.35-5.85 Venous blood hemoglobin measurement (mass/volume) 10.6 g/dL 13.3-17.7 Blood hematocrit (volume fraction) 34 % 40-54 Automated erythrocyte mean corpuscular volume 84 [ foz_us] 80-99 Automated erythrocyte mean corpuscular h emoglobin (mass per erythrocyte) 26 pg 25-34 Automated erythrocyte mean corpuscular h emoglobin concentration measurement (mass/volume) 32 g/dL 32-36 Automated erythrocyte distribution width ratio 16. 5 % 10.0- 14.5 Automated blood platelet count (count/volume) 323 10*3/uL 130-400 Automated blood platelet mean volume measurement 9.7 [foz_us] 7.4-10.4 Automated blood neutrophils/100 leukocytes 58 % 42-75 Automated blood lymphocytes/100 leukocytes 28 % 12-44 Blood monocytes/100 leukocytes 11 % 0-12 Automated blood eosinophils/100 leukocytes 3 % 0-10 Automated blood basophils/100 leukocytes 0 % 0-10 Blood neutrophils automated count (number/volume) 6.2 10*3 1.8-7.8 Blood lymphocytes automated count (number/volume) 3.0 10*3 1.0-4.0 Blood monocytes automated count (number/volume) 1. 2 10*3 0.0-1.0 Automated eosinophil count 0.3 10*3/uL 0 .0-0.3 Automated blood basophil count (count/volume) 0.0 10*3/uL 0.0-0.1 Comprehensive metabolic panel - 01/01/20 03:35 Serum or plasma sodium measurement (moles/volume) 136 mmol/L 135-145 Serum or plasma potassium measurement (moles/volume) 4.2 mmol/L 3.6-5.0 Serum or plasma chloride measurement (moles/volume) 101 mmol/L 98-107 Carbon dioxide 23 mmol/L 21-32 Serum or plasma anion gap determination (moles/volume) 12 mmol/L 5-14 Serum or plasma urea nitrogen measurement (mass/volume ) 12 mg/dL 7-18 Serum or plasma creatinine measurement (mass/volume) 0.93 mg/dL 0.60-1.30 Serum or plasma urea nitrogen/creatinine mass ratio 13 NRG Serum or plasma creatinine measurement w ith calculation of estimated glomerular filtration rate > NRG Serum or plasma glucose measurement (mass/volume) 179 mg/dL 70-105 Serum or plasma calcium measurement (mass/volume) 8.5 mg/dL 8.5-10.1 Serum or plasma total bilirubin measurement (mass/volu me) 0.5 mg/dL 0.1-1.0 Serum or plasma alkaline phosphatase beti surement (enzymatic activity/volume) 53 U/L 40-136 Serum or plasma aspartate aminotransfera se measurement (enzymatic activity/volume) 19 U/L 5-34 Serum or plasma alanine aminotransferase measurement (enzymatic activity/volume) 13 U/L 0-55 Serum or plasma protein measurement (mass/volume) 7.8 g/dL 6.4-8.2 Serum or plasma albumin measurement (mass/volume) 4.4 g/dL 3.2-4.5 CALCIUM CORRECTED 8.2 mg/dL 8.5-10.1 Magnesium - 01/01/20 03:35 Magnesium 1.7 mg/dL 1.6-2.4 Capillary blood glucose measurement by g lucometer (mass/volume) - 01/01/20 15:46 Capillary blood glucose measurement by glucometer (mas s/volume) 220 mg/dL 70-110 Capillary blood glucose measurement by g lucometer (mass/volume) - 01/01/20 20:38 Capillary blood glucose measurement by glucometer (mas s/volume) 260 mg/dL 70-110 Capillary blood glucose measurement by g lucometer (mass/volume) - 01/02/20 06:28 Capillary blood glucose measurement by glucometer (mas s/volume) 185 mg/dL 70-110 Complete blood count (CBC) with automate d white blood cell (WBC) differential - 05/21/20 12:52 Blood leukocytes automated count (number/volume) 7.7 10*3/uL 4.3-11.0 Blood erythrocytes automated count (number/volume) 3.81 10*6/uL 4.35-5.85 Venous blood hemoglobin measurement (mass/volume) 10.2 g/dL 13.3-17.7 Blood hematocrit (volume fraction) 32 % 40-54 Automated erythrocyte mean corpuscular volume 83 [ foz_us] 80-99 Automated erythrocyte mean corpuscular h emoglobin (mass per erythrocyte) 27 pg 25-34 Automated erythrocyte mean corpuscular h emoglobin concentration measurement (mass/volume) 32 g/dL 32-36 Automated erythrocyte distribution width ratio 17. 1 % 10.0- 14.5 Automated blood platelet count (count/volume) 322 10*3/uL 130-400 Automated blood platelet mean volume measurement 9.4 [foz_us] 7.4-10.4 Automated blood neutrophils/100 leukocytes 68 % 42-75 Automated blood lymphocytes/100 leukocytes 21 % 12-44 Blood monocytes/100 leukocytes 9 % 0-12 Automated blood eosinophils/100 leukocytes 2 % 0-10 Automated blood basophils/100 leukocytes 0 % 0-10 Blood neutrophils automated count (number/volume) 5.2 10*3 1.8-7.8 Blood lymphocytes automated count (number/volume) 1.6 10*3 1.0-4.0 Blood monocytes automated count (number/volume) 0. 7 10*3 0.0-1.0 Automated eosinophil count 0.2 10*3/uL 0 .0-0.3 Automated blood basophil count (count/volume) 0.0 10*3/uL 0.0-0.1 Comprehensive metabolic panel - 05/21/20 12:52 Serum or plasma sodium measurement (moles/volume) 135 mmol/L 135-145 Serum or plasma potassium measurement (moles/volume) 3.9 mmol/L 3.6-5.0 Serum or plasma chloride measurement (moles/volume) 101 mmol/L 98-107 Carbon dioxide 24 mmol/L 21-32 Serum or plasma anion gap determination (moles/volume) 10 mmol/L 5-14 Serum or plasma urea nitrogen measurement (mass/volume ) 18 mg/dL 7-18 Serum or plasma creatinine measurement (mass/volume) 1.00 mg/dL 0.60-1.30 Serum or plasma urea nitrogen/creatinine mass ratio 18 NRG Serum or plasma creatinine measurement w ith calculation of estimated glomerular filtration rate > NRG Serum or plasma glucose measurement (mass/volume) 213 mg/dL 70-105 Serum or plasma calcium measurement (mass/volume) 8.8 mg/dL 8.5-10.1 Serum or plasma total bilirubin measurement (mass/volu me) 0.5 mg/dL 0.1-1.0 Serum or plasma alkaline phosphatase beti surement (enzymatic activity/volume) 41 U/L 40-136 Serum or plasma aspartate aminotransfera se measurement (enzymatic activity/volume) 14 U/L 5-34 Serum or plasma alanine aminotransferase measurement (enzymatic activity/volume) 7 U/L 0-55 Serum or plasma protein measurement (mass/volume) 7.0 g/dL 6.4-8.2 Serum or plasma albumin measurement (mass/volume) 4.0 g/dL 3.2-4.5 CALCIUM CORRECTED 8.8 mg/dL 8.5-10.1 Serum or plasma troponin i.cardiac measu rement (mass/volume) - 05/21/20 12:52 Serum or plasma troponin i.cardiac measurement (mass/v olume) < ng/mL <0.028 Lipase - 05/21/20 12:52 Lipase 24 U/L 8-78 Serum or plasma C reactive protein measu rement (mass/volume) - 05/21/20 12:52 Serum or plasma C reactive protein measurement (mass/v olume) 0.04 mg/dL 0.00-0.50 [id number] - 05/21/20 12:52 [id number] < 0.30 0.80-2.00 Serum or plasma lithium measurement (mol es/volume) - 05/21/20 12:52 BNP PT 236.0 pg/mL <100.0 Complete urinalysis with reflex to cultu re - 05/21/20 14:24 Urine color determination YELLOW NRG Urine clarity determination CLEAR NR G Urine pH measurement by test strip 7.5 5-9 Specific gravity of urine by test strip 1.010 1.016-1.022 Urine protein assay by test strip, semi-quantitative NEGATIVE NEGATIVE Urine glucose detection by automated test strip NE GATIVE NEGATIVE Erythrocytes detection in urine sediment by light micr oscopy NEGATIVE NEGATIVE Urine ketones detection by automated test strip NE GATIVE NEGATIVE Urine nitrite detection by test strip NEGATIVE NEGATIVE Urine total bilirubin detection by test strip NEGA TIVE NEGATIVE Urine urobilinogen measurement by automated test strip (mass/volume) 1.0 mg/dL < = 1.0 Urine leukocyte esterase detection by dipstick NEG ATIVE NEGATIVE Automated urine sediment erythrocyte cou nt by microscopy (number/high power field) NONE NRG Automated urine sediment leukocyte count by microscopy (number/high power field) NONE NRG Bacteria detection in urine sediment by light microsco py TRACE NRG Crystals detection in urine sediment by light microsco py PRESENT NRG Casts detection in urine sediment by light microscopy NONE NRG Mucus detection in urine sediment by light microscopy NEGATIVE NRG Complete urinalysis with reflex to culture NO NRG Amorphous sediment detection in urine sediment by ligh t microscopy RARE LISA PHOSPHATE NRG Encounters ACCT No. Visit Date/Time Discharge Status Pt. Type Provider Facility Loc./Unit Complaint [id number] 01/02/2020 10:56:16 01/02/2020 23:59:5 9 CLS Outpatient [id number] 12/31/2019 11:15:00 10:57:00 DIS Inpatient ELISA SAMUEL MD [facility] CSD SYNCOPAL EPISODE;ORTHOS TATIC HYPOTENSION [id number] 10/13/2019 13:15:00 13:53:00 DIS Inpatient JOSSE ANNE DO [facility] 4TH SYNCOPE AFIB [id number] 09/16/2019 13:31:00 14:22:00 DIS Inpatient JOSSE ANNE DO [facility] 4TH ORTHOSTATIC HYP OTENSION [id number] 07/01/2019 09:10:00 12:16:00 DIS Emergency SAADIA TOMLIN MD [facility] ER DIZZINESS [id number] 04/28/2019 16:54:00 19:11:00 DIS Emergency CA TSOLL [facility] ER HIGH BLOOD SUGAR [id number] 04/19/2019 13:05:00 019 07:34:00 DIS Inpatient PRINCE AVERY DO, [facility] ICU SYNCOPAL EPISODE, HYPER GLYCEMIA [id number] 04/10/2019 15:33:00 019 23:59:59 CLS Preadmit LOREN SUÁREZ FACEle, CHEMO MINER CCDS [facility] CARD SYNOPE AND AMINAH APSE, PAF, CAD [id number] 03/24/2019 14:30:00 13:55:00 DIS 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 ARAM ANTICOAGULATION [id number] 11/15/2018 08:00:00 019 23:59:59 CLS Preadmit LOREN SUÁREZ FACEle, CHEMO MINER CCDS [facility] CARD CAD,PAF,WARFARI N INDUCED COAGULOPATHY [id number] 10/14/2018 14:38:00 018 11:00:00 DIS Inpatient GHISLAINE FLORES MD [facility] 4TH HYPONATREMIA HYPOMAGNES EMIA WEAKNESS [id number] 10/12/2018 08:44:00 018 10:37:00 DIS Emergency MARY LOU CALERO MD [facility] ER FALL, R BACK PAIN [id number] 09/12/2018 11:26:00 018 12:00:00 DIS Inpatient NEFTALY VILLALOBOS MD [facility] 4TH ORTHOSTATIC HYPOTENSION [id number] 04/25/2017 14:42:00 017 23:59:59 CLS Outpatient CHELSEA QUINTANILLA MD [facility] RAD CERVICAL STENOSIS M48. 02 [id number] 04/30/2016 07:59:00 016 10:55:00 DIS Emergency JOE MD, CRISTAL Marie [facility] ER DIZZINESS [id number] 07/13/2013 10:49:00 013 13:52:00 DIS Emergency [id number] 05/21/2020 13:00:00 Document Registration
[2020-05-21 16:41] VITALS: BP 152/91
== END 2020-05-21 16:41 | disposition home or self-care (01) ==
LOC: EDUNIT# 12:35 → ER 12:40
DX: R55 Syncope and collapse (principal); R10.32 Left lower quadrant pain; I11.0 Hypertensive heart disease with heart failure; I50.9 Heart failure, unspecified; E11.9 Type 2 diabetes mellitus without complications; I25.10 Atherosclerotic heart disease of native coronary artery without angina pectoris; I48.20 Chronic atrial fibrillation, unspecified; Z79.01 Long term (current) use of anticoagulants; Z79.84 Long term (current) use of oral hypoglycemic drugs; Z88.0 Allergy status to penicillin; Z87.891 Personal history of nicotine dependence; Z95.5 Presence of coronary angioplasty implant and graft; Z85.21 Personal history of malignant neoplasm of larynx; Z82.49 Family history of ischemic heart disease and other diseases of the circulatory system
CPT/HCPCS: 36415; 71045; 74177; 80053; 80162; 81000; 83690; 83880; 84484; 85025; 86141; 93005